=== PATIENT | female | born 1990 | race Caucasian/White ===

== ENCOUNTER → 2020-01-13 | Outpatient (CLI) | payer MEDICAID, SELFPAY ==
[2020-01-13 09:36] VITALS: BMI 31.1
[2020-01-13 13:43] LABS: Absolute Lymphocyte Count 2.78 X10^3/uL (0.83-4.51); Absolute Neutrophil Count 4.1 X10^3/uL (2.0-7.7); Basophil# 0.03 X10^3/uL; Basophil% 0.4 % (0-1); Eosinophil# 0.11 X10^3/uL; Eosinophils% 1.5 % (0-5); Hematocrit 40.5 % (37-47); Lymphocyte # 2.78 X10^3/ul (4.0); Lymphocyte % 36.9 % (19-41); Mean Corp Hgb Conc 32.1 g/dL (32-36); Mean Corpuscular Hgb 29.3 pg (27.0-32.0); Mean Corpuscular Volume 91.4 fL (81-99); Mean Platelet Vol. 11.2 fl (6.2-12.0); Monocyte# 0.46 X10^3/uL; Monocyte% 6.1 % (0-10); NRBC Flagged by Analyzer 0 % (0-5); Neutrophil # 4.13 X10^3/uL (2.7-7.7); Neutrophil % 54.8 % (47-70); Platelet Count 257 K/mm3 (150-450); RBC Distribution Width CV 12.9 % (11.6-14.6); RBC Distribution Width SD 42.5 fl (35.1-43.9); Red Blood Count 4.43 M/mm3 (4.2-5.4); White Blood Count 7.5 K/mm3 (4.4-11.0)
[2020-01-13 13:46] LABS: AST(SGOT) 13 U/L (15-37); Alanine Aminotransfer ALT/SGPT 16 U/L (13-56); Albumin, Serum 4.1 g/dL (3.2-5.0); Alkaline Phosphatase 95 U/L (45-117); BUN 11 mg/dL (7-18); BUN/Creat Ratio 12.3 RATIO (10-20); Calcium,Total 9.4 mg/dL (8.5-10.1); EST Glomerular Filtration Rate 79 mL/min (>60); Est Glom Filt Rate - Afr Amer 96 mL/min (>60); Globulin 4.2 g/dL (2.2-4.2); Glucose 81 mg/dL (74-106); Protein, Total 8.3 g/dL (6.4-8.2); Sodium Level 138 mmol/L (136-145)
[2020-01-13 13:47] LABS: Anion Gap 5 (5-15); Chloride 107 mmol/L (98-107); Potassium 4.6 mmol/L (3.5-5.1)
== END | disposition home or self-care (01) ==
LOC: LABSPEC 13:12
PROVIDERS: PCP Internal Medicine; Referring Provider Internal Medicine; Visit Provider Internal Medicine
DX: G43.709 Chronic migraine without aura, not intractable, without status migrainosus (principal)
CPT/HCPCS: 80053; 85025

== ENCOUNTER 2020-02-17 08:31 | Emergency (ER) | payer MEDICAID, SELFPAY ==
[2020-01-13 09:36] VITALS: BMI 31.1
[2020-02-17 08:32] VITALS: BP 119/86; PULSE 92; RESP 17; TEMP 36.1; O2SAT 96; BMI 32.7
--- NOTE | 2020-02-17 09:12 | CT_ITS ---
STUDY: CT PELVIS WITH CONTRAST REASON FOR EXAM: Female, 29 years old. INCREASED VULVA PAIN, PELVIC PAIN RADIATION DOSAGE (If Supplied By Facility): CTDIvol = ( 20.7 ) mGy, DLP = ( 680.09 ) mGycm TECHNIQUE: Transaxial imaging of the pelvis was performed without oral contrast. IV 100ML ISOVUE 300 was administered intravenously. Individualized dose optimization techniques were used for this CT. COMPARISON: None. FINDINGS: There is a 2 cm x 1.4 cm cyst in the inferior aspect of the labia. I suspect this to be on the left side. This may represent a Bartholin''s cyst. Normal urinary bladder. Small benign-appearing bilateral inguinal lymph nodes. Normal visualized small intestine. Normal visualized colon. There is no pelvic fluid. There is no pelvic lymphadenopathy or mass lesion. Normal visualized pelvic arteries. Normal abdominal wall. Normal osseous structures. CT/Pelvis WITH IV Contrast IMPRESSION: Findings suggestive of a Bartholin''s cyst arising from the left labia majora. Electronically Signed: Steve Claros, at 10:36 EDT , Service support ,
--- NOTE | 2020-02-17 09:20 | ED.DCSUM_ITS ---
- ER Visit Summary Date of Service: 02/17/20 Chief Complaint: Vulva swelling History of Present Illness: The patient is a 29 F presenting with vulva swelling. She states this started last week. She was seen in the ED at [facility] on Saturday. She was diagnosed with possible vaginitis or possible her pes outbreak. Patient has a history of genital herpes. She has been taking Valtrex. She has not noticed any lesions. She denies fever. Denies possibility of . Denies other complaints. Physical Examination: Vitals are stable. Patient is afebrile. Alert no acute distress. HEENT exam is unremarkable. Neck is supple. Lungs are clear and equal bilaterally. Heart is regular rate and rhythm. Abdomen is soft nontender nondistended. : anterior labial fluctuance, 2 cm, no surrounding erythema Extremities are unremarkable. Skin is warm and dry. Remainder of exam is unremarkable. Emergency Department Course and Treatment: She was given morphine, Zofran IV. CBC, chemistries unremarkable. hCG negative. CT abdomen pelvis shows findings suggestive of a Bartholin''s cyst arising from the left labia majora. Area was anesthetized with lidocaine. Incised with 11 blade. Moderate amount of pus was drained. Irrigated with saline. Wound culture was sent. Discussed with Dr. Ames patient will follow-up in the office. She is given a prescription for Bactrim. Advised return to ED for worsening complaints. Disposition: Discharge home Impression: Bartholin gland abscess, I&D This note was generated with [employer] dictation software. It may contain incorrect words, spelling, and punctuation that were not noted in review of the chart prior to signing ED Disposition - Plan for ED Patient: Instructions: ED Bartholins Cyst IandD Prescriptions: Smz/Tmp Ds [Bactrim Ds] 1 tab PO BID #14 tab Prescription Printed Referrals: Arlet Ames MD [STAFF PHYSICIAN] - Gala Roberts MD [Primary Care Provider] -
[2020-02-17] MEDS: Ondansetron 4 MG/2 ML Vial IV (09:22)
[2020-02-17] MEDS: Morphine 4 MG/ML Syringe IV (09:22)
[2020-02-17 09:35] LABS: Absolute Lymphocyte Count 1.96 X10^3/uL (0.83-4.51); Absolute Neutrophil Count 5.8 X10^3/uL (2.0-7.7); Basophil# 0.03 X10^3/uL; Basophil% 0.4 % (0-1); Eosinophil# 0.11 X10^3/uL; Eosinophils% 1.3 % (0-5); Hematocrit 37.3 % (37-47); Hemoglobin 11.5 g/dL (12.0-15.0); Lymphocyte # 1.96 X10^3/ul (4.0); Lymphocyte % 23.2 % (19-41); Mean Corp Hgb Conc 30.8 g/dL (32-36); Mean Corpuscular Hgb 28.8 pg (27.0-32.0); Mean Corpuscular Volume 93.5 fL (81-99); Mean Platelet Vol. 10.1 fl (6.2-12.0); Monocyte# 0.54 X10^3/uL; Monocyte% 6.4 % (0-10); NRBC Flagged by Analyzer 0 % (0-5); Neutrophil # 5.79 X10^3/uL (2.7-7.7); Neutrophil % 68.5 % (47-70); Platelet Count 267 K/mm3 (150-450); RBC Distribution Width CV 12.9 % (11.6-14.6); RBC Distribution Width SD 44.2 fl (35.1-43.9); Red Blood Count 3.99 M/mm3 (4.2-5.4); White Blood Count 8.5 K/mm3 (4.4-11.0)
[2020-02-17 09:51] LABS: Anion Gap 6 (5-15); BUN 7 mg/dL (7-18); BUN/Creat Ratio 7.7 RATIO (10-20); Calcium,Total 8.8 mg/dL (8.5-10.1); Chloride 113 mmol/L (98-107); Creatinine, Serum 0.91 mg/dL (0.55-1.02); EST Glomerular Filtration Rate 78 mL/min (>60); Est Glom Filt Rate - Afr Amer 95 mL/min (>60); Estimated Creatinine Clearance 79.48 ml/min; Glucose 88 mg/dL (74-106); Potassium 3.9 mmol/L (3.5-5.1); Sodium Level 143 mmol/L (136-145)
[2020-02-17 09:57] LABS: Internal QC Validated? YES +Cl - CLEAR BKGD; Pregnancy, Serum, hCG Quali. NEGATIVE Negative
[2020-02-17 10:45] VITALS: BP 102/57; PULSE 67; RESP 16; O2SAT 100
--- NOTE | 2020-02-17 11:05 | ED.DEP ---
ED Disposition - Plan for ED Patient: Instructions: ED Bartholins Cyst IandD Prescriptions: Smz/Tmp Ds [Bactrim Ds] 1 tablet PO BID #14 tablet Referrals: Gala Roberts MD [Primary Care Provider] - rAlet Ames MD [STAFF PHYSICIAN] -
[2020-02-17] MEDS: Smz/Tmp Ds Tablet 1 TABLET PO (11:14)
== END 2020-02-17 11:35 | disposition home or self-care (01) ==
LOC: ED 10:46
PROVIDERS: Emergency Provider Emergency Medicine; PCP Internal Medicine
DX: N75.1 Abscess of Bartholin's gland (principal)
CPT/HCPCS: 10060; 72193; 80048; 84703; 85025; 87070; 87186; 87205; 99284; Q9967; A4216; J2405

== ENCOUNTER 2020-05-20 12:54 | Emergency (ER) | payer MEDICAID, SELFPAY ==
[2020-04-05 11:37] VITALS: BMI 33.5
[2020-05-20 12:56] VITALS: BP 128/81; PULSE 86; RESP 19; TEMP 36.6; O2SAT 99; BMI 34.0
--- NOTE | 2020-05-20 13:12 | CT_ITS ---
STUDY: CT BRAIN WITH AND WITHOUT CONTRAST REASON FOR EXAM: Female, 29 years old. MIGRAINE,PT STATES SHE WAS DX WITH BRAIN TUMOR 2 YRS AGO, NO FOLLOW UP, RT ARM NUMBNESS RADIATION DOSAGE (If Supplied By Facility): CTDIvol = ( 44.99 ) mGy, DLP = ( 1434.74 ) mGycm TECHNIQUE: Transaxial CT imaging of the brain was performed pre and post contrast administration. The examination was performed with intravenous administration of 50 CC ISOVUE 370. Individualized dose optimization techniques were used for this CT. COMPARISON: None. FINDINGS: Normal soft tissue structures. Normal calvarium. Normal size ventricles and extra-axial spaces for the patient''s age. Normal white matter tracts of the cerebral hemispheres. Normal basal ganglia and thalami. Normal brainstem. Normal cerebellum. There is no intracranial hemorrhage. There are no findings of an acute ischemic infarction. Normal visualized paranasal sinuses. CT/Brain/Head W/WO Contrast IMPRESSION: Normal unenhanced and enhanced CT scan of the brain. Electronically Signed: Steve Claros, at 14:48 EDT , Service support ,
--- NOTE | 2020-05-20 13:15 | ED.VIS.GEN ---
History of Present Illness Chief Complaint: Headache Informant: Patient Onset: Days - 3 days Context: Gradual Onset Current Severity: Mild Maximum Severity: Moderate Narrative: Patient presents secondary to headache. She is a history of migraines and states this particular headache is lasted for the past 3 days. She describes it as tightness and stabbing over the frontal scalp and then radiating toward the back of her head. She states that in March 2019 she was diagnosed with some kind of a brain tumor in the back of her head. She states she is not sure if this is accurate as the doctor who diagnosed her has lost her license. She has never followed up for this. She does report decreased sensation to light touch over the left side of her body. She states last night she was dropping some things with her right hand as well. - Past Medical History (1) Anxiety and depression Status: Chronic (2) GERD (gastroesophageal reflux disease) Status: Chronic (3) Chronic migraine Status: Chronic Past Medical History - Allergies and Home Meds Allergies/Adverse Reactions: Allergies meclizine Allergy (Severe, Verified 05/20/20 12:59) unknown influenza vaccine Allergy (Intermediate, Uncoded 05/20/20 12:59) swollen arm Primary Care Physician: Gala Roberts MD [Primary Care Provider] - 1-2 Weeks Prior records reviewed: Yes Lives: With Family Smoking Status: Current some day smoker Review of Systems General: Denies: Chills, Fever Eyes: Reports: Visual changes - bilaterally - Cloudy vision ENT: Denies: Bilateral ear pain Cardiovascular: Denies: Chest pain Respiratory: Denies: Dyspnea, Cough Gastrointestinal: Denies: Abdominal pain, Nausea, Vomiting Neurological: Reports: Headache, Weakness, Parasthesia Hematologic: Denies: Easy bruising, Easy bleeding Allergy: Denies: Uticaria Physical Exam Vital Signs/Narrative: Vital Signs Temp Pulse Resp BP Pulse Ox 05/20/20 12:56 97.8 F 86 19 H 128/81 H 99 Inital Vital Signs reviewed: Yes General: Well nourished, Well developed Head: Normocephalic ENT: Moist mucous membranes Cardiovascular: Regular rate, Regular rhythm Respiratory: No distress, CTA bilaterally Abdomen: Soft, Nontender Back: Nontender Extremities: Nontender Skin: Normal color, No rash Neurological: Alert, Oriented x3, Normal Strength, - - Patient reports decreased incision to light touch of the left face, left upper chest, left arm, and left leg. Strong distal pulses are noted throughout. Psychological: Normal affect Diagnostic/Tx/Re-eval Impressions Brain CT 05/20/20 13:12 IMPRESSION: Normal unenhanced and enhanced CT scan of the brain. Electronically Signed: Steve Claros, at 14:48 EDT , Service support , 05/20/20 13:12 Brain/Head W/WO Contrast [CT] Stat Laboratory Results 05/20/20 05/20/20 05/20/20 13:24 13:24 13:24 WBC 8.5 RBC 4.23 Hgb 12.0 Hct 37.3 MCV 88.2 MCH 28.4 MCHC 32.2 RDW Std Deviation 40.3 RDW Coeff of [place] 12.6 Plt Count 267 MPV 10.4 Immature Gran % (Auto) 0.400 Neut % (Auto) 61.4 Lymph % (Auto) 30.2 [place] % (Auto) 6.9 Eos % (Auto) 0.7 Baso % (Auto) 0.4 Absolute Neuts (auto) 5.3 Absolute Lymphs (auto) 2.58 Nucleated RBC % 0 Sodium 141 Potassium 3.4 L Chloride 108 H Carbon Dioxide 27.0 Anion Gap 6 BUN 9 Creatinine 0.90 Estim Creat Clear Calc 80.36 Est GFR (MDRD) Af Amer 96 Est GFR (MDRD) Non-Af 79 BUN/Creatinine Ratio 10.0 Glucose 89 Calcium 8.5 Serum , Qual NEGATIVE - Medical Decision Making Patient was given Toradol, Reglan, Benadryl, and IV fluids. On repeat evaluation headache is improved. I did discuss with her that her CT at this time reveals no evidence of a tumor. She will follow-up with her primary care physician. ED Disposition - Plan for ED Patient: Disposition: Home or Assisted Living Diagnosis: Migraine Instructions: ED, Migraine (Classical) Prescriptions: DiphenhydrAMINE [Benadryl] 50 mg PO TID PRN PRN #14 cap PRN Reason: Migraine Symptoms Transmission Status: Received by [id number] Metoclopramide [Reglan] 10 mg PO Q8H PRN PRN #20 tab PRN Reason: Migraine Symptoms Transmission Status: [facility] Ketorolac [Toradol] 10 mg PO Q8H PRN #14 tab PRN Reason: Migraine Symptoms Transmission Status: Received by [facility] Referrals: Gala Roberts MD [Primary Care Provider] - 1-2 Weeks
[2020-05-20] MEDS: DiphenhydrAMINE 50 MG/ML Syringe 25 MG IV (13:36)
[2020-05-20] MEDS: 0.9% Normal Saline 1,000 ML 1000 ML IV (13:36)
[2020-05-20] MEDS: Ketorolac 30 MG/ML Syringe IV (13:37)
[2020-05-20] MEDS: Metoclopramide 10 MG/2 ML Vial IV (13:37)
[2020-05-20 13:45] LABS: Absolute Lymphocyte Count 2.58 X10^3/uL (0.83-4.51); Absolute Neutrophil Count 5.3 X10^3/uL (2.0-7.7); Basophil# 0.03 X10^3/uL; Basophil% 0.4 % (0-1); Eosinophil# 0.06 X10^3/uL; Eosinophils% 0.7 % (0-5); Hematocrit 37.3 % (37-47); Lymphocyte # 2.58 X10^3/ul (4.0); Lymphocyte % 30.2 % (19-41); Mean Corp Hgb Conc 32.2 g/dL (32-36); Mean Corpuscular Hgb 28.4 pg (27.0-32.0); Mean Corpuscular Volume 88.2 fL (81-99); Mean Platelet Vol. 10.4 fl (6.2-12.0); Monocyte# 0.59 X10^3/uL; Monocyte% 6.9 % (0-10); NRBC Flagged by Analyzer 0 % (0-5); Neutrophil # 5.25 X10^3/uL (2.7-7.7); Neutrophil % 61.4 % (47-70); Platelet Count 267 K/mm3 (150-450); RBC Distribution Width CV 12.6 % (11.6-14.6); RBC Distribution Width SD 40.3 fl (35.1-43.9); Red Blood Count 4.23 M/mm3 (4.2-5.4); White Blood Count 8.5 K/mm3 (4.4-11.0)
[2020-05-20 14:10] LABS: Internal QC Validated? YES +Cl - CLEAR BKGD; Pregnancy, Serum, hCG Quali. NEGATIVE Negative
[2020-05-20 14:13] LABS: BUN 9 mg/dL (7-18); Estimated Creatinine Clearance 80.36 ml/min; Glucose 89 mg/dL (74-106)
[2020-05-20 14:14] LABS: Anion Gap 6 (5-15); Calcium,Total 8.5 mg/dL (8.5-10.1); Chloride 108 mmol/L (98-107); EST Glomerular Filtration Rate 79 mL/min (>60); Est Glom Filt Rate - Afr Amer 96 mL/min (>60); Potassium 3.4 mmol/L (3.5-5.1); Sodium Level 141 mmol/L (136-145)
[2020-05-20 15:21] VITALS: BP 111/70; O2SAT 97
== END 2020-05-20 15:54 | disposition home or self-care (01) ==
PROVIDERS: Emergency Provider Emergency Medicine; PCP Internal Medicine
DX: G43.909 Migraine, unspecified, not intractable, without status migrainosus (principal); F41.9 Anxiety disorder, unspecified; K21.9 Gastro-esophageal reflux disease without esophagitis; F32.9 Major depressive disorder, single episode, unspecified; Z79.899 Other long term (current) drug therapy; F17.200 Nicotine dependence, unspecified, uncomplicated
CPT/HCPCS: 70470; 80048; 84703; 85025; 96361; 96374; 96375; 99283; J7030; Q9967

== ENCOUNTER 2020-07-27 10:38 | Emergency (ER) | payer MEDICAID, SELFPAY ==
[2020-07-20 09:38] VITALS: BMI 33.5
[2020-07-27 10:38] VITALS: BP 122/69; PULSE 86; RESP 17; TEMP 36.6; O2SAT 99; BMI 33.6
--- NOTE | 2020-07-27 10:57 | ED.RN ---
PER DR ZHOU, COVID ISOLATION NOT NEEDED
--- NOTE | 2020-07-27 11:04 | EKG12_ITS ---
Test Reason : Blood Pressure : / mmHG Vent. Rate : 060 BPM Atrial Rate : 060 BPM P-R Int : 164 ms QRS Dur : 082 ms QT Int : 414 ms P-R-T Axes : 040 058 055 degrees QTc Int : 414 ms Normal sinus rhythm Normal ECG Confirmed by FRANKIE SANDOVAL, MARILOU ([id number]), tape editor QUYNH CARLSON ([id number]) on 07/28/2020 1:01:31 PM Referred By: PIPO Confirmed By:RIKI DAVID MD
--- NOTE | 2020-07-27 11:12 | NURSING ---
NO OLD EKGS
--- NOTE | 2020-07-27 11:16 | ED.DCSUM_ITS ---
History of Present Illness Chief Complaint: Weakness Informant: Patient Onset: Days Context: Gradual Onset Timing: Continuous Narrative: Patient is a 29-year-old female with history of peptic ulcer disease, not currently on any medications presenting with GI symptoms and generalized malaise. Patient states it feels like she has an ulcer again. She states on Saturday she was drinking alcohol and a Jell-O shots which she never had before. She then started to have a little bit of an upset stomach associated nausea. She developed diarrhea she states is been black for couple days. She denies any bright red blood. She is a 1 episode of vomiting which was nonbloody and just the Ramen noodles that she had eaten. She notes that she had decreased appetite and had a force herself to eat. She now has a headache and feels weak/dizzy. States he has some slight heaviness in her chest but contributes that to her ulcer disease which she is had before. She not try to take any medication for her symptoms. She denies any upper respiratory symptoms. She has any fever or chills. She denies any cough. She denies any sick contacts and is not concerned for any exposure to COVID 19. Patient recently moved to this area from [place] in October. She does not have GI or surgeon. She states she did have a colonoscopy when she was 14 because of her ulcers to rule out inflammatory bowel disease. Past Medical History - Allergies and Home Meds Allergies/Adverse Reactions: Allergies meclizine Allergy (Severe, Verified 07/27/20 10:38) unknown influenza vaccine Allergy (Intermediate, Uncoded 07/27/20 10:38) swollen arm Primary Care Physician: Gala Roberts MD [Primary Care Provider] - Max Parada MD [STAFF PHYSICIAN] - Past Medical History: - - Peptic ulcer disease Surgical History: - - Tubal ligation Lives: With Family Smoking Status: Current some day smoker Review of Systems General: Reports: Malaise. Denies: Chills, Fever, Sweats Eyes: Denies: Visual changes - bilaterally, Diplopia ENT: Denies: Rhinorrhea, Sore throat Cardiovascular: Reports: Chest pain - Tightness/pressure. Denies: Palpitations Respiratory: Denies: Dyspnea, Cough, Dyspnea on exertion Gastrointestinal: Reports: Nausea, Vomiting, Diarrhea, Melena. Denies: Abdominal pain, Hematochezia Genitourinary: Denies: Dysuria, Hematuria, Frequency Musculoskeletal: Denies: Myalgias, Arthralgias, Back pain, Extremity Pain Skin: Denies: Rash, Wounds Neurological: Denies: Headache, Weakness, Numbness Physical Exam Vital Signs/Narrative: Vital Signs Temp Pulse Resp BP Pulse Ox 07/27/20 10:38 97.9 F 86 17 122/69 H 99 Inital Vital Signs reviewed: Yes General: Well nourished, Well developed, No Acute Distress Head: Normocephalic, Atraumatic Eyes: Perrl, EOMI ENT: Moist mucous membranes, No rhinorrhea, TM's clear Neck: Supple, Nontender, No JVD Cardiovascular: Regular rate, Regular rhythm, No murmurs Respiratory: No distress, CTA bilaterally, Chest nontender Abdomen: Soft, Nontender, Nondistended, Normal bowel sounds. Negative for: Guarding, Rebound tenderness, Alexander's sign Back: Nontender, Normal Inspection Extremities: Nontender, No edema Skin: Normal color, No rash Neurological: Alert, Oriented x3, Cranial nerves II-XII grossly intact, Normal Strength, Normal Sensation Psychological: Normal affect, Normal Mood Diagnostic/Tx/Re-eval Chest X-Ray - ED: 1 View, Read by ED Physician, Read by Radiologist, No Acute Disease Clinical Impression(s) from Imaging Studies Chest X-Ray 07/27/20 11:40 IMPRESSION: Normal x-ray examination of the chest. Electronically Signed: Meredith Koroma, at 12:24 EST Tel , Service support , Laboratory Data 07/27/20 07/27/20 07/27/20 11:15 11:15 11:15 WBC 6.6 RBC 4.42 Hgb 12.0 Hct 38.4 MCV 86.9 MCH 27.1 MCHC 31.3 L RDW Std Deviation 41.0 RDW Coeff of Rico 12.8 Plt Count 302 MPV 10.0 Immature Gran % (Auto) 0.300 Neut % (Auto) 56.2 Lymph % (Auto) 36.4 [place] % (Auto) 5.9 Eos % (Auto) 0.6 Baso % (Auto) 0.6 Absolute Neuts (auto) 3.7 Absolute Lymphs (auto) 2.40 Nucleated RBC % 0 Sodium 141 Potassium 3.5 Chloride 108 H Carbon Dioxide 27.0 Anion Gap 6 BUN 6 L Creatinine 1.02 Estim Creat Clear Calc 70.91 Est GFR (MDRD) Af Amer 82 Est GFR (MDRD) Non-Af 68 BUN/Creatinine Ratio 5.9 L Glucose 89 Calcium 9.1 Total Bilirubin 0.60 Direct Bilirubin 0.12 AST 30 ALT 33 Alkaline Phosphatase 114 Troponin I < 0.015 Total Protein 8.0 Albumin 3.9 Globulin 4.1 Lipase 42 L Urine Color Yellow Urine Clarity Clear Urine pH 6.0 Ur Specific [place] 1.020 Urine Protein 15 H Urine Glucose (UA) Normal Urine Ketones 5 H Urine Occult Blood Negative Urine Nitrite Negative Urine Bilirubin Negative Urine Urobilinogen 1 H Ur Leukocyte Esterase 25 H Urine RBC 0 SEEN Urine WBC 0 SEEN Ur Squamous Epith Cells 10-25 SEEN Urine Bacteria 1+ Urine Mucus 0 SEEN Urine Test Negative - Rhythm Strip Rhythm Strip: Sinus Rhythm Rate: 60 Ectopy: None - EKG Initial EKG Interpretation: Sinus Rhythm, - - Normal sinus rhythm at a rate of 60 Normal axis Normal intervals Normal ST segments - Medical Decision Making Patient evaluated for nausea, vomiting, diarrhea and decreased appetite as well as generalized malaise and lightheadedness for the past 3 days. It started after she drank alcohol. She is otherwise well-appearing. She has normal vital signs. She is not appear clinically dehydrated. Her abdomen is soft and nontender. I do not think abdominal imaging is indicated. She no she does have a history of gastritis/stomach ulcers and I suspect this could be the cause. She not have any fever, cough or upper respiratory symptoms consistent with COVID-19. She does not think she is been exposed and does not want a be tested. Patient is given IV fluids, Zofran and IV Pepcid with improvement of her symptoms. I suspect her symptoms are primarily from stomach irritation whether it is peptic ulcer disease versus gastritis. She will be given surgery for outpatient follow-up as well as started on an H2 jose and Zofran. Patient is counseled to avoid alcohol and eat a low acid diet. Insert discharge ED Disposition - Plan for ED Patient: Disposition: Home or Assisted Living Diagnosis: Abdominal pain, Generalized weakness Instructions: ED Abdominal Pain Unkn Cause Fem Prescriptions: Famotidine [Pepcid] 20 mg PO BID #28 tab Transmission Status: Pending to [facility] Ondansetron [Zofran Odt] 4 mg PO Q8H PRN PRN #10 tab PRN Reason: Nausea Transmission Status: Pending to [facility] Referrals: Gala Roberts MD [Primary Care Provider] - Max Parada MD [STAFF PHYSICIAN] -
[2020-07-27] MEDS: Ondansetron 4 MG/2 ML Vial IV (11:26)
[2020-07-27] MEDS: 0.9% Normal Saline 1,000 ML 1000 ML IV (11:30)
--- NOTE | 2020-07-27 11:40 | RAD_ITS ---
STUDY: X-RAY CHEST REASON FOR EXAM: Female, 29 years old. CHEST TIGHTNESS, WEAKNESS, LOSS OF APPETITE, N/V/D TECHNIQUE: Frontal view of the chest COMPARISON: None. FINDINGS: The lungs are clear and expanded. There is no demonstrated pleural abnormality. Normal size heart. Normal mediastinum and lauryn. Normal visualized pulmonary arteries. Normal visualized aortic arch and descending thoracic aorta. Normal visualized thoracic spine. Normal visualized ribs, clavicles, and shoulders. There is no demonstrated abnormality of the visualized soft tissue structures of the upper abdomen. RAD/Chest 1 View (Portable) IMPRESSION: Normal x-ray examination of the chest. Electronically Signed: Meredith Koroma, at 12:24 EST Tel , Service support ,
[2020-07-27 11:42] LABS: Mucous, Urine 0 SEEN /hpf (<or=2+); Red Blood Cells-Urine 0 SEEN /hpf (0-5); White Blood Cells 0 SEEN /hpf (0-5)
[2020-07-27] MEDS: Famotidine 200 MG/20 ML MDV 20 MG in 0.9% Normal Saline (Pres. free 8 ML 300 MG IV (11:44)
[2020-07-27 11:47] LABS: Absolute Neutrophil Count 3.7 X10^3/uL (2.0-7.7); Basophil# 0.04 X10^3/uL; Basophil% 0.6 % (0-1); Color, Urine Yellow (Yellow); Eosinophil# 0.04 X10^3/uL; Eosinophils% 0.6 % (0-5); Glucose, Dipstick Normal (Normal); Hematocrit 38.4 % (37-47); Ketone-Dipstick 5 mg/dl (Negative); Leukocyte Esterase-Dipstick 25 /ul (Negative); Lymphocyte % 36.4 % (19-41); Mean Corp Hgb Conc 31.3 g/dL (32-36); Mean Corpuscular Hgb 27.1 pg (27.0-32.0); Mean Corpuscular Volume 86.9 fL (81-99); Monocyte# 0.39 X10^3/uL; Monocyte% 5.9 % (0-10); NRBC Flagged by Analyzer 0 % (0-5); Neutrophil % 56.2 % (47-70); Nitrite-Dipstick Negative (Negative); Occult Blood-Urine Negative /ul (Negative); Platelet Count 302 K/mm3 (150-450); Protein-Dipstick 15 mg/dl (Negative); RBC Distribution Width CV 12.8 % (11.6-14.6); Red Blood Count 4.42 M/mm3 (4.2-5.4); Urine Bilirubin Dipstick Negative (Negative); Urine Clarity Clear (Clear); Urine Urobilinogen 1 mg/dl (Normal); White Blood Count 6.6 K/mm3 (4.4-11.0)
[2020-07-27 11:51] LABS: Internal QC Validated? YES +Cl - CLEAR BKGD; Pregnancy, Urine Negative Negative
[2020-07-27 11:54] LABS: Squamous Epithelial Cells - UA 10-25 SEEN /hpf (5-10)
[2020-07-27 11:55] LABS: Bacteria 1+ /hpf (None Seen)
[2020-07-27 12:03] LABS: AST(SGOT) 30 U/L (15-37); Alanine Aminotransfer ALT/SGPT 33 U/L (13-56); Albumin, Serum 3.9 g/dL (3.2-5.0); Alkaline Phosphatase 114 U/L (45-117); Anion Gap 6 (5-15); BUN 6 mg/dL (7-18); BUN/Creat Ratio 5.9 RATIO (10-20); Bilirubin, Direct 0.12 mg/dL (0.00-0.30); Calcium,Total 9.1 mg/dL (8.5-10.1); Chloride 108 mmol/L (98-107); Creatinine, Serum 1.02 mg/dL (0.55-1.02); EST Glomerular Filtration Rate 68 mL/min (>60); Est Glom Filt Rate - Afr Amer 82 mL/min (>60); Estimated Creatinine Clearance 70.91 ml/min; Globulin 4.1 g/dL (2.2-4.2); Glucose 89 mg/dL (74-106); Lipase 42 U/L (73-393); Potassium 3.5 mmol/L (3.5-5.1); Sodium Level 141 mmol/L (136-145)
[2020-07-27 13:39] VITALS: BP 105/73; PULSE 89; RESP 17; O2SAT 99
--- NOTE | 2020-07-27 14:30 | ED.RN ---
LEFT MESSAGE FOR PT TO CALL THE ER
== END 2020-07-27 13:40 | disposition home or self-care (01) ==
PROVIDERS: Emergency Provider Emergency Medicine; PCP Internal Medicine
DX: R10.9 Unspecified abdominal pain (principal); R53.1 Weakness; R53.81 Other malaise; R07.89 Other chest pain; R11.2 Nausea with vomiting, unspecified; R19.7 Diarrhea, unspecified; Z87.11 Personal history of peptic ulcer disease; F17.200 Nicotine dependence, unspecified, uncomplicated
CPT/HCPCS: 71045; 80048; 80076; 81001; 81025; 83690; 84484; 85025; 93005; 96361; 96374; 96375; 99283; J7030; A4216; J2405; J3490

== ENCOUNTER 2020-08-03 07:45 | Emergency (ER) | payer MEDICAID, SELFPAY ==
[2020-08-03 07:47] VITALS: BP 125/76; PULSE 88; RESP 17; TEMP 36.9; O2SAT 99; BMI 33.6
--- NOTE | 2020-08-03 08:01 | ED.VISSUMM ---
- ER Visit Summary Date of Service: 08/03/20 Chief Complaint: [Back pain] History of Present Illness: The patient is a 30 F [presents to the emergency department complaint of back pain for about 2-1/2 weeks. 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 The following morning she woke up with severe pain in her back. She was seen by her primary care physician who started her on baclofen. He has been taking Excedrin as well and not get much relief of her pain. Patient states the pain is in her low back and oftentimes it is worse when she sitting still or sitting. She denies any pain rating down her legs. She denies any paresthesias. She denies saddle anesthesia. She denies weakness in extremities. She has not had pain quite like this before. She denies any other trauma. She denies urinary symptoms. She denies fever.] Physical Examination: [HEENT-PERRLA, EOMI. Cranial nerves II through XII grossly intact. TMs clear. Mucous membranes moist. No adenopathy. Cardiovascular-regular rate and rhythm without murmur or ectopy Lungs-clear to auscultation, chest wall stable without crepitus or subcu emphysema Abdomen-normoactive bowel sounds, soft, nontender, no rebound or rigidity, no peritoneal signs. Back exam-patient has diffuse tenderness over the lumbar spine and paraspinal musculature that seems to reproduce her pain. She has negative straight leg raises. Deep tendon reflexes are plus 2 out of 4 bilaterally at the patella and Achilles. Patient has normal L5 extension bilaterally. Patient has normal sensation to light touch. Extremities-intact ?4, normal range of motion, normal pulses, atraumatic] Test Results: [Lumbar spine x-rays obtained showed a small area of gas overlying the L5-S1 soft tissues and etiology was unclear. Clinical correlation was suggested. Patient had no evidence of puncture wounds to the subcutaneous tissues. There is no evidence of erythema or warmth or signs of infection. Discussed case with radiologist who recommended CT scan of the area.] CT scan of the lumbar spine with IV contrast obtained was normal Emergency Department Course and Treatment: [Patient was medicated with Dilaudid, Toradol, and Norflex and she had good pain relief with that.] Treatment Plan: [Patient will be given a prescription for [place], Flexeril, and advised to follow-up with primary care physician within next 5 to 7 days.] Patient advised to return if worsening pain, weakness extremities, change in bowel or bladder function, or condition should worsen anyway. Disposition: [Discharged home in stable condition] Impression: [Atraumatic back pain] This note was generated with [employer] dictation software. It may contain incorrect words, spelling, and punctuation that were not noted in review of the chart prior to signing ED Disposition - Plan for ED Patient: Referrals: Gala Roberts MD [Primary Care Provider] -
[2020-08-03] MEDS: HYDROmorphone 1 MG/ML Syringe IM (08:17)
[2020-08-03] MEDS: Ketorolac 60 MG/2 ML Vial IM (08:17)
--- NOTE | 2020-08-03 08:25 | RAD_ITS ---
STUDY: X-RAY - LUMBAR SPINE REASON FOR EXAM: Female, 30 years old. NO PREVIOUS INJURY, ONGOING LOWER BACK PAIN TECHNIQUE: 3 view(s) of the lumbar spine were obtained. COMPARISON: None FINDINGS: Normal lumbar lordosis. There is no substantial scoliosis. There is a normal alignment of the vertebrae. Normal vertebral bodies and endplates. Normal disc space heights. On the lateral view, there is evidence of small amount of gas within the soft tissues posteriorly overlying the L5-S1 disc space and posterior to the sacrum. Clinical correlation is recommended. RAD/Lumbar Spine 2 or 3 Views IMPRESSION: Findings suggesting small amount of gas within the soft tissues overlying the posterior aspect of the sacrum and the L5-S1 disc space level. Electronically Signed: Steve Claros, at 8:43 EST , Service support ,
--- NOTE | 2020-08-03 09:18 | CT_ITS ---
STUDY: CT LUMBAR SPINE WITH CONTRAST REASON FOR EXAM: Female, 30 years old. SOFT TISSUE GAS LUMBAR REGION on xray RADIATION DOSAGE (If Supplied By Facility): CTDIvol = ( 19.00 ) mGy, DLP = ( 694.66 ) mGycm TECHNIQUE: The patient was scanned in a multi detector CT scanner. High resolution transaxial imaging was performed following the intravenous administration of IV 100mL Isovue-300. Images were obtained from L1 to S1 vertebra. Sagittal and coronal images were reconstructed. Individualized dose optimization techniques were used for this CT. COMPARISON: None FINDINGS: Normal lumbar lordosis. There is no substantial scoliosis. Normal vertebrae of the lumbar spine. L1-2: Normal endplates. Normal disc height and morphology. Normal bilateral facet joints. Normal central canal and bilateral lateral recesses. Normal bilateral intervertebral neural foramina. L2-3: Normal endplates. Normal disc height and morphology. Normal bilateral facet joints. Normal central canal and bilateral lateral recesses. Normal bilateral intervertebral neural foramina. L3-4: Normal endplates. Normal disc height and morphology. Normal bilateral facet joints. Normal central canal and bilateral lateral recesses. Normal bilateral intervertebral neural foramina. L4-5: Normal endplates. Normal disc height and morphology. Normal bilateral facet joints. Normal central canal and bilateral lateral recesses. Normal bilateral intervertebral neural foramina. L5-S1: Normal endplates. Normal disc height and morphology. Normal bilateral facet joints. Normal central canal and bilateral lateral recesses. Normal bilateral intervertebral neural foramina. Normal visualized paraspinous soft tissue structures. CT/Spine Lumbar WITH Contrast IMPRESSION: Normal enhanced CT examination of the lumbar spine. Electronically Signed: Steve Claros, at 9:51 EST , Service support ,
--- NOTE | 2020-08-03 10:02 | ED.DEP ---
ED Disposition - Plan for ED Patient: Instructions: ED Spasm Back No Trauma Prescriptions: cycloBENZAPRine HCl [Flexeril] 10 mg PO TID PRN #20 tab PRN Reason: Muscle Spasm Prescription Printed Hydrocodone Bitart/Apap 5-325 [[place] 5MG-325MG] 1 tab PO Q4H PRN PRN 2 Days #14 tab PRN Reason: Pain Prescription Printed Referrals: Gala Roberts MD [Primary Care Provider] - 5-7 Days
[2020-08-03 10:12] VITALS: BP 104/77; PULSE 62; RESP 15; O2SAT 98
== END 2020-08-03 10:13 | disposition short-term general hospital (02) ==
LOC: ED 08:04
PROVIDERS: Emergency Provider Emergency Medicine; PCP Internal Medicine
DX: M54.5 Low back pain (principal)
CPT/HCPCS: 72100; 72132; 96372; 99284; Q9967; A4216

== ENCOUNTER 2020-08-23 13:51 | Outpatient (RCR) | payer MEDICAID, SELFPAY ==
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
--- NOTE | 2020-10-14 12:53 | HP.PT.NRP ---
SAMIRA VIVAS was seen in my office for initial evaluation on 08/23/20. The following Plan of Care was established for this patient: Initial Frequency: 2x /Week Initial Duration: 4 Weeks Patient/Client Instruction: Educate patient on: Condition, Plan of Care For the Purpose of:: To decrease pain, To increase ROM, To improve muscle performance and motor function, To improve ability to perform ADL's, To increase tolerance to activity/condition/position, To improve performance and independence with ADL's, To improve ability of physical actions for home/community/work/leisure, To improve health of tissue, To improve ability to perform tasks related to life management Therapeutic Exercise to Include: Strength training, Body mechanics, Postural training, Flexibilty training, Dynamic Lumbar Stabilization For the Purpose of:: To decrease pain, To increase ROM, To improve ability to perform ADL's, To increase tolerance to activity/condition/position, To improve ability of physical actions for home/community/work/leisure, To improve health of tissue, To decrease soft tissue restriction, To increase flexibility/ROM, To improve ability to perform tasks related to life management TENS: Yes IF ES: Yes Thermo therapy (hot pack): Yes Ultrasound (thermal/non thermal): Yes For the Purpose of:: To decrease pain, To improve nutrient delivery to tissue, To increase oxygenation perfusion, To improve health of tissue, To decrease soft tissue restriction, To increase flexibility/ROM This patient was last seen in our office . Pertinent comments regarding their Physical therapy will appear below: Patient seen for PT evaluation for back pain ,thus is d/c to HEP. At this point I will be discontinuing this patient from physical therapy. I would be happy to see this patient again in the future if found appropriate by the physician. Thank you! Juan Carlos Gerardo, PT, Cert MDT, OCS
== END 2020-08-23 19:00 | disposition home or self-care (01) ==
LOC: PT 13:51
PROVIDERS: PCP Internal Medicine; Referring Provider Nurse Practitioner Family; Visit Provider Nurse Practitioner Family
DX: M54.5 Low back pain (principal)
CPT/HCPCS: 97014; 97162; G0283

== ENCOUNTER 2020-08-24 18:47 | Emergency (ER) | payer MEDICAID, SELFPAY ==
[2020-08-24 18:48] VITALS: BP 128/81; PULSE 88; RESP 16; TEMP 35.7; O2SAT 99; BMI 33.7
--- NOTE | 2020-08-24 19:15 | ED.VISSUMM ---
- ER Visit Summary Date of Service: 08/24/20 Chief Complaint: [Injury to right foot] History of Present Illness: The patient is a 30 F [presents to the emergency department with an injury to the right foot that occurred this afternoon. Patient states that she tripped over a toy chair and injured the right foot. She is able to bear weight but painful. Patient has history of plantar fasciitis in that foot. She denies any other injuries.] Physical Examination: [HEENT-PERRLA, EOMI. Cranial nerves II through XII grossly intact. TMs clear. Mucous membranes moist. No adenopathy. Cardiovascular-regular rate and rhythm without murmur or ectopy Lungs-clear to auscultation, chest wall stable without crepitus or subcu emphysema Abdomen-normoactive bowel sounds, soft, nontender, no rebound or rigidity, no peritoneal signs. Extremities-intact ?4, normal range of motion, normal pulses. Right foot-patient has some mild soft tissue swelling and ecchymosis over the dorsum of the right midfoot with some faint erythema also noted. No pain at the base of the fifth metatarsal. No pain at the ankle. She is neurovascular intact distally.] Test Results: [Rays of the right foot obtained and interpreted by myself as no acute fractures or dislocations. Radiology in agreement.] Emergency Department Course and Treatment: [Was given an Mio wrap.] Treatment Plan: [Patient advised to ice and elevate the extremity. She is to use ibuprofen or Tylenol for discomfort. Patient to follow-up with primary care physician in 5 to 7 days.] Disposition: [Discharged home in stable condition] Impression: [Right foot contusion/sprain This note was generated with [email or web address] dictation software. It may contain incorrect words, spelling, and punctuation that were not noted in review of the chart prior to signing ED Disposition - Plan for ED Patient: Referrals: Gala Roberts MD [Primary Care Provider] -
--- NOTE | 2020-08-24 19:20 | RAD_ITS ---
STUDY: X-RAY - RIGHT FOOT CLINICAL: Female, 30 years old. PAIN PROXIMAL 3RD THROUGH 5TH METATARSALS AFTER TRIPPED OVER CHILD''S CHAIR TECHNIQUE: 3 view(s) of the foot. COMPARISON: None. FINDINGS: Normal talus, calcaneus, and tarsal bones. Plantar spur of the calcaneus. Normal visualized subtalar, talonavicular, calcaneocuboid, tarsal and tarsometatarsal articulations. Normal metatarsi. Normal metatarsophalangeal joint of the great toe. Normal tibial and fibular sesamoid bones. Normal interphalangeal joint of the great toe. Normal phalanges of the great toe. Normal second through fifth metatarsophalangeal joints. Normal interphalangeal joints and phalanges of the lesser toes. The soft tissue structures are unremarkable. There is no demonstrated fracture. RAD/Foot min 3 Views IMPRESSION: Negative for fracture or dislocation. Plantar spur of the calcaneus. Electronically Signed: Gem Chaidez MD at 19:38 EST , Service support ,
--- NOTE | 2020-08-24 19:52 | ED.DEP ---
ED Disposition - Plan for ED Patient: Instructions: ED Foot Contusion, ED Foot Sprain Referrals: Gala Roberts MD [Primary Care Provider] - 5-7 Days
== END 2020-08-24 20:29 | disposition home or self-care (01) ==
LOC: ED 20:12
PROVIDERS: Emergency Provider Emergency Medicine; PCP Internal Medicine
DX: S93.601A Unspecified sprain of right foot, initial encounter (principal); S90.31XA Contusion of right foot, initial encounter; W18.09XA Striking against other object with subsequent fall, initial encounter; Y93.9 Activity, unspecified; Y92.9 Unspecified place or not applicable; Z72.0 Tobacco use
CPT/HCPCS: 73630; 99282

== ENCOUNTER 2020-10-15 03:27 | Emergency (ER) | payer MEDICAID, SELFPAY ==
[2020-10-15 03:28] VITALS: BP 117/83; PULSE 78; RESP 18; TEMP 36.6; O2SAT 98; BMI 35.9
--- NOTE | 2020-10-15 03:39 | ED.DCSUM_ITS ---
History of Present Illness Chief Complaint: Back Informant: Patient Onset: Yesterday Current Severity: Moderate Maximum Severity: Severe Narrative: Patient presents secondary lower back pain. She states that she had an injury at work last June and since that time has had frequent flares of back pain. It started bothering her around noon yesterday. She is unable to get comfortable tonight and came in for evaluation. She did take Flexeril about an hour prior to arrival with no improvement in her symptoms. She states pain is across her lower back at the waistline, upper lumbar spine, and is now started to have some pain down her right leg. There is no new injury. No fevers or chills. No loss of bowel or bladder control. - Past Medical History (1) Anxiety and depression Status: Chronic (2) Chronic migraine Status: Chronic (3) GERD (gastroesophageal reflux disease) Status: Chronic Past Medical History - Allergies and Home Meds Allergies/Adverse Reactions: Allergies meclizine Allergy (Severe, Verified 10/15/20 03:30) unknown influenza vaccine Allergy (Intermediate, Uncoded 10/15/20 03:30) swollen arm Primary Care Physician: Gala Roberts MD [Primary Care Provider] - Prior records reviewed: Yes Surgical History: - - Tubal ligation Smoking Status: Never smoker Review of Systems General: Denies: Chills, Fever Eyes: Denies: Visual changes - bilaterally ENT: Denies: Bilateral ear pain Cardiovascular: Denies: Chest pain Respiratory: Denies: Dyspnea, Cough Gastrointestinal: Denies: Abdominal pain, Vomiting, Diarrhea Genitourinary: Denies: Dysuria Musculoskeletal: Reports: Back pain. Denies: Extremity Pain Neurological: Denies: Parasthesia, Numbness Hematologic: Denies: Easy bruising, Easy bleeding Allergy: Denies: Uticaria Physical Exam Vital Signs/Narrative: Vital Signs Temp Pulse Resp BP Pulse Ox 10/15/20 03:28 98 F 78 18 117/83 H 98 Inital Vital Signs reviewed: Yes General: Well nourished, Well developed Head: Normocephalic ENT: Moist mucous membranes Neck: Supple Cardiovascular: Regular rate, Regular rhythm Respiratory: No distress, CTA bilaterally Abdomen: Soft, Nontender, Normal bowel sounds Back: - - Reproducible tenderness throughout the lumbar spine, worse in the paraspinal muscles bilaterally. No erythema or warmth. No focal point tenderness. Extremities: Nontender Skin: Normal color Neurological: Alert, Oriented x3, Normal Strength, Normal Sensation, - - 1+ bilateral patellar reflexes. Strong and equal distal pulses. Psychological: - - Anxious Diagnostic/Tx/Re-eval - Medical Decision Making Patient was given 1 mg IM Dilaudid, 60 mg IM Toradol, and a Lidoderm patch. She had taken Flexeril 1 hour prior to arrival. On repeat evaluation she does have improvement with her pain. She will be discharged with prescriptions for [place], Naprosyn, and Lidoderm patch. She has Flexeril at home that she will continue to take. OARRS report was performed and her last narcotic was prescription was in July 2020. She is written off work for today. With no direct trauma and this being an ongoing issue, I do not feel emergent imaging is needed tonight. ED Disposition - Plan for ED Patient: Disposition: Home or Assisted Living Diagnosis: Acute exacerbation of chronic low back pain Instructions: ED Back Spasm, No Trauma, ED Back Sprain/Strain Prescriptions: Lidocaine [Lidoderm Patch] 1 patch TOPICAL DAILY #3 patch Transmission Status: Pending to [id number] Naproxen [Naprosyn] 500 mg PO BID PRN #14 tab PRN Reason: Pain Score 4-10 Transmission Status: Pending to [facility] Hydrocodone Bitart/Apap 5-325 [[place] 5MG-325MG] 1 tablet PO Q6H PRN PRN 3 Days #10 tablet PRN Reason: Pain Transmission Status: Sent to [facility] Referrals: Gala Roberts MD [Primary Care Provider] - 1 Week if not improving
[2020-10-15] MEDS: Ketorolac 60 MG/2 ML Vial IM (03:42)
[2020-10-15] MEDS: HYDROmorphone 1 MG/ML Syringe IM (03:44)
[2020-10-15] MEDS: Lidocaine 5% Patch 1 PATCH TOPICAL (04:24)
[2020-10-15 05:10] VITALS: BP 112/60; PULSE 76; RESP 16; O2SAT 98
== END 2020-10-15 05:12 | disposition home or self-care (01) ==
PROVIDERS: Emergency Provider Emergency Medicine; PCP Internal Medicine
DX: M54.5 Low back pain (principal); G89.29 Other chronic pain; K21.9 Gastro-esophageal reflux disease without esophagitis; F41.9 Anxiety disorder, unspecified; F32.9 Major depressive disorder, single episode, unspecified; G43.909 Migraine, unspecified, not intractable, without status migrainosus; Z79.899 Other long term (current) drug therapy
CPT/HCPCS: 96372; 99283

== ENCOUNTER 2020-10-24 10:13 | Emergency (ER) | payer MEDICAID, SELFPAY ==
[2020-10-24 10:13] VITALS: BP 111/68; PULSE 93; RESP 17; TEMP 36.2; O2SAT 97; BMI 35.6
--- NOTE | 2020-10-24 10:35 | CT_ITS ---
STUDY: CT BRAIN WITHOUT CONTRAST REASON FOR EXAM: Female, 30 years old. MIGRAINE, HAS HX, ON MEDS RADIATION DOSAGE (If Supplied By Facility): CTDIvol = ( 60.81 ) mGy, DLP = ( 998.67 ) mGycm TECHNIQUE: Transaxial CT imaging of the brain was performed without administration of intravenous contrast material. Individualized dose optimization techniques were used for this CT. COMPARISON: No relevant priors. FINDINGS: Normal soft tissue structures. Normal calvarium. Normal size ventricles and extra-axial spaces for the patient''s age. Normal white matter tracts of the cerebral hemispheres. Normal basal ganglia and thalami. Normal brainstem. Normal cerebellum. There is no intracranial hemorrhage. There are no findings of an acute ischemic infarction. Normal visualized paranasal sinuses. CT/Brain/Head without Contrast IMPRESSION: Normal unenhanced CT scan of the brain. Electronically Signed: Steve Claros MD at 11:32 EST , Service support ,
--- NOTE | 2020-10-24 10:36 | ED.DCSUM_ITS ---
- ER Visit Summary Date of Service: 10/24/20 Chief Complaint: Headache History of Present Illness: The patient is a 30 F who presents with headache that began approximate 1 hour prior to arrival. Patient states she was at her [employer] physician when her pain began. Patient states this is worse than her typical migraines. Patient states her typical migraines are in the frontal area. Patient states this is generalized. Patient describes her pain as sharp and throbbing. Patient states the pain is worse with light. Patient admits to some intermittent numbness and tingling of her face. Patient admits to some blurred vision and gold spots in her vision. Patient admits to some photophobia. Patient also admits to some rhinorrhea. Patient denies any fevers or chills. Patient denies any neck or back pain. Physical Examination: Vital signs are stable. Patient is afebrile. Patient is in no acute distress. Oral mucosa is pink and moist. Neck is supple. Trachea is midline. There is no JVD. Heart was regular rate and rhythm. Lungs are clear and equal bilaterally. Abdomen is soft. Bowel sounds are normal. There is no tenderness. Cranial nerves II through XII are intact. There are no focal motor or sensory deficits noted. Extremities are intact. There is no calf tenderness or edema. Test Results: CT scan of the brain was obtained. There is no acute intracranial abnormality. This was interpreted by the radiologist and reviewed by myself. Emergency Department Course and Treatment: Patient was given IV fluids, Reglan, and Benadryl. Patient was feeling somewhat better on reevaluation. Patient was given injection of Toradol. Patient feels better and wants to go home. Patient was instructed to rest in a dark quiet room. Patient was instructed to follow- up with her primary care physician in 5 to 7 days. Patient understood and was agreeable with the plan. All questions were answered. Disposition: Discharge home Impression: Migraine headache This note was generated with [employer] dictation software. It may contain incorrect words, spelling, and punctuation that were not noted in review of the chart prior to signing ED Disposition - Plan for ED Patient: Disposition: Home or Assisted Living Diagnosis: Migraine headache Instructions: ED, Migraine (Classical) Referrals: Gala Roberts MD [Primary Care Provider] - 3-5 Days
[2020-10-24] MEDS: 0.9% Normal Saline 1,000 ML 999 ML IV (10:51)
[2020-10-24] MEDS: Metoclopramide 10 MG/2 ML Vial IV (10:53)
[2020-10-24] MEDS: DiphenhydrAMINE 50 MG/ML Syringe 25 MG IV (10:53)
[2020-10-24] MEDS: Ketorolac 30 MG/ML Syringe IV (12:41)
[2020-10-24 12:42] VITALS: BP 110/70; PULSE 73; RESP 16; O2SAT 98
[2020-10-24 13:26] VITALS: BP 107/63; PULSE 81; RESP 16; O2SAT 100
== END 2020-10-24 13:28 | disposition home or self-care (01) ==
PROVIDERS: Emergency Provider Emergency Medicine; PCP Internal Medicine
DX: G43.909 Migraine, unspecified, not intractable, without status migrainosus (principal); E66.9 Obesity, unspecified; K21.9 Gastro-esophageal reflux disease without esophagitis
CPT/HCPCS: 70450; 96361; 96374; 96375; 99284; J7030; A4216

== ENCOUNTER → 2020-10-25 13:53 | Outpatient (CLI) | payer MEDICAID, SELFPAY ==
[2020-10-25 13:15] VITALS: BMI 35.3
[2020-10-25 15:35] LABS: Erythrocyte Sedimentation Rate 18 mm/hr (0-30)
[2020-10-25 15:45] LABS: CRP < 2.90 mg/L (0.0-3.0); Rheumatoid Factor < 10.0 IU/mL (<15)
[2020-11-01 15:14] LABS: HLA B27 Negative (.)
== END ==
PROVIDERS: PCP Internal Medicine; Referring Provider Internal Medicine; Visit Provider Internal Medicine
DX: M19.90 Unspecified osteoarthritis, unspecified site (principal); G89.29 Other chronic pain; M54.9 Dorsalgia, unspecified
CPT/HCPCS: 36415; 81374; 85652; 86140; 86431

== ENCOUNTER → 2020-12-23 09:23 | Outpatient (CLI) | payer MEDICAID, SELFPAY ==
[2020-11-30 16:46] VITALS: BMI 35.0
--- NOTE | 2020-12-23 14:03 | PFTCOMP ---
COMPLETE PULMONARY FUNCTION TEST INTERPRETATION Brief HPI: Patient is a 30 year old female, currently under the care of Krishan Iglesias, who presents to [facility] for complete pulmonary function tests secondary to diagnosis of dyspnea. Respiratory therapist reports good effort and reproducible results. Interpretation: Forced expiration spirometry shows no large airways obstructive ventilatory defect with an FEV1 of 113% predicted. There is no significant bronchodilator response by strict ATS criteria. Spirograms are of good quality and plateau normally. The respiratory flow volume loop shows a normal pattern. Lung volumes by body plethysmography show a normal total lung capacity at 5.27 L, 102% predicted. All other lung volumes are within normal limits. Diffusion capacity by carbon monoxide is normal at 71% predicted. The airway resistance is normal. No previous pulmonary function tests were available for review. Impression: Grossly normal pulmonary function test. DLCO is at the lower limit of normal, so early pulmonary vascular disorder cannot be excluded.
== END ==
PROVIDERS: PCP Internal Medicine; Referring Provider Nurse Practitioner Family; Visit Provider Nurse Practitioner Family
DX: R06.02 Shortness of breath (principal)
CPT/HCPCS: 94060; 94726; 94729

== ENCOUNTER 2020-12-24 10:41 | Emergency (ER) | payer MEDICAID, SELFPAY ==
[2020-11-30 16:46] VITALS: BMI 35.0
[2020-12-24 10:42] VITALS: BP 111/68; PULSE 87; RESP 20; TEMP 36.1; O2SAT 97; BMI 35.9
--- NOTE | 2020-12-24 10:57 | EKG12_ITS ---
Test Reason : SOB Blood Pressure : / mmHG Vent. Rate : 066 BPM Atrial Rate : 066 BPM P-R Int : 172 ms QRS Dur : 080 ms QT Int : 400 ms P-R-T Axes : 021 061 043 degrees QTc Int : 419 ms Normal sinus rhythm with sinus arrhythmia Early repolarization Normal ECG Confirmed by ANNE-MARIE SANDOVAL, RICHELLE ([id number]), assistant editor AVNI ROLAND ([id number]) on 12/28/2020 7:45:03 AM Referred By: DWAIN Confirmed By:RICHELLE XIE MD
--- NOTE | 2020-12-24 10:57 | RAD_ITS ---
STUDY: X-RAY CHEST REASON FOR EXAM: Female, 30 years old. Dyspnea TECHNIQUE: Single AP portable view of the chest. COMPARISON: 07/27/2020. FINDINGS: The lungs are clear and expanded. There is no demonstrated pleural abnormality. There is an azygos lobe which is a normal variant. Normal size heart. Normal mediastinum and lauryn. Normal visualized pulmonary arteries. Normal visualized aortic arch and descending thoracic aorta. Normal visualized thoracic spine. Normal visualized ribs, clavicles, and shoulders. There is no demonstrated abnormality of the visualized soft tissue structures of the upper abdomen. RAD/Chest 1 View (Portable) IMPRESSION: Normal x-ray examination of the chest. Electronically Signed: Akshat Foote MD at 12:53 EDT Tel , Service support ,
[2020-12-24] MEDS: Ipratropium/Albuterol Sulfate 3 ML AMPUL.NEB INHALATION (11:08)
[2020-12-24 11:09] VITALS: BP 111/68; PULSE 87; RESP 20; TEMP 36.1; O2SAT 97
[2020-12-24 11:12] VITALS: PULSE 68; RESP 25; O2SAT 100
[2020-12-24 11:13] LABS: Absolute Lymphocyte Count 2.85 X10^3/uL (0.83-4.51); Absolute Neutrophil Count 3.8 X10^3/uL (2.0-7.7); Basophil# 0.03 X10^3/uL; Basophil% 0.4 % (0-1); Eosinophil# 0.08 X10^3/uL; Eosinophils% 1.1 % (0-5); Hematocrit 36.2 % (37-47); Hemoglobin 11.6 g/dL (12.0-15.0); Lymphocyte # 2.85 X10^3/ul (4.0); Lymphocyte % 39.4 % (19-41); Mean Corpuscular Hgb 27.5 pg (27.0-32.0); Mean Corpuscular Volume 85.8 fL (81-99); Mean Platelet Vol. 10.5 fl (6.2-12.0); Monocyte# 0.45 X10^3/uL; Monocyte% 6.2 % (0-10); NRBC Flagged by Analyzer 0 % (0-5); Neutrophil % 52.6 % (47-70); Platelet Count 294 K/mm3 (150-450); RBC Distribution Width CV 13.6 % (11.6-14.6); RBC Distribution Width SD 42.7 fl (35.1-43.9); Red Blood Count 4.22 M/mm3 (4.2-5.4); White Blood Count 7.2 K/mm3 (4.4-11.0)
--- NOTE | 2020-12-24 11:15 | ED.DCSUM_ITS ---
- ER Visit Summary Date of Service: 12/24/20 Chief Complaint: Shortness of breath History of Present Illness: The patient is a 30 F who presents with shortness of breath that has been constant for the past 3 months. Patient states it got worse last night. Patient states her breathing is worse with any exertion. Patient states it is also worse with standing. Patient states it is better whenever she lays down. Patient admits to a cough with some clear sputum production. Patient also admits to some rhinorrhea, sore throat, and bilateral ear pain. Patient denies any fevers or chills. Patient admits to some tightness and heaviness in her chest. Patient also admits to some lightheadedness. Physical Examination: Vital signs are stable. Patient is afebrile. Patient is in no acute distress. Oral mucosa is pink and moist. Neck is supple. Trachea is midline. There is no JVD noted. Heart was regular rate and rhythm. Lungs are clear but slightly diminished bilaterally. Abdomen is soft. Bowel sounds are normal. There is mild diffuse tenderness. There is no rebound or guarding noted. Skin is warm dry. Cranial nerves II through XII are intact. There are no focal motor or sensory deficits noted. Extremities are intact. There is no calf tenderness or edema. Test Results: EKG was obtained. On my interpretation, it showed a normal sinus rhythm with a rate of 66. ME interval, QRS interval, and QTc intervals were all normal. [place] was normal. There are there are early repolarization changes but there are no acute ST or T wave changes. CBC shows a slight anemia with a hemoglobin of 11.6 hematocrit 36.2. Comprehensive metabolic profile was normal. Troponin was normal. D-dimer was normal. Portable 1 view chest x-ray was obtained. On my interpretation, lung waters are clear. There is normal cardiac silhouette. Bony thorax is normal. There is no acute process noted. Radiologist also interpreted the x-ray and agrees. Emergency Department Course and Treatment: She was given a DuoNeb here. Patient feels better on reevaluation. Patient was given a prescription for albuterol inhaler. Patient was instructed to follow-up with her primary care physician in 3 to 5 days. Patient understood and was agreeable with the plan. All questions were answered. Disposition: Discharge home Impression: Dyspnea This note was generated with [employer] dictation software. It may contain incorrect words, spelling, and punctuation that were not noted in review of the chart prior to signing ED Disposition - Plan for ED Patient: Disposition: Home or Assisted Living Diagnosis: Dyspnea Instructions: ED Dyspnea Prescriptions: Albuterol Inhaler [Ventolin Hfa] 1 - 2 puff INHALATION Q4H PRN PRN #1 inhaler PRN Reason: Wheezing Transmission Status: Pending to [id number] Referrals: Gala Roberts MD [Primary Care Provider] - 3-5 Days
[2020-12-24 11:21] LABS: International Normalized Ratio 1.1; Prothrombin Time (Protime)PT. 13.1 SECONDS (11.7-14.9)
[2020-12-24 11:22] LABS: Partial Thromboplast Time 28.4 Seconds (24.1-36.2)
[2020-12-24 11:24] LABS: D-Dimer Quantitative (DVT/PE) 0.39 FEU/ug/m (0.27-0.49)
[2020-12-24 11:31] LABS: ALB/GLOB Ratio 0.9 RATIO (0.9-2.4); AST(SGOT) 17 U/L (15-37); Alanine Aminotransfer ALT/SGPT 20 U/L (13-56); Albumin, Serum 3.4 g/dL (3.2-5.0); Alkaline Phosphatase 103 U/L (45-117); Anion Gap 5 (5-15); BUN 9 mg/dL (7-18); BUN/Creat Ratio 10.6 RATIO (10-20); Calcium,Total 8.9 mg/dL (8.5-10.1); Chloride 107 mmol/L (98-107); Creatinine, Serum 0.85 mg/dL (0.55-1.02); EST Glomerular Filtration Rate 84 mL/min (>60); Est Glom Filt Rate - Afr Amer 101 mL/min (>60); Estimated Creatinine Clearance 84.33 ml/min; Globulin 3.8 g/dL (2.2-4.2); Glucose 93 mg/dL (74-106); Potassium 3.9 mmol/L (3.5-5.1); Protein, Total 7.2 g/dL (6.4-8.2); Sodium Level 139 mmol/L (136-145)
[2020-12-24 13:42] VITALS: BP 106/68; PULSE 72; RESP 18; O2SAT 99
== END 2020-12-24 13:43 | disposition home or self-care (01) ==
PROVIDERS: Emergency Provider Emergency Medicine; PCP Internal Medicine
DX: R06.00 Dyspnea, unspecified (principal); R05 Cough; J34.89 Other specified disorders of nose and nasal sinuses; J02.9 Acute pharyngitis, unspecified; H92.03 Otalgia, bilateral; R07.89 Other chest pain; R53.1 Weakness; R42 Dizziness and giddiness; D64.9 Anemia, unspecified; K21.9 Gastro-esophageal reflux disease without esophagitis; M72.2 Plantar fascial fibromatosis; M54.9 Dorsalgia, unspecified; G89.29 Other chronic pain; F41.9 Anxiety disorder, unspecified; F32.9 Major depressive disorder, single episode, unspecified; F43.10 Post-traumatic stress disorder, unspecified; Z87.11 Personal history of peptic ulcer disease; Z79.899 Other long term (current) drug therapy
CPT/HCPCS: 71045; 80053; 84484; 85025; 85379; 85610; 85730; 87426; 93005; 94640; 99284; A4216

== ENCOUNTER → 2021-01-09 09:53 | Outpatient (CLI) | payer MEDICAID, SELFPAY ==
[2020-12-24 10:42] VITALS: BMI 35.9
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
== END ==
PROVIDERS: PCP Internal Medicine; Referring Provider Nurse Practitioner Family; Visit Provider Nurse Practitioner Family
DX: G56.02 Carpal tunnel syndrome, left upper limb (principal)
CPT/HCPCS: 95886; 95910

== ENCOUNTER 2021-01-18 08:11 | Emergency (ER) | payer MEDICAID, SELFPAY ==
[2021-01-10 13:06] VITALS: BMI 35.5
[2021-01-18 08:12] VITALS: BP 102/66; PULSE 83; RESP 15; TEMP 36.2; O2SAT 96; BMI 35.5
--- NOTE | 2021-01-18 08:30 | EX.ED.DYSGE1 ---
HPI History of Present Illness Chief Complaint: Back Informant: patient Narrative Narrative: 30-year-old female states that she has had recurrent back pain since a work injury last fall. She tells me she has been seeing her primary care physician Dr. Macias and is currently doing physical therapy at [facility]. She states that since Saturday she has had worsening pain in her low back. There is no radiation. She denies any fevers or rashes. No bowel or bladder symptoms. 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 She currently takes baclofen for her back. Patient has no red flag symptoms or history. She states that on Saturday she laid in bed. She went to work on Saturday and each day is gotten progressively more sore. She states that the back feels very tight. [facility] Medical History (Updated 01/18/21 @ 09:[address] Lee Bonilla, ) Anemia Anxiety and depression Arthritis Back problem Chronic urinary tract infection Genital herpes GERD (gastroesophageal reflux disease) Heel spur History of drug abuse Migraines Seasonal allergies Stomach ulcer Tendonitis Home Medications valacyclovir 500 mg tablet 500 mg PO DAILY 08/05/20 [History Last Taken Unknown] duloxetine 30 mg capsule,delayed release 30 mg PO BID #60 cap 10/25/20 [Rx Last Taken Unknown] albuterol sulfate 90 mcg/actuation aerosol inhaler 1 - 2 puff INHALATION Q6H PRN #8.5 gm 12/01/20 [Rx Last Taken Unknown] hydroxyzine HCl 25 mg tablet 25 mg PO BID PRN #30 tablet 12/01/20 [Rx Last Taken Unknown] albuterol sulfate 1 - 2 puff INHALATION Q4H PRN PRN #1 inhaler 12/24/20 [Rx Last Taken Unknown] indomethacin 50 mg capsule 50 mg PO BID #28 cap 01/10/21 [Rx Last Taken Unknown] nortriptyline 25 mg capsule 25 mg PO QHS #90 cap 01/10/21 [Rx Last Taken Unknown] omeprazole 40 mg capsule,delayed release 40 mg PO DAILY #90 cap 01/10/21 [Rx Last Taken Unknown] topiramate 50 mg tablet 50 mg PO QHS #90 tablet 01/10/21 [Rx Last Taken Unknown] diazepam 5 mg PO Q8 PRN #15 tab 01/18/21 [Rx Last Taken Unknown] oxycodone-acetaminophen [Percocet] 1 tab PO TID PRN 3 Days #12 tab 01/18/21 [Rx Last Taken Unknown] Allergy/AdvReac Type Severity Reaction Status Date / Time meclizine Allergy Severe unknown Verified 01/18/21 08:14 influenza vaccine Allergy Intermediate swollen Uncoded 01/18/21 08:14 arm Family History Other Anxiety and depression Breast cancer Heart disease Hyperlipemia Hypertension Myocardial infarction Osteoporosis Seizures Thyroid disorder Surgical History History of loop electrical excision procedure (LEEP) History of tubal ligation Social History Smoking Status: Former smoker quit date: 07/24/20 alcohol intake: current alcohol intake frequency: holidays/special occasions only Alcohol type: beer substance use type: former substance user Date of last use: 10/29/2019, heroin and methamphetamine what type of physical activity do you participate in: walking ROS ROS ED Constitutional Constitutional ED: Denies chills or weight loss Eyes Eyes: Denies change in vision or diplopia ENT ENT ED: Denies ear pain, rhinorrhea or sore throat Cardiovascular Cardiovascular: Denies chest pain, orthopnea, palpitations or racing heartbeat Respiratory/Chest Respiratory/Chest: Denies cough, dyspnea or orthopnea Gastrointestinal Gastrointestinal: Denies abdominal pain, diarrhea, nausea or vomiting Genitourinary Genitourinary ED: Denies dysuria, hematuria or urinary frequency Musculoskeletal Musculoskeletal: Reports back pain; Denies arthralgias or myalgias Integumentary Denies abscess or rash Neurologic Neurologic: Denies burning sensations, focal weakness, headache(s), radicular pain, sensory deficit or weakness Psychiatric Psychiatric: Denies anxiety, depression, suicidal ideation or suicidal thoughts Endocrine Endocrinology: Denies polydipsia, polyphagia or polyuria Allergic/Immunologic Allergic/Immunologic ED: Denies mouth swelling, tongue swelling or urticaria EXAM Physical Exam Narrative Exam Narrative: Patient sitting in the bed with her legs out in front of her. Const Vital Signs: 01/18/21 08:12 Temperature 97.1 F L Temperature Source Temporal Pulse Rate 83 Respiratory Rate 15 Blood Pressure 102/66 Blood Pressure Mean 78 Pulse Ox 96 Oxygen Delivery Method Room Air Positive well nourished and well developed General Appearance ED: well developed HEENT Reports normocephalic, head/scalp atraumatic and moist mucous membranes Eyes PERRL and EOMs intact bilaterally Neck no lymphadenopathy, supple and no JVD Resp normal respiratory effort and clear to auscultation bilaterally Cardio regular rate, regular rhythm and no murmurs GI normal to inspection, nondistended, normoactive bowel sounds and non-tender Palpation: soft Back/Spine no CVA tenderness and normal ROM Back/Spine Narrative: Patient has diffuse tenderness to palpation across the lumbar musculature. There are no tissue texture changes to suggest underlying infection. Extremity normal to inspection General Extremety ED: Negative for edema General Extremity: Negative for edema Neuro oriented x3, CN's II-XII intact bilaterally, moves all extremities, no focal motor deficits, no sensory deficits noted and deep tendon reflexes 2+ bilaterally Sensorium / Orientation: alert Motor Exam: strength 5/5 throughout Psych mental status grossly normal Mood & Affect: Negative for depressed or tearful Skin no rashes or lesions noted and no wounds MDM MDM MDM Narrative Medical decision making narrative: Patient received a milligram of Dilaudid IM as well as Toradol and p.o. Valium. Patient will be discharged home with a short course of Holl[place] and Valium. She is to follow-up with primary care. I believe that this is muscular spasm. Patient may require MRI in the future if she does not seem to be improving with physical therapy. However the current time she has no radicular symptoms are indications for an emergent MRI. Discharge Plan Triage Chief Complaint: Back ED Provider: Lee Bonilla Dx/Rx/DC Orders Clinical Impression: Acute lumbar back pain Instructions: ED Back Spasm, No Trauma Prescriptions: New diazepam [diazepam] 5 MG tablet 5 mg PO Q8 PRN (Reason: Muscle Spasm) Qty: 15 RF: 0 oxycodone-acetaminophen [Percocet] 5-325 mg tablet 1 tab PO TID PRN (Reason: pain) 3 Days Qty: 12 RF: 0 No Action valacyclovir [Valtrex] 500 mg tablet 500 mg PO DAILY RF: 0 duloxetine 30 mg capsule,delayed release(DR/EC) 30 mg PO BID Qty: 60 RF: 1 albuterol sulfate [ProAir HFA] 90 mcg/actuation HFA aerosol inhaler 1 - 2 puff INHALATION Q6H PRN (Reason: shortness of breath or wheezing) Qty: 8.5 RF: 1 hydroxyzine HCl 25 mg tablet 25 mg PO BID PRN (Reason: anxiety) Qty: 30 RF: 1 nortriptyline 25 mg capsule 25 mg PO QHS Qty: 90 RF: 3 topiramate 50 mg tablet 50 mg PO QHS Qty: 90 RF: 1 omeprazole 40 mg capsule,delayed release(DR/EC) 40 mg PO DAILY Qty: 90 RF: 2 indomethacin 50 mg capsule 50 mg PO BID Qty: 28 RF: 0 albuterol sulfate 1 INHALER inhaler 1 - 2 puff INHALATION Q4H PRN PRN (Reason: Wheezing) Qty: 1 RF: 0 Primary Care Provider: Gala Roberts Referrals: Gaal Roberts MD [Primary Care Provider] - As soon as possible Disposition Patient Disposition: Home, self care
[2021-01-18] MEDS: HYDROmorphone 1 MG/ML Syringe IM (09:02)
[2021-01-18] MEDS: diazePAM 5 MG Tablet PO (09:04)
[2021-01-18] MEDS: Ketorolac 60 MG/2 ML Vial IM (09:04)
[2021-01-18 09:38] VITALS: PULSE 70; RESP 16; O2SAT 97
== END 2021-01-18 09:39 | disposition home or self-care (01) ==
PROVIDERS: Emergency Provider Emergency Medicine; PCP Internal Medicine
DX: M54.5 Low back pain (principal); F41.9 Anxiety disorder, unspecified; F32.9 Major depressive disorder, single episode, unspecified; M19.90 Unspecified osteoarthritis, unspecified site; K21.9 Gastro-esophageal reflux disease without esophagitis; J30.2 Other seasonal allergic rhinitis; G43.909 Migraine, unspecified, not intractable, without status migrainosus; A60.00 Herpesviral infection of urogenital system, unspecified; Z86.2 Personal history of diseases of the blood and blood-forming organs and certain disorders involving the immune mechanism; Z87.19 Personal history of other diseases of the digestive system; Z87.440 Personal history of urinary (tract) infections; Z79.899 Other long term (current) drug therapy; Z87.891 Personal history of nicotine dependence
CPT/HCPCS: 96372; 99283

== ENCOUNTER 2021-02-07 11:30 | Outpatient (RCR) | payer MEDICAID, SELFPAY ==
--- NOTE | 2021-01-04 12:10 | HP.PTEVAL_ITS ---
Patient's Visit Information SAMIRA VIVAS is a 30 year old F referred to Physical Therapy by Dr. Gala Roberts MD with a diagnosis of Dorsalgia. Date of Evaluation: 01/04/21 Physical Therapist: Avila Freed, JODYT, OCS, CSCS - Visit Plan Frequency: 2-3x /Week Duration: 4-6 Weeks Plan: 2-3x/week for 4-6 weeks as needed for. modalities ES and ice to help with pain. Martha ext ex adn LB ROM. core strength and body mechanics - Subjective Working last May in [place] and got back pain that night after lifting and twiting boxes for a week and a half. Couldn't sleep that night and went to ER next day and diagnosed with pulled muscle. X ray was muscle spasm. MRI showed normal. That was early June. Been to ER 3x/with back pain since. It hurts middle LB L>R intermittent. Did a lot of laundry adn bending yesterday and back hurt very bad lastnight. Some times it does not hurt. Meds help some days. No leg symptoms lately, Sometimes pain shoots down into legs rarely. No numbness, No back pain prior to this incident. Sleep is interrupted many nights, hard to get comfy. 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 Worse in evening after busy day. Lives with toddlers and boyfriend. Basic aDLs are I. Hobbies: sewing quilts, read, hiking on weekends. No regular exercises outside of leg stretches - Pain LBP Pain Intensity (Out of 10): 4 Pain Intensity Range: 0, 8 - Objective Leans off R pelvis to L in sitting. Posture is kyphosis in T/S and flat lordosis. Getting out of chair is lindsey on bad days like today, stand slowly. Hard time standing up straight. reflexes 1/3 patella and achilles. Sensation LE WNL to gross light touch. Strenght L 4/5 but pain to resisted LAQ adn hip flexion B. + slump and SLR R>L. + lumbar compression test. - Goals Goal 1:: Tranfer withotu evidence of pain Goal Time Frame: 4-6 Weeks Goal 2:: I approp Body mechanics and HEP strength and LB ROM and body mechanics to minimize future problems. Goal Time Frame: 4-6 Weeks Goal 3:: Pt feel like back pain is 80% improved to 1/10 at worst. Goal Time Frame: 4-6 Weeks Goal 4:: Pt sleep without waking due to pain Goal Time Frame: 4-6 Weeks Goal 5:: < 8 on oswestry Goal Time Frame: 4-6 Weeks - Rehabilitation Potential Physical Therapy Diagnosis: LBP likely HNP vs muscularlimiting mobility. Rehabilitation Potential: Fair - Anticipated Interventions Patient/Client Instruction: Educate patient on: Condition, Plan of Care For the Purpose of:: To decrease pain, To increase ROM, To improve muscle performance and motor function, To increase tolerance to activity/condition/position, To improve ability of physical actions for home/community/work/leisure Therapeutic Exercise to Include: Strength training, Postural training, Flexibilty training, Passive ROM, Active ROM, Dynamic Lumbar Stabilization For the Purpose of:: To decrease pain, To increase ROM, To improve muscle performance and motor function, To increase tolerance to activity/condition/position, To improve ability of physical actions for home/community/work/leisure Manual Therapy Techniques to Include: Passive ROM, Soft tissue mobilization For the Purpose of:: To decrease pain, To increase ROM TENS: Yes Cryotherapy (ice pack, ice massage): Yes For the Purpose of:: To decrease pain Thank you for the opportunity to evaluate your patient. For Medicare and Medicare HMO plans, please review the plan of care and approve it. It will need to be FAXED BACK to us at [phone] for Medicare purposes. For Medicare only, by signing this I certify the plan of care. Please let me know if there are questions or concerns regarding this plan of care. Physician Signature: D ate:
[2021-01-24 12:50] VITALS: BMI 35.5
--- NOTE | 2021-02-07 11:50 | HP.PTREVAL ---
Dr. Gala Roberts MD, It has been my pleasure to treat SAMIRA VIVAS over the last 6 visits for Dorsalgia. Please see the progress note below for an update on the physical therapy plan of care! Subjective: Saw Dr. Armando clement will have MRI next Saturday. Has been better lately but still some bad days where she has to crawl. Some days still very stiff, other good. Prescribed anti inflammaotry of meloxicam and is taking that. Doing PPU at home regularly and seem to help. Also standing ext. Doing pointer dogs. Does not know what casues her back pain to be worse some days. Push mowed lawn the other day without a problem. Did a lto of work last Saturday feeling good the next day. Sitting around is worse. Referred pain management. Objective/Function: ext much improved adn slight central pain, flexion unable in standing anterior with only 5 degrees before pain kicks in. Walking and moving otherwise much easier including transition on and off table, PPU with full ROM and waling without difficulty. Goals still appropriate, Plan Plan: Pt wishes to wait until afte MRI to continue, will call after MRI for plan of...2-3x/week for 4-6 weeks as needed for. modalities ES and ice to help with pain. Martha ext ex adn LB ROM. core strength and body mechanics Goals Goal 1:: Tranfer withotu evidence of pain Goal Time Frame: 4-6 Weeks Goal Progress: Goal Met Goal 2:: I approp Body mechanics and HEP strength and LB ROM and body mechanics to minimize future problems. Goal Time Frame: 4-6 Weeks Goal Progress: Progressing Goal 3:: Pt feel like back pain is 80% improved to 1/10 at worst. Goal Time Frame: 4-6 Weeks Goal Progress: 50% Goal 4:: Pt sleep without waking due to pain Goal Time Frame: 4-6 Weeks Goal 5:: < 8 on oswestry Goal Time Frame: 4-6 Weeks Goal Progress: Progressing Anticipated Interventions Patient/Client Instruction: Educate patient on: Condition, Plan of Care For the Purpose of:: To decrease pain, To increase ROM, To improve muscle performance and motor function, To increase tolerance to activity/condition/position, To improve ability of physical actions for home/community/work/leisure Therapeutic Exercise to Include: Strength training, Postural training, Flexibilty training, Passive ROM, Active ROM, Dynamic Lumbar Stabilization For the Purpose of:: To decrease pain, To increase ROM, To improve muscle performance and motor function, To increase tolerance to activity/condition/position, To improve ability of physical actions for home/community/work/leisure Manual Therapy Techniques to Include: Passive ROM, Soft tissue mobilization For the Purpose of:: To decrease pain, To increase ROM TENS: Yes Cryotherapy (ice pack, ice massage): Yes For the Purpose of:: To decrease pain Please do not hesitate to contact me at [phone] by phone or if you have questions or concerns regarding this new plan of care! Sincerely, Avila Freed, JODYT, OCS, CSCS
--- NOTE | 2021-04-18 12:32 | HP.PT.NRP ---
SAMIRA VIVAS was seen in my office for initial evaluation on 01/04/21. The following Plan of Care was established for this patient: Initial Frequency: 2-3x /Week Initial Duration: 4-6 Weeks Patient/Client Instruction: Educate patient on: Condition, Plan of Care For the Purpose of:: To decrease pain, To increase ROM, To improve muscle performance and motor function, To increase tolerance to activity/condition/position, To improve ability of physical actions for home/community/work/leisure Therapeutic Exercise to Include: Strength training, Postural training, Flexibilty training, Passive ROM, Active ROM, Dynamic Lumbar Stabilization For the Purpose of:: To decrease pain, To increase ROM, To improve muscle performance and motor function, To increase tolerance to activity/condition/position, To improve ability of physical actions for home/community/work/leisure Manual Therapy Techniques to Include: Passive ROM, Soft tissue mobilization For the Purpose of:: To decrease pain, To increase ROM TENS: Yes Cryotherapy (ice pack, ice massage): Yes For the Purpose of:: To decrease pain This patient was last seen in our office 02/07/21. Pertinent comments regarding their Physical therapy will appear below: Pt seen 6 visits of POC and was 50% better. She was to f/u 3 weeks later but did not attend that visit. It should be noted that she was having an MRI. At this point, it has beenover two months and I will disocntinue due to nonattendance. At this point I will be discontinuing this patient from physical therapy. I would be happy to see this patient again in the future if found appropriate by the physician. Thank you! Avila Freed, DPT, OCS, CSCS Balance/Gait/Functional tests - Balance/Special Test Scores Oswestry Low Back Score: 20
== END 2021-02-07 19:00 | disposition home or self-care (01) ==
LOC: PT 11:30
PROVIDERS: PCP Internal Medicine; Referring Provider Internal Medicine; Visit Provider Internal Medicine
DX: M54.9 Dorsalgia, unspecified (principal); G89.29 Other chronic pain
CPT/HCPCS: 97014; 97110; 97140; 97161; 97530; G0283

== ENCOUNTER → 2021-02-14 10:18 | Outpatient (CLI) | payer MEDICAID, SELFPAY ==
[2021-01-24 12:50] VITALS: BMI 35.5
--- NOTE | 2021-02-14 10:19 | MRI_ITS ---
STUDY: MRI LUMBAR SPINE WITHOUT CONTRAST REASON FOR EXAM: Female, 30 years old. low back pain TECHNIQUE: Standardized fat and water weighted pulse sequences were obtained in the sagittal and axial planes. COMPARISON: CT lumbar spine dated 08/03/2020 FINDINGS: T12-L1: There is mild disc space narrowing and endplates spondylosis. Mild disc bulge without significant central canal or foraminal stenosis. Normal lumbar lordosis. There is no substantial scoliosis. Normal conus medullaris that terminates at the T12/L1. L1-2: Normal endplates. Normal disc height, hydration and morphology. Normal bilateral facet joints. Normal central canal and bilateral lateral recesses. Normal bilateral intervertebral neural foramina. L2-3: Normal endplates. Normal disc height, hydration and morphology. Normal bilateral facet joints. Normal central canal and bilateral lateral recesses. Normal bilateral intervertebral neural foramina. L3-4: There is minimal disc space narrowing and endplate spondylosis. There is no significant disc herniation, central canal or foraminal stenosis. Mild facet arthropathy L4-5: There is minimal disc space narrowing and endplate spondylosis. There is no significant disc herniation, central canal or foraminal stenosis. Mild facet arthropathy L5-S1: There is minimal disc space narrowing and endplate spondylosis. There is no significant disc herniation, central canal or foraminal stenosis. Mild facet arthropathy Normal visualized sacral ala. MRI/Spine Lumbar (Routine) IMPRESSION: Mild degenerative changes. Electronically Signed: Shaquille Bonilla MD at 15:58 EDT Tel , Service support ,
== END ==
PROVIDERS: PCP Internal Medicine; Referring Provider Physician Assistant; Visit Provider Physician Assistant
DX: M54.5 Low back pain (principal); G89.29 Other chronic pain
CPT/HCPCS: 72148

== ENCOUNTER 2021-04-03 07:13 | Emergency (ER) | payer MEDICAID, SELFPAY ==
[2021-03-01 18:02] VITALS: BMI 35.5
[2021-04-03 07:13] VITALS: BP 111/70; PULSE 76; RESP 18; TEMP 36.3; O2SAT 97; BMI 34.5
--- NOTE | 2021-04-03 07:30 | EX.ED.VIS.HA ---
HPI History of Present Illness Chief Complaint: Headache Informant: patient Onset/Context/Timing Onset: Days (2) Context: Gradual Timing: Continuous Quality -Headache: Positive for Similar Prior Headaches (Except more in face) Location: Bilateral frontal, retro-orbital, face Current Severity: Severe Maximum Severity: Severe Worsened by: Light Relieved by: Nothing. Taking her preventative and sumatriptan and occasional Tylenol. Associated Symptoms/Injury Associated Symptoms: Positive for Nausea and Blurred Vision; Negative for Fever, Vomiting, Sore Throat, Sinus Pressure (No nasal congestion), Numbness, Tingling, Photophobia and Visual Loss Injury - PHELAN: Negative for Direct Trauma and Fall Narrative Narrative: Patient has history of migraines for which she takes nortriptyline has been compliant with that as well as duloxetine, states she woke up with sore muscles in her neck and started getting this headache that has been persistent. No fevers or chills or other illness. No injury. She states it felt like she slept on her neck wrong. [facility] Medical History Anemia Anxiety and depression Arthritis Back problem Chronic urinary tract infection Genital herpes GERD (gastroesophageal reflux disease) Heel spur History of drug abuse Migraines Seasonal allergies Stomach ulcer Tendonitis Home Medications valacyclovir 500 mg tablet 500 mg PO DAILY 08/05/20 [History Last Taken Unknown] duloxetine 30 mg capsule,delayed release 30 mg PO BID #60 cap 10/25/20 [Rx Last Taken Unknown] albuterol sulfate 90 mcg/actuation aerosol inhaler 1 - 2 puff INHALATION Q6H PRN #8.5 gm 12/01/20 [Rx Last Taken Unknown] hydroxyzine HCl 25 mg tablet 25 mg PO BID PRN #30 tablet 12/01/20 [Rx Last Taken Unknown] albuterol sulfate 1 - 2 puff INHALATION Q4H PRN PRN #1 inhaler 12/24/20 [Rx Last Taken Unknown] nortriptyline 25 mg capsule 25 mg PO QHS #90 cap 01/10/21 [Rx Last Taken Unknown] omeprazole 40 mg capsule,delayed release 40 mg PO DAILY #90 cap 01/10/21 [Rx Last Taken Unknown] topiramate 50 mg tablet 50 mg PO QHS #90 tablet 01/10/21 [Rx Last Taken Unknown] diazepam 5 mg PO Q8 PRN #15 tab 01/18/21 [Rx Last Taken Unknown] meloxicam 15 mg tablet 15 mg PO DAILY PRN #30 tab 01/24/21 [Rx Last Taken Unknown] fluticasone propionate 50 mcg/actuation nasal spray,suspension 2 spray INTRANASAL DAILY #16 g 03/01/21 [Rx Last Taken Unknown] Allergy/AdvReac Type Severity Reaction Status Date / Time meclizine Allergy Severe unknown Verified 04/03/21 07:15 influenza vaccine Allergy Intermediate swollen Uncoded 04/03/21 07:15 arm Family History Other Anxiety and depression Breast cancer Heart disease Hyperlipemia Hypertension Myocardial infarction Osteoporosis Seizures Thyroid disorder Surgical History History of loop electrical excision procedure (LEEP) History of tubal ligation Social History Smoking Status: Former smoker quit date: 07/24/20 alcohol intake: current alcohol intake frequency: holidays/special occasions only Alcohol type: beer substance use type: former substance user Date of last use: 10/29/2019, heroin and methamphetamine what type of physical activity do you participate in: walking ROS ROS ED Constitutional Constitutional ED: Denies chills or fever(s) Eyes Eyes: Reports blurry vision; Denies diplopia ENT ENT ED: Denies ear pain, nasal congestion, rhinorrhea or sore throat Cardiovascular Cardiovascular: Denies chest pain or palpitations Respiratory/Chest Respiratory/Chest: Denies cough or dyspnea Gastrointestinal Gastrointestinal: Reports nausea; Denies abdominal pain, diarrhea or vomiting Genitourinary Genitourinary ED: Denies dysuria or urinary frequency Musculoskeletal Musculoskeletal: Denies back pain or myalgias Integumentary Denies abscess or rash Neurologic Neurologic: Reports headache(s); Denies paresthesias or weakness EXAM Physical Exam Const Vital Signs: 04/03/21 07:13 Temperature 97.4 F L Temperature Source Temporal Pulse Rate 76 Respiratory Rate 18 Blood Pressure 111/70 Blood Pressure Mean 83 Pulse Ox 97 Oxygen Delivery Method Room Air HEENT Reports normocephalic, TM's normal bilaterally and moist mucous membranes atraumatic Face and Sinus: normal facial exam and sinuses nontender Eyes PERRL, EOMs intact bilaterally and conjunctivae normal Eyes Narrative: mild photophobia Neck no lymphadenopathy, supple and no meningeal signs Resp normal respiratory effort and clear to auscultation bilaterally GI non-tender and non-distended Palpation: soft Extremity normal to inspection and full ROM Neuro oriented x3 and CN's II-XII intact bilaterally Sensorium / Orientation: awake and alert Speech: speech normal Gait (Neuro): normal gait Motor Exam: strength 5/5 throughout Psych mental status grossly normal Skin Lesions: no lesions Rashes: no rashes MDM MDM MDM Narrative Medical decision making narrative: Patient was treated with a liter of IV fluids along with Toradol and Compazine. She declared an allergy to meclizine which I discussed with her. She states that with 1 dose she passed out and was unable to be aroused. She can take Benadryl okay without any problems. However, I changed the orders in the EMR and the nurse had already given just Toradol and Compazine so we held off without Benadryl, she had no side effects from the Compazine and she had resolution of her headache asking for a work note so she was discharged stable improved condition. Discharge Plan Triage Chief Complaint: Headache ED Provider: Bakari Aviles Dx/Rx/DC Orders Clinical Impression: Headache, migraine Instructions: ED, Migraine (Classical) Prescriptions: No Action valacyclovir [Valtrex] 500 mg tablet 500 mg PO DAILY RF: 0 duloxetine 30 mg capsule,delayed release(DR/EC) 30 mg PO BID Qty: 60 RF: 1 albuterol sulfate [ProAir HFA] 90 mcg/actuation HFA aerosol inhaler 1 - 2 puff INHALATION Q6H PRN (Reason: shortness of breath or wheezing) Qty: 8.5 RF: 1 hydroxyzine HCl 25 mg tablet 25 mg PO BID PRN (Reason: anxiety) Qty: 30 RF: 1 nortriptyline 25 mg capsule 25 mg PO QHS Qty: 90 RF: 3 topiramate 50 mg tablet 50 mg PO QHS Qty: 90 RF: 1 omeprazole 40 mg capsule,delayed release(DR/EC) 40 mg PO DAILY Qty: 90 RF: 2 fluticasone propionate [Flonase Allergy Relief] 50 mcg/actuation spray,suspension 2 spray intranasal DAILY Qty: 16 RF: 2 meloxicam 15 mg tablet 15 mg PO DAILY PRN (Reason: pain ) Qty: 30 RF: 1 albuterol sulfate 1 INHALER inhaler 1 - 2 puff INHALATION Q4H PRN PRN (Reason: Wheezing) Qty: 1 RF: 0 diazepam [diazepam] 5 MG tablet 5 mg PO Q8 PRN (Reason: Muscle Spasm) Qty: 15 RF: 0 Stand Alone Forms: ED Work / School Excuse Primary Care Provider: Gala Roberts Referrals: Gala Roberts MD [Primary Care Provider] - 3-5 Days if not improving Disposition Disposition: Home, Self Care
[2021-04-03] MEDS: 0.9% Normal Saline 1,000 ML 999 ML IV (07:36)
[2021-04-03] MEDS: Ketorolac 30 MG/ML Syringe IV (07:36)
[2021-04-03] MEDS: proCHLORPERazine 10 MG/2 ML Vial 5 MG IV ×2 (07:36→07:54)
== END 2021-04-03 09:19 | disposition home or self-care (01) ==
PROVIDERS: Emergency Provider Emergency Medicine; PCP Internal Medicine
DX: G43.909 Migraine, unspecified, not intractable, without status migrainosus (principal); F32.9 Major depressive disorder, single episode, unspecified; F41.9 Anxiety disorder, unspecified; K21.9 Gastro-esophageal reflux disease without esophagitis; M19.90 Unspecified osteoarthritis, unspecified site; Z86.2 Personal history of diseases of the blood and blood-forming organs and certain disorders involving the immune mechanism; Z87.19 Personal history of other diseases of the digestive system; Z87.440 Personal history of urinary (tract) infections; Z79.899 Other long term (current) drug therapy; Z87.891 Personal history of nicotine dependence
CPT/HCPCS: 96361; 96374; 96375; 99283; J7030; A4216

== ENCOUNTER 2021-06-21 19:24 | Emergency (ER) | payer MEDICAID, SELFPAY ==
[2021-06-21 19:25] VITALS: BP 116/75; PULSE 74; RESP 16; TEMP 36.7; O2SAT 100; BMI 32.9
--- NOTE | 2021-06-21 20:36 | CT_ITS ---
EXAM: CT CERVICAL SPINE WITHOUT INTRAVENOUS CONTRAST CLINICAL INDICATION: Injury/Pain TECHNIQUE: Helically acquired images were obtained of the cervical spine without intravenous contrast. 2D reformatted images were reviewed. This CT exam was performed using one or more of the following dose reduction techniques: automated exposure control, adjustment of the mA and/or kV according to patient size, and/or use of iterative reconstruction technique. This report was created using [employer] report [employer] technology. COMPARISON: None. FINDINGS: VERTEBRAE: Unremarkable. No fracture. No traumatic subluxation. No discrete lytic or blastic abnormality. There is mild straightening of the normal cervical lordosis. This can suggest neck strain. Normal craniocervical junction and cervicothoracic junction. DISCS/SPINAL CANAL/NEURAL FORAMINA: Unremarkable. Disc heights are preserved. No critical stenosis. SOFT TISSUES: Unremarkable. No prevertebral soft tissue swelling. LYMPH NODES: Unremarkable. No cervical adenopathy. LUNG APICES: Unremarkable as visualized. Clear. CT/Spine Cervical without Contras IMPRESSION: There is mild straightening of the normal cervical lordosis. This can suggest neck strain. Electronically Signed: Kian Vee MD at 21:05 EDT , Service support ,
--- NOTE | 2021-06-21 20:36 | CT_ITS ---
STUDY: CT BRAIN WITHOUT CONTRAST REASON FOR EXAM: Female, 30 years old. Injury/Pain TECHNIQUE: Transaxial CT imaging of the brain was performed without administration of intravenous contrast material. Individualized dose optimization techniques were used for this CT. COMPARISON: 05.20.20. FINDINGS: Normal soft tissues. Normal calvarium. Normal size ventricles and extra-axial spaces for the patient''s age. Normal white matter tracts of the cerebral hemispheres. Normal basal ganglia and thalami. Normal brainstem. Normal cerebellum. There is no intracranial hemorrhage. There are no findings of an acute ischemic infarction. Normal visualized paranasal sinuses. ASPECTS 10 CT/Brain/Head without Contrast IMPRESSION: There are no acute intracranial findings. Electronically Signed: Kian Vee MD at 21:04 EDT , Service support ,
--- NOTE | 2021-06-21 21:10 | RAD_ITS ---
EXAM: XR CHEST, 2 VIEWS CLINICAL INDICATION: Chest injury TECHNIQUE: Frontal and lateral views of the chest. This report was created using [employer] report generation technology. COMPARISON: None. FINDINGS: LUNGS AND PLEURAL SPACES: Unremarkable. No consolidation or edema. No pneumothorax. No effusion. HEART: Unremarkable. Cardiac silhouette not enlarged. MEDIASTINUM: Central airways and mediastinal contour are unremarkable. BONES/JOINTS: Unremarkable. SOFT TISSUES: Unremarkable. RAD/Chest PA and Lateral IMPRESSION: No radiographic evidence of acute cardiopulmonary disease. Electronically Signed: Kian Vee MD at 21:46 EDT , Service support ,
--- NOTE | 2021-06-21 21:10 | RAD_ITS ---
EXAM: XR RIGHT HUMERUS, 2 OR MORE VIEWS CLINICAL INDICATION: Injury/Pain TECHNIQUE: Frontal and lateral views of the right humerus. This report was created using [employer] report generation technology. COMPARISON: None. FINDINGS: BONES/JOINTS: Unremarkable. No acute fracture. No subluxation. Normal alignment. Preservation of the joint space. No sclerotic or destructive changes observed. SOFT TISSUES: Unremarkable. No soft tissue swelling or gas. No radiopaque foreign body. RAD/Humerus min 2 Views IMPRESSION: Negative right humerus x-rays. Electronically Signed: Kian Vee MD at 21:46 EDT , Service support ,
--- NOTE | 2021-06-21 21:10 | RAD_ITS ---
EXAM: XR RIGHT ANKLE COMPLETE, 3 OR MORE VIEWS CLINICAL INDICATION: Injury/Pain TECHNIQUE: Frontal, lateral and oblique views of the right ankle. This report was created using [employer] report generation technology. COMPARISON: None. FINDINGS: BONES/JOINTS: There is a calcaneal spur. No acute fracture. No subluxation. Normal alignment. Preservation of the joint space. No sclerotic or destructive changes observed. SOFT TISSUES: Unremarkable. No soft tissue swelling or gas. No radiopaque foreign body. RAD/Ankle min 3 Views IMPRESSION: There is a calcaneal spur. Electronically Signed: Kian Vee MD at 21:46 EDT , Service support ,
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
[2021-06-21 22:57] VITALS: RESP 16
== END 2021-06-21 22:57 | disposition home or self-care (01) ==
PROVIDERS: Emergency Provider Emergency Medicine; PCP Internal Medicine
DX: S16.1XXA Strain of muscle, fascia and tendon at neck level, initial encounter (principal); S39.012A Strain of muscle, fascia and tendon of lower back, initial encounter; S30.0XXA Contusion of lower back and pelvis, initial encounter; S40.021A Contusion of right upper arm, initial encounter; S90.01XA Contusion of right ankle, initial encounter; V43.52XA Car driver injured in collision with other type car in traffic accident, initial encounter; Y93.9 Activity, unspecified; Y92.9 Unspecified place or not applicable; F32.9 Major depressive disorder, single episode, unspecified; F41.9 Anxiety disorder, unspecified; K21.9 Gastro-esophageal reflux disease without esophagitis; M19.90 Unspecified osteoarthritis, unspecified site; G43.909 Migraine, unspecified, not intractable, without status migrainosus; Z87.19 Personal history of other diseases of the digestive system; Z87.440 Personal history of urinary (tract) infections; Z79.899 Other long term (current) drug therapy; F17.290 Nicotine dependence, other tobacco product, uncomplicated
CPT/HCPCS: 70450; 71046; 72125; 73060; 73610; 99284

== ENCOUNTER 2021-11-11 11:31 | Emergency (ER) | payer OTHER, MEDICAID, SELFPAY ==
[2021-11-11 11:31] VITALS: BP 110/80; PULSE 90; RESP 16; TEMP 35.9; O2SAT 100; BMI 34.1
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
[2021-11-11] MEDS: Orphenadrine 60 MG/2 ML Ampul IM (12:00)
[2021-11-11] MEDS: Ketorolac 60 MG/2 ML Vial IM (12:00)
== END 2021-11-11 23:59 | disposition home or self-care (01) ==
PROVIDERS: Emergency Provider Emergency Medicine; PCP Internal Medicine; Visit Provider Emergency Medicine
DX: T65.94XA Toxic effect of unspecified substance, undetermined, initial encounter (principal); T24.421A Corrosion of unspecified degree of right knee, initial encounter; Y93.9 Activity, unspecified; Y92.9 Unspecified place or not applicable; F32.A Depression, unspecified; F41.9 Anxiety disorder, unspecified; Z87.440 Personal history of urinary (tract) infections; K21.9 Gastro-esophageal reflux disease without esophagitis; G43.909 Migraine, unspecified, not intractable, without status migrainosus; Z87.19 Personal history of other diseases of the digestive system; Z79.899 Other long term (current) drug therapy; M19.90 Unspecified osteoarthritis, unspecified site; F17.290 Nicotine dependence, other tobacco product, uncomplicated
CPT/HCPCS: 96372; 99282

== ENCOUNTER 2021-12-20 09:30 | Outpatient (CLI) | payer MEDICAID, SELFPAY ==
[2021-12-20 12:14] LABS: Absolute Lymphocyte Count 1.76 X10^3/uL (0.83-4.51); Basophil# 0.04 X10^3/uL; Basophil% 0.5 % (0-1); Eosinophil# 0.06 X10^3/uL; Eosinophils% 0.8 % (0-5); Hematocrit 38.9 % (37-47); Lymphocyte # 1.76 X10^3/ul (0.83-4.51); Lymphocyte % 23.7 % (19-41); Mean Corp Hgb Conc 33.4 g/dL (32-36); Mean Corpuscular Hgb 30.7 pg (27.0-32.0); Mean Platelet Vol. 10.9 fl (6.2-12.0); Monocyte# 0.59 X10^3/uL; Monocyte% 7.9 % (0-10); NRBC Flagged by Analyzer 0 % (0-5); Neutrophil # 4.98 X10^3/uL (2.7-7.7); Platelet Count 272 K/mm3 (150-450); RBC Distribution Width CV 13.4 % (11.6-14.6); RBC Distribution Width SD 45.3 fl (35.1-43.9); Red Blood Count 4.23 M/mm3 (4.2-5.4); White Blood Count 7.4 K/mm3 (4.4-11.0)
[2021-12-20 12:30] LABS: Vitamin D,25 Hydroxy 15.5 ng/mL
[2021-12-20 13:21] LABS: ALB/GLOB Ratio 0.9 RATIO (0.9-2.4); AST(SGOT) 15 U/L (15-37); Alanine Aminotransfer ALT/SGPT 24 U/L (13-56); Albumin, Serum 3.4 g/dL (3.2-5.0); Alkaline Phosphatase 97 U/L (45-117); Anion Gap 7 (5-15); BUN 9 mg/dL (7-18); BUN/Creat Ratio 8.7 RATIO (10-20); Calcium,Total 8.9 mg/dL (8.5-10.1); Chloride 108 mmol/L (98-107); Cholesterol 178 mg/dL (200); Creatinine, Serum 1.04 mg/dL (0.55-1.02); EST Glomerular Filtration Rate 66 mL/min (>60); Est Glom Filt Rate - Afr Amer 80 mL/min (>60); Globulin 3.7 g/dL (2.2-4.2); Glucose 83 mg/dL (74-106); High Density Lipoprotein 34 mg/dL; Potassium 3.3 mmol/L (3.5-5.1); Protein, Total 7.1 g/dL (6.4-8.2); Sodium Level 140 mmol/L (136-145); Thyroid Stim Hormone (TSH) 1.83 uIU/mL (0.358-3.74); Triglycerides 138 mg/dL; Very Low Density Lipoprotein 28 mg/dL (5-40)
== END 2021-12-20 23:59 | disposition home or self-care (01) ==
LOC: BIMLAB 09:32
PROVIDERS: PCP Internal Medicine; Referring Provider Physician Assistant; Visit Provider Physician Assistant
DX: F41.9 Anxiety disorder, unspecified (principal); F32.9 Major depressive disorder, single episode, unspecified; G43.709 Chronic migraine without aura, not intractable, without status migrainosus; R53.83 Other fatigue; E55.9 Vitamin D deficiency, unspecified; Z13.220 Encounter for screening for lipoid disorders; Z13.29 Encounter for screening for other suspected endocrine disorder
CPT/HCPCS: 36415; 80053; 80061; 82306; 84443; 85025

== ENCOUNTER 2021-12-24 19:23 | Emergency (ER) | payer MEDICAID, SELFPAY ==
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
[2021-12-24 19:31] VITALS: TEMP 36.6
[2021-12-24 19:33] VITALS: BP 142/83; PULSE 68; RESP 12; TEMP 36.2; O2SAT 99; BMI 35.0
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
--- NOTE | 2021-12-24 19:36 | ED.RN ---
PT NOTES SHE SMOKES WEED TO RELIEVE CHRONIC LOWER BACK PAIN
[2021-12-24] MEDS: Ondansetron ODT 4 MG Tablet PO (20:07)
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
--- NOTE | 2021-12-24 20:45 | RAD_ITS ---
INDICATION: injury EXAMINATION/TECHNIQUE: X-RAY - LEFT XR Foot Min 3 Views 3 VIEWS COMPARISON: None. FINDINGS: SOFT TISSUES: No soft tissue swelling or gas. Multiple hyperdense foci project over the distal foot and toes, at least some of which appear to be on or overlying the skin . Careful clinical correlation is recommended for any potential penetrating trauma. No soft tissue swelling to suggest penetrating,. No soft tissue gas. BONES/JOINTS: Prominent inferior calcaneal spur. No acute fracture or malalignment. Preservation of the joint space and no degenerative bony proliferative changes. No sclerotic or destructive changes observed. RAD/Foot min 3 Views IMPRESSION: No evidence of traumatic osseous injury. Numerous tiny hyperdense foci project over the distal foot and toes at least some of which appear to be on the skin. This is also suspected to be extraneous. Soft tissue foreign bodies cannot be completely excluded and clinical correlation recommended. No other evidence of potential soft tissue injury. Electronically Signed: Feliciano Yanes DO at 21:39 EDT ,
--- NOTE | 2021-12-24 20:45 | RAD_ITS ---
STUDY: X-RAY CHEST REASON FOR EXAM: Female, 31 years old. pain TECHNIQUE: PA and lateral views. COMPARISON: June 21, 2021. FINDINGS: The lungs are clear and expanded. There is no demonstrated pleural abnormality. Incidentally noted azygos lobe at the right lung apex, normal variation. Normal size heart. Normal mediastinum and lauryn. Normal visualized pulmonary arteries. Normal visualized aortic arch and descending thoracic aorta. Normal visualized thoracic spine. Normal visualized ribs, clavicles, and shoulders. There is no demonstrated abnormality of the visualized soft tissue structures of the upper abdomen. RAD/Chest PA and Lateral IMPRESSION: Normal x-ray examination of the chest. Electronically Signed: Chrissie Washburn MD at 22:03 EDT ,
--- NOTE | 2021-12-24 20:45 | RAD_ITS ---
INDICATION: pain EXAMINATION/TECHNIQUE: X-RAY - XR Spine Lumbar 2 or 3 Views COMPARISON: None. FINDINGS: Note of rudimentary ribs at T12. VERTEBRAE: Preserved vertebral body height. No fracture. No spondylolisthesis. Preservation of the normal lumbar lordosis. No significant facet arthropathy. DISCS: Minimal L5-S1 intervertebral disc height loss with no degenerative endplate changes. INCLUDED ABDOMEN: Included bowel gas pattern is non-obstructive. RAD/Lumbar Spine 2 or 3 Views IMPRESSION: No evidence of lumbar spinal fracture or spondylolisthesis. Electronically Signed: Feliciano Yanes DO at 21:39 EDT ,
[2021-12-24 21:24] VITALS: PULSE 70; RESP 17; O2SAT 99
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
== END 2021-12-24 22:33 | disposition home or self-care (01) ==
PROVIDERS: Emergency Provider Emergency Medicine; PCP Internal Medicine; Visit Provider Emergency Medicine
DX: S30.0XXA Contusion of lower back and pelvis, initial encounter (principal); V49.9XXA Car occupant (driver) (passenger) injured in unspecified traffic accident, initial encounter; Y93.9 Activity, unspecified; Y92.9 Unspecified place or not applicable; F41.9 Anxiety disorder, unspecified; F32.A Depression, unspecified; Z87.440 Personal history of urinary (tract) infections; K21.9 Gastro-esophageal reflux disease without esophagitis; Z87.19 Personal history of other diseases of the digestive system; Z79.899 Other long term (current) drug therapy; F17.290 Nicotine dependence, other tobacco product, uncomplicated; S80.02XA Contusion of left knee, initial encounter; S90.812A Abrasion, left foot, initial encounter
CPT/HCPCS: 71046; 72100; 73564; 73630; 99284

== ENCOUNTER 2022-04-23 17:30 | Outpatient (RCR) | payer MEDICAID, SELFPAY ==
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
--- NOTE | 2022-04-03 10:54 | HP.PTREVAL ---
LORI CARLOS, It has been my pleasure to treat SAMIRA VIVAS over the last 2 visits for LUMBAR SPONDYLOSIS. Please see the progress note below for an update on the physical therapy plan of care! Subjective: PATIENT DENIES ANY CHANGES FROM INITIAL EVAL. REPORTS SHE HAD TO WAIT TO GET A BATHING SUIT BUT HAS ONE NOW AND IS READY TO START AQUATIC THERAPY. 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 Objective/Function: PATIENT WAS SEEN TODAY FOR RE-ASSESSMENT OF PROGRESS TOWARD THE SET PT GOALS AND THE NEED FOR FURTHER PHYSICAL THERAPY VS READINESS FOR DISCHARGE. UPON EXAM TODAY THERE ARE NO SIGNIFICANT CHANGES SINCE INTIAL EVAL AND PATIENT IS APPROPRIATE TO TRY AQUATIC TEHRAPY. HER INITIAL EVALUATION WAS 01/10/22, SHE FAILED TO SHOW FOR AN AQUATIC THERAPY GLORIA'T 02/07/22 AND THIS HER FIRST TIME RETURNING SINCE INITIAL EVAL. Plan Plan: AQUATIC THERPAY FOR PAIN RELIEF, POSTURE CORRECTION/STRENGTHENING, INSTRUCTION IN APPROPRIATE BODY MECHANICS AND ACTIVITY MODIFICATIONS. DLS STARTING WITH A NEUTRAL SPINE PROGRESSING ROM TOLERATED. IVANA LE ROM, STRETCHING AND STRENGTHENING. HEP INSTRUCTION. Balance/Gait/Functional tests - Balance/Special Test Scores Oswestry Low Back Score: 27 Goals Goal 1:: DECREASE C/O BACK AND IVANA LE SX'S. Goal Time Frame: 4-6 Weeks Goal 2:: IMPROVE PERSONAL CARE, LIFTING, WALKING, SITTING, STANDING, SLEEP, SOCIAL LIFE, TRAVEL AND HOMEMAKING FUNCTION. Goal Time Frame: 4-6 Weeks Goal 3:: INSTRUCT IN PROPHYLAXIS Goal Time Frame: 4-6 Weeks Anticipated Interventions Patient/Client Instruction: Educate patient on: Condition, Plan of Care, Risk Factors For the Purpose of:: To improve self management Therapeutic Exercise to Include: Strength training, Body mechanics, Postural training, Flexibilty training, Gait and locomotor training, Neuromotor development, In an aquatic setting, Dynamic Lumbar Stabilization For the Purpose of:: To decrease pain, To increase ROM, To improve muscle performance and motor function, To increase tolerance to activity/condition/position, To improve ability of physical actions for home/community/work/leisure, To improve gait and locomotor functions Please do not hesitate to contact me at [phone] by phone or if you have questions or concerns regarding this new plan of care! Sincerely, Toshia Alcala, PT, Cert MDT
--- NOTE | 2022-07-03 13:07 | HP.PT.NRP ---
SAMIRA VIVAS was seen in my office for initial evaluation on 01/10/22. The following Plan of Care was established for this patient: Initial Frequency: 2-3x /Week Initial Duration: 4-6 Weeks Patient/Client Instruction: Educate patient on: Condition, Plan of Care, Risk Factors For the Purpose of:: To improve self management Therapeutic Exercise to Include: Strength training, Body mechanics, Postural training, Flexibilty training, Gait and locomotor training, Neuromotor development, In an aquatic setting, Dynamic Lumbar Stabilization For the Purpose of:: To decrease pain, To increase ROM, To improve muscle performance and motor function, To increase tolerance to activity/condition/position, To improve ability of physical actions for home/community/work/leisure, To improve gait and locomotor functions This patient was last seen in our office 04/23/22. Pertinent comments regarding their Physical therapy will appear below: This patient has not returned to Physical Therapy and is appropriate to return to MD for further follow-up as needed. At this point I will be discontinuing this patient from physical therapy. I would be happy to see this patient again in the future if found appropriate by the physician. Thank you! Toshia Alcala, PT, Cert MDT Balance/Gait/Functional tests - Balance/Special Test Scores Oswestry Low Back Score: 27
== END 2022-04-23 19:00 | disposition home or self-care (01) ==
LOC: PT 17:30
PROVIDERS: PCP Internal Medicine
DX: M47.816 Spondylosis without myelopathy or radiculopathy, lumbar region (principal); G89.29 Other chronic pain
CPT/HCPCS: 97113; 97162; 97164

== ENCOUNTER → 2022-06-27 | Outpatient (CLI) | payer MEDICAID, SELFPAY ==
[2022-06-27 12:53] LABS: Anion Gap 7 (5-15); BUN 7 mg/dL (7-18); BUN/Creat Ratio 7.7 RATIO (10-20); Calcium,Total 8.7 mg/dL (8.5-10.1); Chloride 107 mmol/L (98-107); Creatinine, Serum 0.91 mg/dL (0.55-1.02); EST Glomerular Filtration Rate 77 mL/min (>60); Est Glom Filt Rate - Afr Amer 93 mL/min (>60); Glucose 91 mg/dL (74-106); Potassium 4.1 mmol/L (3.5-5.1); Sodium Level 140 mmol/L (136-145)
== END | disposition home or self-care (01) ==
LOC: BIMLAB 09:54
PROVIDERS: PCP Internal Medicine; Referring Provider Internal Medicine; Visit Provider Internal Medicine
DX: M54.9 Dorsalgia, unspecified (principal); G89.29 Other chronic pain
CPT/HCPCS: 36415; 80048

== ENCOUNTER 2024-02-01 13:33 | Emergency (ER) | payer MEDICAID, SELFPAY ==
[2024-02-01 13:33] VITALS: BP 121/72; PULSE 84; RESP 16; TEMP 36.3; O2SAT 100; BMI 34.8
--- NOTE | 2024-02-01 13:48 | EDS_ITS ---
HPI <SILVINO Chapman - Last Filed: 02/01/24 18:01> HPI - Female History of Present Illness Chief Complaint: Female C/O Narrative Narrative: Patient presenting today with pelvic cramping that she has had intermittently over the past few months. She reports that she began having cramping today while at work, her work wanted her to come in to be evaluated. She reports that the pain radiates to her back. She has seen her [employer] for this a few weeks ago, they did not seem to be concerned but told her to follow-up with them if it were to worsen. Her last menstrual period was 1.5 weeks ago. She denies any fevers, chills, nausea, vomiting, and urinary symptoms. Abdominal surgeries include tubal ligation. COUNTS INCLUDE 234 BEDS AT THE [facility] <SILVINO Chapman - Last Filed: 02/01/24 18:01> COUNTS INCLUDE 234 BEDS AT THE [facility] Medical History Anemia Anxiety and depression Arthritis Back problem Chemical burn of right lower extremity except ankle and foot Chronic urinary tract infection Dermatitis Genital herpes GERD (gastroesophageal reflux disease) Heel spur History of drug abuse Left knee pain Migraines Seasonal allergies Stomach ulcer Tendonitis Home Medications valacyclovir 500 mg tablet (Valtrex) 500 mg PO DAILY 08/05/20 [History Last Taken Unknown] omeprazole 40 mg capsule,delayed release 40 mg PO DAILY #90 caps 01/10/21 [Rx Last Taken Unknown] fluticasone propionate 50 mcg/actuation nasal spray,suspension (Flonase Allergy Relief) 2 spray intranasal DAILY #16 grams 03/01/21 [Rx Last Taken Unknown] miconazole nitrate 2 % topical powder 1 applic topical BID #90 grams 06/21/21 [Rx Last Taken Unknown] rimegepant 75 mg disintegrating tablet (Nurtec ODT) 75 mg PO ONCE PRN 06/21/21 [History Last Taken Unknown] albuterol sulfate 90 mcg/actuation aerosol inhaler 1 - 2 puff inhalation Q4H PRN PRN Wheezing #8.5 grams 12/20/21 [Rx Last Taken Unknown] fremanezumab-vfrm 225 mg/1.5 mL subcutaneous auto-injector 225 mg subcut 12/20/21 [History Last Taken Unknown] cholecalciferol (vitamin D3) 50 mcg (2,000 unit) capsule 50 mcg PO DAILY #90 caps 12/21/21 [Rx Last Taken Unknown] multivitamin 1 tab PO DAILY #90 tabs 12/21/21 [Rx Last Taken Unknown] hydroxyzine HCl 25 mg tablet 25 mg PO BID PRN anxiety #30 tabs 12/27/21 [Rx Last Taken Unknown] lidocaine 5 % topical patch 2 patch topical DAILY #60 ea 01/11/22 [Rx Last Taken Unknown] baclofen 10 mg tablet 10 mg PO QHS PRN back pain #90 tabs 04/04/22 [Rx Last Taken Unknown] clobetasol 0.05 % topical cream 1 applic topical BID 2 weeks #60 grams 04/04/22 [Rx Last Taken Unknown] meloxicam 15 mg tablet 15 mg PO DAILY PRN pain #90 tabs 04/04/22 [Rx Last Taken Unknown] duloxetine 30 mg capsule,delayed release 30 mg PO BID 3 months #180 caps 08/21/22 [Rx Last Taken Unknown] Allergy/AdvReac Type Severity Reaction Status Date / Time meclizine Allergy Severe unknown Verified 02/01/24 13:35 Influenza Virus Vaccines AdvReac Intermediate SWOLLEN ARM Verified 02/01/24 13:35 Family History Other Anxiety and depression Breast cancer Heart disease Hyperlipemia Hypertension Myocardial infarction Osteoporosis Seizures Thyroid disorder Surgical History History of loop electrical excision procedure (LEEP) History of tubal ligation Social History Smoking Status: Current every day smoker tobacco type: e-cigarettes Electronic Cigarette Use: with nicotine alcohol intake: current alcohol intake frequency: holidays/special occasions only Alcohol type: beer substance use type: former substance user Date of last use: 10/29/2019, heroin and methamphetamine what type of physical activity do you participate in: walking ROS <SILVINO Chapman - Last Filed: 02/01/24 18:01> ROS ED Constitutional Constitutional ED: Denies chills or fever(s) Cardiovascular Cardiovascular: Denies chest pain Respiratory/Chest Respiratory/Chest: Denies dyspnea Gastrointestinal Gastrointestinal: Reports nausea and other Details: pelvic cramping ; Denies diarrhea or vomiting Genitourinary Genitourinary ED: Denies dysuria, hematuria or urinary urgency Musculoskeletal Musculoskeletal: Denies arthralgias or myalgias Integumentary Denies rash Neurologic Neurologic: Denies weakness EXAM <SILVINO Chapman - Last Filed: 02/01/24 18:01> Physical Exam Const Vital Signs: 02/01/24 13:33 02/01/24 13:44 02/01/24 15:32 Temperature 97.4 F L 98.2 F Temperature Source Temporal Pulse Rate 84 87 Respiratory Rate 16 16 Respiratory Effort Normal Respiratory Pattern Normal Blood Pressure 121/72 H 122/70 H Blood Pressure Mean 88 87 Pulse Ox 100 97 Oxygen Delivery Method Room Air Positive well nourished, well developed and no apparent distress General Appearance ED: well developed HEENT Reports normocephalic and head/scalp atraumatic Mouth ED: Yes moist mucous membranes normal Eyes PERRL and EOMs intact bilaterally Neck full ROM and supple Chest Wall inspection of chest normal Resp normal respiratory effort and clear to auscultation bilaterally Cardio regular rate and regular rhythm GI soft to palpation, non-distended and no masses GI Narrative: Minimal bilateral pelvic tenderness, no rigidity or guarding. Back/Spine normal ROM and normal to inspection Extremity normal to inspection and full ROM Neuro oriented x3, CN's II-XII intact bilaterally, moves all extremities, no focal motor deficits and no sensory deficits noted Sensorium / Orientation: awake and alert Psych mental status grossly normal and thought process normal Skin no rashes or lesions noted and no wounds <Dr. Reese العلي MD - Last Filed: 02/01/24 14:06> Physical Exam Const Vital Signs: 02/01/24 13:33 02/01/24 13:44 02/01/24 15:32 Temperature 97.4 F L 98.2 F Temperature Source Temporal Pulse Rate 84 87 Respiratory Rate 16 16 Respiratory Effort Normal Respiratory Pattern Normal Blood Pressure 121/72 H 122/70 H Blood Pressure Mean 88 87 Pulse Ox 100 97 Oxygen Delivery Method Room Air [facility] <SILVINO Chapman - Last Filed: 02/01/24 18:01> [facility] Narrative Medical decision making narrative: Patient presenting due to pelvic cramping that started today. She has had this intermittently over the last several weeks. She is well-appearing and in no acute distress. She will be given Toradol for pain, UA will be obtained to rule out UTI and , this is unremarkable. On reexamination she does report improvement of her pain, she would like to have something for nausea and was given Zofran. We do not currently have ultrasound at this time, however I do not feel that an emergent ultrasound is indicated. I encouraged that she follow-up with her [employer] and return instructions were given. She was di scharged home in stable condition. I have personally performed a face to face assessment of the patient and have reviewed the GLORIA Note. I performed a substantive portion of the visit including all aspects of the following. My mas findings include: History is 33-year-old female with crampy pelvic pain started today. Prior history. No vaginal bleeding. Prior tubal ligation. No history of PID. Cloudy urine. No dysuria. No fever. Ab0. With history of tubal ligation. Exam is [33-year-old female no acute distress vital signs stable afebrile. H EENT exam unremarkable. Neck nontender. Lungs clear to auscultation. Heart regular rhythm. Abdomen soft, nondistended normal bowel sounds no peritoneal signs. Mild suprapubic tenderness. Back nontender. Moving all 4 extremities. Nontender no edema. No focal motor deficits. She is awake and alert.] Medical Decision Making [33-year-old female prior tubal ligation with pelvic pain. UA and urine be obtained.] Other additions or changes: [None] Lab Data Labs: Laboratory Results - last 24 hr 02/01/24 14:05 Urine Color Yellow Urine Clarity Clear Urine pH 6.5 Ur Specific [place] 1.010 Urine Protein Negative Urine Glucose (UA) Normal Urine Ketones Negative Urine Occult Blood Negative Urine Nitrite Negative Urine Bilirubin Negative Urine Urobilinogen Normal Ur Leukocyte Esterase Negative Urine RBC 0 SEEN Urine WBC 0 SEEN Ur Squamous Epith Cells 0-5 SEEN Urine Bacteria 0 SEEN Urine Mucus 0 SEEN Urine Test Negative <Dr. Reese العلي MD - Last Filed: 02/01/24 14:06> [facility] Narrative Medical decision making narrative: I have personally performed a face to face assessment of the patient and have reviewed the GLORIA Note. I performed a substantive portion of the visit including all aspects of the following. My mas findings include: History is 33-year-old female with crampy pelvic pain started today. Prior history. No vaginal bleeding. Prior tubal ligation. No history of PID. Cloudy urine. No dysuria. No fever. Ab0. With history of tubal ligation. Exam is [33-year-old female no acute distress vital signs stable afebrile. H EENT exam unremarkable. Neck nontender. Lungs clear to auscultation. Heart regular rhythm. Abdomen soft, nondistended normal bowel sounds no peritoneal signs. Mild suprapubic tenderness. Back nontender. Moving all 4 extremities. Nontender no edema. No focal motor deficits. She is awake and alert.] Medical Decision Making [33-year-old female prior tubal ligation with pelvic pain. UA and urine be obtained.] Other additions or changes: [None] History & Record Review Discussion w/independent historian: Patient Additional record(s) reviewed:: Prior inpatient record, Prior outpatient record, Prior ED visit and Prior labs Lab Data Attestation: I reviewed the patient's lab results. Labs: Laboratory Results - last 24 hr 02/01/24 14:05 Urine Color Yellow Urine Clarity Clear Urine pH 6.5 Ur Specific [place] 1.010 Urine Protein Negative Urine Glucose (UA) Normal Urine Ketones Negative Urine Occult Blood Negative Urine Nitrite Negative Urine Bilirubin Negative Urine Urobilinogen Normal Ur Leukocyte Esterase Negative Urine RBC 0 SEEN Urine WBC 0 SEEN Ur Squamous Epith Cells 0-5 SEEN Urine Bacteria 0 SEEN Urine Mucus 0 SEEN Urine Test Negative Discharge Plan Triage Chief Complaint: Female C/O ED Midlevel Provider: Treva Barcenas ED Provider: Reese العلي Dx/Rx/DC Orders Clinical Impression: Pelvic cramping Instructions: ED Pelvic Pain, Unknown Cause Prescriptions: No Action valacyclovir [Valtrex] 500 mg tablet 500 mg PO DAILY omeprazole 40 mg capsule,delayed release(DR/EC) 40 mg PO DAILY Qty: 90 2RF Rx Instructions: Take 30 minutes before breakfast fluticasone propionate [Flonase Allergy Relief] 50 mcg/actuation spray,osman pension 2 spray intranasal DAILY Qty: 16 2RF Rx Instructions: administer into each nostril Nurtec ODT 75 mg tablet,disintegrating 75 mg PO ONCE PRN Rx Instructions: as a single dose; not to exceed 1 dose per 24 hrs OR 15 doses per 30 days miconazole nitrate 2 % powder 1 applic TOPICAL BID Qty: 90 2RF Ajovy Autoinjector 225 mg/1.5 mL auto-injector 225 mg subcut albuterol sulfate 90 mcg/actuation HFA aerosol inhaler 1 - 2 puff INHALATION Q4H PRN PRN (Reason: Wheezing) Qty: 8.5 3RF lidocaine 5 % adhesive patch,medicated 2 patch topical DAILY Qty: 60 1RF Rx Instructions: leave on most painful area for up to 12 hrs clobetasol 0.05 % cream 1 applic topical BID 14 Days Qty: 60 2RF meloxicam 15 mg tablet 15 mg PO DAILY PRN (Reason: pain ) Qty: 90 1RF Rx Instructions: Take with food baclofen 10 mg tablet 10 mg PO QHS PRN (Reason: back pain) Qty: 90 2RF multivitamin Tablet 1 tab PO DAILY Qty: 90 3RF cholecalciferol (vitamin D3) 50 mcg (2,000 unit) capsule 50 mcg PO DAILY Qty: 90 3RF hydroxyzine HCl 25 mg tablet 25 mg PO BID PRN (Reason: anxiety) Qty: 30 1RF duloxetine 30 mg capsule,delayed release(DR/EC) 30 mg PO BID 90 Days Qty: 180 3RF Primary Care Provider: Kayla Arenas NP Referrals: Kayla Arenas NP, [employer] [Primary Care Provider] - Activity Restrictions/Additional Instructions: Please follow-up with your [employer] and return for any worsening of your symptoms. Disposition Disposition: Home, Self Care Discharge Date/Time: 02/01/24 15:33
[2024-02-01] MEDS: Ketorolac 60 MG/2 ML Vial IM (13:57)
[2024-02-01 14:11] LABS: Bacteria 0 SEEN /hpf (None Seen); Mucous, Urine 0 SEEN /hpf (<or=2+); Red Blood Cells-Urine 0 SEEN /hpf (0-5); White Blood Cells 0 SEEN /hpf (0-5)
[2024-02-01 15:02] LABS: Glucose, Dipstick Normal (Normal); Ketone-Dipstick Negative (Negative); Leukocyte Esterase-Dipstick Negative /ul (Negative); Nitrite-Dipstick Negative (Negative); Occult Blood-Urine Negative /ul (Negative); Protein-Dipstick Negative (Negative); Urine Bilirubin Dipstick Negative (Negative); Urine Urobilinogen Normal (Normal); Urine pH 6.5 (5.0 - 8.0)
[2024-02-01 15:05] LABS: Internal QC Validated? YES +Cl - CLEAR BKGD; Pregnancy, Urine Negative Negative; Record Kit Lot#,Urine Preg 718089
[2024-02-01 15:09] LABS: Color, Urine Yellow (Yellow); Urine Clarity Clear (Clear)
[2024-02-01 15:19] LABS: Squamous Epithelial Cells - UA 0-5 SEEN /hpf (5-10)
[2024-02-01] MEDS: Ondansetron ODT 4 MG Tablet PO (15:30)
[2024-02-01 15:32] VITALS: BP 122/70; PULSE 87; RESP 16; TEMP 36.8; O2SAT 97
== END 2024-02-01 15:33 | disposition home or self-care (01) ==
PROVIDERS: Physician Assistant; Emergency Provider Emergency Medicine; PCP Nurse Practitioner Family; Visit Provider Emergency Medicine
DX: R10.2 Pelvic and perineal pain (principal); K21.9 Gastro-esophageal reflux disease without esophagitis; Z79.899 Other long term (current) drug therapy; F41.8 Other specified anxiety disorders; Z98.51 Tubal ligation status; F17.290 Nicotine dependence, other tobacco product, uncomplicated; R11.0 Nausea
CPT/HCPCS: 81001; 81025; 99283

== ENCOUNTER 2025-08-23 18:17 | Emergency (ER) | payer MEDICAID, SELFPAY ==
[2025-08-23 18:18] VITALS: BP 116/67; PULSE 76; RESP 16; TEMP 36.7; O2SAT 99; BMI 33.0
--- NOTE | 2025-08-23 18:58 | EKG12_ITS ---
Test Reason : GEN ILL Blood Pressure : */* mmHG Vent. Rate : 63 BPM Atrial Rate : 63 BPM P-R Int : 184 ms QRS Dur : 80 ms QT Int : 412 ms P-R-T Axes : 5 40 16 degrees QTcB Int : 421 ms Normal sinus rhythm Normal ECG Confirmed by Feliciano Hoyos ([id number]), makeup editor BARTOLO ESCALERA ([id number]) on 08/25/2025 8:42:08 AM Referred By: Confirmed By: Feliciano Hoyos
[2025-08-23] MEDS: 0.9% Normal Saline (1000mL) 1,000 ML 1000 ML IV (19:06)
[2025-08-23 19:20] LABS: Hematocrit 38.2 % (37-47); Hemoglobin 12.9 g/dL (12.0-15.0); Immature Granulocytes Count 0.030 X10^3/uL (0.0-0.0); Mean Corp Hgb Conc 33.8 g/dL (32-36); Mean Corpuscular Volume 89.0 fL (81-99); Mean Platelet Vol. 10.9 fl (6.2-12.0); NRBC Flagged by Analyzer 0 % (0-5); Platelet Count 255 K/mm3 (150-450); RBC Distribution Width CV 12.5 % (11.6-14.6); RBC Distribution Width SD 40.6 fl (35.1-43.9); Red Blood Count 4.29 M/mm3 (4.2-5.4); White Blood Count 9.0 K/mm3 (4.4-11.0)
[2025-08-23 19:20] LABS: Mucous, Urine 0 SEEN /hpf (<or=2+); Red Blood Cells-Urine 0 SEEN /hpf (0-5)
[2025-08-23 19:25] LABS: Color, Urine Yellow (Yellow); Glucose, Dipstick Normal (Normal); Ketone-Dipstick Negative (Negative); Leukocyte Esterase-Dipstick Negative /ul (Negative); Nitrite-Dipstick Negative (Negative); Occult Blood-Urine Negative /ul (Negative); Protein-Dipstick Negative (Negative); Specific Gravity, Urine 1.010 (1.002-1.030); Urine Bilirubin Dipstick Negative (Negative)
--- NOTE | 2025-08-23 19:26 | RAD_ITS ---
PROCEDURE: CHEST PA AND LATERAL 08/23/2025 REASON FOR EXAM: SOB/CP TECHNIQUE: Procedure Code: RADCXR Modality: DX Procedure: CHEST PA AND LATERAL COMPARISON: 12/24/2021 FINDINGS: Normal cardiomediastinal silhouette. No consolidation in either lung. No pleural effusion or pneumothorax. The bony thorax is grossly intact. RAD/Chest PA and Lateral IMPRESSION: No acute process in the chest Reading Location: [id number]
[2025-08-23 19:41] LABS: Squamous Epithelial Cells - UA 0-5 SEEN /hpf (5-10)
[2025-08-23 19:48] LABS: Internal QC Validated? YES +Cl - CLEAR BKGD; Pregnancy, Serum, hCG Quali. NEGATIVE Negative; Record Kit Lot#, Serum Preg. 0000980607
[2025-08-23 19:55] LABS: Barbiturate Urine NEGATIVE (< 200 ng/mL); Benzodiazepine Urine NEGATIVE (< 200 ng/mL); PCP Urine NEGATIVE (< 25 ng/mL); THC Urine NEGATIVE (< 50 ng/mL)
[2025-08-23 19:57] LABS: Troponin T High Sensitivity < 6 ng/L (<=14)
[2025-08-23 19:58] LABS: Alcohol, Blood (Medical)-Serum < 10.1 mg/dL (<=10.0)
[2025-08-23 19:59] LABS: Anion Gap 12 (5-15); BUN 9 mg/dL (4-19); BUN/Creat Ratio 9.9 RATIO (10-20); Calcium,Total 8.6 mg/dL (7.6-11.0); Carbon Dioxide 21.2 mmol/L (21.0-32.0); Chloride 104 mmol/L (98-108); Estimated Creatinine Clearance 100.92 ml/min (50-250); Glucose 86 mg/dL (70-99); Potassium 3.5 mmol/L (3.3-5.1)
--- OUTSIDE RECORDS SUMMARY | 2025-08-23 20:16 | XMS RPT_ITS | CCD ---
Author Organization [facility] Care Team Providers Care Human Resources Leader Name Role Phone Unavailable Primary Care Provider Unavailabl e PHYSICIAN, NONE Primary Care Physician Unavailab Dr. Marva St Primary Care Provider [phone] Dr. Marva Roberts Referring Provider [phone] SILVINO Flores Attending Provider UnavailMarva Albert MD Primary Care Provider [phone] Dr. Marva Roberts Primary Care Provider [phone] Dr. Marva Roberts Attending Provider [phone] Dr. Marva Roberts Referring Provider [phone] SILVINO Grant Attending Provider Marva Roberts Primary Care Provider Marva Roberts MD Primary Care Provider [phone] Marva Roberts Primary Care Provider KRISSY JONES Attending Unavailable KRISSY JONES Referring Unavailable MARVA ROBERTS Primary Care Unavailable KRISSY JONES Attending Unavailable MARVA ROBERTS Primary Care Unavailable MARVA ROBERTS MD Primary Care [phone] DR TIEN MARTIN DO Attending Unavailable PHYSICIAN, NONE Primary Care Unavailable HILLMANMALLORY ZAPIEN Attending Unavail able PHYSICIAN, NONE Primary Care Unavailable HILLMANMALLORY ZAPIEN Attending Unavail able PHYSICIAN, NONE Primary Care Unavailable DINO STANFORD MD Attending Unavail able ARMANDO SANDOVAL, MARVA Wheeler Primary Care Unavailab le PHYSICIAN, NONE Primary Care Unavailable DR TIEN MARTIN DO Attending Unavailable DINO STANFORD MD Attending Unavail able PHYSICIAN, NONE Primary Care Unavailable Reese العلي Attending Unavailable Trill UTILIZATION REVIEW COORDINATOR, Nikolas Primary Care Unavailable Trill ASSISTANT PROFESSOR OF BUSINESS.HOOKER INSPECTOR, Nikolas C Primary Care Provider TRILL, NIKOLAS C Referring Unavailable TRILL, NIKOLAS C Primary Care Unavailable Armando, Anjaliewongbe B Primary Care Provider ARMANDO VARELA Attending Unavailable TRILL, NIKOLAS C Referring Unavailable TRILL, NIKOLAS C Primary Care Unavailable TRILL, NIKOLAS C Referring Unavailable TRILL, NIKOLAS C Primary Care Unavailable TRILL, NIKOLAS C Referring Unavailable TRILL, NIKOLAS C Primary Care Unavailable TRILL, NIKOLAS C Attending Unavailable TRILL, NIKOLAS C Primary Care Unavailable TRILL, NIKOLAS C Primary Care Unavailable TRILL, NIKOLAS C Attending Unavailable SELF Referring Unavailable TRILL, NIKOLAS C Primary Care Unavailable TRILL, NIKOLAS C Referring Unavailable TRILL, NIKOLAS C Referring Unavailable TRILL, NIKOLAS C Primary Care Unavailable TRILL, NIKOLAS C Attending Unavailable TRILL, NIKOLAS C Primary Care Unavailable ARMANDO SANDOVAL, MARVA Wheeler Primary Care UnavailARLET Crandall MD Attending Unavailable TESTSUMEET PEÑA Attending Unavailable TRILL, NIKOLAS C Referring Unavailable TRILL, NIKOLAS C Primary Care Unavailable SUMEET RUTH Attending Unavailable TESTSUMEET PEÑA Referring Unavailable TRILL, NIKOLAS C Primary Care Unavailable TRILL, NIKOLAS C Referring Unavailable TRILL, NIKOLAS C Primary Care Unavailable TRILL, NIKOLAS C Primary Care Unavailable TESTRAKE SUMEET Referring Unavailable TRILL, NIKOLAS C Primary Care Unavailable Allergies Allergy Classification Reported Allergen(s) Allergy Type Date of Onset Reaction(s) Facility Haemophilus influenzae type b (1 source) Haemophilus influenzae type b Drug Allergy 1 [facility] (1 source) Meclizine Drug Allergy 1 [facility] (20 sources) Meclizine; Translations: [meclizine] Drug Allergy 1 Anaphylaxis [facility] (7 sources) flu vaccines; Translations: [flu vaccines] Drug allergy [facility] (2 sources) Influenza virus vaccine Drug Allergy 2 [facility] Work Phone: (20 sources) Influenza Virus Vaccines; Translations: [INFLUENZA VIRUS VACCINES] Drug Intolerance 1 Swelling [facility] Work Phone: (2 sources) Influenza Vaccines Propensity to adverse reactions 2 [facility] (11 sources) Haemophilus influenzae type b Drug Allergy 1 [facility] (11 sources) Influenza Vaccines Drug Intolerance 1 [facility] (1 source) Meclizine Drug Allergy 4 [facility] (1 source) Influenza Virus Vaccines Drug allergy (disorder) 4 [facility] Medications Current Medications Medication Drug Class(es) Dates Sig (Normalized) Sig (Original) Ajovy Autoinjector 225 mg/1.5 mL subcutaneous solution (1 source) Start: 06-05-2021 Ajovy Autoinjector 225 mg/1.5 mL subcutaneous solution 0 Refill(s) Start Date: 06/05/21 Status: Ordered [id number] 200 actuat albuterol 0.09 mg/actuat metered dose inhaler (20 sources) beta2-Adrenergic Agonist Start: 08-27-2023 take 2 puff(s) by inhalation every four hours as needed for wheezing albuterol HFA (PROVENTIL HFA, VENTOLIN HFA) 90 mcg/actuation inhaler Indications: Acute cough Inhale 2 Puffs as instructed every 4 hours as needed for wheezing/shortness of breath. 1 Each 08/27/2023 Active Start: 12-20-2021 take 1 puff(s) by in halation every four hours as needed Albuterol Sulfate Active 1 - 2 PUFF INHALATION EVERY 4 HOURS NEEDED 8.5 December 20, 2021 9:21am Start: 12-24-2020 End: 12-20-2021 take 1 puff(s) by inhalation every four hours as needed Albuterol Sulfate Active 1 - 2 PUFF INHALATION EVERY 4 HOURS NEEDED 8.December 20, 2021 9:21am Start: 12-01-2020 End: 12-20-2021 take 1 puff(s) by inhalation every six hours Albuterol Sulfate (Proair Hfa) 90 mcg/actuation HFA aerosol inhaler Discontinued 1 - 2 PUFF INHALATION EVERY 6 HOURS 8.December 01, 2020 1:00am December 20, 2021 9:10am Comment on above: Inhale 2 Puffs as in structed every 4 hours as needed for wheezing/shortness of breath. albuterol MDI (90 mcg/inh) CFC free inhalation aerosol (7 sources) Start: 02-24-2021 albuterol MDI (90 mcg/inh) CFC free inhalation aerosol 0 Refill(s) Start Date: 02/24/21 Status: Ordered Repeat number: 1 Start: 02-24-2021 albuterol MDI (90 mcg/inh) [facility] free inhalation aerosol 0 Refill(s) Start Date: 02/24/21 Status: Ordered amoxicillin 500 mg oral capsule (4 sources) Penicillin-class Antibacterial Start: 04-21-2025 take 1 capsule by mouth every twelve hours amoxicillin 500 mg oral capsule TAKE 1 CAPSULE BY MOUTH EVERY 12 HOURS FOR 10 DAYS Start Date: 04/21/25 Status: Ordered Repeat number: 1 Start: 04-07-2025 End: 04-17-2025 take 1 capsule by mouth every twelve hours amoxicillin (AMOXIL) 500 mg capsule Take 1 capsule by mouth every 12 hours for 10 days. 20 capsule 04/07/2025 04/17/2025 Active Start: 05-05-2022 End: 05-15-2022 take 500 mg by mouth twice daily Amoxicillin Discontinued 500 MG PO TWICE A DAY 12 07May 05, 2022 12:00am May 15, 2022 12:04am baclofen 10 mg oral tablet (20 sources) gamma-Aminobutyric Acid-ergic Agonist Start: 04-07-2025 End: 07-06-2025 take 1 tablet by mouth three times daily baclofen 10 mg tablet Indications: Chronic bilateral low back pain with bilateral sciatica Take 1 tablet by mouth three times a day. 90 tablet 2 04/07/2025 07/06/2025 Active Start: 09-19-2022 take 1 tablet by john th once daily at bedtime as needed for pain baclofen (Lioresal) 10 MG tablet TAKE 1 TABLET BY MOUTH ONCE DAILY AT BEDTIME NEEDED FOR BACK PAIN 09/19/2022 Active Start: 08-20-2022 End: 02-25-2025 take 1 tablet by mouth three times daily baclofen 10 mg tablet Take 1 tablet by mouth three times a day. 90 tablet 2 11/27/2024 02/25/2025 Active Start: 12-20-2021 End: 04-04-2022 baclofen 10 mg oral tablet D ose : 10 mg = 1 tab(s), qDay, 0 Refill(s) Start Date: 08/20/22 Status: Ordered cholecalciferol 0.125 mg oral capsule (20 sources) Vitamin D Start: 02-13-2024 take 1 capsule by mouth once daily Cholecalciferol, Vitamin D3, 125 mcg (5,000 unit) cap Indications: Vitamin D deficiency Take 1 capsule by mouth once daily. 30 capsule 11 02/13/2024 Active Start: 12-21-2021 take 50 ug by mouth once daily Cholecalciferol (Vitamin D3) Active 50 MCG PO DAILY December 21, 2021 12:00am clindamycin 0.01 mg/mg topical gel (12 sources) Lincosamide Antibacterial Start: 11-19-2024 clindamycin (CLEOCIN-T) 1 % gel Apply to affected area two times a day. 11/19/2024 Active Start: 01-08-2024 clindamycin 1% topical gel Apply 1 elkin, Topical, BID, # 30 gram(s), 11 Refill(s), Pharmacy: [id number], Gel, 162.6, cm, 01/08/24 10:07:00 EDT, Height, 93.8, kg, 01/08/24 10:07:00 EDT, Dosing Weight Start Date: 01/08/24 Status: Ordered Quantity: 30.0 Unit: g Repeat number: 12 Indications: Hidradenitis suppurativa; clobetasol propionate 0.5 mg/ml topical cream (2 sources) Corticosteroid Start: 04-04-2022 Clobetasol Act elle 1 APPLIC TOPICAL TWICE A DAY 60 April 04, 2022 12:00am clotrimazole 10 mg/ml topical cream (3 sources) Azole Antifungal Start: 10-24-2020 clotrimazole 1% topical cream Apply 1 elkin, Topical, BID, # 30 gram(s), 0 Refill(s), Pharmacy: [id number], Cream, 162.6, cm, 10/24/20 8:48:00 EST, Height, 92.4, kg, 10/24/20 8:41:00 EST, Dosing Weight Start Date: 10/24/20 Status: Ordered Start: 10-24-2020 clotrimazole 1 % topical cream Apply 1 elkin, Topical, BID, # 30 gram(s), 0 Refill(s), Pharmacy: [id number], Cream, 162.6, cm, 10/24/20 8:48:00 EST, Height, 92.4, kg, 10/24/20 8:41:00 EST, Dosing Weight Start Date: 10/24/20 Status: Ordered diazePAM 5 mg oral tablet (13 sources) Benzodiazepine Start: 01-18-2021 End: 01-29-2024 diazePAM (Valium) 5 MG tablet Take by mouth. 0 01/18/2021 Active Comment on above: Take by mouth. diclofenac sodium 50 mg delayed release oral tablet (2 sources) Nonsteroidal Anti-inflammatory Drug Start: 04-07-2025 End: 10-04-2025 take 1 tablet by mouth three times daily as needed diclofenac sodium 50 mg oral delayed release tablet TAKE 1 TABLET BY MOUTH THREE TIMES DAILY NEEDED Start Date: 04/21/25 Status: Ordered Repeat number: 1 doxycycline monohydrate 100 mg oral capsule (1 source) Tetracycline-class Drug Start: 08-27-2023 End: 09-06-2023 take 1 capsule by mouth twice daily doxycycline monohydrate (MONODOX) 100 mg capsule Indications: Acute cough Take 1 capsule by mouth two times a day for 10 days. 20 capsule 0 08/27/2023 09/06/2023 Active Comment on above: Take 1 capsule by [facility] two times a day for 10 days. DULoxetine 30 mg delayed release oral capsule (20 sources) Serotonin and Norepinephrine Reuptake Inhibitor Start: 10-25-2020 End: 01-29-2024 DULoxetine (Cymbalta) [address] capsule Take by mouth. 10/25/2020 Active Start: 10-25-2020 End: 06-21-2021 Duloxetine Discontinued 30 M G PO TWICE A DAY 60 October 25, 2020 1:00am June 21, 2021 4:38pm Take once daily x 1 week then increase to twice daily Comment on above: Take by mouth. ergocalciferol 1.25 mg oral capsule (20 sources) Provitamin D2 Compound Start: 09-02-20 End: 11-28-19 take 1 capsule by mouth every week ergocalciferol 50,000 intl units (1.25 mg) oral capsule TAKE 1 CAPSULE BY MOUTH ONCE A WEEK Start Date: 04/21/25 Status: Ordered Repeat number: 1 Start: 02-13-2024 take 1 capsule by [facility] every week ergocalciferol 50,000 unit capsule (VITAMIN D2, DRISDOL) Indications: Vitamin D deficiency Take 1 capsule by mouth one time a week. 8 capsule 02/13/2024 Active fluticasone propionate 0.05 mg/actuat metered dose nasal spray (4 sources) Corticosteroid Start: 03-01-2021 take 1 spray(s) nasal route once daily Fluticasone Propionate (Flonase Allergy Relief) 50 mcg/actuation spray,suspension Active 2 SPRAY INTRANASAL DAILY March 01, 2021 12:00am administer into each nostril hydrocortisone 25 mg/ml topical cream (6 sources) Corticosteroid Start: 10-10-2020 hydrocortisone 2.5% topical cream APPLY TO AFFECTED AREA TWICE A DAY NEEDED FOR RASH Start Date: 10/10/20 Status: Ordered Start: 10-10-2020 hydrocortisone 2.5% topical cream APPLY TO AFFECTED AREA TWICE A DAY NEEDED FOR RASH Start Date: 10/10/20 Status: Ordered hydrOXYzine pamoate 25 mg oral capsule (20 sources) Antihistamine Start: 08-06-2024 take 1 capsule by mouth every eight hours as needed hydrOXYzine pamoate (VISTARIL) 25 mg capsule Take 25 mg by mouth three times a day as needed. 08/06/2024 Active Start: 01-29-2024 End: 04-28-2024 take 1 capsule by mouth every eight hours as needed hydrOXYzine pamoate (VISTARIL) 25 mg capsule Take 1 capsule by mouth three times a day as needed. 45 capsule 5 01/29/2024 04/28/2024 Active Start: 12-01-2020 hydrOXYzine hy drochloride 25 mg oral tablet 0 Refill(s) Start Date: 02/24/21 Status: Ordered Repeat number: 1 Start: 12-01-2020 End: 12-27-2021 take 25 mg by mouth twice daily Hydroxyzine Hcl Active 25 MG PO TWICE A DAY December 27, 2021 10:20am Comment on above: Take by mouth. Inhalational Spacing Device (1 source) Start: 08-27-20 End: 08-27-20 Inhalational Spacing Device Indications: Acute cough 1 Device one time only for 1 dose. 1 Each 0 08/27/2023 08/27/2023 Active Comment on above: 1 Device one time on ly for 1 dose. lidocaine 0.05 mg/mg medicated patch (8 sources) Antiarrhythmic, Amide Local Anesthetic Start: 01-12-20 apply 1 dose topically once daily Lidocaine Active 2 PATCH TOPICAL DAILY January 11, 2022 12:00am leave on most painful area for up to 12 hrs Start: 02-24-2021 lidocaine 5% t opical patch 0 Refill(s) Start Date: 02/24/21 Status: Ordered methylPREDNISolone (1 source) Corticosteroid Start: 01-25-2025 End: 01-31-2025 methylPREDNISolone (MEDROL, ABEL,) 4 mg Dose-Pack Indications: Tendonitis, Achilles, left , Tendonitis, Achilles, right Take as directed 21 tablet 01/25/2025 01/31/2025 Active miconazole nitrate 0.02 mg/mg topical powder (4 sources) Azole Antifungal Start: 06-21-2021 Miconazole Nitrate Active 1 APPLIC TOPICAL TWICE A DAY June 21, 2021 4:42pm Multivitamin preparation (4 sources) Start: 12-21-2021 take 1 tablet by mouth once daily Multivitamin Active 1 TABLET PO DAILY December 21, 2021 9:31am Start: 12-21-2021 take 1 tablet by john th once daily Multivitamin Active 1 TABLET PO DAILY December 21, 2021 12:00am naproxen 500 mg oral tablet (3 sources) Nonsteroidal Anti-inflammatory Drug Start: 10-24-2020 naproxen 500 mg oral tablet 0 Refill(s) Start Date: 10/24/20 Status: Ordered omeprazole 40 mg delayed release oral capsule (20 sources) Proton Pump Inhibitor Start: 01-10-2021 End: 04-07-2026 omeprazole 40 mg oral delayed release capsule 0 Refill(s) Start Date: 02/24/21 Status: Ordered Repeat number: 1 End: 02-27-2023 take 2 capsules by mouth in the morning omeprazole (PriLOSEC) [address] capsule Take 40 mg by mouth in the morning. 0 02/27/2023 Discontinued (Therapy completed) Comment on above: Take 40 mg by mouth daily before breakfast. ondansetron 4 mg oral tablet (6 sources) Serotonin-3 Receptor Antagonist Start: ondansetron 4 mg oral tablet Dose : 4 mg = 1 tab(s), Oral, q6h, PRN Nausea/Vomiting, # 20 tab(s), 0 Refill(s) Start Date: 10/10/20 Status: Ordered predniSONE 20 mg oral tablet (7 sources) Start: End: take 3 tablets by mouth once daily, then take 2 tablets by mouth once daily, then take 1 tablet by mouth once daily predniSONE (DELTASONE) 20 mg tablet Indications: Plantar fasciitis, bilateral , Chronic pain of left ankle Take 3 tablets by mouth once daily for 3 days, THEN 2 tablets once daily for 3 days, THEN 1 tablet once daily for 3 days. 18 tablet 11/27/2024 12/06/2024 Active Start: 01-24-2021 End: 03-01-2021 take 4 tablets by mouth once daily at mealtime Prednisone Discontinued 10 MG PO DAILY January 24, 2021 12:00am March 01, 2021 6:01pm Take 4 tablets for 3 days; Take 3 tablets for 3 days; Take 2 tablets for 3 days; Take 1 tablet for 3 days Take with food or milk promethazine hydrochloride 25 mg oral tablet (2 sources) Phenothiazine Start: 04-15-2024 End: 04-25-2024 take 1 tablet by mouth every eight hours as needed for nausea promethazine (PHENERGAN) 25 mg tablet Indications: Nausea and vomiting, unspecified vomiting type Take 1 tablet by mouth every 8 hours as needed (for nausea) for up to 10 days. 30 tablet 0 04/15/2024 04/25/2024 Active sodium picosulfate-magnesium oxide-citric acid (CLENPIQ) 10 mg-3.5 gram- 12 gram/175 mL oral solution (1 source) Start: 04-15-2024 End: 04-17-2024 sodium picosulfate-magnesi um oxide-citric acid (CLENPIQ) 10 mg-3.5 gram- 12 gram/175 mL oral solution Indications: Diarrhea, unspecified type Refer to instructions given by your provider 350 mL 0 04/15/2024 04/17/2024 Active topiramate 100 mg oral tablet (20 sources) Start: 10-17-2021 End: 02-08-2024 take 1 tablet by mouth in the morning topiramate (Topamax) 100 MG tablet Take 100 mg by mouth in the morning and 100 mg in the evening. 10/17/2021 Active Start: 01-10-2021 End: 06-21-2021 take 50 mg by mouth at bedtime Topiramate Discontinued 50 MG PO AT BEDTIME 90 January 10, 2021 1:33pm June 21, 2021 4:37pm take 1 tablet by john th once daily topiramate (TOPAMAX) 100 MG tablet Take 100 mg by mouth daily 0 Active Comment on above: Take 100 mg by mouth twice daily. Twice daily ubrogepant 100 mg oral tablet (20 sources) Start: 4 End: 4 take 1 tablet by mouth every twenty-four hours as needed UBRELVY 100 mg tablet Take 1 tablet by mouth at bedtime as needed. 10/14/2023 Active valACYclovir 500 mg oral tablet (20 sources) Herpesvirus Nucleoside Analog DNA Polymerase Inhibitor, Herpes Simplex Virus Nucleoside Analog DNA Polymerase Inhibitor, Herpes Zoster Virus Nucleoside Analog DNA Polymerase Inhibitor Start: 0 End: 4 take 1 tablet by mouth once daily valACYclovir (VALTREX) 500 mg tablet TAKE 1 TABLET BY MOUTH ONCE DAILY. DRINK PLENTY OF FLUIDS. 10/09/2024 Active take 1 tablet by mouth twice christiano ly valACYclovir (VALTREX) 500 MG tablet Take 500 mg by mouth 2 times daily 0 Active Comment on above: 500 mg. Vitamin B-12 250 mcg oral tablet (1 source) Start: 04-21-2025 take 1 tablet by mouth once daily Vitamin B-12 250 mcg oral tablet TAKE 1 TABLET BY MOUTH ONCE DAILY Start Date: 04/21/25 Status: Ordered Repeat number: 1 vitamin b12 0.25 mg oral tablet (19 sources) Vitamin B12 Start: 02-13-2024 End: 02-12-2025 take 1 tablet by mouth once daily Cyanocobalamin (VITAMIN B-12) 250 mcg tab Indications: Vitamin B12 deficiency Take 1 tablet by mouth once daily. 30 tablet 11 02/13/2024 Active vitamin b6 100 mg oral tablet (9 sources) Start: 12-06-2024 End: 12-06-2025 take 1 tablet by mouth once daily pyridoxine, vitamin B6, (VITAMIN B-6) 100 mg tablet Indications: Vitamin B6 deficiency Take 1 tablet by mouth once daily. 90 tablet 3 12/06/2024 12/06/2025 Active Vitamin B6 100 mg oral tablet (1 source) Start: 04-21-2025 take 1 tablet by mouth once daily Vitamin B6 100 mg oral tablet mg = tab(s), Oral, qDay, 0 Refill(s) Start Date: 04/21/25 Status: Ordered Repeat number: 1 Vitamin D3 125 mcg (5000 intl units) oral capsule (1 source) Start: 04-21-2025 take 1 capsule by mouth once daily Vitamin D3 125 mcg (5000 intl units) oral capsule TAKE 1 CAPSULE BY MOUTH ONCE DAILY Start Date: 04/21/25 Status: Ordered Repeat number: 1 Completed/Discontinued Medications Medication Drug Class(es) Dates Sig (Normalized) Sig (Original) acetaminophen 325 mg / HYDROcodone bitartrate 5 mg oral tablet (8 sources) Opioid Agonist Start: 10-15-2020 End: 10-18-2020 take 1 tablet by mouth every six hours as needed Hydrocodone-Acetami nophen Discontinued 1 TABLET PO EVERY 6 HOURS NEEDED 10 October 15, 2020 October 18, 2020 1:03am Start: 08-03-2020 End: 08-05-2020 take 1 tablet by mouth every four hours as needed Hydrocodone-Acetaminophen Discontinued 1 TABLET PO EVERY 4 HOURS NEEDED 14 August 03, 2020 August 05, 2020 1:03am acetaminophen 325 mg / oxyCODONE hydrochloride 5 mg oral tablet (4 sources) Opioid Agonist Start: 01-18-2021 End: 01-24-2021 take 1 tablet by mouth three times daily Oxycodone-Acetaminophen (Percocet) 5-325 mg tablet Discontinued 1 TABLET PO THREE TIMES A DAY 08 25January 18, 2021 January 24, 2021 1:24pm benzonatate 100 mg oral capsule (5 sources) Non-narcotic Antitussive Start: 08-27-2023 End: 01-29-2024 take 100-200 mg by mouth every eight hours as needed for cough and cough benzonatate (TESSALON PERLES) 100 mg capsule Indications: Acute cough Take 1-2 capsules by mouth three times a day as needed. 30 capsule 0 08/27/2023 01/29/2024 Discontinued Comment on above: Take 1-2 capsules by mouth three times a day as needed. benzoyl peroxide 100 mg/ml medicated liquid soap (1 source) Start: 01-08-2024 End: 01-02-2025 apply 1 dose topically once daily benzoyl peroxide 10% topical liquid Dose = 1 elkin, Topical, Daily, # 150 mL, 11 Refill(s), Pharmacy: [id number], Hydradenitis, 162.6, cm, 01/08/24 10:07:00 EDT, Height, kg, 01/08/24 10:07:00 EDT, Dosing Weight Start Date: 01/08/24 Stop Date: 01/02/25 Status: Ordered Quantity: 150.0 Unit: mL Repeat number: 12 Indications: Hidradenitis suppurativa; brompheniramine maleate 0.4 mg/ml / dextromethorphan hydrobromide 2 mg/ml / pseudoephedrine hydrochloride 6 mg/ml oral solution (4 sources) alpha-Adrenergic Agonist, Uncompetitive V-dymrpt-O-aspar chauhan Receptor Antagonist, Sigma-1 Agonist Start: 10-24-2021 End: 06-06-2023 take 5-10 mL by mouth every six hours as needed Brompheniramine-Pseudoeph -DM (BROMFED DM) 2-30-10 mg/5 mL syrup Indications: Cough Take 5-10 ml po q6h prn 120 mL 0 10/24/2021 06/06/2023 Discontinued Comment on above: Take 5-10 ml po q6h prn 1.5 ml fremanezumab-vfrm 150 mg/ml auto-injector (20 sources) Start: 12-20-2021 Fremanezumab-Vfrm (Ajovy Autoinjector) 225 mg/1.5 mL auto-injector Active 225 MG SC December 20, 2021 12:00am Start: 06-05-2021 Ajovy Autoinje ctor 225 mg/1.5 mL subcutaneous solution 0 Refill(s) Start Date: 06/05/21 Status: Ordered Start: 05-11-2021 AJOVY AUTOINJE CTOR 225 mg/1.5 mL auto-injector TAKE 1 PEN SUBCUTANEOUSLY EVERY 28 DAYS. 05/11/2021 Active Start: 05-11-2021 End: 09-10-2025 fremanezumab (Ajovy) 225 MG/ 1.5ML auto-injector INJECT 1 PEN INTO THE SKIN EVERY 30 DAYS FOR MIGRAINE 1.5 mL 3 08/06/2024 1:05 PM EST 04/27/2024 09/09/2024 Discontinued (Reorder) Start: 04-07-2021 End: 05-05-2021 Fremanezumab-vfrm 225 MG/1.5 ML SOAJ Take 1 pen SC q 28 days. 1 pen 5 04/07/2021 05/05/2021 Active Comment on above: TAKE 1 PEN SUBCUTANE OUSLY EVERY 28 DAYS. ibuprofen 600 mg oral tablet (4 sources) Nonsteroidal Anti-inflammatory Drug Start: 2020 End: 2022 take 1 tablet by mouth every six hours as needed for pain ibuprofen (MOTRIN) 600 mg tablet Indications: URI with cough and congestion Take 1 tablet by mouth every 6 hours as needed for pain. 20 tablet 0 05/23/2021 06/06/2023 Discontinued Comment on above: Take 1 tablet by john every 6 hours as needed for pain. indomethacin 50 mg oral capsule (4 sources) Nonsteroidal Anti-inflammatory Drug Start: 2020 End: 2020 take 50 mg by mouth twice daily at mealtime Indomethacin Discontinued 50 MG PO TWICE A DAY January 10, 2021 12:00am March 01, 2021 6:11pm administer with food or milk iv contrast (will be provided with radiology test) (2 sources) Start: 2024 End: 2024 inject 1 dose intravenously once iv contrast (will be provided with radiology test) MRI Brain Inject, intravenously, once for 1 dose.No IV access, insert saline lock prior to beginning of sedation, infusion, injection of imaging exam.Discontinue saline lock post exam. If Pt. has a central line or IVAD, may access for administration according to line specific nursing protocol.Once exam is complete flush line and de-access according to line specific nursing protocol in the MR contrast administration guidelines link 1 Each 11/27/2024 11/28/2024 Start: 11-27-2024 End: 11-28-2024 inject 1 dose intravenously once iv contrast (will be provided with radiology test) MRI Brain Inject, intravenously, once for 1 dose.No IV access, insert saline lock prior to beginning of sedation, infusion, injection of imaging exam.Discontinue saline lock post exam. If Pt. has a central line or IVAD, may access for administration according to line specific nursing protocol.Once exam is complete flush line and de-access according to line specific nursing protocol in the MR contrast administration guidelines link 1 Each 11/27/2024 11/28/2024 Active ketorolac tromethamine 10 mg oral tablet (4 sources) Nonsteroidal Anti-inflammatory Drug, Cyclooxygenase Inhibitor Start: 05-20-2020 End: 07-15-2020 take 10 mg by mouth every eight hours Ketorolac Discontinued 10 MG PO Q8H May 20, 2020 3:38pm July 15, 2020 3:32pm levocetirizine dihydrochloride 5 mg oral tablet (6 sources) Histamine-1 Receptor Antagonist Start: 12-20-2021 End: 04-04-2022 take 5 mg by mouth once daily Levocetirizine Discontinued 5 MG PO DAILY January 09, 2022 8:17am April 04, 2022 10:40am loratadine 10 mg oral tablet (5 sources) Start: 07-03-2023 End: 02-08-2024 take 1 tablet by mouth once daily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 (Epilepsy) Sister other (Hypermobility) Brother Vertigo Brother Bipolar disorder Maternal Grandmother Cataract Maternal Grandmother Arthritis Maternal Grandmother other (Stomach problems) Paternal Grandmother Paranoid behavior Paternal Grandmother Heart disease Paternal Grandfather other (Hypermobility) Son other (Hypotonia) Son Breast Cancer Pa (more content not included)... Normal [facility] CRP SerPl-mCncon 11-27-2024 CRP [Mass/Vol] mg/L Normal <0.9 [facility] Comment on above: Order Comment: Speci men Type: BLOOD SPECIMEN Ordering Facility: [facility] Address: [address] [place] [address] Performed By: #### 1 988-5, 86705-6, 3016-3 #### [facility] CLIA [id number] [address] [place] [address] [facility] Comprehensive metabolic 2000 panelon 11-27-2024 Albumin [Mass/Vol] 4.4 g/dL 3.9 - 4.9 g/dL [facility] ALP [Catalytic activity/Vol] 125 U/L High 34 - 123 U/L [facility] ALT With P-5'-P [Catalytic activity/Vol] 12 U/L 7 - 38 U/L [facility] Anion gap [Moles/Vol] 10 mmol/L 8 - 15 mmol/L [facility] AST With P-5'-P [Catalytic activity/Vol] 15 U/L 13 - 35 U/L [facility] Bilirubin [Mass/Vol] 0.3 mg/dL 0.2 - 1 .3 mg/dL [facility] Calcium [Mass/Vol] 9.4 mg/dL 8.5 - 10. 2 mg/dL [facility] Chloride [Moles/Vol] 102 mmol/L 98 - 10 7 mmol/L [facility] CO2 [Moles/Vol] 26 mmol/L 22 - 30 mmol/L [facility] Creatinine [Mass/Vol] 0.85 mg/dL 0.58 - 0.96 mg/dL [facility] GFR/1.73 sq M.predicted among non-blacks MDRD (S/P/Bld) [Vol rate/Area] 93 mL/min/{1.73_m2} - PINF [facility] Comment on above: Estimated Glomerular Filtration Rate (eGFR) is calculated using the 2020 CKD-EPI creatinine equation. This equation utilizes serum creatinine, sex, and age as parameters. The creatinine assay has traceable calibration to isotope dilution-mass spectrometry. Refer to KDIGO guidelines for clinical interpretation. In patients with unstable renal function, e.g. those with acute kidney injury, the eGFR may not accurately reflect actual GFR. Glucose [Mass/Vol] 83 mg/dL 74 - 99 mg/dL [facility] Comment on above: The [place] Diabete s Association (ADA) provides guidance for cutoff values for fasting glucose and random glucose. The ADA defines fasting as no caloric intake for at least 8 hours. Fasting plasma glucose results between 100 to 125 mg/dL indicate increased risk for diabetes (prediabetes). Fasting plasma glucose results greater than or equal to 126 mg/dL meet the criteria for diagnosis of diabetes. In the absence of unequivocal hyperglycemia, results should be confirmed by repeat testing. In a patient with classic symptoms of hyperglycemia or hyperglycemic crisis, random plasma glucose results greater than or equal to 200 mg/dL meet the criteria for diagnosis of diabetes. Reference: Standards of Medical Care in Diabetes 2016, [place] Diabetes Association. Diabetes Care. 2016.39(Suppl 1). Interpretation and review of laboratory results Abnormal [facility] Potassium [Moles/Vol] 3.6 mmol/L Low 3.7 - 5.1 mmol/L [facility] Protein [Mass/Vol] 7.9 g/dL 6.3 - 8.0 g/dL [facility] Sodium [Moles/Vol] 138 mmol/L 136 - 144 mmol/L [facility] Urea nitrogen [Mass/Vol] 4 mg/dL Low 7 - 21 mg/dL [facility] Albumin [Mass/Vol] 4.4 g/dL Normal 3.9-4.9 [facility] Comment on above: Order Comment: Zaid camacho Type: BLOOD SPECIMEN Ordering Facility: [facility] Address: [address] [place] [address] Performed By: #### 1 988-5, 11139-8, 3016-3 #### [facility] CLIA [id number] [address] [place] [address] [place] ALP [Catalytic activity/Vol] 125 U/L High 34-123 [facility] Comment on above: Order Comment: Speci men Type: BLOOD SPECIMEN Ordering Facility: [facility] Address: [address] [place] [address] Performed By: #### 1 988-5, 38574-0, 6-3 #### [facility] CLIA [id number] [address] [place] [address] [facility] ALT With P-5'-P [Catalytic activity/Vol] 12 U/L Normal 7-38 [facility] Comment on above: Order Comment: Speci men Type: BLOOD SPECIMEN Ordering Facility: [facility] Address: [address] [place] [address] Performed By: #### 1 988-5, 80135-3, 6-3 #### [facility] CLIA [id number] [address] [place], [place] [address] [place] [address] [facility] Anion gap [Moles/Vol] 10 mmol/L Normal 8-15 [facility] Comment on above: Order Comment: Speci men Type: BLOOD SPECIMEN Ordering Facility: [facility] Address: [address] [place] [address] Performed By: #### 1 988-5, 18276-8, 6-3 #### [facility] CLIA [id number] [address] [place], [place] [address] [place] [address] [facility] AST With P-5'-P [Catalytic activity/Vol] 15 U/L Normal 13-35 [facility] Comment on above: Order Comment: Speci men Type: BLOOD SPECIMEN Ordering Facility: [facility] Address: [address] [place] [address] Performed By: #### 1 988-5, 54899-4, 3016-3 #### [facility] CLIA [id number] [address] [place] [address] [place] Bilirubin [Mass/Vol] 0.3 mg/dL Normal 0.2-1.3 [facility] Comment on above: Order Comment: Speci men Type: BLOOD SPECIMEN Ordering Facility: [facility] Address: [address] [place] [address] Performed By: #### 1 988-5, 76207-6, 6-3 #### [facility] CLIA [id number] [address] [place] [address] [place] Calcium [Mass/Vol] 9.4 mg/dL Normal 8.5-10.2 [facility] Comment on above: Order Comment: Speci men Type: BLOOD SPECIMEN Ordering Facility: [facility] Address: [address] [place] [address] Performed By: #### 1 988-5, 75290-4, 3015-3 #### [facility] CLIA [id number] [address] [place] [address] [place] Chloride [Moles/Vol] 102 mmol/L Normal 98-107 [facility] Comment on above: Order Comment: Speci men Type: BLOOD SPECIMEN Ordering Facility: [facility] Address: [address] [place] [address] Performed By: #### 1 988-5, 53111-0, 3015-3 #### [facility] CLIA [id number] [address] [place] [address] [place] CO2 [Moles/Vol] 26 mmol/L Normal 22-30 [facility] Comment on above: Order Comment: Speci men Type: BLOOD SPECIMEN Ordering Facility: [facility] Address: [address] [place], [place] [address] Performed By: #### 1 988-5, 21422-0, 3015-3 #### [facility] CLIA [id number] [address] [place] [address] [place] Creatinine [Mass/Vol] 0.85 mg/dL Normal 0.58-0.96 [facility] Comment on above: Order Comment: Speci men Type: BLOOD SPECIMEN Ordering Facility: [facility] Address: [address] [place] [address] Performed By: #### 1 988-5, 24396-9, 6-3 #### [facility] CLIA [id number] [address] [place] [address] [place] Creatinine and Glomerular filtration rate.predicted panel (S/P/Bld) 93 mL/min/1.73m??? Normal >=60 [facility] Comment on above: Order Comment: Zaid camacho Type: BLOOD SPECIMEN Ordering Facility: [facility] Address: [address] [place] [address] Result Comment: Zoila mated Glomerular Filtration Rate (eGFR) is calculated using the 2020 CKD-EPI creatinine equation. This equation utilizes serum creatinine, sex, and age as parameters. The creatinine assay has traceable calibration to isotope dilution-mass spectrometry. Refer to KDIGO guidelines for clinical interpretation. In patients with unstable renal function, e.g. those with acute kidney injury, the eGFR may not accurately reflect actual GFR. Performed By: #### 1 988-5, 10080-7, 3016-3 #### [facility] CLIA [id number] [address] [place] [address] [place] Glucose [Mass/Vol] 83 mg/dL Normal 74-99 [facility] Comment on above: Order Comment: Zaid camacho Type: BLOOD SPECIMEN Ordering Facility: [facility] Address: [address] [place] [address] Result Comment: The [place] Diabetes Association (ADA) provides guidance for cutoff values for fasting glucose and random glucose. The ADA defines fasting as no caloric intake for at least 8 hours. Fasting plasma glucose results between 100 to 125 mg/dL indicate increased risk for diabetes (prediabetes). Fasting plasma glucose results greater than or equal to 126 mg/dL meet the criteria for diagnosis of diabetes. In the absence of unequivocal hyperglycemia, results should be confirmed by repeat testing. In a patient with classic symptoms of hyperglycemia or hyperglycemic crisis, random plasma glucose results greater than or equal to 200 mg/dL meet the criteria for diagnosis of diabetes. Reference: Standards of Medical Care in Diabetes 2016, [place] Diabetes Association. Diabetes Care. 2016.39(Suppl 1). Performed By: #### 1 988-5, 07514-7, 3016-3 #### [facility] CLIA [id number] [address] [place] [address] [place] Potassium [Moles/Vol] 3.6 mmol/L Low 3.7-5.1 [facility] Comment on above: Order Comment: Speci men Type: BLOOD SPECIMEN Ordering Facility: [facility] Address: [address] [place] [address] Performed By: #### 1 988-5, 38453-1, 6-3 #### [facility] CLIA [id number] [address] [place] [address] [place] Protein [Mass/Vol] 7.9 g/dL Normal 6.3-8.0 [facility] Comment on above: Order Comment: Speci men Type: BLOOD SPECIMEN Ordering Facility: [facility] Address: [address] [place] [address] Performed By: #### 1 988-5, 85487-7, 6-3 #### [facility] CLIA [id number] [address] [place] [address] [place] Sodium [Moles/Vol] 138 mmol/L Normal 136-144 [facility] Comment on above: Order Comment: Speci men Type: BLOOD SPECIMEN Ordering Facility: [facility] Address: [address] [place] [address] Performed By: #### 1 988-5, 61495-1, 6-3 #### [facility] CLIA [id number] [address] [place] [address] [place] Urea nitrogen [Mass/Vol] 4 mg/dL Low 7-21 [facility] Comment on above: Order Comment: Speci men Type: BLOOD SPECIMEN Ordering Facility: [facility] Address: [address] [place] [address] Performed By: #### 1 988-5, 55899-2, 3016-3 #### [facility] CLIA [id number] [address] [place] [address] [place] Methylmalonate SerPl-sCncon 11-27-2024 Methylmalonate [Moles/Vol] 0.12 umol/L Normal <=0.40 [facility] Comment on above: Order Comment: Speci men Type: BLOOD SPECIMEN Ordering Facility: [facility] Address: [address] [place] [address] Result Comment: This test was developed, and its performance characteristics determined by the [facility] Department of Pathology and Laboratory Medicine. It has not been cleared or approved by the FDA. The [facility] Department of Pathology and Laboratory Medicine is regulated under CLIA as qualified to perform high-complexity testing. This test is used for clinical purposes. It should not be regarded as investigational or for research. Performed By: #### 1 3964-2 #### [facility] CLIA [id number] [address] [place] [address] [place] No Panel Informationon 11-27 Interpretation and review of laboratory results Normal [facility] Interpretation and review of laboratory results Normal [facility] Radiology Study observation (narrative) [facility] T4 FREE/FREE THYROXINEon Free T4 [Mass/Vol] 1 ng/dL 0.9 - 1.7 ng/dL [facility] T4 Free SerPl-mCncon 025 Free T4 [Mass/Vol] 1.0 ng/dL Normal 0.9-1.7 [facility] Comment on above: Order Comment: Zaid camacho Type: BLOOD SPECIMEN Ordering Facility: [facility] Address: [address] [place] [address] Performed By: #### 2 132-9, 3024-7 #### [facility] CLIA [id number] [address] [place] [address] [place] THYROID STIMULATING HORMONEo n 11-27-2024 TSH Qn 2.68 m[IU]/L [facility] Comment on above: If the patient is pr egnant, TSH reference range varies by gestational period: First Trimester (weeks 9-12): 0.180-2.990 mIU/L Second Trimester: 0.110-3.980 mIU/L Third Trimester: 0.480-4.710 mIU/L Blake Baker et al. A Practical Approach for the Verifications and Determination of Site- and Trimester-Specific Reference Intervals for Thyroid Function tests in . Thyroid, 2019:29:3:412-420. David Gutierrez et al. 2017 Guidelines of the [place] Thyroid Association for the Diagnosis and Management of Thyroid Disease during and the . Thyroid, 2017:27:3:315-389. TSH SerPl-aCncon 11-27-2024 TSH Qn 2.680 m[IU]/L Normal 0.270-4.200 [facility] Comment on above: Order Comment: Zaid camacho Type: BLOOD SPECIMEN Ordering Facility: [facility] Address: [address] [place] [place] [id number] Result Comment: If t he patient is , TSH reference range varies by gestational period: First Trimester (weeks 9-12): 0.180-2.990 mIU/L Second Trimester: 0.110-3.980 mIU/L Third Trimester: 0.480-4.710 mIU/L Blake Baker et al. A Practical Approach for the Verifications and Determination of Site- and Trimester-Specific Reference Intervals for Thyroid Function tests in . Thyroid, 2019:29:3:412-420. David Gutierrez et al. 2017 Guidelines of the [place] Thyroid Association for the Diagnosis and Management of Thyroid Disease during and the . Thyroid, 2017:27:3:315-389. Performed By: #### 1 988-5, 85334-1, 3016-3 #### [facility] CLIA [id number] [address] [place] [address] [place] VITAMIN B1 (THIAMINE), WHOLE BLOODon 11-27-2024 Thiamine (Bld) [Moles/Vol] 134.0 nmol/L Normal 84.3-213.3 [facility] Comment on above: Order Comment: Zaid camacho Type: BLOOD SPECIMEN Ordering Facility: [facility] Address: [address] [place] [address] Result Comment: This assay measures the concentration of thiamine diphosphate (TDP), the primary active form of vitamin B1. Approximately 90 percent of vitamin B1 present in whole blood is TDP. Thiamine and thiamine monophosphate, which comprise the remaining 10 percent, are not measured. This test was developed, and its performance characteristics determined by the [facility] Department of Pathology and Laboratory Medicine. It has not been cleared or approved by the FDA. The [facility] Department of Pathology and Laboratory Medicine is regulated under CLIA as qualified to perform high-complexity testing. This test is used for clinical purposes. It should not be regarded as investigational or for research. Performed By: #### B 1WB #### [facility] CLIA [id number] [address] [place] [address] [place] VITAMIN B12on 11-27-2024 Cobalamin (Vitamin B12) [Mass/Vol] 326 pg/mL 232 - 1245 pg/mL [facility] VITAMIN B6/PYRIDOXINon 11-27 VITAMIN B6 9.4 nmol/L Low 20.0-125.0 [facility] Comment on above: Order Comment: Zaid camacho Type: BLOOD SPECIMEN Ordering Facility: [facility] Address: [address] [place] [address] Result Comment: INTE RPRETIVE INFORMATION: Vitamin B6 (Pyridoxal 5-Phosphate) Pyridoxal 5'-phosphate measured in a specimen collected following an 8-hour or overnight fast accurately indicates vitamin B6 nutritional status. Non-fasting specimen concentration reflects recent vitamin intake. This test was developed and its performance characteristics determined by [facility]. It has not been cleared or approved by the [place] Food and Drug Administration. This test was performed in a CLIA certified laboratory and is intended for clinical purposes. Performed By: [facility] [address] [place], [place] [id number] Lumber Mover: Aurelio Alvarez MD, PhD CLIA Number: [id number] Performed By: #### V ITB6 #### [id number] [address] [place] [address] VITAMIN D 25 HYDROXYon 11-27 25-hydroxyvitamin D3 [Mass/Vol] 11.7 ng/mL Low 30.0 - PINF ng/mL [facility] Comment on above: Classification of 25 [place] Vitamin D status: Deficiency: <= 20.0 ng/ml. Insufficiency: 21.0-29.0 ng/ml. Sufficiency: >= 30.0 ng/ml. Vit B12 SerPl-mCncon 025 Cobalamin (Vitamin B12) [Mass/Vol] 326 pg/mL Normal 232-1245 [facility] Comment on above: Order Comment: Speci men Type: BLOOD SPECIMEN Ordering Facility[facility] Address: [facility] [place] [address] Performed By: #### 2 132-9, 3024-7 #### [facility] CLIA [id number] [address] [place] [id number] [place] [facility] XR ELBOW 2V AP/LAT LTon XR ELBOW 2V AP/LAT LT * * *Final Report* * * DATE OF EXAM: Nov 27 2024 1:07PM LDX 5322 - XR ELBOW 2V AP/LAT LT / PROCEDURE REASON: Left elbow pain * * * * Physician Interpretation * * * * EXAM TITLE: XR ELBOW 2V AP/LAT LT DATE: 11/27/2024 COMPARISON: None. CLINICAL INDICATION/HISTORY: Left elbow pain. Fall on ice one day ago. TECHNIQUE: AP, lateral and oblique views of the elbow are presented. RESULT: No fractures or subluxations are noted. No bony erosions are seen. The joint spaces are well preserved. There is no evidence of joint effusion. The mineralization of the bones is normal. There is no significant soft tissue swelling. IMPRESSION: Negative elbow. Heel Sewer: PSCB Transcribe Date/Time: Nov 28 2024 11:35P Dictated by : LEE ROMERO MD This examination was interpreted and the report reviewed and electronically signed by: LEE ROMERO MD on Nov 29 2024 12:51AM EST [id number] Normal [facility] XR LUMBAR PARS 4V AP/LAT/OBL X2on 11-27-2024 XR LUMBAR PARS 4V AP/LAT/OBL X2 * * *Final Report* * * DATE OF EXAM: Nov 27 2024 1:06PM LDX 5233 - XR LUMBAR PARS 4V AP/LAT/OBL X2 / PROCEDURE REASON: multiple diagnoses * * * * Physician Interpretation * * * * EXAM TITLE: XR LUMBAR PARS 4V AP/LAT/OBL X2 DATE: 11/27/2024 COMPARISON: 09/21/2021 CLINICAL INDICATION/HISTORY: Chronic low back pain TECHNIQUE: AP, lateral, bilateral oblique views of the lumbar spine are presented. RESULT: There are five [id number]-[id number]-[id number] lumbar vertebra. No fracture or subluxations are noted. The disc spaces are well preserved. There is no significant osteophyte formation. IMPRESSION: Negative lumbar spine. Heel Sewer: ROCAEL Transcribe Date/Time: Nov 28 2024 11:37P Dictated by : LEE ROMERO MD This examination was interpreted and the report reviewed and electronically signed by: LEE ROMERO MD on Nov 29 2024 12:52AM EST [id number] Normal [facility] CNOVon 10-15-2024 CNOV Office Visit (UCWSTR ) GERTRUDE VIVAS ([id number]) 1990 F Date Time Provider Department 10/15/24 10:15 AM [facility] During your visit today, we recorded the following information about you: Temperature Pulse Respiration Blood pressure 97.6 degrees 84/minute 18/minute 113/76 Weight 94.3 kg Asia Hill PA 10/15/2024 10:35 AM Signed Rest, increase water intake Motrin or Tylenol as needed for fever or pain. Salt water gargles, chloraseptic spray or lozenges as needed for sore throat. Warm beverages, honey. Nasal saline spray as needed Cool mist humidifier at night A cold normally lasts 7-10 days. If your symptoms are lasting longer, develop fever, or worsening by that time instead of improving then return to clinic or follow up with PCP for re-evaluation. Tylenol (generic acetaminophen) 500 mg-2 tabs every 8 hrs. as needed for fever and aches Ibuprofen 600 mg (3-200mg tablets) every 6 hours -Mucinex (generic is fine) Guaifenesin 1200 mg twice daily to help with cough and to thin out mucus Asia Hill PA 10/15/2024 10:38 AM Signed This note was created using Puncheyriter. Subjective Gertrude Vivas is a 34 year old female. HPI 34-year-old female presents for cough, congestion, nausea, vomiting, body aches, chills, headache since yesterday. Patient states she started feeling sick yesterday. She had chills and bodyaches yesterday. She had vomiting yesterday. No vomiting today, but still feels nauseous. No diarrhea. She has not taken her temperature. She has had a cough and runny nose. She has taken NyQuil for her symptoms. States she was exposed to norovirus, influenza and COVID at her work. No concern for , history of tubal ligation PAST MEDICAL HISTORY Diagnosis Date Anxiety and depression Benign paroxysmal positional vertigo Borderline personality disorder (HCC) Cervical disc herniation Childhood asthma Drug abuse, opioid type (HCC) GERD (gastroesophageal reflux disease) Hearing loss of right ear Herpes, genital HPV (human papilloma virus) infection Lumbar spondylosis Meningitis spinal 1991 Infant Migraine, intractable PTSD (post-traumatic stress disorder) Smoker Stomach ulcer PAST SURGICAL HISTORY Procedure Laterality Date COLONOSCOPY SCREENING Age 15 LIGATE FALLOPIAN TUBE 2017 ALLERGIES Meclizine and Influenza Virus Vaccines MEDICATIONS valACYclovir (VALTREX) 500 mg tablet TAKE 1 TABLET BY MOUTH ONCE DAILY. DRINK PLENTY OF FLUIDS. hydrOXYzine pamoate (VISTARIL) 25 mg capsule Take 25 mg by mouth three times a day as needed. baclofen 10 mg tablet Take 10 mg by mouth three times a day. meloxicam (MOBIC) 15 mg tablet Take 15 mg by mouth once daily. ergocalciferol 50,000 unit capsule (VITAMIN D2, DRISDOL) Take 1 capsule by mouth one time a week. Cholecalciferol, Vitamin D3, 125 mcg (5,000 unit) cap Take 1 capsule by mouth once daily. Cyanocobalamin (VITAMIN B-12) 250 mcg tab Take 1 tablet by mouth once daily. UBRELVY 100 mg tablet Take 1 tablet by mouth at bedtime as needed. albuterol HFA (PROVENTIL HFA, VENTOLIN HFA) 90 mcg/actuation inhaler Inhale 2 Puffs as instructed every 4 hours as needed for wheezing/shortness of breath. AJOVY AUTOINJECTOR 225 mg/1.5 mL auto-injector TAKE 1 PEN SUBCUTANEOUSLY EVERY 28 DAYS. omeprazole (PRILOSEC) 40 mg capsule Take 1 capsule by mouth daily before breakfast. FAMILY HISTORY Problem Relation Age of Onset Hypertension Mother other (Pes planus) Mother other (DDD) Mother Depression Mother Anxiety disorder Mother other (Carpal tunnel) Mother Diabetes Father Vertigo Father other (Lung issues) Father other (Epilepsy) Sister other (Hypermobility) Brother Vertigo Brother Bipolar disorder Maternal Grandmother Cataract Maternal Grandmother Arthritis Maternal Grandmother other (Stomach problems) Paternal Grandmother Paranoid behavior Paternal Grandmother Heart disease Paternal Grandfather other (Hypermobility) Son other (Hypotonia) Son Breast Cancer Paternal Aunt Pancreatic Cancer Other Colon Cancer No Family History Social History Tobacco Use Smoking status: Every Day Current packs/day: 0.50 Types: Cigarettes Smokeless tobacco: Never Vaping Use Vaping status: Former Substance Use Topics Alcohol use: Not Currently Comment: 2 years of heavy use Drug use: Yes Types: Marijuana Review of Systems Constitutional: Positive for chills and fatigue. Negative for fever. HENT: Positive for congestion. Negative for ear pain and sore throat. Respiratory: Positive for cough. Negative for shortness of breath. Cardiovascular: Negative for chest pain. Gastrointestinal: Positive for nausea and vomiting. Negative for abdominal pain and diarrhea. Neurological: Positive for light-headedness and headaches. Objective BP 113/76 Pulse 84 Te (more content not included)... Normal [facility] COVID AND INFLUENZA A/B AND RSV PCR, ROUTINEon 10-15-2024 SARS-CoV-2 (COVID-19) RNA OLIMPIA+probe Ql (Unsp spec) SARS-COV-2 (AGENT OF COVID-19) RNA: Not detected INFLUENZA A RNA: Not detected INFLUENZA B RNA: Not detected RESPIRATORY SYNCYTIAL VIRUS (RSV) RNA: Not detected Normal [facility] Comment on above: Performed By: #### C VFLRS ####[facility] LABCLIA [id number] [place] [address] [place] Karyn 09-02-2024 KATHARINE Telephone (ADDIS) GERTRUDE VIVAS ([id number]) 1990 F Date Time Provider Department 09/02/24 NIKOLAS ROSE During your visit today, we recorded the following information about you: Nikolas Rose APRN.KRISTOPHER 09/02/2024 11:30 PM Signed Cholesterol levels are elevated, recommend working on diet - increase fiber, decrease fats. Vitamin D level is low - 17 - continue vitamin D3 5000 once a day, I will send in another 2 months of D2 once a week. She will take both at the same time for 2 months, then just the D3 5000 international unit(s) daily B12 level is normal Nikolas Rose APRN.Samantha Coulter MA 09/03/2024 9:08 AM Signed Patient received my chart message. Samantha Machado MA Allergies As of Date: 09/02/2024 Noted Allergy Reaction MECLIZINE 05/23/2021 10 - Anaphylaxis INFLUENZA VIRUS VACCINES 05/23/2021 7 - Swelling Date Reviewed: 04/20/2024 Reviewed by: Dejan Galaviz DO - Fully Assessed Reason for Visit: Results [95] Cmt: labs Visit Diagnosis:Vitamin D deficiency [E55.9] Order(s):ergocalciferol 50,000 unit capsule (VITAMIN D2, DRISDOL)Take 1 capsule by mouth one time a week.Disp: 8 capsuleRfl: 0 Prescriptions as of 09/03/2024 - ergocalciferol 50,000 unit capsule (VITAMIN D2, DRISDOL) Take 1 capsule by mouth one time a week. - Cholecalciferol, Vitamin D3, 125 mcg (5,000 unit) cap Take 1 capsule by mouth once daily. - Cyanocobalamin (VITAMIN B-12) 250 mcg tab Take 1 tablet by mouth once daily. - UBRELVY 100 mg tablet Take 1 tablet by mouth at bedtime as needed. - omeprazole (PRILOSEC) 40 mg capsule Take 1 capsule by mouth daily before breakfast. - albuterol HFA (PROVENTIL HFA, VENTOLIN HFA) 90 mcg/actuation inhaler Inhale 2 Puffs as instructed every 4 hours as needed for wheezing/shortness of breath. - AJOVY AUTOINJECTOR 225 mg/1.5 mL auto-injector TAKE 1 PEN SUBCUTANEOUSLY EVERY 28 DAYS. Problem List As Of Date 09/02/2024 Noted Resolved Spinal stenosis of lumbar region [M48.061] 09/21/2021 Lumbar spondylosis [M47.816] 10/19/2021 Herpesviral infection of urogenital system, uns*08/20/2022 GERD (gastroesophageal reflux disease) [K21.9] 02/08/2024 Gastric ulcer [K25.9] 02/08/2024 Eczema [L30.9] 04/04/2022 Posttraumatic stress disorder [F43.10] 02/08/2024 Mixed anxiety depressive disorder [F41.8] 12/29/2021 Chronic low back pain [M54.50, G89.29] 01/25/2022 Moderate cervical dysplasia [N87.1] 08/20/2022 Vitamin D deficiency [E55.9] 12/20/2021 Plantar fasciitis, bilateral [M72.2] 02/08/2024 Seasonal allergies [J30.2] 02/08/2024 Personality disorder (HCC) [F60.9] 02/08/2024 Osteoarthritis [M19.90] 02/08/2024 Hearing loss of right ear [H91.91] 02/08/2024 Smoker [F17.200] 02/08/2024 Opioid abuse, in remission (HCC) [F11.11] 02/08/2024 Dyslipidemia [E78.5] 02/13/2024 Vitamin B12 deficiency [E53.8] 02/13/2024 Prescriptions ordered this encounter Disp Refills Start End ERGOCALCIFEROL (VITAMIN D2) 1,250 MC* 8 ca* 0 09/02/2024 Route: ORAL Sig: Take 1 capsule by mouth one time a week. Medications Discontinued During This Encounter Prescriptions - ergocalciferol 50,000 unit capsule (VITAMIN D2, DRISDOL) (Discontinued) Take 1 capsule by mouth one time a week. Encounter Status:Closed by NIKOLAS ROSE on 09/02/24 [facility] 25(OH[facility] 25-hydroxyvitamin D3 [Mass/Vol] 17.6 ng/mL Low 31.0-80.0 [facility] Comment on above: Order Comment: Speci men Type: BLOOD SPECIMEN Ordering Facility: [facility] Address: [address] [place] [address] Result Comment: Clas sification of 25 [place] Vitamin D status: Deficiency/Insufficiency: < or = 30 ng/ml. Sufficiency/Optimal Levels: 31-80 ng/mL Toxicity: > 100 ng/mL. Test performed by chemiluminescent immunoassay. Performed By: #### 1 989-3 #### [facility] LAB CLIA [id number] [address] [place] [address] [place] Lipid 1996 panelon 4 Cholesterol [Mass/Vol] 180 mg/dL Normal <200 [facility] Comment on above: Order Comment: Speci men Type: BLOOD SPECIMENOrdering Facility: [facility] Address: [address] [place] [address] Result Comment: <200 mg/dL, Desirable 200-239 mg/dL, Borderline high >239 mg/dL, High Performed By: #### 2 132-9, 56144-6 ####[facility] LABCLIA [id number] [address] [place] Cholesterol in HDL [Mass/Vol] 25 mg/dL Low >39 [facility] Comment on above: Order Comment: Speci men Type: BLOOD SPECIMENOrdering Facility: [facility] Address: [address] [place] [address] Result Comment: 40-5 9 mg/dL, Acceptable >59 mg/dL, High: Negative risk factor for coronary heart disease <40 mg/dL, Low: Positive risk factor for coronary heart disease Performed By: #### 2 132-9, 14309-5 ####[facility] LABCLIA [id number] [address] [place] [facility] Cholesterol in LDL [Mass/Vol] 122 mg/dL High <100 [facility] Comment on above: Order Comment: Speci men Type: BLOOD SPECIMENOrdering Facility: [facility] Address: [address] [place] [address] Result Comment: <100 mg/dL, Optimal 100-129 mg/dL, Near optimal/above optimal 130-159 mg/dL, Borderline high 160-189 mg/dL, High >189 mg/dL, Very high Secondary prevention optimal LDL Cholesterol levels are recommended to be < 70 mg/dL Performed By: #### 2 132-9, 19383-3 ####[facility] LABCLIA [id number] [place] [address] [place] Cholesterol in LDL/Cholesterol in HDL [Mass ratio] 4.88 {ratio} High <2.54 [facility] Comment on above: Order Comment: Speci men Type: BLOOD SPECIMENOrdering Facility: [facility] Address: [address] [place] [address] Result Comment: Refe adice: 1. National Cholesterol Education Program ATP III Guideline At-A-Glance Quick Desk Reference: National Heart, Lung, and Blood [place]. National Institutes of Health. 2001: NIH Publication No. 01-3305. 2. An International Atherosclerosis Society position paper: global recommendations for the management of dyslipidemia: executive summary, Atherosclerosis. 2014: 232(2):410-413. Performed By: #### 2 132-9, 66623-1 ####[facility] LABCLIA [id number] [place] [address] [place] Cholesterol in VLDL [Mass/Vol] 33 mg/dL High <30 [facility] Comment on above: Order Comment: Zaid camacho Type: BLOOD SPECIMENOrdering Facility: [facility] Address: [address] [place] [address] Performed By: #### 2 132-9, 18635-9 ####[facility] LABCLIA [id number] [place] [address] [place] Cholesterol non HDL [Mass/Vol] 155 mg/dL High <130 [facility] Comment on above: Order Comment: Zaid camacho Type: BLOOD SPECIMENOrdering Facility: [facility] Address: [address] [place] [address] Result Comment: <130 mg/dL, Optimal 130-159 mg/dL, Near optimal/above optimal 160-189 mg/dL, Borderline high 190-219 mg/dL, High >219 mg/dL, Very high Secondary prevention optimal non HDL Cholesterol levels are recommended to be <100 mg/dL Performed By: #### 2 132-9, 61601-7 ####[facility] LABCLIA [id number] [place] [address] [place] Cholesterol.total/Sindi sterol in HDL [Mass ratio] 7.20 {ratio} High <5.10 [facility] Comment on above: Order Comment: Speci men Type: BLOOD SPECIMENOrdering Facility: [facility] Address: [address] [place] [address] Performed By: #### 2 132-9, ####[facility] LABCLIA [id number] [place] [address] [place] FASTING TIME 10 hrs Normal [facility] Comment on above: Order Comment: Speci men Type: BLOOD SPECIMENOrdering Facility: [facility] Address: [address] [place] [address] Performed By: #### 2 132-9, ####[facility] LABCLIA [id number] [place] [address] [place] Triglyceride [Mass/Vol] 167 mg/dL High <150 [facility] Comment on above: Order Comment: Speci men Type: BLOOD SPECIMENOrdering Facility: [facility] Address: [address] [place] [address] Result Comment: <150 mg/dL, Normal 150-199 mg/dL, Borderline high 200-499 mg/dL, High >499 mg/dL, Very high Performed By: #### 2 132-9, ####[facility] LABCLIA [id number] [place] [address] [place] Vit B12 [facility] 024 Cobalamin (Vitamin B12) [Mass/Vol] 353 pg/mL Normal 232-1245 [facility] Comment on above: Order Comment: Speci men Type: BLOOD SPECIMENOrdering Facility: [facility] Address: [address] [place] [place] [address] Performed By: #### 2 132-9, 41282-5 ####[facility] LABCLIA [id number] [place] [facility] [id number] [facility] Karyn 08-17-2024 CNPN Telephone (TASIAFAMPLE) GERTRUDE VIVAS ([id number]) 1990 F Date Time Provider Department 08/17/24 NIKOLAS ROSE During your visit today, we recorded the following information about you: Patricia Wade MA 08/17/2024 7:31 AM Signed ----- Message from Samantha Nieves MA sent at 02/14/2024 8:35 AM EDT ----- Remind pt. Time to recheck FLP, Vitamin D and B12. LAMONTE Arias Kristin C, APRN.HOOKER INSPECTOR 08/17/2024 12:47 PM Signed Thank you. Please see jona. RYLAN Rosario Kristin C, APRN.HOOKER INSPECTOR 08/17/2024 12:47 PM Signed Addended by: NIKOLAS ROSE on: 08/17/2024 12:47 PM Modules accepted: Samantha Santos MA 08/17/2024 1:07 PM Signed Lm on pt. Vm with all information. Samantha Machado MA Allergies As of Date: 08/17/2024 Noted Allergy Reaction MECLIZINE 05/23/2021 10 - Anaphylaxis INFLUENZA VIRUS VACCINES 05/23/2021 7 - Swelling Date Reviewed: 04/20/2024 Reviewed by: Korty, Dejan, DO - Fully Assessed Reason for Visit: Lab Orders [5148] Primary Visit Diagnosis:Vitamin B12 deficiency [E53.8] Other Visit Diagnoses:Vitamin D deficiency [E55.9] Dyslipidemia [E78.5] Order(s):LIPID PANEL BASIC [SQLIPB] Order #: [id number] FUTURE VITAMIN D 25 HYDROXY [SQVITD] Order #: [id number] FUTURE VITAMIN B12 [SQB12] Order #: [id number] FUTURE Prescriptions as of 08/17/2024 - Cholecalciferol, Vitamin D3, 125 mcg (5,000 unit) cap Take 1 capsule by mouth once daily. - ergocalciferol 50,000 unit capsule (VITAMIN D2, DRISDOL) Take 1 capsule by mouth one time a week. - Cyanocobalamin (VITAMIN B-12) 250 mcg tab Take 1 tablet by mouth once daily. - UBRELVY 100 mg tablet Take 1 tablet by mouth at bedtime as needed. - omeprazole (PRILOSEC) 40 mg capsule Take 1 capsule by mouth daily before breakfast. - albuterol HFA (PROVENTIL HFA, VENTOLIN HFA) 90 mcg/actuation inhaler Inhale 2 Puffs as instructed every 4 hours as needed for wheezing/shortness of breath. - AJOVY AUTOINJECTOR 225 mg/1.5 mL auto-injector TAKE 1 PEN SUBCUTANEOUSLY EVERY 28 DAYS. Problem List As Of Date 08/17/2024 Noted Resolved Spinal stenosis of lumbar region [M48.061] 09/21/2021 Lumbar spondylosis [M47.816] 10/19/2021 Herpesviral infection of urogenital system, uns*08/20/2022 GERD (gastroesophageal reflux disease) [K21.9] 02/08/2024 Gastric ulcer [K25.9] 02/08/2024 Eczema [L30.9] 04/04/2022 Posttraumatic stress disorder [F43.10] 02/08/2024 Mixed anxiety depressive disorder [F41.8] 12/29/2021 Chronic low back pain [M54.50, G89.29] 01/25/2022 Moderate cervical dysplasia [N87.1] 08/20/2022 Vitamin D deficiency [E55.9] 12/20/2021 Plantar fasciitis, bilateral [M72.2] 02/08/2024 Seasonal allergies [J30.2] 02/08/2024 Personality disorder (HCC) [F60.9] 02/08/2024 Osteoarthritis [M19.90] 02/08/2024 Hearing loss of right ear [H91.91] 02/08/2024 Smoker [F17.200] 02/08/2024 Opioid abuse, in remission (HCC) [F11.11] 02/08/2024 Dyslipidemia [E78.5] 02/13/2024 Vitamin B12 deficiency [E53.8] 02/13/2024 Encounter Status:Closed by PATRICIA WADE on 08/17/24 [facility] Karyn 04-29-2024 KATHARINE Telephone (DORIANMPRICHIE) GERTRUDE VIVAS ([id number]) 1990 F Date Time Provider Department 04/29/24 NIKOLAS ROSE During your visit today, we recorded the following information about you: Samantha Machado MA 04/29/2024 5:05 PM Signed Received nerve conduction study test form [facility]. Placed in red folder. LAMONTE Arias Kristin C, APRN.[facility] 05/01/2024 4:26 PM Signed The test was normal - no neuropathy or radiculopathy. Nikolas Rose APRN.Patricia Vega MA 05/01/2024 4:30 PM Signed Left a message for patient to call back LAMONTE Boothe Mary, MA 05/04/2024 11:25 AM Signed Patient notified. Samantha Machado MA Allergies As of Date: 04/29/2024 Noted Allergy Reaction MECLIZINE 05/23/2021 10 - Anaphylaxis INFLUENZA VIRUS VACCINES 05/23/2021 7 - Swelling Date Reviewed: 04/20/2024 Reviewed by: Dejan Galaviz DO - Fully Assessed Reason for Visit: Results [95] Prescriptions as of 05/04/2024 - Cholecalciferol, Vitamin D3, 125 mcg (5,000 unit) cap Take 1 capsule by mouth once daily. - ergocalciferol 50,000 unit capsule (VITAMIN D2, DRISDOL) Take 1 capsule by mouth one time a week. - Cyanocobalamin (VITAMIN B-12) 250 mcg tab Take 1 tablet by mouth once daily. - UBRELVY 100 mg tablet Take 1 tablet by mouth at bedtime as needed. - omeprazole (PRILOSEC) 40 mg capsule Take 1 capsule by mouth daily before breakfast. - albuterol HFA (PROVENTIL HFA, VENTOLIN HFA) 90 mcg/actuation inhaler Inhale 2 Puffs as instructed every 4 hours as needed for wheezing/shortness of breath. - AJOVY AUTOINJECTOR 225 mg/1.5 mL auto-injector TAKE 1 PEN SUBCUTANEOUSLY EVERY 28 DAYS. Problem List As Of Date 04/29/2024 Noted Resolved Spinal stenosis of lumbar region [M48.061] 09/21/2021 Lumbar spondylosis [M47.816] 10/19/2021 Herpesviral infection of urogenital system, uns*08/20/2022 GERD (gastroesophageal reflux disease) [K21.9] 02/08/2024 Gastric ulcer [K25.9] 02/08/2024 Eczema [L30.9] 04/04/2022 Posttraumatic stress disorder [F43.10] 02/08/2024 Mixed anxiety depressive disorder [F41.8] 12/29/2021 Chronic low back pain [M54.50, G89.29] 01/25/2022 Moderate cervical dysplasia [N87.1] 08/20/2022 Vitamin D deficiency [E55.9] 12/20/2021 Plantar fasciitis, bilateral [M72.2] 02/08/2024 Seasonal allergies [J30.2] 02/08/2024 Personality disorder (HCC) [F60.9] 02/08/2024 Osteoarthritis [M19.90] 02/08/2024 Hearing loss of right ear [H91.91] 02/08/2024 Smoker [F17.200] 02/08/2024 Opioid abuse, in remission (HCC) [F11.11] 02/08/2024 Dyslipidemia [E78.5] 02/13/2024 Vitamin B12 deficiency [E53.8] 02/13/2024 Encounter Status:Closed by SAMANTHA MACHADO on 04/29/24 Normal [facility] Basophil percentageOrdered B y: Treva Barcenas on 02-01-2024 Basophil percentage 0 SEEN /hpf 0-5 [facility] Bilirubin Test strip Ql (U)O rdered By: Treva Barcenas on 02-01-2024 Bilirubin Ql (U) Negative Negative [facility] Emergency Department Summary on 02-01-2024 Emergency Department Summary [facility] Medical Records Department [address] [place] [address] Emergency Department Summary 02/01/24 MR#: [id number] Acct: [id number] Name: GERTRUDE VIVAS Rep #: [id number] : 1990 33 From: Reese العلي MD PCP: Nikolas Rose UTILIZATION REVIEW COORDINATOR-C Status:DEP ER Location: ED HPI HPI - Female History of Present Illness Chief Complaint: Female C/O Narrative Narrative: Patient presenting today with pelvic cramping that she has had intermittently over the past few months. She reports that she began having cramping today while at work, her work wanted her to come in to be evaluated. She reports that the pain radiates to her back. She has seen her PROFESSIONAL FEE C[employer]ER for this a few weeks ago, they did not seem to be concerned but told her to follow-up with them if it were to worsen. Her last menstrual period was 1.5 weeks ago. She denies any fevers, chills, nausea, vomiting, and urinary symptoms. Abdominal surgeries include tubal ligation. [facility] Medical History Anemia Anxiety and depression Arthritis Back problem Chemical burn of right lower extremity except ankle and foot Chronic urinary tract infection Dermatitis Genital herpes GERD (gastroesophageal reflux disease) Heel spur History of drug abuse Left knee pain Migraines Seasonal allergies Stomach ulcer Tendonitis Home Medications valacyclovir 500 mg tablet (Valtrex) 500 mg PO DAILY 11/13/20 [History Last Taken Unknown] omeprazole 40 mg capsule,delayed release 40 mg PO DAILY #90 caps 01/10/21 [Rx Last Taken Unknown] fluticasone propionate 50 mcg/actuation nasal spray,suspension (Flonase Allergy Relief) 2 spray intranasal DAILY #16 grams 03/01/21 [Rx Last Taken Unknown] miconazole nitrate 2 % topical powder 1 applic topical BID #90 grams 06/21/21 [Rx Last Taken Unknown] rimegepant 75 mg disintegrating tablet (Nurtec ODT) 75 mg PO ONCE PRN 06/21/21 [History Last Taken Unknown] albuterol sulfate 90 mcg/actuation aerosol inhaler 1 - 2 puff inhalation Q4H PRN PRN Wheezing #8.5 grams 12/20/21 [Rx Last Taken Unknown] fremanezumab-vfrm 225 mg/1.5 mL subcutaneous auto-injector 225 mg subcut 12/20/21 [History Last Taken Unknown] cholecalciferol (vitamin D3) 50 mcg (2,000 unit) capsule 50 mcg PO DAILY #90 caps 12/21/21 [Rx Last Taken Unknown] multivitamin 1 tab PO DAILY #90 tabs 12/21/21 [Rx Last Taken Unknown] hydroxyzine HCl 25 mg tablet 25 mg PO BID PRN anxiety #30 tabs 12/27/21 [Rx Last Taken Unknown] lidocaine 5 % topical patch 2 patch topical DAILY #60 ea 01/11/22 [Rx Last Taken Unknown] baclofen 10 mg tablet 10 mg PO QHS PRN back pain #90 tabs 04/04/22 [Rx Last Taken Unknown] clobetasol 0.05 % topical cream 1 applic topical BID 2 weeks #60 grams 04/04/22 [Rx Last Taken Unknown] meloxicam 15 mg tablet 15 mg PO DAILY PRN pain #90 tabs 04/04/22 [Rx Last Taken Unknown] duloxetine 30 mg capsule,delayed release 30 mg PO BID 3 months #180 caps 08/21/22 [Rx Last Taken Unknown] Allergy/AdvReac Type Severity Reaction Status Date / Time meclizine Allergy Severe unknown Verified 02/01/24 13:35 Influenza Virus Vaccines AdvReac Intermediate SWOLLEN ARM Verified 02/01/24 13:35 Family History Other Anxiety and depression Breast cancer Heart disease Hyperlipemia Hypertension Myocardial infarction Osteoporosis Seizures Thyroid disorder Surgical History History of loop electrical excision procedure (LEEP) History of tubal ligation Social History Smoking Status: Current every day smoker tobacco type: e-cigarettes Electronic Cigarette Use: with nicotine alcohol intake: current alcohol intake frequency: holidays/special occasions only Alcohol type: beer substance use type: former substance user Date of last use: 10/29/2019, heroin and methamphetamine what type of physical activity do you participate in: walking ROS ROS ED Constitutional Constitutional ED: Denies chills or fever(s) Cardiovascular Cardiovascular: Denies chest pain Respiratory/Chest Respiratory/Chest: Denies dyspnea Gastrointestinal Gastrointestinal: Reports nausea and other Details: pelvic cramping ; Denies diarrhea or vomiting Genitourinary Genitourinary ED: Denies dysuria, hematuria or urinary urgency Musculoskeletal Musculoskeletal: Denies arthralgias or myalgias Integumentary Denies rash Neurologic Neurologic: Denies weakness EXAM Physical Exam Const Vital Signs: 02/01/24 13:33 02/01/24 13:44 02/01/24 15:32 Temperature 97.4 F L 98.2 F Temperature Source Temporal Pulse Rate 84 87 Respiratory Rate 16 16 Respiratory Effort Normal Respiratory Patte (more content not included)... Normal [facility] Ketones Test strip Ql (U)Ord ered By: Treva Barcenas on 02-01-2024 Ketones Ql (U) Negative Negative [facility] Laboratory - Chemistry and C hemistry - challengeOrdered By: Treva Barcenas on 02-01-2024 HCG ( test) Ql (U) Negative [facility] Comment on above: Very dilute urine sp ecimens, as indicated by a low specificgravity, may not contain sales and merchandising representative levels of hCG. If is still suspected, a first morning urinespecimen should be collected 48 hours later and tested. Mucus LM Ql (Urine sed)Order ed By: Treva Barcenas on 02-01-2024 Mucus Ql (Urine sed) 0 SEEN /hpf [facility] Nitrite Test strip Ql (U)Ord ered By: Treva Barcenas on 02-01-2024 Nitrite Ql (U) Negative Negative [facility] No Panel InformationOrdered By: Treva Barcenas on 02-01-2024 Urine RBC 0 SEEN /hpf 0-5 [facility] ,Urineon 02-01-2024 Beta HCG ( test) Ql (U) Negative Normal [facility] Comment on above: Order Comment: 503 CLEAN CATCH Result Comment: Very dilute urine specimens, as indicated by a low specific gravity, may not contain sales and merchandising representative levels of hCG. If is still suspected, a first morning urine specimen should be collected 48 hours later and tested. Performed By: #### L 400.0001, L400.7600 #### [facility] [address] [place], [address] Protein Test strip Ql (U)Ord ered By: Treva Barcenas on 02-01-2024 Protein Ql (U) Negative Negative [facility] Squamous epithelial cells de tection in urine sediment by light microscopyOrdered By: Treva Barcenas on 02-01-2024 Epithelial cells.squamous LM Ql (Urine sed) 0-5 SEEN /hpf 5-10 [facility] Urinalysis, Completeon 01-31 EPI,SQUAMOUS 0-5 SEEN Normal 5-10 [facility] Comment on above: Order Comment: 503 CLEAN CATCH Performed By: #### L 400.0001, L400.7600 #### [facility] [address] [place], [address] BACTERIA 0 SEEN Normal None Seen [facility] Comment on above: Order Comment: 503 CLEAN CATCH Performed By: #### L 400.0001, L400.7600 #### [facility] [address] [place], [address] Mucus Ql (Urine sed) 0 SEEN Normal [facility] Comment on above: Order Comment: 503 CLEAN CATCH Performed By: #### L 400.0001, [id number] #### [facility] [address] [place], [address] RBC 0 SEEN Normal 0-5 [facility] Comment on above: Order Comment: 503 CLEAN CATCH Performed By: #### L 400.0001, [id number] #### [facility] [address] [place], [place], [address] WBC 0 SEEN Normal 0-5 [facility] Comment on above: Order Comment: 503 CLEAN CATCH Performed By: #### L 400.0001, [id number] #### [facility] [address] [place], [place], [address] Urine blood detectionOrdered By: Treva Barcenas on 02-01-2024 RBC Ql (U) Negative Negative [facility] Urine clarityOrdered By: Diego Barcenas on 02-01-2024 Clarity (U) Clear Clear [facility] Urine color determinationOrd ered By: Treva Barcenas on 02-01-2024 Color (U) Yellow Yellow [facility] Urine glucose detectionOrder ed By: Treva Barcenas on 02-01-2024 Glucose Ql (U) Normal mg/dl Normal [facility] Urine leukocyte esterase det ection by dipstickOrdered By: Treva Barcenas on 02-01-2024 Leukocyte esterase Test strip Ql (U) Negative Negative [facility] Urine pHOrdered By: Radha Barcenas on 02-01-2024 pH (U) 6.5 [pH] 5.0 - 8.0 [facility] Urine sediment bacteria coun t by microscopy (number/high power field)Ordered By: Treva Barcenas on 02-01-2024 Bacteria LM.HPF (Urine sed) [#/Area] 0 /[HPF] None Seen [facility] Urine specific gravity measu rementOrdered By: Treva Barcenas on 02-01-2024 Specific gravity (U) [Rel density] 1.010 1.002-1.030 [facility] Urine urobilinogen measureme ntOrdered By: Treva Barcenas on 02-01-2024 Urobilinogen Ql (U) Normal mg/dl Normal [facility] .Auto Diffon 11-22-2023 Basophil, Absolute 0.0 10 3/mcL Normal 0.0-0.2 [facility] ([place]) Comment on above: Performed By: #### A DIFF, ANEU, GFR, CBC, BMP, WANG ####[address] [place], [place] [address] Basophils/100 WBC (Bld) 0.6 % Normal 0.0-2.5 [facility] ([place]) Comment on above: Performed By: #### A DIFF, ANEU, GFR, CBC, BMP, W ####[address] [place], [place] [address] Eosinophil, Absolute 0.0 10 3/mcL Normal 0.0-0.4 [facility] ([place]) Comment on above: Performed By: #### A DIFF, ANEU, GFR, CBC, BMP, W ####[address] [place], [place] [address] Eosinophils/100 WBC (Bld) 0.2 % Normal 0.0-7.0 [facility] ([place]) Comment on above: Performed By: #### A DIFF, ANEU, GFR, CBC, BMP, W ####[address] [place], [place] [address] Lymphocyte, Absolute 1.4 10 3/mcL Normal 0.8-3.9 [facility] ([place]) Comment on above: Performed By: #### A DIFF, ANEU, GFR, CBC, BMP, WANG ####[address] [place], [place] [address] Lymphocytes/100 WBC (Bld) 34.3 % Normal 10.0-50.0 [facility] ([place]) Comment on above: Performed By: #### A DIFF, ANEU, GFR, CBC, BMP, W ####[address] [place], [place] [address] Monocyte, Absolute 0.5 10 3/mcL Normal 0.2-1.0 [facility] ([place]) Comment on above: Performed By: #### A DIFF, ANEU, GFR, CBC, BMP, MDW ####[address] [place], [place] [address] Monocytes/100 WBC (Bld) 13.0 % Normal 1.7-13.0 A [facility] ([place]) Comment on above: Performed By: #### A DIFF, ANEU, GFR, CBC, WANG STANLEY ####[address] [place], [place] [address] Neutrophils/100 WBC (Bld) 51.9 % Normal 37.0-80.0 [facility] ([place]) Comment on above: Performed By: #### A DIFF, ANEU, GFR, CBC, WANG STANLEY ####[address] [place], [place] [address] .GFRon 11-22-2023 GFR Non- 55 ml/min/1.73sqm Normal [facility] ([place]) Comment on above: Result Comment: GFR Population mean for , Non- Americans Ages 20-29 = 116 mL/min/1.73 sq.m. Ages 30-39 = 107 mL/min/1.73 sq.m. Ages 40-49 = 99 mL/min/1.73 sq.m. Ages 50-59 = 93 mL/min/1.73 sq.m. Ages 60-69 = 85 mL/min/1.73 sq.m. Ages 70+ = 75 mL/min/1.73 sq.m. Chronic Kidney Disease: Less than 60 mL/min/1.73 square meters End Stage Renal Disease: Less than 15 mL/min/1.73 square meters Performed By: #### A DIFF, ANEU, GFR, CBC, WANG STANLEY ####[address] [place], [place] [address] GFR 66 ml/min/1.73sqm Normal [facility] ([place]) Comment on above: Result Comment: GFR Population mean for , Non- Americans Ages 20-29 = 116 mL/min/1.73 sq.m. Ages 30-39 = 107 mL/min/1.73 sq.m. Ages 40-49 = 99 mL/min/1.73 sq.m. Ages 50-59 = 93 mL/min/1.73 sq.m. Ages 60-69 = 85 mL/min/1.73 sq.m. Ages 70+ = 75 mL/min/1.73 sq.m. Chronic Kidney Disease: Less than 60 mL/min/1.73 square meters End Stage Renal Disease: Less than 15 mL/min/1.73 square meters Performed By: #### A DIFF, ANEU, GFR, CBC, LIZETH, WANG ####[address] [place], [place] [address] .MDWon 11-22-2023 Monocyte Distribution Width 26.43 High 0.00-20.00 [facility] ([place]) Comment on above: Result Comment: For adults in ED, MDW>20.0 may be associated with a higher risk of sepsis during the first 12hrs of hospital admission Performed By: #### A DIFF, ANEU, GFR, CBC, LIZETH, WANG ####[address] [place], [place] [address] .NEUABSon 11-22-2023 Neutrophil, Absolute 2.1 10 3/mcL Low 2.9-6.2 [facility] ([place]) Comment on above: Performed By: #### A DIFF, ANEU, GFR, CBC, LIZETH, WANG ####[address] [place], [place] [address] .Urinalysis Microscopic (AO) on 11-22-2023 UA RBC None Seen Normal None Seen [facility] ([place]) Comment on above: Performed By: #### P REGU, UA, UAMICAO ####[address] [place], [place] [address] UA Squam Epithelial 5-10 Abnormal None Seen [facility] ([place]) Comment on above: Performed By: #### P REGU, UA, UAMICAO ####[address] [place], [place] [address] UA WBC None Seen Normal None Seen [facility] ([place]) Comment on above: Performed By: #### P REGU, UA, UAMICAO ####[address] [place], [place] [address] BMPon 11-22-2023 BUN/Creatinine Ratio 9 ratio Normal 7-27 [facility] ([place]) Comment on above: Performed By: #### A DIFF, ANEU, GFR, CBC, LIZETH, MDW ####[address] [place], [place] [address] Calcium [Mass/Vol] 8.8 mg/dL Normal 8.4-10.2 [facility] ([place]) Comment on above: Performed By: #### A DIFF, ANEU, GFR, CBC, BMP, W ####[address] [place], [place] [address] Chloride [Moles/Vol] 102 mmol/L Normal 98-107 [facility] ([place]) Comment on above: Performed By: #### A DIFF, ANEU, GFR, CBC, BMP, W ####[address] [place], [place] [address] CO2 [Moles/Vol] 28 mmol/L Normal 22-29 [facility] ([place]) Comment on above: Performed By: #### A DIFF, ANEU, GFR, CBC, BMP, WANG ####[address] [place], [place] [address] Creatinine [Mass/Vol] 1.15 mg/dL High 0.55-1.02 [facility] ([place]) Comment on above: Performed By: #### A DIFF, ANEU, GFR, CBC, WANG STANLEY ####[address] [place], [place] [address] Electrolyte Balance 5.0 mEq/L Normal 4.0-15.0 [facility] ([place]) Comment on above: Performed By: #### A DIFF, ANEU, GFR, CBC, BMP, WANG ####[address] [place], [place] [address] Glucose [Mass/Vol] 96 mg/dL Normal 70-105 [facility] ([place]) Comment on above: Performed By: #### A DIFF, ANEU, GFR, CBC, BMP, WANG ####[address] [place], [place] [address] Potassium [Moles/Vol] 3.9 mmol/L Normal 3.5-5.1 [facility] ([place]) Comment on above: Performed By: #### A DIFF, ANEU, GFR, CBC, BMP, WANG ####[address] [place], [place] [address] Sodium [Moles/Vol] 135 mmol/L Low 136-145 [facility] ([place]) Comment on above: Performed By: #### A DIFF, ANEU, GFR, CBC, WANG STANLEY ####[address] [place], [place] [address] Urea nitrogen [Mass/Vol] 10 mg/dL Normal 7-18 [facility] ([place]) Comment on above: Performed By: #### A DIFF, ANEU, GFR, CBC, BMPWANG ####[address] [place], [place] [address] CBCon 11-22-2023 Erythrocyte distribution width (RBC) [Ratio] 13.3 % Normal 11.5-14.5 [facility] ([place]) Comment on above: Performed By: #### A DIFF, ANEU, GFR, CBCLIZETH MDW ####[address] [place], [place] [address] Hematocrit (Bld) [Volume fraction] 44.8 % Normal 37.0-47.0 [facility] ([place]) Comment on above: Performed By: #### A DIFF, ANEU, GFR, CBCLIZETH MDW ####[address] [place], [place] [address] Hgb 15.7 G/dL Normal 12.0-16.0 [facility] ([place]) Comment on above: Performed By: #### A DIFF, ANEU, GFR, CBC, WANG STANLEY ####[address] [place], [place] [address] MCH (RBC) [Entitic mass] 30.2 pg Normal 27.0-31.2 [facility] ([place]) Comment on above: Performed By: #### A DIFF, ANEU, GFR, CBC, BMPWANG ####[address] [place], [place] [address] MCHC 35.0 G/dL Normal 33.0-37.0 [facility] ([place]) Comment on above: Performed By: #### A DIFF, ANEU, GFR, CBC, BMP, WANG ####[address] [place], [place] [address] MCV (RBC) [Entitic vol] 86.2 fL Normal 80.0-94.0 A [facility] ([place]) Comment on above: Performed By: #### A DIFF, ANEU, GFR, CBC, BMPWANG ####[address] [place], [place] [address] Platelet 175 10 3/mcL Normal 130-400 [facility] ([place]) Comment on above: Performed By: #### A DIFF, ANEU, GFR, CBC, BMPWANG ####[address] [place], [place] [address] Platelet mean volume (Bld) [Entitic vol] 9.1 fL Normal 7.4-10.4 [facility] ([place]) Comment on above: Performed By: #### A DIFF, ANEU, GFR, CBC, WANG STANLEY ####[address] [place], [place] [address] RBC 5.20 10 6/mcL Normal 4.20-5.40 [facility] ([place]) Comment on above: Performed By: #### A DIFF, ANEU, GFR, CBC, WANG STANLEY ####[address] [place], [place] [address] WBC 4.0 10 3/mcL Low 4.6-10.8 [facility] ([place]) Comment on above: Performed By: #### A DIFF, ANEU, GFR, CBC, BMPWANG ####[address] [place], [place] [address] CT HEAD OR BRAIN W/O CONTRAS Ton 11-22-2023 CT HEAD OR BRAIN W/O CONTRAST ORIGINAL EXAMINATION: CT OF THE HEAD WITHOUT CONTRAST 11/22/2023 12:19 pm TECHNIQUE: CT of the head was performed without the administration of intravenous contrast. Automated exposure control, iterative reconstruction, and/or weight based adjustment of the mA/kV was utilized to reduce the radiation dose to as low as reasonably achievable. COMPARISON: 06/27/2023 HISTORY: ORDERING SYSTEM PROVIDED HISTORY: Reason for Exam: syncopal episode FINDINGS: BRAIN/VENTRICLES: There is no acute intracranial hemorrhage, mass effect or midline shift. No abnormal extra-axial fluid collection. The wilder-white differentiation is maintained without evidence of an acute infarct. There is no evidence of hydrocephalus. ORBITS: The visualized portion of the orbits demonstrate no acute abnormality. SINUSES: Minimal aerated secretions in the left sphenoid sinus which can be seen with acute sinusitis in the appropriate clinical setting. Minimal mucosal thickening in the right sphenoid sinus. Included mastoid air cells are clear. SOFT TISSUES/SKULL: No acute calvarial abnormality. Small locules of subcutaneous emphysema overlying the bridge of the nose with associated soft tissue swelling, incompletely visualized/assessed. IMPRESSION: 1. No acute intracranial abnormality. 2. Minimal aerated secretions in the left sphenoid sinus which can be seen with acute sinusitis in the appropriate clinical setting. 3. Suspect nasal laceration. Correlate with physical exam. Interpreted by: Pallavi Mendez MD Preliminary Report By: Pallavi Mendez MD Electronically signed By Pallavi Mendez MD Dictated Date: 11/22/2023 12:22:03 PM Prelim Date: 11/22/2023 12:25:31 PM Sign Date: 11/22/2023 12:25:31 PM Ordering Provider: DINO STANFORD [facility] ([place]) LABORATORYOrdered By: Geraldo barker on 11-22-2023 Appearance (U) Cloudy *ABN* (11/22/23 11:48 AM) Invalid Interpretation Code Clear AO Auto Urine SS Bilirubin Ql (U) Small *ABN* (11/22/23 11:48 AM) Invalid Interpretation Code Negative AO Auto Urine SS Color (U) Brown *ABN* (11/22/23 11:48 AM) Invalid Interpretation Code AO Auto Urine SS Glucose Test strip (U) [Mass/Vol] Negative Normal Negative AO Auto Urine SS HCG ( test) Ql Negative (11/22/23 11:48 AM) Normal AO Manual Urine SS Hemoglobin Auto test strip (U) [Mass/Vol] Negative (11/22/23 11:48 AM) Normal Negative AO Auto Urine SS Ketones Ql (U) Negative Normal Negative AO Auto Urine SS test (u) int Not detected Invalid Interpretation Code AO Manual Urine SS UA Leuk Est Trace *ABN* (11/22/23 11:48 AM) Invalid Interpretation Code Negative AO Auto Urine SS UA Nitrite Negative (11/22/23 11:48 AM) Normal Negative AO Auto Urine SS UA pH 6.0 (11/22/23 11:48 AM) Normal 5.0 - 8.0 AO Auto Urine SS UA Protein 30 mg/dL Normal Negative AO Auto Urine SS UA Spec Grav >=1.030 *ABN* (11/22/23 11:48 AM) Invalid Interpretation Code 1.015-1.025 AO Auto Urine SS UA Specimen Type Clean Catch (11/22/23 11:48 AM) Normal AO Auto Urine SS UA Urobilinogen 4.0 E.U./dL Invalid Interpretation Code 0.2-1.0 AO Auto Urine SS LABORATORYOrdered By: SYSTEM SYSTEM on 11-22-2023 Basophil, Absolute 0.0 103/mcL Normal 0.0 - 0.2 10^3/mcL AO Workflow SS Basophils/100 WBC (Bld) 0.6 % Normal 0.0 - 2.5 % AO Workflow SS Calcium [Mass/Vol] 8.8 mg/dL Normal 8.4 - 10. 2 mg/dL AO ADM SS Chloride [Moles/Vol] 102 mmol/L Normal 98 - 10 7 mmol/L AO ADM SS CO2 [Moles/Vol] 28 mmol/L Normal 22 - 29 mmol/L AO ADM SS Creatinine [Mass/Vol] 1.15 mg/dL High 0.55 - 1.02 mg/dL AO ADM SS Electrolyte Balance 5.0 mEq/L Normal 4.0 - 15 .0 mEq/L AO ADM SS Eosinophil, Absolute 0.0 103/mcL Normal 0.0 - 0 .4 10^3/mcL AO Workflow SS Eosinophils/100 WBC (Bld) 0.2 % Normal 0.0 - 7.0 % AO Workflow SS Erythrocyte distribution width (RBC) [Ratio] 13.3 % Normal 11.5 - 14.5 % AO Workflow SS GFR/1.73 sq M.predicted among blacks MDRD (S/P/Bld) [Vol rate/Area] 66 ml/min/1.73sqm Invalid Interpretation Code AO Chemistry S Comment on above: Interpretive Data: GFR Population mean for , Non- Americans Ages 20-29 = 116 mL/min/1.73 sq.m. Ages 30-39 = 107 mL/min/1.73 sq.m. Ages 40-49 = 99 mL/min/1.73 sq.m. Ages 50-59 = 93 mL/min/1.73 sq.m. Ages 60-69 = 85 mL/min/1.73 sq.m. Ages 70+ = 75 mL/min/1.73 sq.m. Chronic Kidney Disease: Less than 60 mL/min/1.73 square meters End Stage Renal Disease: Less than 15 mL/min/1.73 square meters GFR/1.73 sq M.predicted among non-blacks MDRD (S/P/Bld) [Vol rate/Area] 55 ml/min/1.73sqm Invalid Interpretation Code AO Chemistry S Comment on above: Interpretive Data: GFR Population mean for , Non- Americans Ages 20-29 = 116 mL/min/1.73 sq.m. Ages 30-39 = 107 mL/min/1.73 sq.m. Ages 40-49 = 99 mL/min/1.73 sq.m. Ages 50-59 = 93 mL/min/1.73 sq.m. Ages 60-69 = 85 mL/min/1.73 sq.m. Ages 70+ = 75 mL/min/1.73 sq.m. Chronic Kidney Disease: Less than 60 mL/min/1.73 square meters End Stage Renal Disease: Less than 15 mL/min/1.73 square meters Glucose [Mass/Vol] 96 mg/dL Normal 70 - 105 mg/dL AO ADM SS Hematocrit (Bld) [Volume fraction] 44.8 % Normal 37.0 - 47.0 % AO Workflow SS Hemoglobin (Bld) [Mass/Vol] 15.7 G/dL Normal 12.0 - 16.0 G/dL AO Workflow SS Lymphocyte, Absolute 1.4 103/mcL Normal 0.8 - 3 .9 10^3/mcL AO Workflow SS Lymphocytes/100 WBC (Bld) 34.3 % Normal 10.0 - 50.0 % AO Workflow SS MCH (RBC) [Entitic mass] 30.2 pg Normal 27.0 - 31.2 pg AO Workflow SS MCHC 35.0 G/dL Normal 33.0 - 37.0 G/dL AO Workflow SS MCV (RBC) [Entitic vol] 86.2 fL Normal 80.0 - 94.0 fL AO Workflow SS Monocyte distribution width Auto (Bld) [Entitic vol] 26.43 1 High 0.00 - 20.00 AO Workflow SS Comment on above: Result Comment: For adults in ED, MDW>20.0 may be associated with a higher risk of sepsis during the first 12hrs of hospital admission Monocyte, Absolute 0.5 103/mcL Normal 0.2 - 1.0 10^3/mcL AO Workflow SS Monocytes/100 WBC (Bld) 13.0 % Normal 1.7 - 13.0 % AO Workflow SS Neutrophil, Absolute 2.1 103/mcL Low 2.9 - 6 .2 10^3/mcL AO Workflow SS Neutrophils/100 WBC (Bld) 51.9 % Normal 37.0 - 80.0 % AO Workflow SS Platelet mean volume (Bld) [Entitic vol] 9.1 fL Normal 7.4 - 10.4 fL AO Workflow SS Platelets (Bld) [#/Vol] 175 103/mcL Normal 130 - 400 10^3/mcL AO Workflow SS Potassium [Moles/Vol] 3.9 mmol/L Normal 3.5 - 5.1 mmol/L AO ADM SS RBC (Bld) [#/Vol] 5.20 106/mcL Normal 4.20 - 5.4 0 10^6/mcL AO Workflow SS Sodium [Moles/Vol] 135 mmol/L Low 136 - 145 mmol/L AO ADM SS Urea nitrogen [Mass/Vol] 10 mg/dL Normal 7 - 18 mg/dL AO ADM SS Urea nitrogen/Creatinine [Mass ratio] 9 ratio Normal 7 - 27 ratio AO ADM SS WBC (Bld) [#/Vol] 4.0 103/mcL Low 4.6 - 10.8 10^3/mcL AO Workflow SS LABORATORYOrdered By: Shay Perrin on 11-22-2023 UA RBC None Seen /HPF Normal None Seen AO Auto Urine SS UA Squam Epithelial 5-10 /HPF Invalid Interpretation Code None Seen AO Auto Urine SS WBC LM.HPF (Urine sed) [#/Area] None Seen /HPF Normal None Seen AO Auto Urine SS PREGUon 11-22-2023 HCG ( test) Ql (U) Negative Normal [facility] ([place]) Comment on above: Performed By: #### P REGU, UA, UAMICAO ####[facility] [place] [id number] test (u) int Not detected Invalid Interpretation Code [facility] ([place]) Comment on above: Performed By: #### P REGU, UA, UAMICAO ####[address] [place], [place] [address] UAon 11-22-2023 Color (U) Brown Abnormal [facility] ([place]) Comment on above: Performed By: #### P REGU, UA, UAMICAO ####[address] [place] [address] Glucose (U) [Mass/Vol] Negative Normal Negative [facility] ([place]) Comment on above: Performed By: #### P REGU, UA, UAMICAO ####[address] [place] [address] Ketones Ql (U) Negative Normal Negative [facility] ([place]) Comment on above: Performed By: #### P REGU, UA, UAMICAO ####[address] [place] [address] UA Appear Cloudy Abnormal Clear [facility] ([place]) Comment on above: Performed By: #### P REGU, UA, UAMICAO ####[address] [place] [address] UA Bili Small Abnormal Negative [facility] ([place]) Comment on above: Performed By: #### P REGU, UA, UAMICAO ####[address] [place] [address] UA Blood Negative Normal Negative [facility] ([place]) Comment on above: Performed By: #### P REGU, UA, UAMICAO ####[address] [place] [address] UA Leuk Est Trace Abnormal Negative [facility] ([place]) Comment on above: Performed By: #### P REGU, UA, UAMICAO ####[address] [place] [address] UA Nitrite Negative Normal Negative [facility] ([place]) Comment on above: Performed By: #### P REGU, UA, UAMICAO ####[address] [place], [place] [address] UA pH 6.0 Normal 5.0 - 8.0 [facility] ([place]) Comment on above: Performed By: #### P REGU, UA, UAMICAO ####[address] [place], [place] [address] UA Protein 30 mg/dL Normal Negative [facility] ([place]) Comment on above: Performed By: #### P REGU, UA, UAMICAO ####[address] [place], [place] [address] UA Spec Grav >=1.030 Abnormal 1.015-1.025 [facility] ([place]) Comment on above: Performed By: #### P REGU, UA, UAMICAO ####[address] [place], [place] [address] UA Specimen Type Clean Catch Normal [facility] ([place]) Comment on above: Performed By: #### P REGU, UA, UAMICAO ####[address] [place], [place] [address] UA Urobilinogen 4.0 E.U./dL Abnormal 0.2-1.0 [facility] ([place]) Comment on above: Performed By: #### P REGU, UA, UAMICAO ####[address] [place], [place] [address] UA DIP, URINE (POC)on 2023 BILIRUBIN UA (POCT) Small Abnormal Negative [facility] CLARITY UA (POCT) Clear [facility] COLOR UA (POCT) Dark yellow [facility] GLUCOSE UA (POCT) Negative Negative mg/dL [facility] Hemoglobin Ql (U) Negative Negative [facility] KETONE UA (POCT) Negative Negative mg/dL [facility] LEUKOCYTES UA (POCT) Trace Abnormal Negative [facility] NITRITE UA (POCT) Negative Negative [facility] PH UA (POCT) 6.0 4.5 - 8.0 [facility] Protein Ql (U) 30 mg/dL Abnormal Negative mg/dL [facility] SPECIFIC GRAVITY UA (POCT) 1.025 1.005 - 1.030 [facility] UROBILINOGEN UA (POCT) 4.0 E.U./dL Abnormal Gladis l E.U./dL [facility] 36on 11-12-2023 36 Last ov- 02/27/23 Next ov- 12/02/23 Normal [facility] 36on 10-14-2023 36 I spoke with Gertrude today regarding her stated failure of Nurtec for breakthrough therapy. She confirmed that she has not had relief from her migraine symptoms after taking therapy. I told her I would discuss with you and see about starting Ubrelvy prior to her 12/02/23 appt so evaluation of Ubrelvy could be made. If this is appropriate, I have pended the RX below for you approval. Thanks! Normal [facility] .Auto Diffon 06-27-2023 Basophil, Absolute 0.0 10 3/mcL Normal 0.0-0.2 [facility] ([place]) Comment on above: Performed By: #### C BC, ANEU, GFR, MDW, BMP, ADIFF #### [address] [address] Basophils/100 WBC (Bld) 0.4 % Normal 0.0-2.5 A [facility] ([place]) Comment on above: Performed By: #### C BC, ANEU, GFR, MDW, BMP, ADIFF #### [address] [address] Eosinophil, Absolute 0.1 10 3/mcL Normal 0.0-0.4 [facility] ([place]) Comment on above: Performed By: #### C BC, ANEU, GFR, MDW, BMP, ADIFF #### [address] [address] Eosinophils/100 WBC (Bld) 1.0 % Normal 0.0-7.0 [facility] ([place]) Comment on above: Performed By: #### C BC, ANEU, GFR, MDW, BMP, ADIFF #### [address] [address] Lymphocyte, Absolute 2.9 10 3/mcL Normal 0.8-3.9 [facility] ([place]) Comment on above: Performed By: #### C BC, ANEU, GFR, MDW, BMP, ADIFF #### [address] [address] Lymphocytes/100 WBC (Bld) 30.3 % Normal 10.0-50.0 [facility] ([place]) Comment on above: Performed By: #### C BC, ANEU, GFR, MDW, BMP, ADIFF #### [address] [address] Monocyte, Absolute 0.6 10 3/mcL Normal 0.2-1.0 [facility] ([place]) Comment on above: Performed By: #### C BC, ANEU, GFR, MDW, BMP, ADIFF #### [address] [address] Monocytes/100 WBC (Bld) 6.2 % Normal 1.7-13.0 [facility] ([place]) Comment on above: Performed By: #### C BC, ANEU, GFR, MDW, BMP, ADIFF #### [address] [address] [address] Neutrophils/100 WBC (Bld) 62.1 % Normal 37.0-80.0 [facility] ([place]) Comment on above: Performed By: #### C BC, ANEU, GFR, MDW, BMP, ADIFF #### [address] [address] .GFRon 06-27-2023 GFR Non- 61 ml/min/1.73sqm Normal [facility] ([place]) Comment on above: Result Comment: GFR Population mean for , Non- Americans Ages 20-29 = 116 mL/min/1.73 sq.m. Ages 30-39 = 107 mL/min/1.73 sq.m. Ages 40-49 = 99 mL/min/1.73 sq.m. Ages 50-59 = 93 mL/min/1.73 sq.m. Ages 60-69 = 85 mL/min/1.73 sq.m. Ages 70+ = 75 mL/min/1.73 sq.m. Chronic Kidney Disease: Less than 60 mL/min/1.73 square meters End Stage Renal Disease: Less than 15 mL/min/1.73 square meters Performed By: #### C BC, ANEU, GFR, MDW, BMP, ADIFF #### [address] [address] GFR 74 ml/min/1.73sqm Normal [facility] ([place]) Comment on above: Result Comment: GFR Population mean for , Non- Americans Ages 20-29 = 116 mL/min/1.73 sq.m. Ages 30-39 = 107 mL/min/1.73 sq.m. Ages 40-49 = 99 mL/min/1.73 sq.m. Ages 50-59 = 93 mL/min/1.73 sq.m. Ages 60-69 = 85 mL/min/1.73 sq.m. Ages 70+ = 75 mL/min/1.73 sq.m. Chronic Kidney Disease: Less than 60 mL/min/1.73 square meters End Stage Renal Disease: Less than 15 mL/min/1.73 square meters Performed By: #### C BC, ANEU, GFR, MDW, BMP, ADIFF #### [address] [address] .MDWon 06-27-2023 Monocyte Distribution Width 15.37 Normal 0.00-20.00 [facility] ([place]) Comment on above: Result Comment: For ED adult patients suspected of sepsis, MDW<=20.0 does not rule out sepsis or risk of sepsis Performed By: #### C BC, ANEU, GFR, MDW, BMP, ADIFF #### [address] [address] .NEUABSon 06-27-2023 Neutrophil, Absolute 5.9 10 3/mcL Normal 2.9-6.2 [facility] ([place]) Comment on above: Performed By: #### C BC, ANEU, GFR, MDW, BMP, ADIFF #### [address] [address] BMPon 06-27-2023 BUN/Creatinine Ratio 4 ratio Low 7-27 [facility] ([place]) Comment on above: Performed By: #### C BC, ANEU, GFR, MDW, BMP, ADIFF #### [address] [address] Calcium [Mass/Vol] 9.1 mg/dL Normal 8.4-10.2 [facility] ([place]) Comment on above: Performed By: #### C BC, ANEU, GFR, MDW, BMP, ADIFF #### [address] [address] Chloride [Moles/Vol] 99 mmol/L Normal 98-107 [facility] ([place]) Comment on above: Performed By: #### C BC, ANEU, GFR, MDW, BMP, ADIFF #### [place] [id number] CO2 [Moles/Vol] 25 mmol/L Normal 22-29 [facility] ([place]) Comment on above: Performed By: #### C BC, ANEU, GFR, MDW, BMP, ADIFF #### [address] [address] Creatinine [Mass/Vol] 1.05 mg/dL High 0.55-1.02 [facility] ([place]) Comment on above: Performed By: #### C BC, ANEU, GFR, MDW, BMP, ADIFF #### [address] [address] Electrolyte Balance 11.0 mEq/L Normal 4.0-15.0 [facility] ([place]) Comment on above: Performed By: #### C BC, ANEU, GFR, MDW, BMP, ADIFF #### [address] [address] Glucose [Mass/Vol] 101 mg/dL Normal 70-105 [facility] ([place]) Comment on above: Performed By: #### C BC, ANEU, GFR, MDW, BMP, ADIFF #### [address] [address] Potassium [Moles/Vol] 3.6 mmol/L Normal 3.5-5.1 [facility] ([place]) Comment on above: Performed By: #### C BC, ANEU, GFR, MDW, BMP, ADIFF #### [address] [address] Sodium [Moles/Vol] 135 mmol/L Low 136-145 [facility] ([place]) Comment on above: Performed By: #### C BC, ANEU, GFR, MDW, BMP, ADIFF #### [place] [id number] Urea nitrogen [Mass/Vol] 4 mg/dL Low 7-18 [facility] ([place]) Comment on above: Performed By: #### C BC, ANEU, GFR, MDW, BMP, ADIFF #### [place] [id number] CBCon 06-27-2023 Erythrocyte distribution width (RBC) [Ratio] 14.4 % Normal 11.5-14.5 [facility] ([place]) Comment on above: Performed By: #### C BC, ANEU, GFR, MDW, BMP, ADIFF #### [place] [address] Hematocrit (Bld) [Volume fraction] 39.5 % Normal 37.0-47.0 [facility] ([place]) Comment on above: Performed By: #### C BC, ANEU, GFR, MDW, BMP, ADIFF #### [address] [address] Hgb 13.7 G/dL Normal 12.0-16.0 [facility] ([place]) Comment on above: Performed By: #### C BC, ANEU, GFR, MDW, BMP, ADIFF #### [address] [address] MCH (RBC) [Entitic mass] 29.6 pg Normal 27.0-31.2 [facility] ([place]) Comment on above: Performed By: #### C BC, ANEU, GFR, MDW, BMP, ADIFF #### [place] [id number] MCHC 34.6 G/dL Normal 33.0-37.0 [facility] ([place]) Comment on above: Performed By: #### C BC, ANEU, GFR, MDW, BMP, ADIFF #### [address] [address] MCV (RBC) [Entitic vol] 85.8 fL Normal 80.0-94.0 [facility] ([place]) Comment on above: Performed By: #### C BC, ANEU, GFR, MDW, BMP, ADIFF #### [address] [address] Platelet 284 10 3/mcL Normal 130-400 [facility] ([place]) Comment on above: Performed By: #### C BC, ANEU, GFR, MDW, BMP, ADIFF #### [address] [address] Platelet mean volume (Bld) [Entitic vol] 7.7 fL Normal 7.4-10.4 [facility] ([place]) Comment on above: Performed By: #### C BC, ANEU, GFR, MDW, BMP, ADIFF #### [address] [address] RBC 4.61 10 6/mcL Normal 4.20-5.40 [facility] ([place]) Comment on above: Performed By: #### C BC, ANEU, GFR, MDW, BMP, ADIFF #### [address] [address] WBC 9.6 10 3/mcL Normal 4.6-10.8 [facility] ([place] Comment on above: Performed By: #### C BC, ANEU, GFR, MDW, BMP, ADIFF #### [address] [address] [address] HEAD OR BRAIN W/O CONTRAS Ton 06-27-2023 CT HEAD OR BRAIN W/O CONTRAST ORIGINAL EXAMINATION: CT OF THE HEAD WITHOUT CONTRAST 06/27/2023 8:04 pm TECHNIQUE: CT of the head was performed without the administration of intravenous contrast. Automated exposure control, iterative reconstruction, and/or weight based adjustment of the mA/kV was utilized to reduce the radiation dose to as low as reasonably achievable. COMPARISON: CT head 03/15/2022 HISTORY: ORDERING SYSTEM PROVIDED HISTORY: Reason for Exam: Migraine x 3 days pain/headache FINDINGS: BRAIN/VENTRICLES: There is no acute intracranial hemorrhage, mass effect or midline shift. No abnormal extra-axial fluid collection. The wilder-white differentiation is maintained without evidence of an acute infarct. There is no evidence of hydrocephalus. ORBITS: The visualized portion of the orbits demonstrate no acute abnormality. SINUSES: The visualized paranasal sinuses and mastoid air cells demonstrate no acute abnormality. SOFT TISSUES/SKULL: No acute abnormality of the visualized skull or soft tissues. IMPRESSION: No acute intracranial abnormality. I have personally reviewed the images of this examination and agree with the resident's findings and interpretation. Interpreted by: Lee Staley Preliminary Report By: German Saxena Electronically signed By Lee Staley Dictated Date: 06/27/2023 8:12:20 PM Prelim Date: 06/27/2023 8:14:31 PM Sign Date: 06/27/2023 8:27:06 PM Ordering Provider: DINO STANFORD Normal [facility] ([place]) PREGUon 06-27-2023 HCG ( test) Ql (U) Negative Normal [facility] ([place]) Comment on above: Performed By: #### P REGU UA ####[address] [place], [place] [address] test (u) int Not detected Invalid Interpretation Code [facility] ([place]) Comment on above: Performed By: #### P REGU, UA ####[address] [place], [place] [address] UAon 06-27-2023 Color (U) Light yellow Normal [facility] ([place]) Comment on above: Performed By: #### P REGU, UA ####[address] [place], [place] [address] Glucose (U) [Mass/Vol] Negative Normal Negative [facility] ([place]) Comment on above: Performed By: #### P REGU, UA ####[address] [place], [place] [address] Ketones Ql (U) Negative Normal Negative [facility] ([place]) Comment on above: Performed By: #### P REGU, UA ####[address] [place] [address] UA Appear Clear Normal Clear [facility] ([place]) Comment on above: Performed By: #### P REGU, UA ####[address] [place], [place] [address] UA Blood Negative Normal Negative [facility] ([place]) Comment on above: Performed By: #### P REGU, UA ####[address] [place] [address] UA Leuk Est Negative Normal Negative [facility] ([place]) Comment on above: Performed By: #### P REGU, UA ####[address] [place] [address] UA Nitrite Negative Normal Negative [facility] ([place]) Comment on above: Performed By: #### P REGU, UA ####[address] [place] [address] UA pH 5.5 Normal 5.0 - 8.0 [facility] ([place]) Comment on above: Performed By: #### P REGU, UA ####[address] [place] [address] UA Protein Negative Normal Negative [facility] ([place]) Comment on above: Performed By: #### P REGU, UA ####[address] [place] [address] UA Spec Grav <=1.005 Abnormal 1.015-1.025 [facility] ([place]) Comment on above: Performed By: #### P REGU, UA ####[address] [place] [address] UA Specimen Type Clean Catch Normal [facility] ([place]) Comment on above: Performed By: #### P REGU, UA ####[address] [place] [address] UA Urobilinogen 0.2 E.U./dL Normal 0.2-1.0 [facility] ([place]) Comment on above: Performed By: #### P REGU, UA ####[address] [place], [place] [address] Urobilinogen (U) [Mass/Vol] Negative Normal Negative [facility] ([place]) Comment on above: Performed By: #### P CARLOS REED ####[address] [place], [place] [address] 36on 06-18-2023 36 Called to confirm appointment. Patient did not answer. LVM telling them to call back if they need to reschedule. Normal [facility] US PELVIS NON-OB W/TRANSVAGI NALon 04-16-2023 US PELVIS NON-OB W/TRANSVAGINAL ORIGINAL EXAMINATION: TRANSABDOMINAL AND TRANSVAGINAL PELVIC ULTRASOUND 04/15/2023 2:01 pm TECHNIQUE: Transabdominal and transvaginal pelvic ultrasound was performed. COMPARISON: February 2022 transabdominal and transvaginal pelvic ultrasound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 Respiratory rate 20 /min DR AMELIA GORDILLO MD [facility] 03-15-2022 17:10-0400 Systolic blood pressure 100 mm[Hg] DR AMELIA GORDILLO MD [facility] 03-15-2022 16:23-0400 Diastolic blood pressure 69 mm[Hg] DR AMELIA GORDILLO MD [facility] 03-15-2022 16:23-0400 Heart rate 68 /min DR AMELIA GORDILLO MD [facility] 03-15-2022 16:23-0400 Respiratory rate 23 /min DR AMELIA GORDILLO MD [facility] 03-15-2022 16:23-0400 Systolic blood pressure 103 mm[Hg] DR AMELIA GORDILLO MD [facility] 03-15-2022 15:48-0400 Diastolic blood pressure 71 mm[Hg] DR AMELIA GORDILLO MD [facility] 03-15-2022 15:48-0400 Heart rate 83 /min DR AMELIA GORDILLO MD [facility] 03-15-2022 15:48-0400 Respiratory rate 19 /min DR AMELIA GORDILLO MD [facility] 03-15-2022 15:48-0400 Systolic blood pressure 98 mm[Hg] DR AMELIA GORDILLO MD [facility] 03-15-2022 14:42-0400 Body height 162.[address] AMELIA GORDILLO MD [facility] 03-15-2022 14:42-0400 Body temperature 97.7 [degF] DR AMELIA GORDILLO MD [facility] 03-15-2022 14:42-0400 Body weight 88.[address] AMELIA GORDILLO MD [facility] 03-15-2022 14:42-0400 Heart rate 97 /min DR AMELIA GORDILLO MD [facility] 12-24-2021 21:24-0400 Heart rate 70 /min Dr. Marva Roberts Work Phone: [facility] Work Phone: 12-24-2021 21:24-0400 Respiratory rate 17 /min Dr. Marva Roberts Work Phone: [facility] Work Phone: 12-24-2021 21:24-0400 SaO2% (BldA) [Mass fraction] 99 % Dr. Marva Roberts Work Phone: [facility] Work Phone: 12-24-2021 19:33-0400 Body height 162.[address] Marva Roberts Work Phone: [facility] Work Phone: 12-24-2021 19:33-0400 Body mass index (BMI) [Ratio] 35 kg/m2 Dr. Marva Roberts Work Phone: [facility] Work Phone: 12-24-2021 19:33-0400 Body temperature 97.2 [degF] Dr. Marva Roberts Work Phone: [facility] Work Phone: 12-24-2021 19:33-0400 Body weight 92.[address] Marva Roberts Work Phone: [facility] Work Phone: 12-24-2021 19:33-0400 Diastolic blood pressure 83 mm[Hg] Dr. Marva Roberts Work Phone: [facility] Work Phone: 12-24-2021 19:33-0400 Systolic blood pressure 142 mm[Hg] Dr. Marva Roberts Work Phone: [facility] Work Phone: 12-20-2021 09:17-0400 Body mass index (BMI) [Ratio] 33.3 kg/m2 Dr. Marva Roberts Work Phone: [facility] Work Phone: 12-20-2021 09:17-0400 Body temperature 97.2 [degF] Dr. Marva Roberts Work Phone: [facility] Work Phone: 12-20-2021 09:17-0400 Body weight 87.[address] Marva Roberts Work Phone: [facility] Work Phone: 12-20-2021 09:17-0400 Diastolic blood pressure 68 mm[Hg] Dr. Marva Roberts Work Phone: [facility] Work Phone: 12-20-2021 09:17-0400 Heart rate 79 /min Dr. Marva Roberts Work Phone: [facility] Work Phone: 12-20-2021 09:17-0400 Respiratory rate 14 /min Dr. Marva Roberts Work Phone: [facility] Work Phone: 12-20-2021 09:17-0400 SaO2% (BldA) [Mass fraction] 98 % Dr. Marva Roberts Work Phone: [facility] Work Phone: 12-20-2021 09:17-0400 Systolic blood pressure 120 mm[Hg] Dr. Marva Roberts Work Phone: [facility] Work Phone: 11-11-2021 10:31-0500 Body mass index (BMI) [Ratio] 34.1 kg/m2 Dr. Marva Roberts Work Phone: [facility] Work Phone: 11-11-2021 10:31-0500 Body temperature 96.6 [degF] Dr. Marva Roberts Work Phone: [facility] Work Phone: 11-11-2021 10:31-0500 Body weight 90.[address] Marva Roberts Work Phone: [facility] Work Phone: 11-11-2021 10:31-0500 Diastolic blood pressure 80 mm[Hg] Dr. Marva Roberts Work Phone: [facility] Work Phone: 11-11-2021 10:31-0500 Heart rate 90 /min Dr. Marva Roberts Work Phone: [facility] Work Phone: 11-11-2021 10:31-0500 Respiratory rate 16 /min Dr. Marva Roberts Work Phone: [facility] Work Phone: 11-11-2021 10:31-0500 SaO2% (BldA) [Mass fraction] 100 % Dr. Marva Roberts Work Phone: [facility] Work Phone: 11-11-2021 10:31-0500 Systolic blood pressure 110 mm[Hg] Dr. Marva Roberts Work Phone: [facility] Work Phone: Encounters Encounter Date Encounter Type Care Provider Facility Start: 04-21-2025 End: 04-25-2025 ambulatory MARVA ROBERTS MD Facility:[facility] Start: 04-21-2025 End: 04-25-2025 Encounter for gynecological examination (general) (routine) without abnormal findings ARLET BOOTHE MD Facility:[facility] Start: 04-21-2025 End: 04-25-2025 Outreach Lab ARLET BOOTHE MD [facility] Start: 04-07-2025 End: 04-07-2025 Patient encounter procedure Nikolas Rose APRN.HOOKER INSPECTOR Work Phone: [facility] Comment on above: Acute otalgia, left (Primary Dx); Dental abscess; Exposure to mold; Concussion with loss of consciousness of 30 minutes or less, initial encounter; Visual disturbance; Chronic bilateral low back pain with bilateral sciatica; Lumbar disc herniation; Bilateral leg weakness; Spinal stenosis of lumbar region, unspecified whether neurogenic claudication present; Personality disorder (HCC); Post-traumatic stress disorder, chronic; Major depressive disorder, recurrent, moderate (HCC) Start: 04-07-2025 End: 04-07-2025 ambulatory NIKOLAS ROSE Facility:[facility] Start: 03-14-2025 End: 03-15-2025 Follow-up encounter Nikolas Rose APRN.CNP Work Phone: [facility] Comment on above: Results Start: 03-09-2025 End: 03-09-2025 Telephone encounter Nikolas Rose APRN.HOOKER INSPECTOR Work Phone: [facility] Comment on above: Lab Orders Start: 03-08-2025 End: 03-08-2025 Subsequent hospital visit by physician Donavan [facility] Comment on above: Injury of low back, initial encounter [S39.92XA] Start: 03-08-2025 End: 03-08-2025 Patient encounter procedure Nikolas Rose APRN.HOOKER INSPECTOR Work Phone: [facility] Comment on above: Injury of low back, initial encounter (Primary Dx); Chronic bilateral low back pain with bilateral sciatica; Injury of head, initial encounter; Class 1 obesity without serious comorbidity with body mass index (BMI) of 30.0 to 30.9 in adult, unspecified obesity type; Bilateral hearing loss, unspecified hearing loss type Start: 03-08-2025 End: 03-08-2025 ambulatory NIKOLAS ROSE Facility:[facility] Start: 02-22-2025 End: 02-22-2025 Patient encounter procedure Sumeet Ruth Work Phone: Podiatry Comment on above: Tendonitis, Achilles , left (Primary Dx); Tendonitis, Achilles, right Start: 02-22-2025 End: 02-22-2025 ambulatory SUMEET RUTH Facility:[facility] Start: 02-11-2025 End: 02-11-2025 ambulatory ARMANDO VARELA Facility:[id number] Start: 01-25-2025 End: 01-25-2025 Patient encounter procedure Sumeet Ruth Work Phone: Podiatry Comment on above: Tendonitis, Achilles , left (Primary Dx); Foot pain, left; Chronic pain of left ankle; Tendonitis, Achilles, right; Acquired pes planus of both feet Start: 01-25-2025 End: 01-25-2025 ambulatory SUMEET RUTH Facility:[facility] Start: 01-25-2025 End: 01-25-2025 Subsequent hospital visit by physician Donavan [facility] Niya Palacio Work Phone: Radiology Comment on above: Bilateral foot pain [M79.671, M79.672] Start: 12-07-2024 End: 12-08-2024 Follow-up encounter Nikolas Rose APRN.CNP Work Phone: [facility] Start: 12-06-2024 ambulatory NIKOLAS ROSE Facilit y:[facility] Start: 12-06-2024 End: 12-06-2024 Subsequent hospital visit by physician [facility] (1.5t) [facility] Comment on above: Seizure-like activit y (HCC) [R56.9] Start: 11-29-2024 End: 11-30-2024 Follow-up encounter Nikolas Rose APRN.CNP Work Phone: [facility] Comment on above: Vitamin D deficiency (Primary Dx); Elevated alkaline phosphatase level Start: 11-27-2024 End: 11-27-2024 Subsequent hospital visit by physician [facility] Comment on above: Chronic bilateral lo w back pain with bilateral sciatica [M54.42, M54.41, G89.29] Start: 11-27-2024 End: 11-27-2024 ambulatory NIKOLAS ROSE Facility:[facility] Start: 11-27-2024 End: 11-27-2024 ambulatory NIKOLAS ROSE Facility:[facility] Start: 11-27-2024 End: 11-27-2024 Patient encounter procedure Nikolas Rose APRN.CNP Work Phone: [facility] Comment on above: Plantar fasciitis, b ilateral (Primary Dx); Vitamin D deficiency; Foot pain, left; Chronic pain of left ankle; Chronic bilateral low back pain with bilateral sciatica; Left elbow pain; Seizure-like activity (HCC); Headaches; Osteoarthritis of multiple joints, unspecified osteoarthritis type; Vitamin B12 deficiency; Brain fog; Transient confusion Start: 11-19-2024 End: 11-20-2024 Refill Nikolas Rose APRN.CNP Work Phone: [facility] Comment on above: Refill Request Start: 10-15-2024 End: 10-15-2024 ambulatory NIKOLAS ROSE Facility:[facility] Start: 10-15-2024 End: 10-15-2024 Patient encounter procedure Asia DUBOIS Work Phone: [facility] Comment on above: URI, acute (Primary Dx) Start: 09-09-2024 End: 09-10-2024 Refill Krissy Jones ASSISTANT PROFESSOR OF BUSINESS - HOOKER INSPECTOR Work Phone: [facility] Neurology [facility] Start: 08-24-2024 End: 08-24-2024 ambulatory NIKOLAS ROSE Facility:[facility] Start: 08-17-2024 End: 08-17-2024 Telephone encounter Nikolas Rose ASSISTANT PROFESSOR OF BUSINESS.HOOKER INSPECTOR Work Phone: [facility] Comment on above: Lab Orders Start: 04-29-2024 Telephone encounter Nikolas Rose ASSISTANT PROFESSOR OF BUSINESS.HOOKER INSPECTOR Work Phone: [facility] Comment on above: Results Start: 04-27-2024 End: 04-27-2024 Refill Krissy Jones ASSISTANT PROFESSOR OF BUSINESS - HOOKER INSPECTOR Work Phone: [facility] Neuroscience Start: 04-20-2024 End: 04-20-2024 ambulatory NIKOLAS ROSE Neurology Comment on above: EMG Start: 04-20-2024 End: 04-20-2024 Patient encounter procedure [facility] Work Phone: Neurology Start: 04-15-2024 End: 04-15-2024 Office outpatient new 45 minutes Lizzeth Peña ASSISTANT PROFESSOR OF BUSINESS.HOOKER INSPECTOR Work Phone: [facility] [place] Comment on above: Diarrhea, unspecifie d type (Primary Dx); Gastroesophageal reflux disease, unspecified whether esophagitis present; Nausea and vomiting, unspecified vomiting type Start: 02-13-2024 Telephone encounter Nikolas Rose ASSISTANT PROFESSOR OF BUSINESS.HOOKER INSPECTOR Work Phone: [facility] Comment on above: Results (Labs) Start: 02-01-2024 End: 02-01-2024 Emergency department patient visit Reese العلي Facility:[facility] Start: 02-01-2024 End: 02-01-2024 Emergency department patient visit [facility] Work Phone: Start: 01-29-2024 End: 01-29-2024 Patient encounter procedure Nikolas Rose APRN.HOOKER INSPECTOR Work Phone: [facility] Comment on above: Numbness and tinglin g in right hand (Primary Dx); Gastroesophageal reflux disease, unspecified whether esophagitis present; History of stomach ulcers; Screening for lipid disorders Start: 01-07-2024 End: 01-07-2024 Patient encounter procedure Aurelio King KEISHA.HOOKER INSPECTOR Work Phone: [facility] Comment on above: Vomiting and diarrhe a (Primary Dx) Start: 11-22-2023 End: 11-22-2023 Emergency department patient visit DINO STANFORD MD Facility:B Start: 11-22-2023 End: 11-22-2023 Emergency department patient visit DINO STANFORD MD [facility] Start: 11-22-2023 End: 11-22-2023 Office outpatient visit 15 minutes Juan Antonio Carter APRN.HOOKER INSPECTOR Work Phone: [facility] Comment on above: Burning with urinati on (Primary Dx); Syncope, unspecified syncope type Start: 11-22-2023 End: 11-22-2023 ambulatory Liz Reyes APRN.HOOKER INSPECTOR Work Phone: Telemedicine Comment on above: Viral syndrome (Prim sameer Dx) Start: 11-22-2023 End: 11-22-2023 Telemedicine consultation with patient Liz Reyes APRN.HOOKER INSPECTOR Work Phone: [facility] Start: 11-11-2023 Refill Krissy paz ASSISTANT PROFESSOR OF BUSINESS - HOOKER INSPECTOR Work Phone: [facility] Neuroscience Start: 10-14-2023 Telephone encounter Krissy Vivar APRN - HOOKER INSPECTOR Work Phone: [facility] Comment on above: Med Management (Nurt ec Failure - Request for Ubrelvy) Start: 08-27-2023 End: 08-27-2023 Office outpatient visit 25 minutes Hortencia Toro PA-C Work Phone: [facility] Comment on above: Acute cough (Primary Dx) Start: 08-08-2023 Refill Krissysteven Rider brandi ASSISTANT PROFESSOR OF BUSINESS - HOOKER INSPECTOR Work Phone: [facility]science Start: 06-27-2023 End: 06-27-2023 Emergency department patient visit DR TIEN MARTIN DO Facility:B Start: 06-06-2023 End: 06-06-2023 Patient encounter procedure Parviz Tomas MD Work Phone: [facility] Comment on above: Acute cough (Primary Dx) Start: 04-17-2023 End: 04-18-2023 [facility] Start: 04-17-2023 End: 04-17-2023 Subsequent hospital visit by physician Krissy Jones ASSISTANT PROFESSOR OF BUSINESS - HOOKER INSPECTOR Work Phone: [facility] Non-Invasive Cardiology Comment on above: Palpitations Start: 04-15-2023 End: 04-16-2023 ambulatory MALLORY HILLMAN ASSISTANT PROFESSOR OF BUSINESS-HOOKER INSPECTOR Facility:B Start: 04-08-2023 End: 04-13-2023 ambulatory MALLORY HILLMAN ASSISTANT PROFESSOR OF BUSINESS-HOOKER INSPECTOR Facility:B Start: 03-13-2023 Refill Krissy Nicolásl brandi ASSISTANT PROFESSOR OF BUSINESS - HOOKER INSPECTOR Work Phone: [facility]science Start: 03-03-2023 End: 03-03-2023 Emergency department patient visit DINO STANFORD MD Facility:B Start: 02-27-2023 End: 02-27-2023 [facility] Start: 02-27-2023 End: 02-27-2023 Office outpatient visit 25 minutes Krissy Jones ASSISTANT PROFESSOR OF BUSINESS - HOOKER INSPECTOR Work Phone: [facility]science Comment on above: Transient alteration of awareness (Primary Dx); Intractable migraine with aura without status migrainosus; Palpitations Start: 12-26-2022 End: 12-26-2022 Emergency department patient visit NONE PHYSICIAN Facility:B Start: 12-26-2022 End: 12-26-2022 Emergency department patient visit DR TIEN MARTIN DO [facility] Start: 11-01-2022 Refill Krissy WATTN - HOOKER INSPECTOR Work Phone: [facility] [place] Start: 08-20-2022 End: 08-24-2022 Outreach Lab ARLET BOOTHE MD [facility] Start: 07-01-2022 End: 07-01-2022 Emergency department patient visit DR AMELIA GORDILLO MD [facility] Start: 06-27-2022 End: 06-27-[address] Marva Roberts Work Phone: [facility] Work Phone: Start: 06-27-2022 End: 06-27-[address] Marva Roberts Work Phone: [facility] Internal Medicine Start: 05-05-2022 End: 05-05-[address] Marva Roberts Work Phone: [facility] Start: 04-23-[address] Chen [facility] Start: 04-06-2022 End: 04-06-2022 Patient encounter procedure Priti Rangel APRN.HOOKER INSPECTOR Work Phone: [facility] Comment on above: Close exposure to [place] VID-19 virus (Primary Dx) Start: 04-04-2022 End: 04-04-[address] Marva Roberts Work Phone: [facility] Internal [facility] Start: 03-15-2022 End: 03-15-2022 Emergency department patient visit DR AMELIA GORDILLO MD [facility] Start: 12-24-2021 End: 12-24-2021 Emergency department patient visit Dr. Marva [facility] Start: 12-20-2021 End: 12-20-[address] Marva Roberts Work Phone: [facility] Start: 11-11-2021 End: 11-11-2021 Emergency department patient visit Dr. Marva Roberts [facility] Start: 11-02-2021 End: 11-06-2021 Outreach Lab MALLORY HILLMAN ASSISTANT PROFESSOR OF BUSINESS-HOOKER INSPECTOR [facility] Start: 05-03-2021 End: 05-03-2021 Subsequent hospital visit by physician Ashu So MD Work Phone: [facility] Neuro Comment on above: Arrived Procedures Date Procedure Procedure Detail Performing Clinician Start: 11-22-2023 Urnls dip stick/tabl et rgnt auto w/o microscopy Parviz Tomas MD Work Phone: Start: 12-24-2021 Plain chest X-ray Dr. Brenda Roberts Work Phone: Start: 12-24-2021 Radiologic examinati on of knee Dr. Marva Roberts Work Phone: Start: 12-24-2021 X-ray of both feet Dr. Marva Roberts Work Phone: Start: 12-24-2021 X-ray of lumbar spin e, two or three views Dr. Marva Roberts Work Phone: Start: 09-23-2020 Loop electrosurgical excision procedure ARLET BOOTHE MD Ligation of fallopian tube S RENEE HILLMAN ASSISTANT PROFESSOR OF BUSINESS-HOOKER INSPECTOR Loop electrosurgical excision procedure DR AMELIA GORDILLO MD Plan of Treatment Date Care Activity Detail Author Start: 2066 RSV Immunization for Adults (1 - 1-dose 75+ series) RSV Immunization for Adults (1 - 1-dose 75+ series) [facility] Start: 2051 RSV Immunization aged 60 or older (1 - 1-dose 60+ series) RSV Immunization aged 60 or older (1 - 1-dose 60+ series) [facility] Start: 2041 Zoster Vaccines (1 of 2) Zoster Vaccines (1 of 2) [facility] Start: 04-07-2026 HPV Vaccine: Recommended Based On Risk HPV Vaccine: Recommended Based On Risk [facility] Comment on above: Postponed from 1991 (Declined at t his time) Start: 11-27-2025 Covid-19 Vaccine ( season) Covid-19 Vaccine ( - season) [facility] Comment on above: Postponed from 05/24/2024 (Declined at t his time) Start: 11-27-2025 Pneumococcal vaccination Pneumococcal Vaccine (1 of 2 - PCV) [facility] Comment on above: Postponed from 2010 (Declined at t his time) Start: 11-27-2025 Urine microalbumin profile DTaP,Tdap,Td Vaccine (1 - Tdap) [facility] Comment on above: Postponed from 2010 (Declined at t his time) Start: 09-13-2025 End: 09-13-2025 Patient encounter procedure 09/13/2025 4:40 PM EST Office Visit [facility] [address] [place], [place] [phone] Nikolas Rose, ASSISTANT PROFESSOR OF BUSINESS.HOOKER INSPECTOR [address] [place], [place] [phone] follow up [facility] Comment on above: follow up Start: 05-24-2025 Influenza vaccination [facility] Start: 03-22-2025 Influenza vaccination Influenza Vaccine (#1) [facility] Comment on above: Postponed from 05/24/2024 (Declined at t his time) Start: 03-09-2025 End: 06-08-2025 Pyridoxine [Mass/volume] in Serum or Plasma VITAMIN B6/PYRIDOXIN Lab Routine Vitamin B6 deficiency Expected: 03/09/2025, Expires: 06/08/2025 [facility] Work Phone: Comment on above: Expected: 03/09/2025, Expires: Start: 03-08-2025 End: 03-08-2025 Patient encounter procedure 03/08/2025 10:20 AM EDT Office Visit [facility] [address] [place] [address] Nikolas Rose, ASSISTANT PROFESSOR OF BUSINESS.[facility] [address] [place] [address] for back pain & arthritis [facility] Comment on above: for back pain & arthritis Start: 02-22-2025 End: 02-22-2025 Patient encounter procedure 02/22/2025 11:00 AM EDT Office Visit Podiatry [address] [place], [place] [phone] Sumeet Ruth [address] [place] [address] 4 week follow up L ankle pain Podiatry Comment on above: 4 week follow up L ankle pain Start: 02-11-2025 Diabetes mellitus screening Diabetes Screening [facility] Start: 02-11-2025 End: 02-11-2025 Patient encounter procedure 02/11/2025 10:30 AM EDT Office Visit [facility] [address] [place] [id number] Armando Varela MD [address] [place] [id number] R56.9 (ICD-10-CM) - Seizure-like activity (HCC) [facility] Comment on above: R56.9 (ICD-10-CM) - Seizure-like activit y (HCC) Start: 01-27-2025 End: 01-27-2025 Patient encounter procedure 01/27/2025 10:40 AM EDT Office Visit [facility] [address] [place], [place] [phone] Nikolas Rose APRN.HOOKER INSPECTOR [address] [place] [place], [place] [phone] for back pain & arthritis [facility] Comment on above: for back pain & arthritis Start: 01-04-2025 End: 01-04-2025 Patient encounter procedure 01/04/2025 10:30 AM EDT Office Visit [facility] [address] [place] [address] Armando Varela MD [address] [place], [place] [id number] R56.9 (ICD-10-CM) - Seizure-like activity (HCC) [facility] Comment on above: R56.9 (ICD-10-CM) - Seizure-like activit y (HCC) Start: 12-06-2024 End: 12-06-2024 Patient encounter procedure 12/06/2024 1:15 PM EDT Appointment [facility] [address] [place] [place], [place] [phone] Seizure-like activity (HCC) [R56.9] [facility] Comment on above: Seizure-like activity (HCC) [R56.9] Start: 11-29-2024 End: 05-28-2025 ALK PHOS ISOENZYM BL ALK PHOS ISOENZYM BL Lab Routine Vitamin D deficiency Elevated alkaline phosphatase level Expected: 11/29/2024, Expires: 05/28/2025 [facility] Comment on above: Expected: 11/29/2024, Expires: Start: 11-29-2024 End: 05-28-2025 Parathyrin.intact [Mass/volume] in Serum or Plasma PTH INTACT Lab Routine Vitamin D deficiency Elevated alkaline phosphatase level Expected: 11/29/2024, Expires: 05/28/2025 [facility] Work Phone: Comment on above: Expected: 11/29/2024, Expires: Start: 11-27-2024 End: 05-26-2025 Methylmalonate [Moles/volume] in Serum or Plasma [facility] Work Phone: Comment on above: Expected: 11/27/2024, Expires: Start: 11-27-2024 End: 05-26-2025 Pyridoxine [Mass/volume] in Serum or Plasma [facility] Comment on above: Expected: 11/27/2024, Expires: Start: 11-27-2024 End: 05-26-2025 VITAMIN B1 (THIAMINE), WHOLE BLOOD [facility] Comment on above: Expected: 11/27/2024, Expires: Start: 11-27-2024 End: 11-27-2024 Patient encounter procedure 11/27/2024 11:40 AM EST Office Visit [facility] [address] [place] [address] Nikolas Rose, ASSISTANT PROFESSOR OF BUSINESS.HOOKER INSPECTOR [address] [place] [address] Referral for podiatry due to severe ankle pain [facility] Comment on above: Referral for podiatry due to severe ankl e pain Start: 05-28-2024 End: 05-28-2024 Patient encounter procedure 05/28/2024 10:00 AM EDT Office Visit [facility] Neuroscience [address] [place] [phone] Victor Manuel Tsai MD [address] [place] [address] [facility] Start: 05-26-2024 End: 05-26-2024 Patient encounter procedure 05/26/2024 10:20 AM EDT Office Visit [facility] [address] [place] [address] Nikolas Rose, ASSISTANT PROFESSOR OF BUSINESS.HOOKER INSPECTOR [address] [place] [place], [place] [phone] Follow up [facility] Comment on above: Follow up Start: 05-24-2024 Covid-19 Vaccine () Covid-19 Vaccine () [facility] Start: 05-24-2024 Influenza vaccination [facility] Start: 05-11-2024 End: 05-11-2024 Patient encounter procedure 05/11/2024 11:00 AM EDT Office Visit [facility] [address] [place] [address] Nikolas Rose, ASSISTANT PROFESSOR OF BUSINESS.HOOKER INSPECTOR [address] [place] [address] Follow up [facility] Comment on above: Follow up Start: 04-30-2024 End: 04-30-2024 ambulatory 04/30/2024 9:45 AM EDT Results Only [facility] Draw [facility] [address] [place] [address] [facility] Start: 04-20-2024 End: 04-20-2024 Procedure 04/20/2024 11:00 AM EDT Procedure Neurology [address] [place] [address] EMG, R20.0, R20.2, order in [facility]. Neurology Comment on above: EMG, R20.0, R20.2, order in [facility]. Start: 04-15-2024 End: 07-15-2024 C reactive protein [Mass/volume] in Serum or Plasma C-REACTIVE PROTEIN Lab Routine Diarrhea, unspecified type Expected: 04/15/2024, Expires: 07/15/2024 [facility] Comment on above: Expected: 04/15/2024, Expires: Start: 04-15-2024 End: 07-15-2024 CELIAC SCREEN WITH REFLEX CELIAC SCREEN WITH REFLEX Lab Routine Diarrhea, unspecified type Expected: 04/15/2024, Expires: 07/15/2024 [facility] Comment on above: Expected: 04/15/2024, Expires: Start: 03-11-2024 End: 03-11-2024 Patient encounter procedure 03/11/2024 10:40 AM EDT Office Visit [facility] [address] [place], [place] [phone] Nikolas Rose, ASSISTANT PROFESSOR OF BUSINESS.HOOKER INSPECTOR [address] [place] [place], [place] [phone] GERD, RT numbness [facility] Comment on above: GERD, RT numbness Start: 03-07-2024 End: 08-26-2024 Hemoglobin A1c in Blood HEMOGLOBIN A1C Lab Routine Numbness and tingling in right hand Expected: 03/07/2024, Expires: 08/26/2024 [facility] Comment on above: Expected: 03/07/2024, Expires: Start: 03-05-2024 End: 03-05-2024 Patient encounter procedure 03/05/2024 8:00 AM EDT Office Visit [facility] [address] [place] [phone] Lizzeth Peña, ASSISTANT PROFESSOR OF BUSINESS.HOOKER INSPECTOR [address] [facility] [place] [address] GERD, history of stomach ulcers (in [place] when she was 15), ref in [facility], no current GI [facility] Comment on above: GERD, history of stomach ulcers (in [place] w hen she was 15), ref in [facility], no current GI Start: 02-12-2024 End: 02-12-2024 ambulatory 02/12/2024 9:00 AM EDT Results Only [place] [facility] Draw Station [address] [place] [address] [place] [facility] Draw Station Start: 02-01-2024 [facility] Start: 01-29-2024 End: 08-26-2024 25-hydroxyvitamin D3 [Mass/volume] in Serum or Plasma VITAMIN D 25 HYDROXY Lab Routine Numbness and tingling in right hand Expected: 01/29/2024, Expires: 08/26/2024 [facility] Comment on above: Expected: 01/29/2024, Expires: Start: 01-29-2024 End: 08-26-2024 CBC panel - Blood by Automated count COMPLETE BLOOD COUNT Lab Routine Numbness and tingling in right hand Expected: 01/29/2024, Expires: 08/26/2024 [facility] Comment on above: Expected: 01/29/2024, Expires: Start: 01-29-2024 End: 08-26-2024 Cobalamin (Vitamin B12) [Mass/volume] in Serum or Plasma VITAMIN B12 Lab Routine Numbness and tingling in right hand Expected: 01/29/2024, Expires: 08/26/2024 [facility] Comment on above: Expected: 01/29/2024, Expires: Start: 01-29-2024 End: 08-26-2024 Comprehensive metabolic 2000 panel - Serum or Plasma COMPREHENSIVE METABOLIC PANEL Lab Routine Numbness and tingling in right hand Expected: 01/29/2024, Expires: 08/26/2024 [facility] Comment on above: Expected: 01/29/2024, Expires: Start: 01-29-2024 End: 08-26-2024 Lipid 1996 panel - Serum or Plasma LIPID PANEL BASIC Lab Routine Screening for lipid disorders Expected: 01/29/2024, Expires: 08/26/2024 [facility] Comment on above: Expected: 01/29/2024, Expires: Start: 01-29-2024 End: 08-26-2024 Thyrotropin [Units/volume] in Serum or Plasma THYROID STIMULATING HORMONE Lab Routine Numbness and tingling in right hand Expected: 01/29/2024, Expires: 08/26/2024 [facility] Comment on above: Expected: 01/29/2024, Expires: Start: 12-10-2023 End: 12-10-2023 Patient encounter procedure 12/10/2023 1:00 PM EDT Office Visit [facility] [address] [place] [address] Mateo Carroll MD [address] [place] [address] [facility] Start: 12-02-2023 End: 12-02-2023 Patient encounter procedure 12/02/2023 2:00 PM EDT Office Visit [facility] [address] [place] [phone] Krissy Jones APRN - HOOKER INSPECTOR [address] [place] [address] [facility] Start: 11-22-2023 End: 12-06-2023 COVID & INFLUENZA A/B & RSV NAAT, ROUTINE COVID & INFLUENZA A/B & RSV NAAT, ROUTINE Microbiology Routine Viral syndrome Expected: 11/22/2023, Expires: 12/06/2023 [facility] Work Phone: Comment on above: Expected: 11/22/2023, Expires: Start: 09-23-2023 Behavioral Health Screening Behavioral Health Screening [facility] Start: 09-23-2023 Depression Assessment Depression Assessment [facility] Start: 09-04-2023 End: 09-04-2023 Patient encounter procedure 09/04/2023 11:00 AM EST Office Visit [facility] [address] [place] [address] Krissy Jones APRN - HOOKER INSPECTOR [address] [place] [address] [facility] Start: 08-29-2023 End: 08-29-2023 Patient encounter procedure 08/29/2023 8:00 AM EST Office Visit [facility] [address] [place] [phone] Mateo Carroll MD [address] [place], [place] [phone] [facility] Start: 05-30-2023 End: 05-30-2023 Patient encounter procedure 05/30/2023 9:30 AM EDT Office Visit [facility] [address] [place] [phone] Krissy Jones APRN - KRISTOPHER [address] [place] [address] [facility] Start: 05-24-2023 Covid-19 Vaccine ( season) Covid-19 Vaccine () [facility] Start: 05-24-2023 Influenza vaccination [facility] Start: 05-09-2023 End: 05-09-2023 Patient encounter procedure 05/09/2023 10:00 AM EDT Office Visit [facility] [address] [address] [address] [place] [phone] Mateo Carroll MD [address] [place], [place] [phone] [facility] Start: 03-28-2023 End: 03-28-2023 Patient encounter procedure 03/28/2023 10:30 AM EDT Office Visit [facility] [address] [place] [phone] Mateo Carroll MD [address] [place] [address] [facility] Start: 03-14-2023 End: 03-14-2023 Patient encounter procedure 03/14/2023 9:30 AM EDT Appointment [facility] Non-Invasive Cardiology [address] [facility] [phone] Krissy Jones APRN - HOOKER INSPECTOR [address] [place] [address] [facility] Non-Invasive Cardiology Start: 02-27-2023 End: 02-27-2025 Cardiac event monitor Cardiac event monitor [facility] Cardiac Services Routine Palpitations Expected: 02/27/2023 (Approximate), Expires: 02/27/2025 [facility] Work Phone: Comment on above: Expected: 02/27/2023 (Approximate), Expi res: 02/27/2025 Start: 09-23-2022 Depression Assessment Depression Assessment [facility] Start: 05-24-2022 Influenza vaccination [facility] Start: 04-06-2022 End: 04-20-2022 Influenza virus A and B RNA and SARS-CoV-2 (COVID-19) N gene panel - Respiratory specimen by OLIMPIA with probe detection [facility] Work Phone: Comment on above: Expected: 04/06/2022, Expires: Start: 04-04-2022 Patient referral [facility] Work Phone: Start: 2021 HPV TESTING HPV TESTING [facility] Start: 2021 Screening for malignant neoplasm of cervix [facility] Start: 05-23-2021 End: 05-23-2021 Patient encounter procedure 05/23/2021 Office Visit Neurology Krissy Duarte, ASSISTANT PROFESSOR OF BUSINESS - HOOKER INSPECTOR [address] [place] [address] [phone] [facility] Neurology [place] Start: 05-10-2021 End: 05-10-2021 Patient encounter procedure 05/10/2021 Appointment MRI [facility] Start: 2012 PAP TESTING PAP TESTING [facility] Start: 2012 Screening for malignant neoplasm of cervix [facility] Start: 2010 DTaP/Tdap/Td vaccine (1 - Tdap) DTaP/Tdap/Td vaccine (1 - Tdap) [facility] Work Phone: Start: 2010 DTaP/Tdap/Td Vaccines (1 - Tdap) DTaP/Tdap/Td Vaccines (1 - Tdap) [facility] Start: 2010 Hepatitis B Vaccine (1 of 3 - 19+ 3-dose series) Hepatitis B Vaccine (1 of 3 - 19+ 3-dose series) [facility] Start: 2010 Hepatitis B Vaccines (1 of 3 - 19+ 3-dose series) Hepatitis B Vaccines (1 of 3 - 19+ 3-dose series) [facility] Start: 2010 Pneumococcal vaccination Pneumococcal Vaccine (1 of 2 - PCV) [facility] Start: 2010 Pneumococcal Vaccine: Pediatrics (0 to 5 Years) and At-Risk Patients (6 to 49 Years) (1 of 2 - PCV) Pneumococcal Vaccine: Pediatrics (0 to 5 Years) and At-Risk Patients (6 to 49 Years) (1 of 2 - PCV) [facility] Start: 2010 Urine microalbumin profile [facility] Start: 2009 Diabetes mellitus screening Diabetes Screening [facility] Start: 2009 HEPATITIS C SCREENING HEPATITIS C SCREENING [facility] Start: 2009 Hepatitis C screening Hepatitis C Screening [facility] Start: 2009 HIV SCREENING HIV SCREENING [facility] Start: 2009 HIV screening HIV Screening [facility] Start: 2006 HIV screening HIV screen [facility] Work Phone: Start: 2004 Varicella vaccination Varicella Vaccines (1 of 2 - 13+ 2-dose series) [facility] Start: 2003 Adult depression screening assessment DEPRESSION SCREENING [facility] Start: 2003 COVID-19 Vaccine (1) COVID-19 Vaccine (1) [facility] Work Phone: Start: 2003 Depression Monitoring Depression Monitoring [facility] Start: 1998 DTaP/Tdap/Td Vaccines (1 - Tdap) DTaP/Tdap/Td Vaccines (1 - Tdap) [facility] Start: 1997 PNEUMOCOCCAL (1 - PCV) PNEUMOCOCCAL (1 - PCV) [facility] Start: 1997 Pneumococcal vaccination [facility] Start: 1997 Pneumococcal Vaccine: Pediatrics (0 to 5 Years) and At-Risk Patients (6 to 64 Years) (1 - PCV) Pneumococcal Vaccine: Pediatrics (0 to 5 Years) and At-Risk Patients (6 to 64 Years) (1 - PCV) [facility] Start: 1997 Pneumococcal Vaccine: Pediatrics (0 to 5 Years) and At-Risk Patients (6 to 64 Years) (1 of 2 - PCV) Pneumococcal Vaccine: Pediatrics (0 to 5 Years) and At-Risk Patients (6 to 64 Years) (1 of 2 - PCV) [facility] Start: 1992 MMR Vaccines (1 of 1 - Standard series) MMR Vaccines (1 of 1 - Standard series) [facility] Start: 1992 Varicella vaccination Varicella Vaccines (1 of 2 - 2-dose childhood series) [facility] Start: 1992 Varicella vaccine (1 of 2 - 2-dose childhood series) Varicella vaccine (1 of 2 - 2-dose childhood series) [facility] [employer] Phone: Start: 01-26-1992 COVID-19 VACCINE (#1) COVID-19 VACCINE (#1) [facility] Start: 1991 Hepatitis B Vaccine (1 of 3 - 3-dose series) Hepatitis B Vaccine (1 of 3 - 3-dose series) [facility] Start: 1991 Hepatitis B Vaccines (1 of 3 - 3-dose series) Hepatitis B Vaccines (1 of 3 - 3-dose series) [facility] Start: 1991 Hepatitis C screening Hepatitis C screen [facility] [employer] Phone: Start: 1991 HIV screening HIV Screening [facility] Start: 1991 HPV Vaccine: Recommended Based On Risk HPV Vaccine: Recommended Based On Risk [facility] Start: 1991 Lipid panel Lipid Panel [facility] Calprotectin [Mass/mass] in Stool CALPROTECTIN,FECAL Lab Routine Diarrhea, unspecified type Ordered: 04/15/2024 [facility] Comment on above: Ordered: 04/15/2024 End: 04-17-2023 Cardiac event monitor [facility] [employer] Work Phone: Comment on above: Once for 1 Occurrences starting 04/17/20 until 04/17/2023 Clostridioides difficile toxin genes [Presence] in Stool by OLIMPIA with probe detection C. DIFFICILE PCR Lab Routine Diarrhea, unspecified type Ordered: 04/15/2024 [facility] Comment on above: Ordered: 04/15/2024 COVID & INFLUENZA A/ B & RSV PCR, ROUTINE COVID & INFLUENZA A/B & RSV PCR, ROUTINE Microbiology Routine URI, acute 10/15/2024 10:38 AM EST [facility] Work Phone: End: 04-15-2025 EGD DIAGNOSTIC EGD DIAGNOSTIC Endoscopy Routine Diarrhea, unspecified type Gastroesophageal reflux disease, unspecified whether esophagitis present Nausea and vomiting, unspecified vomiting type 1 Occurrences starting 04/15/2024 until 04/15/2025 [facility] Comment on above: 1 Occurrences starting 04/15/2024 until 04/15/2025 End: 01-28-2025 EMG(NEURO/NI) EMG(NEURO/NI) EMG Routine Numbness and tingling in right hand 1 Occurrences starting 01/29/2024 until 01/28/2025 [facility] Work Phone: Comment on above: 1 Occurrences starting 01/29/2024 until 01/28/2025 ENTERIC BACTERIAL PANEL BY PCR ENTERIC BACTERIAL PANEL BY PCR Lab Routine Diarrhea, unspecified type Ordered: 04/15/2024 [facility] Comment on above: Ordered: 04/15/2024 End: 04-15-2025 Flexible sigmoidoscopy study COLONOSCOPY DIAGNOSTIC Endoscopy Routine Diarrhea, unspecified type 1 Occurrences starting 04/15/2024 until 04/15/2025 [facility] Work Phone: Comment on above: 1 Occurrences starting 04/15/2024 until 04/15/2025 Giardia lamblia+Cryptosporidiu m sp Ag [Presence] in Stool by Immunoassay CRYPTOSPORIDIUM AND GIARDIA ANTIGENS BY EIA Microbiology Routine Diarrhea, unspecified type Ordered: 04/15/2024 [facility] Comment on above: Ordered: 04/15/2024 End: 12-27-2025 MR Brain WO and W contrast IV MRI BRAIN WO/W IVCON Radiology Routine Seizure-like activity (HCC) Headaches Brain fog Transient confusion 1 Occurrences starting 11/27/2024 until 12/27/2025 [facility] Comment on above: 1 Occurrences starting 11/27/2024 until 12/27/2025 MR Brain WO and W contrast IV MRI BRAIN WO/W IVCON Radiology Routine Seizure-like activity (HCC) Headaches Brain fog Transient confusion 12/06/2024 2:16 PM EDT [facility] Work Phone: End: 05-07-2026 MR Lumbar spine WO contrast MRI LUMBAR SPINE WO IVCON Radiology Routine Chronic bilateral low back pain with bilateral sciatica Lumbar disc herniation Bilateral leg weakness Spinal stenosis of lumbar region, unspecified whether neurogenic claudication present 1 Occurrences starting 04/07/2025 until 05/07/2026 [facility] Work Phone: Comment on above: 1 Occurrences starting 04/07/2025 until 05/07/2026 PANC ELASTASE, FECAL PANC ELASTA SE, FECAL Lab Routine Diarrhea, unspecified type Ordered: 04/15/2024 [facility] Comment on above: Ordered: 04/15/2024 Patient Education [facility] Work Phone: Patient referral [facility] Work Phone: SARS-CoV-2 (COVID-19 ) RNA [Presence] in Respiratory specimen by OLIMPIA with probe detection COVID NAAT, UPPER RESPIRATORY, ROUTINE Microbiology Routine Acute cough 06/06/2023 4:47 PM EDT [facility] Work Phone: XR Ankle - bilateral AP and Lateral and oblique XR ANKLE GENERAL 3V AP/LAT/OBL BILATERAL Radiology Routine Bilateral foot pain 01/25/2025 2:08 PM EDT [facility] Work Phone: XR Elbow - left AP a nd Lateral XR ELBOW GENERAL 2V AP/LAT LEFT Radiology Routine Left elbow pain 11/27/2024 1:07 PM [facility] XR Lumbar spine AP a nd Lateral and oblique XR LUMBAR PARS DEFECT 4V AP/LAT/BOTH OBL Radiology Routine Chronic bilateral low back pain with bilateral sciatica 11/27/2024 1:06 PM [facility] Work Phone: XR Lumbar spine AP a nd Lateral and oblique XR LUMBAR PARS DEFECT 4V AP/LAT/BOTH OBL Radiology Routine Injury of low back, initial encounter 03/08/2025 11:18 AM EDT [facility] Work Phone: [facility] Payers Date Payer Category Payer Self-pay [id number] 2022 Medicaid HMO [employer] [place] [id number] 2019 Medicaid [place] [employer] [place] [employer] [id number] 2019-Present [phone] [address] [place] [address] Medicaid [id number] 2019 Medicaid [id number] 2019 Unknown [id number] 1991 Unknown [id number] 1991 Unknown [id number] 1991 Unknown [id number] 1991 Unknown [id number] 1991 Unknown [id number] 1991 Unknown [id number] 1991 Unknown [id number] Unknown [id number] Unknown [id number] Social History Date Type Detail Facility Start: 04-07-2021 End: 07-20-2022 Tobacco smoking status NHIS Never smoker [employer] Work Phone: Start: 04-07-2021 End: 10-15-2024 Tobacco use and exposure Never used [employer] Start: 04-07-2021 End: 02-27-2023 Alcohol intake Current drinker of alcohol (finding) [employer] Work Phone: Start: 04-07-2021 End: 07-20-2022 Alcohol Comment weekly [employer] Work Phone: Start: 1990 Sex Assigned At Not on file S [facility] Work Phone: Start: 06-05-2021 Ex-smoker (finding) [facility] Comment on above: smokes disposable [place] [facility] Start: 1990 Sex Assigned At Female A [facility] Start: 12-24-2021 End: 02-01-2024 Tobacco smoking status NHIS Unknown if ever smoked [facility] Start: 07-27-2020 [facility] Start: 01-20-2021 Cigarettes [facility] Start: 05-23-2021 End: 02-27-2023 Tobacco smoking status NHIS Occasional tobacco smoker [facility] Work Phone: Start: 04-06-2022 End: 02-08-2024 Alcohol intake Lifetime non-drinker (finding) [facility] Start: 04-06-2022 History SDOH Alcohol Frequency 1 [facility] Start: 03-27-2022 End: 04-17-2023 Exposure to SARS-CoV-2 (event) Not sure [facility] Work Phone: Start: 08-20-2022 End: 04-21-2025 Tobacco smoking status Heavy tobacco smoker (finding) [facility] Comment on above: D/C vaping, is back to smoking cigarretes smokes disposable va pes History of tobacco use Cigarette Smoker S [facility] Start: 02-27-2023 End: 12-03-2023 Cigarettes smoked current (pack per day) - Reported 0.3 [facility] Start: 02-27-2023 End: 12-03-2023 Tobacco use panel [facility] Start: 02-27-2023 Alcohol Comment [facility] Start: 10-12-2021 Gender identity Identifies as female gender (finding) [facility] Start: 10-12-2021 Sexual orientation Heterosexual (fin zay) [facility] National Score (1-100), lower number is lower risk Not on file [facility] Start: 11-22-2023 End: 10-15-2024 Tobacco smoking status NHIS Smokes tobacco daily [facility] Work Phone: Start: 04-15-2024 End: 04-08-2025 Alcohol intake Ex-drinker (finding) [facility] Start: 04-15-2024 Alcohol Comment 2 years of heavy use [facility] Start: 08-16-2020 End: 04-23-2022 Sex Female (finding) [facility] Sexual Orientation [facility] NE[facility]: Highlighted row [facility] Functional Status Date Assessment Result Facility 11-22-2023 Functional Status ID band on, Allergy Band on, Call device within reach, Bed in low position, Wheels locked, Upper/Half-Length side-rails up, Phone within reach [facility] 11-22-2023 [facility] 11-22-2023 Functional Status [facility] 12-26-2022 Functional Status Assistive Device None A [facility] 07-01-2022 Functional Status ID band on, Allergy Band on, Call device within reach, Bed in low position, Wheels locked, Upper/Half-Length side-rails up, Phone within reach, personal items within reach, Assistive devices within reach, Toileting device within reach, Bedside Cart Locked, Visitor at bedside, Safety level maintained [facility] 03-15-2022 Functional Status Up ad xu [facility] 03-15-2022 Functional Status [facility] 03-15-2022 Functional Status Standard Safet y ID band on, Allergy Band on, Call device within reach, Bed in low position, Wheels locked [facility] Mental Status Date Assessment Result Facility 02-01-2024 Cognitive function Level Of Cons ciousness Awake;Alert;Appropriate;Follow s Commands [facility] Work Phone: 11-22-2023 Mental Status Oriented x 4 [facility] 11-22-2023 Mental Status [facility] 12-26-2022 Mental Status Oriented x 4 [facility] 07-01-2022 Mental Status Oriented x 4 [facility] 03-15-2022 Mental Status Orientation Oriented x 4 [facility] 03-15-2022 Mental Status [facility] 11-11-2021 Cognitive function Level Of Cons ciousness Awake;Alert;Appropriate [facility] Work Phone: Clinical Notes 03-15-2022 to 04-22-2025 Nikolas Rose APRN.HOOKER INSPECTOR - 04/07/2025 10:08 AM EDTTelephone Encounter - Patricia WadeLAMONTE - 03/15/2025 8:39 AM EDTTelephone Encounter - Patricia WadeLAMONTE - 03/15/2025 8:39 AM EDT Note Date & Type Note Facility 04-22-2025 Note . MICRO - Microbiology PROCEDURE: Urine Culture [*1] SOURCE: Urine, Clean Catch BODY SITE: COLLECTED DATE/TIME: 04/21/2025 13:44 EDT RECEIVED DATE/TIME: 04/21/2025 19:08 EDT START DATE/TIME: 04/21/2025 19:08 EDT FREE TEXT SOURCE: FINAL REPORTS Final Report [] Verified Date/Time/Personnel: 04/22/2025 14:30 EDT 10,000 - 50,000 cfu/ml Multiple bacterial morphotypes present. Probable Contamination. Suggest recollection if clinically indicated. PRELIMINARY REPORTS Preliminary Report [] Verified Date/Time/Personnel: 04/21/2025 19:59 EDT Specimen received in lab. Performing Locations *1: This test was performed at: [address], [facility] , [facility] 04-07-2025 Note HNO ID: [id number] Author: NIKOLAS ROSE APRN.HOOKER INSPECTOR Service: ? Author Type: Nurse Practitioner Type: Progress Notes Filed: 04/08/2025 00:20 Note Text: Subjective The patient consented to the use of [employer] software for draft documentation of the visit consistent with [facility]?s Notice of Privacy Practices. HPI Gertrude Vivas is a 34-year-old female with a history of chronic back pain, presenting with multiple concerns including otalgia, pharyngitis, recent head trauma, and exacerbation of back pain. Gertrude reports a 2-3 month history of persistent left otalgia and pharyngitis, which she suspects may be related to exposure to black mold at her workplace. She reports daily exposure to mold without protective equipment and notes that the symptoms are on the same side as a broken tooth, which she believes may be infected. She has been unable to see a dentist due to insurance issues and denies recent antibiotic use. She also reports two recent episodes of head trauma at work, with the most recent occurring on Saturday. She describes the trauma as mild but notes that she experienced excessive somnolence afterward, with her boyfriend reportedly taking over an hour to wake her up. She also experienced transient blurry vision and diplopia upon waking, which resolved after a few hours. Gertrude reports a long-standing history of chronic back pain, which has been worsening. She describes the pain as severe and debilitating, with episodes of being unable to walk and having to crawl at home. She has a family history of degenerative disc disease and notes that her symptoms are similar to those her mother experienced. She reports a recent MRI in 2021 showing shallow disc bulging and arthritis, but no significant findings on a recent X-ray. She is currently taking meloxicam and baclofen, which provide temporary relief, but she is reluctant to increase her medication due to concerns about sedation and the impact on her ability to care for her children. She also reports new symptoms of radicular pain, describing electrocution-type pains radiating from her lower back to her left buttock, thigh, and leg. She notes that these episodes cause her left leg to jolt and her right knee to give out, leading to near-falls at work. She denies current participation in physical therapy, stating that it exacerbates her pain. Gertrude is currently undergoing Eye Movement Desensitization and Reprocessing (EMDR) therapy for trauma and severe depression. She reports significant stress related to her therapy, as well as recent personal losses and family responsibilities. She expresses a desire to continue working to provide for her children but is struggling with her physical and mental health. She denies current use of antidepressants, citing past negative experiences with medication. I reviewed past medical, surgical, social, and family histories today and updated chart. Allergies, chronic medications, and supplements were also reviewed. 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 clindamycin (CLEOCIN-T) 1 % gel Apply to affected area two times a day. ergocalciferol 50,000 unit capsule (VITAMIN D2, DRISDOL) Take 1 capsule by mouth one time a week. valACYclovir (VALTREX) 500 mg tablet TAKE 1 TABLET BY MOUTH ONCE DAILY. DRINK PLENTY OF FLUIDS. hydrOXYzine pamoate (VISTARIL) 25 mg capsule Take 25 mg by mouth three times a day as needed. Cholecalciferol, Vitamin D3, 125 mcg (5,000 unit) cap Take 1 capsule by mouth once daily. Cyanocobalamin (VITAMIN B-12) 250 mcg tab Take 1 tablet by mouth once daily. albuterol HFA (PROVENTIL HFA, VENTOLIN HFA) 90 mcg/actuation inhaler Inhale 2 Puffs as instructed every 4 hours as needed for wheezing/shortness of breath. omeprazole (PRILOSEC) 40 mg capsule Take 1 capsule by mouth once daily. baclofen 10 mg tablet Take 1 tablet by mouth three times a day. diclofenac, EC, (VOLTAREN) 50 mg EC tablet Take 1 tablet by mouth three times a day as needed. amoxicillin (AMOXIL) 500 mg capsule Take 1 capsule by mouth every 12 hours for 10 days. FAMILY HISTORY Problem Relation Age of Onset Hypertension Mother other (Pes planus) Mother other (DDD) Mother Depre (more content not included)... [facility] 04-07-2025 History of Presen t illness Narrative Subjective The patient consented to the use of [employer] software for draft documentation of the visit consistent with [facility] s Notice of Privacy Practices. HPI Gertrude Vivas is a 34-year-old female with a history of chronic back pain, presenting with multiple concerns including otalgia, pharyngitis, recent head trauma, and exacerbation of back pain. Gertrude reports a 2-3 month history of persistent left otalgia and pharyngitis, which she suspects may be related to exposure to black mold at her workplace. She reports daily exposure to mold without protective equipment and notes that the symptoms are on the same side as a broken tooth, which she believes may be infected. She has been unable to see a dentist due to insurance issues and denies recent antibiotic use. She also reports two recent episodes of head trauma at work, with the most recent occurring on Saturday. She describes the trauma as mild but notes that she experienced excessive somnolence afterward, with her boyfriend reportedly taking over an hour to wake her up. She also experienced transient blurry vision and diplopia upon waking, which resolved after a few hours. Gertrude reports a long-standing history of chronic back pain, which has been worsening. She describes the pain as severe and debilitating, with episodes of being unable to walk and having to crawl at home. She has a family history of degenerative disc disease and notes that her symptoms are similar to those her mother experienced. She reports a recent MRI in 2021 showing shallow disc bulging and arthritis, but no significant findings on a recent X-ray. She is currently taking meloxicam and baclofen, which provide temporary relief, but she is reluctant to increase her medication due to concerns about sedation and the impact on her ability to care for her children. She also reports new symptoms of radicular pain, describing electrocution-type pains radiating from her lower back to her left buttock, thigh, and leg. She notes that these episodes cause her left leg to jolt and her right knee to give out, leading to near-falls at work. She denies current participation in physical therapy, stating that it exacerbates her pain. Gertrude is currently undergoing Eye Movement Desensitization and Reprocessing (EMDR) therapy for trauma and severe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 Cardiovascular: Negative for chest pain, palpitations and leg swelling. Gastrointestinal: Negative for abdominal pain, constipation, diarrhea, nausea and vomiting. Genitourinary: Negative for difficulty urinating. Musculoskeletal: Positive for back pain. Negative for arthralgias. Skin: Negative for rash. Neurological: Positive for light-headedness. Negative for tremors, weakness and headaches. Psychiatric/Behavioral: Negative for dysphoric mood and sleep disturbance. The patient is not nervous/anxious. Objective BP 122/76 Pulse 68 Temp 98 Ht 5' 4 (1.63m) Wt 205 lb (93.0kg) SpO2 98% LMP 06/03/2023 BMI 35.17 kg/(m^2). Physical Exam GENERAL: NAD, alert and oriented. SKIN: Unremarkable, no rash or skin lesions. HEAD: Normocephalic, tenderness noted in the upper lumbar area. EYES: PERRLA, EOMI, conjunctiva clear. EARS: External ears normal, canals clear, TM's normal. NOSE/SINUSES: Nares normal. Septum midline. OROPHARYNX: Lips, mucosa, and tongue normal, good dentition. No oral lesions noted. NECK: Supple, no lymphadenopathy, normal thyroid, no carotid bruits. LUNGS: Clear to auscultation bilaterally, no wheezes/rhonchi/rales. HEART: Regular rate and rhythm, no murmurs. No ectopy. EXTREMITIES: Normal, no deformities, no skin discoloration, no edema. NEURO: Awake, alert and oriented x3, cranial nerves II-XII grossly intact, normal gait, no involuntary motions. Imaging: (2021) MRI of the lumbar spine: Arthritis identified - Ankle imaging: Hairline fracture noted, never fully healed Assessment/Plan: 1. Injury of low back, initial encounter (S39.92XA) Chronic bilateral low back pain with bilateral sciatica (M54.42) Acute low back injury sustained at work approximately 1.5 weeks ago with associated severe pain and episodes of being stuck in positions. History of chronic low back pain with bilateral sciatica and diagnosed arthritis in the lower spine. Previous treatments include multiple courses of physical therapy, water therapy, and corticosteroid injections with limited tolerance and efficacy. - Ordered lumbar spine X-ray. - Continue home exercise program 2-3 times per week. - Take meloxicam and baclofen daily for 1-2 weeks to reduce inflammation and pain. - Follow-up in 4 weeks to assess progress and determine the need for MRI. 2. Injury of head, initial encounter (S09.90XA) Head injury sustained at work with symptoms of severe nausea, lightheadedness, headaches, and excessive sleepiness. No loss of consciousness reported. Symptoms consistent with a mild concussion. - Advised rest and monitoring of symptoms. - No imaging required at this time. 3. Class 1 obesity without serious comorbidity with body mass index (BMI) of 30.0 to 30.9 in adult, unspecified obesity type (E66.811) Patient reports difficulty with weight management despite efforts to eat healthier and increase physical activity. Limited by pain from back and ankle injuries. Insurance does not cover weight loss medications such as Ozempic. - Discussed dietary modifications, including reducing soda and sugar intake. - Advised gradual increase in physical activity as tolerated. - Consider referral to a animal nutritionist for further dietary guidance. 4. Bilateral hearing loss, unspecified hearing loss type (H91.93) Reports progressive hearing loss over the past few weeks. History of tympanic membrane perforation from swimmer's ear in childhood with residual hearing loss in the right ear. - Referral to [facility] for comprehensive audiological evaluation. Nikolas Rose APRN.HOOKER INSPECTOR This patient note was created using speech recognition/dictation software to enhance efficiency and accuracy in clinical documentation. The content has been reviewed and edited as necessary to ensure completeness and correctness. While every effort has been made to ensure accuracy, occasional typographical errors may be present. documented in this encounter [facility] 02-22-2025 Note HNO ID: [id number] Author: SUMEET RUTH, ? Service: ? Author Type: Physician Type: Progress Notes Filed: 02/22/2025 11:38 Note Text: Suki Loredo is a 34-year-old female presenting for follow-up of left ankle pain. Left Ankle Pain: - Initially seen for bilateral ankle pain, worse on the left side. - Diagnosed with Achilles tendinitis and flattening of the feet. - Prescribed oral steroids, which provided relief. - Uses arch supports in work shoes, which help during the day. - Was improving until a recent sprain at work. - Describes current sensation as pressure. - Pain localized to the left Achilles tendon and anterior talofibular ligament. - Reports swelling in the affected area. - Pain level has returned to the initial presentation. - Avoids physical therapy due to exacerbation of symptoms. - Takes Baclofen and Meloxicam for pain management. Musculoskeletal: (+) left ankle pain, (+) bilateral Achilles pain, (+) left ankle swelling, (+) left ankle pressure PAST MEDICAL HISTORY Diagnosis Date Anxiety and depression Benign paroxysmal positional vertigo Borderline personality disorder (HCC) Cervical disc herniation Childhood asthma ([facility]) Drug abuse, opioid type ([facility]) GERD (gastroesophageal reflux disease) Hearing loss of right ear Herpes, genital HPV (human papilloma virus) infection Lumbar spondylosis Meningitis spinal ([facility]) 1991 Migraine, intractable PTSD (post-traumatic stress disorder) Smoker Stomach ulcer Current Outpatient Medications Medication Sig Dispense Refill pyridoxine, vitamin B6, (VITAMIN B-6) 100 mg tablet Take 1 tablet by mouth once daily. 90 tablet 3 clindamycin (CLEOCIN-T) 1 % gel Apply to affected area two times a day. meloxicam (MOBIC) 15 mg tablet Take 1 tablet by mouth once daily. 30 tablet 2 baclofen 10 mg tablet Take 1 tablet by mouth three times a day. 90 tablet 2 omeprazole (PRILOSEC) 40 mg capsule Take 1 capsule by mouth once daily. 90 capsule 3 ergocalciferol 50,000 unit capsule (VITAMIN D2, DRISDOL) Take 1 capsule by mouth one time a week. 12 capsule 3 valACYclovir (VALTREX) 500 mg tablet TAKE 1 TABLET BY MOUTH ONCE DAILY. DRINK PLENTY OF FLUIDS. hydrOXYzine pamoate (VISTARIL) 25 mg capsule Take 25 mg by mouth three times a day as needed. Cholecalciferol, Vitamin D3, 125 mcg (5,000 unit) cap Take 1 capsule by mouth once daily. 30 capsule 11 Cyanocobalamin (VITAMIN B-12) 250 mcg tab Take 1 tablet by mouth once daily. 30 tablet 11 albuterol HFA (PROVENTIL HFA, VENTOLIN HFA) 90 mcg/actuation inhaler Inhale 2 Puffs as instructed every 4 hours as needed for wheezing/shortness of breath. 1 Each 0 No current facility-administered medications for this visit. Family History Problem Relation Age of Onset Hypertension Mother other (Pes planus) Mother other (DDD) Mother Depression Mother Anxiety disorder Mother other (Carpal tunnel) Mother Diabetes Father Vertigo Father other (Lung issues) Father other (Epilepsy) Sister other (Hypermobility) Brother Vertigo Brother Bipolar disorder Maternal Grandmother Cataract Maternal Grandmother Arthritis Maternal Grandmother other (Stomach problems) Paternal Grandmother Paranoid behavior Paternal Grandmother Heart disease Paternal Grandfather other (Hypermobility) Son other (Hypotonia) Son Breast Cancer Paternal Aunt Pancreatic Cancer Other Colon Cancer No Family History Objective Last menstrual period 06/03/2023. - Cardiovascular: Dorsalis pedis and posterior tibial pulses are comparable bilaterally; capillary refill time <5 seconds. - Musculoskeletal: - Left Ankle: - Tenderness to palpation over the Achilles tendon and anterior talofibular ligament; no palpable tendon rupture; no thickening of the Achilles tendon. - No laxity noted with anterior drawer test. - Plantar flexion, dorsiflexion, inversion, and eversion intact. - Right Ankle: - Tenderness to palpation over the Achilles tendon; no palpable tendon rupture; no thickening of the Achilles tendon. - Plantar flexion, dorsiflexion, inversion, and eversion intact. Assessment AND Plan 1. Tendonitis, Achilles, left (M76.62) 2. Tendonitis, Achilles, right (M76.61) - Recent left ankle sprain at work has exacerbated symptoms; previously improving with oral steroids and orthotic inserts. - Examination reveals tenderness to palpation of the left and right Achilles tendons, no palpable tendon rupture, and no thickening of the Achilles tendons. Pain present to the anterior talofibular ligament of the left ankle. No laxity noted with the anterior drawer test bilaterally. - Continue use of orthotic inserts in lace-up tennis shoes for support. - Continue current medication regimen of meloxicam. - Advised daily icing of the ankle for 10 minutes by submerging both feet in a cold water bathtub above the ankle. - Recommended range of motion exercises during icing and s (more content not included)... [facility] 02-22-2025 History of Presen t illness Narrative Suki Loredo is a 34-year-old female presenting for follow-up of left ankle pain. Left Ankle Pain: - Initially seen for bilateral ankle pain, worse on the left side. - Diagnosed with Achilles tendinitis and flattening of the feet. - Prescribed oral steroids, which provided relief. - Uses arch supports in work shoes, which help during the day. - Was improving until a recent sprain at work. - Describes current sensation as pressure. - Pain localized to the left Achilles tendon and anterior talofibular ligament. - Reports swelling in the affected area. - Pain level has returned to the initial presentation. - Avoids physical therapy due to exacerbation of symptoms. - Takes Baclofen and Meloxicam for pain management. Musculoskeletal: (+) left ankle pain, (+) bilateral Achilles pain, (+) left ankle swelling, (+) left ankle pressure PAST MEDICAL HISTORY Diagnosis Date Anxiety and depression Benign paroxysmal positional vertigo Borderline personality disorder (HCC) Cervical disc herniation Childhood asthma ([facility]) Drug abuse, opioid type ([facility]) GERD (gastroesophageal reflux disease) Hearing loss of right ear Herpes, genital HPV (human papilloma virus) infection Lumbar spondylosis Meningitis spinal ([facility]) 1991 Infant Migraine, intractable PTSD (post-traumatic stress disorder) Smoker Stomach ulcer Current Outpatient Medications Medication Sig Dispense Refill pyridoxine, vitamin B6, (VITAMIN B-6) 100 mg tablet Take 1 tablet by mouth once daily. 90 tablet 3 clindamycin (CLEOCIN-T) 1 % gel Apply to affected area two times a day. meloxicam (MOBIC) 15 mg tablet Take 1 tablet by mouth once daily. 30 tablet 2 baclofen 10 mg tablet Take 1 tablet by mouth three times a day. 90 tablet 2 omeprazole (PRILOSEC) 40 mg capsule Take 1 capsule by mouth once daily. 90 capsule 3 ergocalciferol 50,000 unit capsule (VITAMIN D2, DRISDOL) Take 1 capsule by mouth one time a week. 12 capsule 3 valACYclovir (VALTREX) 500 mg tablet TAKE 1 TABLET BY MOUTH ONCE DAILY. DRINK PLENTY OF FLUIDS. hydrOXYzine pamoate (VISTARIL) 25 mg capsule Take 25 mg by mouth three times a day as needed. Cholecalciferol, Vitamin D3, 125 mcg (5,000 unit) cap Take 1 capsule by mouth once daily. 30 capsule 11 Cyanocobalamin (VITAMIN B-12) 250 mcg tab Take 1 tablet by mouth once daily. 30 tablet 11 albuterol HFA (PROVENTIL HFA, VENTOLIN HFA) 90 mcg/actuation inhaler Inhale 2 Puffs as instructed every 4 hours as needed for wheezing/shortness of breath. 1 Each 0 No current facility-administered medications for this visit. Family History Problem Relation Age of Onset Hypertension Mother other (Pes planus) Mother other (DDD) Mother Depression Mother Anxiety disorder Mother other (Carpal tunnel) Mother Diabetes Father Vertigo Father other (Lung issues) Father other (Epilepsy) Sister other (Hypermobility) Brother Vertigo Brother Bipolar disorder Maternal Grandmother Cataract Maternal Grandmother Arthritis Maternal Grandmother other (Stomach problems) Paternal Grandmother Paranoid behavior Paternal Grandmother Heart disease Paternal Grandfather other (Hypermobility) Son other (Hypotonia) Son Breast Cancer Paternal Aunt Pancreatic Cancer Other Colon Cancer No Family History Objective Last menstrual period 06/03/2023. - Cardiovascular: Dorsalis pedis and posterior tibial pulses are comparable bilaterally; capillary refill time <5 seconds. - Musculoskeletal: - Left Ankle: - Tenderness to palpation over the Achilles tendon and anterior talofibular ligament; no palpable tendon rupture; no thickening of the Achilles tendon. - No laxity noted with anterior drawer test. - Plantar flexion, dorsiflexion, inversion, and eversion intact. - Right Ankle: - Tenderness to palpation over the Achilles tendon; no palpable tendon rupture; no thickening of the Achilles tendon. - Plantar flexion, dorsiflexion, inversion, and eversion intact. Assessment & Plan 1. Tendonitis, Achilles, left (M76.62) 2. Tendonitis, Achilles, right (M76.61) - Recent left ankle sprain at work has exacerbated symptoms; previously improving with oral steroids and orthotic inserts. - Examination reveals tenderness to palpation of the left and right Achilles tendons, no palpable tendon rupture, and no thickening of the Achilles tendons. Pain present to the anterior talofibular ligament of the left ankle. No laxity noted with the anterior drawer test bilaterally. - Continue use of orthotic inserts in lace-up tennis shoes for support. - Continue current medication regimen of meloxicam. - Advised daily icing of the ankle for 10 minutes by submerging both feet in a cold water bathtub above the ankle. - Recommended range of motion exercises during icing and stretching exercises. - If symptoms do not improve, consider referral to physical therapy. Recording using [employer] software for draft documentation of the visit was discussed with the patient/authorized sales and merchandising representative; all questions welcomed and answered. Patient/authorized sales and merchandising representative agreed to proceed Sumeet Ruth DPM AMB ROOMING INTAKE FLOWSHEET DATA Pain Pain Level: 4 Pain Location: Ankle-Left Description: Sharp, Throbbing Duration Amount of Time: 3 Duration Units: Hours Frequency: Intermittent Intervention/Comfort measure: Medication, Reposition, Cold Comments: Sprained my ankle Saturday last week at work had intermittent pain since Patient presents with: Left Ankle - Established Patient, Pain, Ankle Pain Patient rolled last Saturday at work. Patient is not filling as [facility] as this is preexisting condition. Arlet Stanley LPN documented in this encounter [facility] 02-22-2025 Instructions Sumeet Ruth - 02/22/2025 11:26 AM EDT - Continue taking meloxicam and baclofen as you have been. - Wear lace-up tennis shoes (ideally higher-top for extra ankle support) with your arch-support inserts every day. - Ice your ankles by submerging both feet in cold water up to the ankle for 10 minutes once a day. - While soaking, gently pull your toes/feet up and down to work on ankle range of motion. - Do calf stretches against a wall: place one foot back, keep the heel down, and lean forward until you feel a stretch; repeat on each side as tolerated. - If your ankle does not improve after trying these measures, contact us to arrange physical therapy for further rehabilitation. documented in this encounter [facility] 02-22-2025 Note HNO ID: [id number] Author: ARLET STANLEY LPN Service: ? Author Type: LICENSED NURSE Type: Progress Notes Filed: 02/22/2025 11:38 Note Text: AMB ROOMING INTAKE FLOWSHEET DATA Pain Pain Level: 4 Pain Location: Ankle-Left Description: Sharp, Throbbing Duration Amount of Time: 3 Duration Units: Hours Frequency: Intermittent Intervention/Comfort measure: Medication, Reposition, Cold Comments: Sprained my ankle Saturday last week at work had intermittent pain since Patient presents with: Left Ankle - Established Patient, Pain, Ankle Pain Patient rolled last Saturday at work. Patient is not filling as [facility] as this is preexisting condition. Arlet Stanley LPN [facility] 02-11-2025 Note HNO ID: [id number] Author: ARMANDO VARELA MD Service: ? Author Type: Physician Type: Progress Notes Filed: 02/11/2025 16:38 Note Text: Referring Provider: Nikolas Rose APRN.* Date: February 11, 2025 Chief Complaint: Headaches HISTORY OF PRESENT ILLNESS: Gertrude Vivas is a 34 year old female who presents for headaches. Patient is a right handed, single woman who lives with her boyfriend and both of their children. She is a meth and heroine recovering addict. She is currently working at [employer]. The patient explains that she will get pain and pressure behind her eyes into her temples and will zone out. Her mother describes she becomes zombie like with her eyes wide open but she is unresponsive. She later says that she can hear people talking but is unable to respond. This can last anywhere form a couple of minutes to 10 minutes and is very tired afterwards. Her most recent episode was last night when she had several episodes of this. On a few occasions she has lost consciousness. This started occurring for her in 2017 and she has seen by several neurologists with nothing abnormal found. She was seen by Dr So in 2020 and a neurologist in [place] before moving here. She also adds that she has had migraines since she was young. She has been on migraine medication in the past with no relief, including Ajovy and Ubrelvy. I, Varsha Gunn MA, transcribing for Armando Varela MD. ALLERGIES Allergen Reactions Meclizine Anaphylaxis Influenza Virus Vac* Swelling PAST MEDICAL HISTORY: PAST MEDICAL HISTORY Diagnosis Date Anxiety and depression Benign paroxysmal positional vertigo Borderline personality disorder (HCC) Cervical disc herniation Childhood asthma (HCC) Drug abuse, opioid type (HCC) GERD (gastroesophageal reflux disease) Hearing loss of right ear Herpes, genital HPV (human papilloma virus) infection Lumbar spondylosis Meningitis spinal (HCC) 1991 Migraine, intractable PTSD (post-traumatic stress disorder) Smoker Stomach ulcer PAST SURGICAL HISTORY Procedure Laterality Date COLONOSCOPY SCREENING Age 15 LIGATE FALLOPIAN TUBE 2017 FAMILY HISTORY Problem Relation Age of Onset Hypertension Mother other (Pes planus) Mother other (DDD) Mother Depression Mother Anxiety disorder Mother other (Carpal tunnel) Mother Diabetes Father Vertigo Father other (Lung issues) Father other (Epilepsy) Sister other (Hypermobility) Brother Vertigo Brother Bipolar disorder Maternal Grandmother Cataract Maternal Grandmother Arthritis Maternal Grandmother other (Stomach problems) Paternal Grandmother Paranoid behavior Paternal Grandmother Heart disease Paternal Grandfather other (Hypermobility) Son other (Hypotonia) Son Breast Cancer Paternal Aunt Pancreatic Cancer Other Colon Cancer No Family History SOCIAL HISTORY: Tobacco Use: Types: Cigarettes Alcohol Use: Not Currently (2 years of heavy use) Drug Use: Yes Employer And Job Title: None on file Years Of Education Completed: Not specified Marital Status: Single MEDICATIONS: Current Outpatient Medications Medication Sig pyridoxine, vitamin B6, (VITAMIN B-6) 100 mg tablet Take 1 tablet by mouth once daily. clindamycin (CLEOCIN-T) 1 % gel Apply to affected area two times a day. meloxicam (MOBIC) 15 mg tablet Take 1 tablet by mouth once daily. baclofen 10 mg tablet Take 1 tablet by mouth three times a day. omeprazole (PRILOSEC) 40 mg capsule Take 1 capsule by mouth once daily. ergocalciferol 50,000 unit capsule (VITAMIN D2, DRISDOL) Take 1 capsule by mouth one time a week. valACYclovir (VALTREX) 500 mg tablet TAKE 1 TABLET BY MOUTH ONCE DAILY. DRINK PLENTY OF FLUIDS. hydrOXYzine pamoate (VISTARIL) 25 mg capsule Take 25 mg by mouth three times a day as needed. Cholecalciferol, Vitamin D3, 125 mcg (5,000 unit) cap Take 1 capsule by mouth once daily. Cyanocobalamin (VITAMIN B-12) 250 mcg tab Take 1 tablet by mouth once daily. albuterol HFA (PROVENTIL HFA, VENTOLIN HFA) 90 mcg/actuation inhaler Inhale 2 Puffs as instructed every 4 hours as needed for wheezing/shortness of breath. No current facility-administered medications for this visit. I have personally reviewed the patients past medical history including social, family, surgical, diagnostics, and medications./AB Review of Systems Constitutional: Negative for chills, fever and unexpected weight change. HENT: Negative for congestion, facial swelling, trouble swallowing and voice change. Eyes: Negative for visual disturbance. Respiratory: Negative for shortness of breath. Cardiovascular: Negative for chest pain. Gastrointestinal: Negative for diarrhea, nausea and vomiting. Musculoskeletal: Negative for gait problem and myalgias. Allergic/Immunologic: Negative. Negative for immunocompromised state. Neurological: Negative for dizziness, syncope and light-headedness. Psychiatric/Behavioral: Neg (more content not included)... [facility] 01-25-2025 Note HNO ID: [id number] Author: SUMEET RUTH, ? Service: ? Author Type: Physician Type: Progress Notes Filed: 01/25/2025 22:02 Note Text: Consultation requested by Dr. Rose for an opinion regarding ankle pain. My final recommendations will be communicated back to the requesting physician by way of shared Medical record or letter to requesting physician via US mail. Suki Loredo is a 34-year-old female presenting for evaluation of bilateral ankle pain. Bilateral Ankle Pain: - Chronic daily pain, with four episodes of severe pain in the past six months. - Severe pain primarily in the left ankle, described as sharp and throbbing, radiating through the foot and up the leg. - Pain exacerbated by standing or walking; unable to bear weight during severe episodes. - Frequent falls due to pain. - Pain localized to the posterior aspect of the ankle. - Elevation, ice, and rest provide some relief. - One episode of severe pain involved both ankles. - Denies known trauma. - History of flat feet; wears high-top shoes for ankle stabilization but unable to afford work shoes with high tops. 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 - Prior physical therapy for plantar fasciitis reportedly worsened symptoms. Musculoskeletal: (+) bilateral ankle pain, bilateral foot pain, sharp throbbing left foot pain, difficulty bearing weight, falls PAST MEDICAL HISTORY Diagnosis Date Anxiety and depression Benign paroxysmal positional vertigo Borderline personality disorder ([facility]) Cervical disc herniation Childhood asthma ([facility]) Drug abuse, opioid type ([facility]) GERD (gastroesophageal reflux disease) Hearing loss of right ear Herpes, genital HPV (human papilloma virus) infection Lumbar spondylosis Meningitis spinal ([facility]) 1991 Migraine, intractable PTSD (post-traumatic stress disorder) Smoker Stomach ulcer Current Outpatient Medications Medication Sig Dispense Refill methylPREDNISolone (MEDROL, ABEL,) 4 mg Dose-Pack Take as directed 21 tablet 0 pyridoxine, vitamin B6, (VITAMIN B-6) 100 mg tablet Take 1 tablet by mouth once daily. 90 tablet 3 clindamycin (CLEOCIN-T) 1 % gel Apply to affected area two times a day. meloxicam (MOBIC) 15 mg tablet Take 1 tablet by mouth once daily. 30 tablet 2 baclofen 10 mg tablet Take 1 tablet by mouth three times a day. 90 tablet 2 omeprazole (PRILOSEC) 40 mg capsule Take 1 capsule by mouth once daily. 90 capsule 3 ergocalciferol 50,000 unit capsule (VITAMIN D2, DRISDOL) Take 1 capsule by mouth one time a week. 12 capsule 3 valACYclovir (VALTREX) 500 mg tablet TAKE 1 TABLET BY MOUTH ONCE DAILY. DRINK PLENTY OF FLUIDS. hydrOXYzine pamoate (VISTARIL) 25 mg capsule Take 25 mg by mouth three times a day as needed. Cholecalciferol, Vitamin D3, 125 mcg (5,000 unit) cap Take 1 capsule by mouth once daily. 30 capsule 11 Cyanocobalamin (VITAMIN B-12) 250 mcg tab Take 1 tablet by mouth once daily. 30 tablet 11 UBRELVY 100 mg tablet Take 1 tablet by mouth at bedtime as needed. albuterol HFA (PROVENTIL HFA, VENTOLIN HFA) 90 mcg/actuation inhaler Inhale 2 Puffs as instructed every 4 hours as needed for wheezing/shortness of breath. 1 Each 0 AJOVY AUTOINJECTOR 225 mg/1.5 mL auto-injector TAKE 1 PEN SUBCUTANEOUSLY EVERY 28 DAYS. No current facility-administered medications for this visit. Family History Problem Relation Age of Onset Hypertension Mother other (Pes planus)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 AUTOINJECTOR 225 mg/1.5 mL auto-injector TAKE 1 PEN SUBCUTANEOUSLY EVERY 28 DAYS. rimegepant (NURTEC ODT) 75 mg disintegrating tablet Take 75 mg by mouth once daily as needed. omeprazole (PRILOSEC) 40 mg capsule Take 40 mg by mouth daily before breakfast. No family history on file. Social History Tobacco Use Smoking status: Every Day Packs/day: .5 Types: Cigarettes Smokeless tobacco: Never Substance Use Topics Alcohol use: Never Drug use: Never Review of Systems Constitutional: Negative for fever. Respiratory: Negative for cough. Cardiovascular: Negative for chest pain. Gastrointestinal: Negative for abdominal pain and blood in stool. Skin: Negative for rash. Objective Blood pressure 104/64, pulse 84, temperature 36.2 C (97.1 F), temperature source Tympanic, resp. rate 18, weight 94.8 kg (208 lb 15.9 oz), last menstrual period 06/03/2023, SpO2 97%. Physical Exam Constitutional: General: She is not in acute distress. Appearance: Normal appearance. She is not toxic-appearing. Cardiovascular: Rate and Rhythm: Normal rate and regular rhythm. Heart sounds: Normal heart sounds. Pulmonary: Effort: Pulmonary effort is normal. Breath sounds: Normal breath sounds. Abdominal: General: Bowel sounds are normal. Palpations: Abdomen is soft. Tenderness: There is no abdominal tenderness (low abd cramping bilat). There is no guarding. Skin: General: Skin is warm and dry. ASSESSMENT/PLAN: 1. Vomiting and diarrhea - ICD9: 787.03, 787.91, ICD10: R11.10, R19.7 -Discussed gentle rehydration -BRAT Diet (Bananas, Rice, Apple Sauce, [employer]) -If no better in 7-10 days follow up back in clinic or with primary care provider -Follow up in the ER with signs of dehydration, increasing abdominal pain, high fever, or blood in vomit or stool. Aurelio Ryder APRN.HOOKER INSPECTOR documented in this encounter [facility] 11-22-2023 Hospital Discharg e instructions Patient Education 11/22/2023 14:21:00 Head Injury (Adult) Head Injury (Adult) You have a head injury. It does not appear serious at this time. But symptoms of a more serious problem, such as a mild brain injury (concussion) or bruising or bleeding in the brain, may appear later. For this reason, you or someone caring for you will need to watch for the symptoms listed below. Once you re home, also be sure to follow any care instructions you re given. Home care Watch for the following symptoms Seek emergency medical care if you have any of these symptoms over the next hours to days: Headache Nausea or vomiting Dizziness Sensitivity to light or noise Unusual sleepiness or grogginess Trouble falling asleep Personality changes Vision changes Memory loss Confusion Trouble walking or clumsiness Loss of consciousness (even for a short time) Inability to be awakened Stiff neck Weakness or numbness in any part of the body Seizures General care If you were prescribed medicines for pain, use them as directed. Note: Don t take other medicines for pain without talking to your provider first. To help reduce swelling and pain, apply a cold source to the injured area for up to 20 minutes at a time. Do this as often as directed. Use a cold pack or bag of ice wrapped in a thin towel. Never apply a cold source directly to the skin. If you have cuts or scrapes as a result of your head injury, care for them as directed. For the next 24 hours (or longer, if instructed): oDon t drink alcohol or use sedatives or other medicines that make you sleepy. oDon t drive or operate machinery. oDon t do anything strenuous, such as heavy lifting or straining. oLimit tasks that require concentration. This includes reading, using a smartphone or computer, watching TV, and playing video games. oDon t return to sports or other activities that could result in another head injury. Follow-up care Follow up with your healthcare provider, or as directed. If imaging tests were done, they will be reviewed by a doctor. You will be told the results and any new findings that may affect your care. When to seek medical advice Call your healthcare provider right away if any of these occur: Pain doesn t get better or worsens New or increased swelling or bruising Fever of 100.4 F (38 C) or higher, or as directed by your provider Increased redness, warmth, drainage, or bleeding from the injured area Fluid drainage or bleeding from the nose or ears Any depression or bony abnormality in the injured area Persistent confusion or lethargy Bruising behind the ears or bruising around the eyes [id number] [employer]. [address] [place] [address], [place] [address]. All rights reserved. This information is not intended as a substitute for professional medical care. Always follow your healthcare professional's instructions. 11/22/2023 14:20:51 Causes of Syncope Causes of Syncope Syncope (fainting) has many causes. Sometimes it's not serious. In other cases, it's a sign of a heart problem. But treatment can help When syncope is not serious Most causes of syncope are not serious and may include: Strong feelings, such as anxiety or fear. A nerve signal may briefly change your heart rate and lower your blood pressure too much. Standing for too long. Standing may cause blood to pool in your legs. When this happens, your brain may not get all the blood it needs. Standing up too fast. Your blood pressure may not adjust fast enough to changes in posture and may drop too low. Certain medicines can also cause this problem. Examples of medicines that can cause a drop in blood pressure include diuretics, blood pressure medicines, and medicines for chest pain. Reaction to normal body functions. When you go to the bathroom, have gastrointestinal discomfort, nausea, or pain, your heart may have a natural reflex to slow down and lower blood pressure. This can result in syncope. This may also follow exercise, eating, laughter, weight lifting, or playing musical instruments like the trumpet or trombone. When heart trouble causes syncope A heart problem can lower the amount of oxygen-rich blood that gets to the brain. Heart trouble can be serious and even life threatening if not treated: A slow heart rate. Electrical signals tell the chambers of the heart when to pump. But the signals may be slowed or blocked (heart block) as they travel on the heart s electrical pathways. This can be caused by aging, scarred heart tissue, or damage from heart disease. When the heart rate slows, not enough blood is pumped. A fast heart rate. Some things can make the heart race. For instance, a heart attack can create abnormal electrical signals. These signals can make the heart suddenly beat very fast. The heart pumps before the chambers can fill with blood. So less blood gets to the brain and other parts of the body. Illegal drugs, certain medicines, heart disease, or an inherited condition can also cause this. A heart valve problem. Blood travels through the chambers of the heart as it pumps. Heart valves open and close to help move blood in the right direction. But a hardened or scarred valve may not open or close fully. As a result, less blood is pumped through the heart to the brain and body. Most often, syncope occurs when a person's aortic valve is narrowed and he or she does strenuous activity. A heart muscle problem. Some people develop a thickened heart muscle that blocks blood flow out of the heart to the body. This is called hypertrophic cardiomyopathy. Being dehydrated and having this condition can raise the risk for syncope. Whatever the cause of syncope, it's important to see your healthcare provider. You may need to be seen by a diesel service journeyman, neurologist, or an ear, nose, and throat specialist. Don't drive, operate heavy machinery, or do activities in which you could fall and injure yourself if you have syncope and have not been evaluated. [phone] [employer]. [address] [place] [address], [place] [address]. All rights reserved. This information is not intended as a substitute for professional medical care. Always follow your healthcare professional's instructions. Follow Up Care 11/22/2023 10:48:51 With:MARVA ROBERTS MD Address: [address] [place] [address] [place] [address] [phone] When:2-4 days [facility] 11-22-2023 Note Discharge Instructions Thank you for allowing [facility] to assist you with your healthcare needs. The following is important discharge information regarding your hospital visit. Diagnosis from Today's Visit Closed head injury Dizziness Syncope What to Do Next Instructions from Your Care Team No qualifying data available. Post Acute Orders No qualifying data available. You Need to Schedule the Following Appointments Follow Up with MARVA ROBERTS MD When Within 2-4 days Where: [address] [place] [address] [place] [address] [phone] Allergies flu vaccines meclizine Medications Please ask your primary doctor or pharmacist before taking any other medication not listed, including over the counter drugs, herbal medications, vitamins and or supplements as they may interact with your home medications. What How Much When Instructions Last Dose Unchanged albuterol (albuterol MDI (90 mcg/ inh) CFC free inhalation aerosol) Unchanged baclofen (baclofen 10 mg oral tablet) 1 tab(s) Once a day Unchanged fremanezumab (Ajovy Autoinjector 225 mg/ 1.5 mL subcutaneous solution) Unchanged hydrocortisone topical (hydrocortisone 2.5% topical cream) APPLY TO AFFECTED AREA TWICE A DAY NEEDED FOR RASH Unchanged hydrOXYzine (hydrOXYzine hydrochloride 25 mg oral tablet) Unchanged lidocaine topical (lidocaine 5% topical patch) Unchanged meloxicam (meloxicam 15 mg oral tablet) 1 tab(s) by mouth Once a day Unchanged omeprazole (omeprazole 40 mg oral delayed release capsule) Unchanged ondansetron (ondansetron 4 mg oral tablet) 1 tab(s) by mouth Every 6 hours as needed for Nausea/Vomiting Unchanged rimegepant (Nurtec ODT 75 mg oral tablet, disintegrating) Unchanged valACYclovir (valACYclovir 500 mg oral tablet) 1 tab(s) by mouth Once a day drink plenty of fluids Please take this list to your next doctor s visit. Bring all medications you take, including over the counter medications, herbals and other supplements with you to your doctor s visit. Patients and families are reminded to discard old lists and to update any records with all medication providers or retail pharmacies. Education Materials Head Injury (Adult) You have a head injury. It does not appear serious at this time. But symptoms of a more serious problem, such as a mild brain injury (concussion) or bruising or bleeding in the brain, may appear later. For this reason, you or someone caring for you will need to watch for the symptoms listed below. Once you re home, also be sure to follow any care instructions you re given. Home care Watch for the following symptoms Seek emergency medical care if you have any of these symptoms over the next hours to days: Headache Nausea or vomiting Dizziness Sensitivity to light or noise Unusual sleepiness or grogginess Trouble falling asleep Personality changes Vision changes Memory loss Confusion Trouble walking or clumsiness Loss of consciousness (even for a short time) Inability to be awakened Stiff neck Weakness or numbness in any part of the body Seizures General care If you were prescribed medicines for pain, use them as directed. Note: Don t take other medicines for pain without talking to your provider first. To help reduce swelling and pain, apply a cold source to the injured area for up to 20 minutes at a time. Do this as often as directed. Use a cold pack or bag of ice wrapped in a thin towel. Never apply a cold source directly to the skin. If you have cuts or scrapes as a result of your head injury, care for them as directed. For the next 24 hours (or longer, if instructed): oDon t drink alcohol or use sedatives or other medicines that make you sleepy. oDon t drive or operate machinery. oDon t do anything strenuous, such as heavy lifting or straining. oLimit tasks that require concentration. This includes reading, using a smartphone or computer, watching TV, and playing video games. oDon t return to sports or other activities that could result in another head injury. Follow-up care Follow up with your healthcare provider, or as directed. If imaging tests were done, they will be reviewed by a doctor. You will be told the results and any new findings that may affect your care. When to seek medical advice Call your healthcare provider right away if any of these occur: Pain doesn t get better or worsens New or increased swelling or bruising Fever of 100.4 F (38 C) or higher, or as directed by your provider Increased redness, warmth, drainage, or bleeding from the injured area Fluid drainage or bleeding from the nose or ears Any depression or bony abnormality in the injured area Persistent confusion or lethargy Bruising behind the ears or bruising around the eyes [phone] [employer]. [address] [place] [address]. All rights reserved. This information is not intended as a substitute for professional medical care. Always follow your healthcare professional's instructions. Causes of Syncope Syncope (fainting) has many causes. Sometimes it's not serious. In other cases, it's a sign of a heart problem. But treatment can help When syncope is not serious Most causes of syncope are not serious and may include: Strong feelings, such as anxiety or fear. A nerve signal may briefly change your heart rate and lower your blood pressure too much. Standing for too long. Standing may cause blood to pool in your legs. When this happens, your brain may not get all the blood it needs. Standing up too fast. Your blood pressure may not adjust fast enough to changes in posture and may drop too low. Certain medicines can also cause this problem. Examples of medicines that can cause a drop in blood pressure include diuretics, blood pressure medicines, and medicines for chest pain. Reaction to normal body functions. When you go to the bathroom, have gastrointestinal discomfort, nausea, or pain, your heart may have a natural reflex to slow down and lower blood pressure. This can result in syncope. This may also follow exercise, eating, laughter, weight lifting, or playing musical instruments like the trumpet or trombone. When heart trouble causes syncope A heart problem can lower the amount of oxygen-rich blood that gets to the brain. Heart trouble can be serious and even life threatening if not treated: A slow heart rate. Electrical signals tell the chambers of the heart when to pump. But the signals may be slowed or blocked (heart block) as they travel on the heart s electrical pathways. This can be caused by aging, scarred heart tissue, or damage from heart disease. When the heart rate slows, not enough blood is pumped. A fast heart rate. Some things can make the heart race. For instance, a heart attack can create abnormal electrical signals. These signals can make the heart suddenly beat very fast. The heart pumps before the chambers can fill with blood. So less blood gets to the brain and other parts of the body. Illegal drugs, certain medicines, heart disease, or an inherited condition can also cause this. A heart valve problem. Blood travels through the chambers of the heart as it pumps. Heart valves open and close to help move blood in the right direction. But a hardened or scarred valve may not open or close fully. As a result, less blood is pumped through the heart to the brain and body. Most often, syncope occurs when a person's aortic valve is narrowed and he or she does strenuous activity. A heart muscle problem. Some people develop a thickened heart muscle that blocks blood flow out of the heart to the body. This is called hypertrophic cardiomyopathy. Being dehydrated and having this condition can raise the risk for syncope. Whatever the cause of syncope, it's important to see your healthcare provider. You may need to be seen by a diesel service journeyman, neurologist, or an ear, nose, and throat specialist. Don't drive, operate heavy machinery, or do activities in which you could fall and injure yourself if you have syncope and have not been evaluated. [phone] [employer]. [address] [place] [address]. All rights reserved. This information is not intended as a substitute for professional medical care. Always follow your healthcare professional's instructions. Additional Information VACCINATE! IT SAVES LIVES! Members of the community who have not yet received the COVID-19 vaccine and would like to receive it can visit one of [facility] vaccine clinics. There are many vaccine clinic locations within the [facility]. For locations and available times, please visit [email or web address].[email or web address] [email or web address] It is important to note that some COVID mobile vaccine clinics are held outdoors and may be canceled in rainy or stormy conditions. To learn more about pediatric vaccinations (ages 5-11), we invite you to visit the [facility] webpage. [email or web address].[facility].org/p ages/3102-Piqqq-Jnnvbgbdvgu-Freq rfsaxx-Bwyva-Floihzslo.html To learn more about the COVID-19 vaccine, we invite you to visit the CDC website for a list of frequently asked questions. https://www.cdc.gov/coronavirus/ 2019-ncov/vaccines/faq.html [facility] Patient Portal Access Instructions: Stay connected with your healthcare team and access your personal medical information anytime with the [facility] Patient Portal. If you would like a full copy of your medical records please contact the [facility] Medical Records Department Saturday through Saturday between 8a.m. and 4:30p.m. Please follow the directions below to access the portal: 1.Access the email account you provided upon registration to the hospital.2.Look for an invitation email from [facility].3.Open the email and access the invitation link: Accept Invitation to [facility]4.Fill in the required waters to create your account. Sign into [email or web address] with your username and password that you created in the above steps to stay up to date. You can then view a summary of results, a summary of your visits, and the ability to download your summaries to your computer or send the information securely to a physician. Remember that your healthcare information is confidential, so carefully consider who you will allow to register on the [facility] Patient Portal for access to your information. You can also access the [facility] Patient Portal on the [employer] elkin. Simply click on Health Records under Health Data and then click on the [facility] logo. HOW TO SAFELY DISPOSE OF PRESCRIPTION MEDICATIONS Please use one of the following methods to safely dispose of your unused medications. 1.Use a drug disposal kit: the drug disposal pouch allows you to safely discard your old and unused drugs. Ask your nurse to give you one when you are discharged.2.Visit a local take-back location: Many local pharmacies and police departments have programs that collect old and unwanted prescription drugs. Call your local pharmacy or go to http://[employer] Assist/6N9Hq4m to find one close to you.3.Make use of household items: Use cat litter or old coffee grounds to dispose medications if other options are not available. Mix your drugs with these household products, seal them in an airtight container and throw it into the garbage. Call [facility]: [phone] to be sure your drugs can be disposed of in this way. Some medicines may require a different approach.4.Never flush your medications down the toilet. IF YOU HAVE BEEN PRESCRIBED AN OPIOIDS FOR PAIN If you have been prescribed an opioid (such as hydrocodone, oxycodone or morphine), it is critical to understand the possible side effects and risks of opioid pain medications. Even when taken as directed, opioids can have several side effects including: Tolerance, meaning you might need to take more of a medication for the same pain relief. Nausea, vomiting and/or constipation. Sleepiness, dizziness, dry mouth, confusion, depression or itching. Physical dependence, meaning you have withdrawal symptoms when a medication is stopped ? this can develop within a few days. KNOW YOUR RESPONSIBILITIES It is important to know exactly how much and how often to take the opioid pain medications you are prescribed. Never take opioids in higher amounts or more often than prescribed. Do not combine opioids with alcohol or other drugs that cause drowsiness, such as benzodiazepines, also known as benzos, including diazepam and alprazolam, muscle relaxants or sleep aids. Never sell or share prescription opioids. This is illegal. Store opioids in a secure place and out of reach of others (including children, family, friends and visitors). The last page(s) of this document has been signed and retained as a CHART COPY Signatures Patient Education Materials Head Injury (Adult) Causes of Syncope Medication Leaflets My discharge plan and instructions have been reviewed and explained to me and IORTEGA TONYA N understand my current condition and have read and understand these discharge instructions. I have received a written copy of the plan/instructions. If I have questions, I am aware that I should contact my doctor. 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 Automated exposure control, iterative reconstruction, and/or weight based adjustment of the mA/kV was utilized to reduce the radiation dose to as low as reasonably achievable. COMPARISON: 06/27/2023 HISTORY: ORDERING SYSTEM PROVIDED HISTORY: Reason for Exam: syncopal episode FINDINGS: BRAIN/VENTRICLES: There is no acute intracranial hemorrhage, mass effect or midline shift. No abnormal extra-axial fluid collection. The wilder-white differentiation is maintained without evidence of an acute infarct. There is no evidence of hydrocephalus. ORBITS: The visualized portion of the orbits demonstrate no acute abnormality. SINUSES: Minimal aerated secretions in the left sphenoid sinus which can be seen with acute sinusitis in the appropriate clinical setting. Minimal mucosal thickening in the right sphenoid sinus. Included mastoid air cells are clear. SOFT TISSUES/SKULL: No acute calvarial abnormality. Small locules of subcutaneous emphysema overlying the bridge of the nose with associated soft tissue swelling, incompletely visualized/assessed. IMPRESSION: 1. No acute intracranial abnormality. 2. Minimal aerated secretions in the left sphenoid sinus which can be seen with acute sinusitis in the appropriate clinical setting. 3. Suspect nasal laceration. Correlate with physical exam. Interpreted by: Pallavi Mendez MD Preliminary Report By: Pallavi Mendez MD Electronically signed By Pallavi Mendez MD Dictated Date: 11/22/2023 12:22:03 PM Prelim Date: 11/22/2023 12:25:31 PM Sign Date: 11/22/2023 12:25:31 PM Ordering Provider: DINO STANFORD [facility] 11-22-2023 Note Sinus rhythm Electronic Signature: DINO STANFORD MD 11/22/2023 12:08:52 [facility] 11-22-2023 History of Presen t illness Narrative Images from the original note were not included. Subjective HPI Nontoxic-appearing female presents urgent care chief complaint weakness. Duration of symptoms 3 days. Associated symptoms sore throat nausea vomiting headache fever fatigue. Patient states yesterday she tried to take a shower became extremely weak vision became black she passed out striking her head on the shower floor. Presents today for evaluation due to persistent weakness and lightheadedness. On examination a 2 cm laceration noted over bridge of nose 1 cm laceration noted above eyebrow black and blue left eye. Additionally dysuria and frequency. .Patient presents with: Sore Throat: Nausea, vomiting, headache, sinus congestion, fever, and cough x 3 days. Also with UTI symptoms.Also passed out last night in shower. PAST MEDICAL HISTORY Diagnosis Date Anxiety and depression Borderline personality disorder (HCC) GERD (gastroesophageal reflux disease) Lumbar spondylosis Migraine, intractable PTSD (post-traumatic stress disorder) History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 drained the pus from your abscess. If the abscess pocket was large, your healthcare provider may have put in gauze packing. Your provider will need to remove it on your next visit. He or she may also replace it at that time. You may not need antibiotics to treat a simple abscess, unless the infection is spreading into the skin around the wound (cellulitis). The wound will take about 1 to 2 weeks to heal, depending on the size of the abscess. Healthy tissue will grow from the bottom and sides of the opening until it seals over. Home care These tips can help your wound heal: The wound may drain for the first 2 days. Cover the wound with a clean dry dressing. Change the dressing if it becomes soaked with blood or pus. If a gauze packing was placed inside the abscess pocket, you may be told to remove it yourself. You may do this in the shower. Once the packing is removed, you should wash the area in the shower, or clean the area as directed by your provider. Continue to do this until the skin opening has closed. Make sure you wash your hands after changing the packing or cleaning the wound. If you were prescribed antibiotics, take them as directed until they are all gone. You may use acetaminophen or ibuprofen to control pain, unless another pain medicine was prescribed. If you have liver disease or ever had a stomach ulcer, talk with your doctor before using these medicines. Follow-up care Follow up with your healthcare provider, or as advised. If a gauze packing was put in your wound, it should be removed in 1 to 2 days. Check your wound every day for any signs that the infection is getting worse. The signs are listed below. When to seek medical advice Call your healthcare provider right away if any of these occur: Increasing redness or swelling Red streaks in the skin leading away from the wound Increasing local pain or swelling Continued pus draining from the wound 2 days after treatment Fever of 100.4 F (38 C) or higher, or as directed by your healthcare provider Boil returns when you are at home [phone] [employer]. [address] [place] [address]. All rights reserved. This information is not intended as a substitute for professional medical care. Always follow your healthcare professional's instructions. Follow Up Care 12/26/2022 17:17:49 With:Follow up with primary care provider Address:Unknown When:2-4 days [facility] 12-26-2022 Note Discharge Instructions Thank you for allowing [facility] to assist you with your healthcare needs. The following is important discharge information regarding your hospital visit. Diagnosis from Today's Visit Abscess - simple What to Do Next Instructions from Your Care Team No qualifying data available. Post Acute Orders No qualifying data available. You Need to Schedule the Following Appointments Follow Up with Follow up with primary care provider When Within 2-4 days Allergies flu vaccines meclizine Medications Please ask your primary doctor or pharmacist before taking any other medication not listed, including over the counter drugs, herbal medications, vitamins and or supplements as they may interact with your home medications. What How Much When Instructions Last Dose Unchanged albuterol (albuterol MDI (90 mcg/ inh) CFC free inhalation aerosol) Unchanged baclofen (baclofen 10 mg oral tablet) 1 tab(s) Once a day Unchanged fremanezumab (Ajovy Autoinjector 225 mg/ 1.5 mL subcutaneous solution) Unchanged hydrocortisone topical (hydrocortisone 2.5% topical cream) APPLY TO AFFECTED AREA TWICE A DAY NEEDED FOR RASH Unchanged hydrOXYzine (hydrOXYzine hydrochloride 25 mg oral tablet) Unchanged lidocaine topical (lidocaine 5% topical patch) Unchanged meloxicam (meloxicam 15 mg oral tablet) 1 tab(s) by mouth Once a day Unchanged omeprazole (omeprazole 40 mg oral delayed release capsule) Unchanged ondansetron (ondansetron 4 mg oral tablet) 1 tab(s) by mouth Every 6 hours as needed for Nausea/Vomiting Unchanged rimegepant (Nurtec ODT 75 mg oral tablet, disintegrating) Unchanged valACYclovir (valACYclovir 500 mg oral tablet) 1 tab(s) by mouth Once a day BEGIN TAKING IN 5 DAYS FOR SUPPRESSIVE THERAPY. Please take this list to your next doctor s visit. Bring all medications you take, including over the counter medications, herbals and other supplements with you to your doctor s visit. Patients and families are reminded to discard old lists and to update any records with all medication providers or retail pharmacies. Education Materials Abscess (Incision & Drainage) An abscess is sometimes called a boil. It happens when bacteria get trapped under the skin and start to grow. Pus forms inside the abscess as the body responds to the bacteria. An abscess can happen with an insect bite, ingrown hair, blocked oil gland, pimple, cyst, or puncture wound. Your healthcare provider has drained the pus from your abscess. If the abscess pocket was large, your healthcare provider may have put in gauze packing. Your provider will need to remove it on your next visit. He or she may also replace it at that time. You may not need antibiotics to treat a simple abscess, unless the infection is spreading into the skin around the wound (cellulitis). The wound will take about 1 to 2 weeks to heal, depending on the size of the abscess. Healthy tissue will grow from the bottom and sides of the opening until it seals over. Home care These tips can help your wound heal: The wound may drain for the first 2 days. Cover the wound with a clean dry dressing. Change the dressing if it becomes soaked with blood or pus. If a gauze packing was placed inside the abscess pocket, you may be told to remove it yourself. You may do this in the shower. Once the packing is removed, you should wash the area in the shower, or clean the area as directed by your provider. Continue to do this until the skin opening has closed. Make sure you wash your hands after changing the packing or cleaning the wound. If you were prescribed antibiotics, take them as directed until they are all gone. You may use acetaminophen or ibuprofen to control pain, unless another pain medicine was prescribed. If you have liver disease or ever had a stomach ulcer, talk with your doctor before using these medicines. Follow-up care Follow up with your healthcare provider, or as advised. If a gauze packing was put in your wound, it should be removed in 1 to 2 days. Check your wound every day for any signs that the infection is getting worse. The signs are listed below. When to seek medical advice Call your healthcare provider right away if any of these occur: Increasing redness or swelling Red streaks in the skin leading away from the wound Increasing local pain or swelling Continued pus draining from the wound 2 days after treatment Fever of 100.4 F (38 C) or higher, or as directed by your healthcare provider Boil returns when you are at home [phone] [employer]. [address] [place] [address], [place] [address]. All rights reserved. This information is not intended as a substitute for professional medical care. Always follow your healthcare professional's instructions. Additional Information VACCINATE! IT SAVES LIVES! Members of the community who have not yet received the COVID-19 vaccine and would like to receive it can visit one of [facility] vaccine clinics. There are many vaccine clinic locations within the [facility]. For locations and available times, please visit [email or web address] It is important to note that some COVID mobile vaccine clinics are held outdoors and may be canceled in rainy or stormy conditions. To learn more about pediatric vaccinations (ages 5-11), we invite you to visit the [facility] webpage. [email or web address] To learn more about the COVID-19 vaccine, we invite you to visit the CDC website for a list of frequently asked questions. https://www.cdc.gov/coronavirus/ 2019-ncov/vaccines/faq.html [facility] Patient Portal Access Instructions: Stay connected with your healthcare team and access your personal medical information anytime with the [facility] Patient Portal. If you would like a full copy of your medical records please contact the [facility] Medical Records Department Saturday through Saturday between 8a.m. and 4:30p.m. Please follow the directions below to access the portal: 1.Access the email account you provided upon registration to the hospital.2.Look for an invitation email from [facility].3.Open the email and access the invitation link: Accept Invitation to [facility]4.Fill in the required waters to create your account. Sign into [email or web address] with your username and password that you created in the above steps to stay up to date. You can then view a summary of results, a summary of your visits, and the ability to download your summaries to your computer or send the information securely to a physician. Remember that your healthcare information is confidential, so carefully consider who you will allow to register on the [facility] Patient Portal for access to your information. You can also access the [email or web address] Patient Portal on the [facility] elkin. Simply click on Health Records under Health Data and then click on the [facility] logo. HOW TO SAFELY DISPOSE OF PRESCRIPTION MEDICATIONS Please use one of the following methods to safely dispose of your unused medications. 1.Use a drug disposal kit: the drug disposal pouch allows you to safely discard your old and unused drugs. Ask your nurse to give you one when you are discharged.2.Visit a local take-back location: Many local pharmacies and police departments have programs that collect old and unwanted prescription drugs. Call your local pharmacy or go to http://[place] Car[employer] Assist/7D1Lz9t to find one close to you.3.Make use of household items: Use cat litter or old coffee grounds to dispose medications if other options are not available. Mix your drugs with these household products, seal them in an airtight container and throw it into the garbage. Call [facility]: [phone] to be sure your drugs can be disposed of in this way. Some medicines may require a different approach.4.Never flush your medications down the toilet. IF YOU HAVE BEEN PRESCRIBED AN OPIOIDS FOR PAIN If you have been prescribed an opioid (such as hydrocodone, oxycodone or morphine), it is critical to understand the possible side effects and risks of opioid pain medications. Even when taken as directed, opioids can have several side effects including: Tolerance, meaning you might need to take more of a medication for the same pain relief. Nausea, vomiting and/or constipation. Sleepiness, dizziness, dry mouth, confusion, depression or itching. Physical dependence, meaning you have withdrawal symptoms when a medication is stopped ? this can develop within a few days. KNOW YOUR RESPONSIBILITIES It is important to know exactly how much and how often to take the opioid pain medications you are prescribed. Never take opioids in higher amounts or more often than prescribed. Do not combine opioids with alcohol or other drugs that cause drowsiness, such as benzodiazepines, also known as benzos, including diazepam and alprazolam, muscle relaxants or sleep aids. Never sell or share prescription opioids. This is illegal. Store opioids in a secure place and out of reach of others (including children, family, friends and visitors). The last page(s) of this document has been signed and retained as a CHART COPY Signatures Patient Education Materials Abscess, Incision And Drainage Medication Leaflets My discharge plan and instructions have been reviewed and explained to me and IORTEGA TONYA N understand my current condition and have read and understand these discharge instructions. I have received a written copy of the plan/instructions. If I have questions, I am aware that I should contact my doctor. 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 The bill High-Risk HPV DNA Test is not intended for use as a screening device for Pap normal women under age 30 and is not intended to substitute for regular Pap screening. The bill High-Risk HPV DNA Test is designed to augment existing methods for the detection of cervical disease and should be used in conjunction with clinical information derived from other diagnostic and screening tests, physical examinations and full medical history in accordance with appropriate patient management procedures. NOTE: A negative result does not preclude the presence of HPV infection because results depend on adequate specimen collection, absence of inhibitors and sufficient DNA to be detected. As of: 08/24/22 12:58 EST [facility] 08-24-2022 Note Event Code Result HPV Interp See Interp HPVN HPV Interp Text: High Risk HPV Typing: NEGATIVE HPV types 16, 18, 31, 33, 35, 39, 45, 51, 52, 56, 58, 59, 66 and 68 DNA were undetectable or below the pre-set threshold. The bill High-Risk HPV DNA Test is not intended for use as a screening device for Pap normal women under age 30 and is not intended to substitute for regular Pap screening. The bill High-Risk HPV DNA Test is designed to augment existing methods for the detection of cervical disease and should be used in conjunction with clinical information derived from other diagnostic and screening tests, physical examinations and full medical history in accordance with appropriate patient management procedures. NOTE: A negative result does not preclude the presence of HPV infection because results depend on adequate specimen collection, absence of inhibitors and sufficient DNA to be detected. As of: 08/24/22 12:58 [facility] 08-24-2022 Note Event Code Result HPV Interp See Interp HPVN HPV Interp Text: High Risk HPV Typing: NEGATIVE HPV types 16, 18, 31, 33, 35, 39, 45, 51, 52, 56, 58, 59, 66 and 68 DNA were undetectable or below the pre-set threshold. The bill High-Risk HPV DNA Test is not intended for use as a screening device for Pap normal women under age 30 and is not intended to substitute for regular Pap screening. The bill High-Risk HPV DNA Test is designed to augment existing methods for the detection of cervical disease and should be used in conjunction with clinical information derived from other diagnostic and screening tests, physical examinations and full medical history in accordance with appropriate patient management procedures. NOTE: A negative result does not preclude the presence of HPV infection because results depend on adequate specimen collection, absence of inhibitors and sufficient DNA to be detected. As of: 08/24/22 12:58 [facility] 08-24-2022 Note Event Code Result HPV Interp See Interp HPVN HPV Interp Text: High Risk HPV Typing: NEGATIVE HPV types 16, 18, 31, 33, 35, 39, 45, 51, 52, 56, 58, 59, 66 and 68 DNA were undetectable or below the pre-set threshold. The bill High-Risk HPV DNA Test is not intended for use as a screening device for Pap normal women under age 30 and is not intended to substitute for regular Pap screening. The bill High-Risk HPV DNA Test is designed to augment existing methods for the detection of cervical disease and should be used in conjunction with clinical information derived from other diagnostic and screening tests, physical examinations and full medical history in accordance with appropriate patient management procedures. NOTE: A negative result does not preclude the presence of HPV infection because results depend on adequate specimen collection, absence of inhibitors and sufficient DNA to be detected. As of: 08/24/22 12:58 [facility] 08-24-2022 Note Event Code Result HPV Interp See Interp HPVN HPV Interp Text: High Risk HPV Typing: NEGATIVE HPV types 16, 18, 31, 33, 35, 39, 45, 51, 52, 56, 58, 59, 66 and 68 DNA were undetectable or below the pre-set threshold. The bill High-Risk HPV DNA Test is not intended for use as a screening device for Pap normal women under age 30 and is not intended to substitute for regular Pap screening. The bill High-Risk HPV DNA Test is designed to augment existing methods for the detection of cervical disease and should be used in conjunction with clinical information derived from other diagnostic and screening tests, physical examinations and full medical history in accordance with appropriate patient management procedures. NOTE: A negative result does not preclude the presence of HPV infection because results depend on adequate specimen collection, absence of inhibitors and sufficient DNA to be detected. As of: 08/24/22 12:58 [facility] 08-24-2022 Note Event Code Result HPV Interp See Interp HPVN HPV Interp Text: High Risk HPV Typing: NEGATIVE HPV types 16, 18, 31, 33, 35, 39, 45, 51, 52, 56, 58, 59, 66 and 68 DNA were undetectable or below the pre-set threshold. The bill High-Risk HPV DNA Test is not intended for use as a screening device for Pap normal women under age 30 and is not intended to substitute for regular Pap screening. The bill High-Risk HPV DNA Test is designed to augment existing methods for the detection of cervical disease and should be used in conjunction with clinical information derived from other diagnostic and screening tests, physical examinations and full medical history in accordance with appropriate patient management procedures. NOTE: A negative result does not preclude the presence of HPV infection because results depend on adequate specimen collection, absence of inhibitors and sufficient DNA to be detected. As of: 08/24/22 12:58 [facility] 08-24-2022 Note Event Code Result HPV Interp See Interp HPVN HPV Interp Text: High Risk HPV Typing: NEGATIVE HPV types 16, 18, 31, 33, 35, 39, 45, 51, 52, 56, 58, 59, 66 and 68 DNA were undetectable or below the pre-set threshold. The bill High-Risk HPV DNA Test is not intended for use as a screening device for Pap normal women under age 30 and is not intended to substitute for regular Pap screening. The bill High-Risk HPV DNA Test is designed to augment existing methods for the detection of cervical disease and should be used in conjunction with clinical information derived from other diagnostic and screening tests, physical examinations and full medical history in accordance with appropriate patient management procedures. NOTE: A negative result does not preclude the presence of HPV infection because results depend on adequate specimen collection, absence of inhibitors and sufficient DNA to be detected. As of: 08/24/22 12:58 [facility] 08-24-2022 Note Event Code Result HPV Interp See Interp HPVN HPV Interp Text: High Risk HPV Typing: NEGATIVE HPV types 16, 18, 31, 33, 35, 39, 45, 51, 52, 56, 58, 59, 66 and 68 DNA were undetectable or below the pre-set threshold. The bill High-Risk HPV DNA Test is not intended for use as a screening device for Pap normal women under age 30 and is not intended to substitute for regular Pap screening. The bill High-Risk HPV DNA Test is designed to augment existing methods for the detection of cervical disease and should be used in conjunction with clinical information derived from other diagnostic and screening tests, physical examinations and full medical history in accordance with appropriate patient management procedures. NOTE: A negative result does not preclude the presence of HPV infection because results depend on adequate specimen collection, absence of inhibitors and sufficient DNA to be detected. As of: 08/24/22 12:58 [facility] 07-01-2022 [facility] Patient Education 07/01/2022 08:50:30 Preventing Vaginitis Preventing Vaginitis Use mild, unscented soap when you bathe or shower to avoid irritating your vagina. Vaginitis is irritation or infection of the vagina or vulva (the outside opening of the vagina). Vaginitis can be caused by bacteria, viruses, parasites, or yeast. Chemicals (such as in perfumes or soaps or in spermicides) can sometimes be a cause. Vaginitis can be caused by hormone changes in or with menopause. You can help prevent vaginitis. Follow the tips below. And see your healthcare provider if you have any symptoms. Hygiene Avoid chemicals. Do not use vaginal sprays. Do not use scented toilet paper or tampons that are scented. Sprays and scents have chemicals that can irritate your vagina. Do not douche unless you are told to by your healthcare provider. Douching is rarely needed. And it upsets the normal balance in the vagina. Wash yourself well. Wash the outer vaginal area (vulva) every day with mild, unscented soap. Keep it as dry as possible. Wipe correctly. Make sure to wipe from front to back after a bowel movement. This helps keep from spreading bacteria from your anus to your vagina. Change your tampon often. During your period, make sure to change your tampon as often as directed on the package. This allows the normal flow of vaginal discharge and blood. Lifestyle Limit your number of sexual partners. The more partners you have, the greater your risk of infection. Using condoms helps reduce your risk. Get enough sleep. Sleep helps keep your body s immune system healthy. This helps you fight infection. Lose weight, if needed. Excess weight can reduce air circulation around your vagina. This can increase your risk of infection. Exercise regularly. Regular activity helps keep your body healthy. Take antibiotics only as directed. Antibiotics can change the normal chemical balance in the vagina. Clothing Don t sit in wet clothes. Yeast thrives when it s warm and damp. Don t wear tight pants. And don t wear tights, leggings, or hose without a cotton crotch. These types of clothing trap warmth and moisture. Wear cotton underwear. Cotton lets air circulate around the vagina. Symptoms of vaginitis Irritation, swelling, or itching of the genital area Vaginal discharge Bad vaginal odor Pain or burning during urination [id number] [employer]. [address] [place] [address], [place] [address]. All rights reserved. This information is not intended as a substitute for professional medical care. Always follow your healthcare professional's instructions. 07/01/2022 08:50:14 Herpes Genitalis, Hsv: Type Ii Genital Herpes Genital herpes is a common sexually transmitted infection (STI). It is caused by the herpes simplex virus (HSV). One out of 5 teens and adults carry the herpes virus. During an outbreak, it causes small blisters that break open, leaving small, painful sores in the genital area. Eventually, scabs form and the sores heal. In women, these show up most often on the skin just outside the vaginal opening. They can occur on the buttocks, anus, or cervix. In men, the sores are usually on the tip, sides, or base of the penis. They also occur on the scrotum, buttocks, or thighs. The first outbreak begins within 2 to 3 weeks after exposure to an infected sexual partner. It may last 1 to 3 weeks. It may cause headache, muscle ache, and fevers. The first outbreak is usually the worst. Because the virus remains in the body even after the sores heal, most people will have more outbreaks. The frequency of outbreaks is different for each person. Some people will never have another outbreak. Others will have several episodes a year. Later outbreaks are usually shorter, milder, and less painful. For many, the number of outbreaks tends to decrease over time. Various factors may trigger an outbreak. These include: Emotional stress Menstruation Presence of another illness (cold, flu, or fever from any cause) Overexertion and fatigue Weak immune system Home care It is very important that you do not have sexual relations until all the herpes sores have healed completely. Wash the affected area gently with mild soap and water. Wash your hands after touching the affected area. You may use qmvg-afc-cxzsytn pain medicine unless another pain medicine was prescribed. If you have chronic liver or kidney disease or have ever had a stomach ulcer or gastrointestinal bleeding, talk with your healthcare provider before using these medicines. Also talk to your provider if you are taking medicine to prevent blood clots. Aspirin should never be given to anyone younger than 18 years of age who is ill with a viral infection or fever. It may cause severe liver or brain damage. Your healthcare provider may prescribe antiviral medicine during the first outbreak. This will help the sores heal faster. Antiviral medicine may also be prescribed so that you have it ready to take at the first sign of another outbreak. This will help the symptoms go away sooner. For people with frequent outbreaks, daily preventive therapy may be prescribed. This will help reduce the frequency of attacks. Daily preventive therapy may also reduce risk of spread of herpes to your sexual partner. Discuss the risks and benefits of daily therapy with your healthcare provider. If you are a woman who is now or may become in the future, let your healthcare provider know that you have had herpes. This may affect the way your baby is delivered. Preventing spread to others The virus is spread by sexual contact with someone who has the herpes virus. The risk of spread is highest when the sores are present. However, there is a chance of spreading the virus even when sores are not visible. Inform future sexual partners that you have herpes and that they may become infected. To reduce the risk of passing the virus to a partner who has never had herpes, avoid sexual relations at the first sign of an outbreak and until the sores are fully healed. Latex barriers, such as condoms, reduce the risk of spread between outbreaks if the infected site is covered, but they do not guarantee protection. Follow-up care Follow up with your healthcare provider, or as advised. People who have just learned that they have herpes may feel upset. Getting the facts about herpes can help you feel more in control. Follow up with your healthcare provider or the public health department for complete STI screening, including HIV testing. When to seek medical advice Call your healthcare provider right away if any of these occur: Inability to urinate due to pain Swelling or increasing redness in the genital area Discharge from the vagina or penis Increasing back or abdominal pain Rash or joint pain Call 911 Call 911 or get immediate medical care if any of these occur: Unusual drowsiness, weakness, or confusion Worsening headache or stiff neck [phone] [employer]. [address] [place] [address]. All rights reserved. This information is not intended as a substitute for professional medical care. Always follow your healthcare professional's instructions. Follow Up Care 07/01/2022 08:25:03 With:ARLET BOOTHE Address: [address] [facility] [place] [address]- [phone] Business (1) When:1-2 days Comments:Return to ED if symptoms worsen [facility] 07-01-2022 Note Discharge Instructions Thank you for allowing [facility] to assist you with your healthcare needs. The following is important discharge information regarding your hospital visit. Diagnosis from Today's Visit Vaginal discomfort Skin problem What to Do Next Instructions from Your Care Team No qualifying data available. Post Acute Orders No qualifying data available. You Need to Schedule the Following Appointments Follow Up with ARLET BOOTHE When Within 1-2 days Why: Return to ED if symptoms worsen Where: [address] [facility] [address] [facility] [place] [address] [phone] Business (1) Allergies flu vaccines meclizine Medications Please ask your primary doctor or pharmacist before taking any other medication not listed, including over the counter drugs, herbal medications, vitamins and or supplements as they may interact with your home medications. What How Much When Why Instructions Last Dose Unchanged albuterol (albuterol MDI (90 mcg/ inh) CFC free inhalation aerosol) Unchanged clotrimazole topical (clotrimazole 1% topical cream) 1 application Topical Two (2) times a day Vulvovaginitis due to yeast Unchanged fremanezumab (Ajovy Autoinjector 225 mg/ 1.5 mL subcutaneous solution) Unchanged hydrocortisone topical (hydrocortisone 2.5% topical cream) APPLY TO AFFECTED AREA TWICE A DAY NEEDED FOR RASH Unchanged hydrOXYzine (hydrOXYzine hydrochloride 25 mg oral tablet) Unchanged lidocaine topical (lidocaine 5% topical patch) Unchanged meloxicam (meloxicam 15 mg oral tablet) 1 tab(s) by mouth Once a day Unchanged naproxen (naproxen 500 mg oral tablet) Unchanged omeprazole (omeprazole 40 mg oral delayed release capsule) Unchanged ondansetron (ondansetron 4 mg oral tablet) 1 tab(s) by mouth Every 6 hours as needed for Nausea/Vomiting Unchanged rimegepant (Nurtec ODT 75 mg oral tablet, disintegrating) Unchanged valACYclovir (valACYclovir 500 mg oral tablet) 1 tab(s) by mouth Once a day History of herpes zoster Furuncle of groin Unchanged valACYclovir (valACYclovir 500 mg oral tablet) TAKE 1 CAPLET BY MOUTH ONCE DAILY Unchanged valACYclovir (Valtrex 500 mg oral tablet) 1 tab(s) by mouth Once a day drink plenty of fluids To begin taking in 5 days for suppressive therapy Please take this list to your next doctor s visit. Bring all medications you take, including over the counter medications, herbals and other supplements with you to your doctor s visit. Patients and families are reminded to discard old lists and to update any records with all medication providers or retail pharmacies. Education Materials Preventing Vaginitis Use mild, unscented soap when you bathe or shower to avoid irritating your vagina. Vaginitis is irritation or infection of the vagina or vulva (the outside opening of the vagina). Vaginitis can be caused by bacteria, viruses, parasites, or yeast. Chemicals (such as in perfumes or soaps or in spermicides) can sometimes be a cause. Vaginitis can be caused by hormone changes in or with menopause. You can help prevent vaginitis. Follow the tips below. And see your healthcare provider if you have any symptoms. Hygiene Avoid chemicals. Do not use vaginal sprays. Do not use scented toilet paper or tampons that are scented. Sprays and scents have chemicals that can irritate your vagina. Do not douche unless you are told to by your healthcare provider. Douching is rarely needed. And it upsets the normal balance in the vagina. Wash yourself well. Wash the outer vaginal area (vulva) every day with mild, unscented soap. Keep it as dry as possible. Wipe correctly. Make sure to wipe from front to back after a bowel movement. This helps keep from spreading bacteria from your anus to your vagina. Change your tampon often. During your period, make sure to change your tampon as often as directed on the package. This allows the normal flow of vaginal discharge and blood. Lifestyle Limit your number of sexual partners. The more partners you have, the greater your risk of infection. Using condoms helps reduce your risk. Get enough sleep. Sleep helps keep your body s immune system healthy. This helps you fight infection. Lose weight, if needed. Excess weight can reduce air circulation around your vagina. This can increase your risk of infection. Exercise regularly. Regular activity helps keep your body healthy. Take antibiotics only as directed. Antibiotics can change the normal chemical balance in the vagina. Clothing Don t sit in wet clothes. Yeast thrives when it s warm and damp. Don t wear tight pants. And don t wear tights, leggings, or hose without a cotton crotch. These types of clothing trap warmth and moisture. Wear cotton underwear. Cotton lets air circulate around the vagina. Symptoms of vaginitis Irritation, swelling, or itching of the genital area Vaginal discharge Bad vaginal odor Pain or burning during urination [phone] [employer]. [address] [place] [address], [place] [address]. All rights reserved. This information is not intended as a substitute for professional medical care. Always follow your healthcare professional's instructions. Genital Herpes Genital herpes is a common sexually transmitted infection (STI). It is caused by the herpes simplex virus (HSV). One out of 5 teens and adults carry the herpes virus. During an outbreak, it causes small blisters that break open, leaving small, painful sores in the genital area. Eventually, scabs form and the sores heal. In women, these show up most often on the skin just outside the vaginal opening. They can occur on the buttocks, anus, or cervix. In men, the sores are usually on the tip, sides, or base of the penis. They also occur on the scrotum, buttocks, or thighs. The first outbreak begins within 2 to 3 weeks after exposure to an infected sexual partner. It may last 1 to 3 weeks. It may cause headache, muscle ache, and fevers. The first outbreak is usually the worst. Because the virus remains in the body even after the sores heal, most people will have more outbreaks. The frequency of outbreaks is different for each person. Some people will never have another outbreak. Others will have several episodes a year. Later outbreaks are usually shorter, milder, and less painful. For many, the number of outbreaks tends to decrease over time. Various factors may trigger an outbreak. These include: Emotional stress Menstruation Presence of another illness (cold, flu, or fever from any cause) Overexertion and fatigue Weak immune system Home care It is very important that you do not have sexual relations until all the herpes sores have healed completely. Wash the affected area gently with mild soap and water. Wash your hands after touching the affected area. You may use zrky-kpm-albxfwq pain medicine unless another pain medicine was prescribed. If you have chronic liver or kidney disease or have ever had a stomach ulcer or gastrointestinal bleeding, talk with your healthcare provider before using these medicines. Also talk to your provider if you are taking medicine to prevent blood clots. Aspirin should never be given to anyone younger than 18 years of age who is ill with a viral infection or fever. It may cause severe liver or brain damage. Your healthcare provider may prescribe antiviral medicine during the first outbreak. This will help the sores heal faster. Antiviral medicine may also be prescribed so that you have it ready to take at the first sign of another outbreak. This will help the symptoms go away sooner. For people with frequent outbreaks, daily preventive therapy may be prescribed. This will help reduce the frequency of attacks. Daily preventive therapy may also reduce risk of spread of herpes to your sexual partner. Discuss the risks and benefits of daily therapy with your healthcare provider. If you are a woman who is now or may become in the future, let your healthcare provider know that you have had herpes. This may affect the way your baby is delivered. Preventing spread to others The virus is spread by sexual contact with someone who has the herpes virus. The risk of spread is highest when the sores are present. However, there is a chance of spreading the virus even when sores are not visible. Inform future sexual partners that you have herpes and that they may become infected. To reduce the risk of passing the virus to a partner who has never had herpes, avoid sexual relations at the first sign of an outbreak and until the sores are fully healed. Latex barriers, such as condoms, reduce the risk of spread between outbreaks if the infected site is covered, but they do not guarantee protection. Follow-up care Follow up with your healthcare provider, or as advised. People who have just learned that they have herpes may feel upset. Getting the facts about herpes can help you feel more in control. Follow up with your healthcare provider or the public health department for complete STI screening, including HIV testing. When to seek medical advice Call your healthcare provider right away if any of these occur: Inability to urinate due to pain Swelling or increasing redness in the genital area Discharge from the vagina or penis Increasing back or abdominal pain Rash or joint pain Call 911 Call 911 or get immediate medical care if any of these occur: Unusual drowsiness, weakness, or confusion Worsening headache or stiff neck [phone] [employer]. [address] [place] [address]. All rights reserved. This information is not intended as a substitute for professional medical care. Always follow your healthcare professional's instructions. Additional Information VACCINATE! IT SAVES LIVES! Members of the community who have not yet received the COVID-19 vaccine and would like to receive it can visit one of [facility] vaccine clinics. There are many vaccine clinic locations within the [facility]. For locations and available times, please visit [email or web address]. It is important to note that some COVID mobile vaccine clinics are held outdoors and may be canceled in rainy or stormy conditions. To learn more about pediatric vaccinations (ages 5-11), we invite you to visit the [facility] webpage. [email or web address] To learn more about the COVID-19 vaccine, we invite you to visit the [facility] website for a list of frequently asked questions. [email or web address] Patient Portal Access Instructions: Stay connected with your healthcare team and access your personal medical information anytime with the [facility] Patient Portal. If you would like a full copy of your medical records please contact the [facility] Medical Records Department Saturday through Saturday between 8a.m. and 4:30p.m. Please follow the directions below to access the portal: 1.Access the email account you provided upon registration to the hospital.2.Look for an invitation email from [facility].3.Open the email and access the invitation link: Accept Invitation to [facility]4.Fill in the required waters to create your account. Sign into [email or web address] with your username and password that you created in the above steps to stay up to date. You can then view a summary of results, a summary of your visits, and the ability to download your summaries to your computer or send the information securely to a physician. Remember that your healthcare information is confidential, so carefully consider who you will allow to register on the [facility] Patient Portal for access to your information. You can also access the [facility] Patient Portal on the [employer] elkin. Simply click on Health Records under Health Data and then click on the [facility] logo. HOW TO SAFELY DISPOSE OF PRESCRIPTION MEDICATIONS Please use one of the following methods to safely dispose of your unused medications. 1.Use a drug disposal kit: the drug disposal pouch allows you to safely discard your old and unused drugs. Ask your nurse to give you one when you are discharged.2.Visit a local take-back location: Many local pharmacies and police departments have programs that collect old and unwanted prescription drugs. Call your local pharmacy or go to http://Walkmore.[employer] Carlife Assist/6L2Ec3r to find one close to you.3.Make use of household items: Use cat litter or old coffee grounds to dispose medications if other options are not available. Mix your drugs with these household products, seal them in an airtight container and throw it into the garbage. Call [facility]: [phone] to be sure your drugs can be disposed of in this way. Some medicines may require a different approach.4.Never flush your medications down the toilet. IF YOU HAVE BEEN PRESCRIBED AN OPIOIDS FOR PAIN If you have been prescribed an opioid (such as hydrocodone, oxycodone or morphine), it is critical to understand the possible side effects and risks of opioid pain medications. Even when taken as directed, opioids can have several side effects including: Tolerance, meaning you might need to take more of a medication for the same pain relief. Nausea, vomiting and/or constipation. Sleepiness, dizziness, dry mouth, confusion, depression or itching. Physical dependence, meaning you have withdrawal symptoms when a medication is stopped ? this can develop within a few days. KNOW YOUR RESPONSIBILITIES It is important to know exactly how much and how often to take the opioid pain medications you are prescribed. Never take opioids in higher amounts or more often than prescribed. Do not combine opioids with alcohol or other drugs that cause drowsiness, such as benzodiazepines, also known as benzos, including diazepam and alprazolam, muscle relaxants or sleep aids. Never sell or share prescription opioids. This is illegal. Store opioids in a secure place and out of reach of others (including children, family, friends and visitors). The last page(s) of this document has been signed and retained as a CHART COPY Signatures Patient Education Materials Preventing Vaginitis Herpes Genitalis, Hsv: Type Ii Medication Leaflets My discharge plan and instructions have been reviewed and explained to me and I,GERTRUDE VIVAS understand my current condition and have read and understand these discharge instructions. I have received a written copy of the plan/instructions. If I have questions, I am aware that I should contact my doctor. 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 Mother said this started yesterday feeling very tired and coughing. differently symptoms than before. Was exposed to covid. HPI: Gertrude Vivas is a 31 year old female who presents to the office with complaint of cough, nonproductive, sinus symptoms and ear symptoms for the past day. Symptoms are staying the same. Associated symptoms includes cough fatigue. Denies body aches, fever, nausea, vomiting and diarrhea. Treatments tried include nothing so far. with no relief of symptoms. Sick contacts: unknown. History of asthma, frequent episodes of bronchitis, chronic bronchitis, bronchiectasis or COPD: No Smoker: No Seasonal/environmental allergies: No The ROS is otherwise negative. The patient's pmh, medications, allergies, and past visits are reviewed. PHYSICAL EXAM: BP 126/74 Pulse 87 Temp 36.5 C (97.7 F) Resp 20 Wt 90.5 kg (199 lb 9.6 oz) LMP 03/18/2022 SpO2 98% BMI 34.26 kg/m General appearance: alert, cooperative, pleasant, in no acute distress Head: Normocephalic Eyes: EOM's intact, conjunctiva pink and moist, no icterus, sclera white, non-injected Ears: Right ear: External ear/canal- Normal, TM - clear with good landmarks. Left ear: External ear/canal- Normal, TM - clear with good landmarks Oropharynx:moist without lesions, No erythema, exudates or tonsillar hypertrophy. Heart: Negative. RRR without obvious murmur, gallop, or rubs. No ectopy. Lungs: clear to auscultation, without rales or wheeze, good air exchange No past medical history on file. No past surgical history on file. ALLERGIES Influenza Virus Vaccines and Meclizine MEDICATIONS meloxicam (MOBIC) 15 mg tablet 15 mg. diazePAM (VALIUM) 5 mg tablet Take by mouth. valACYclovir (VALTREX) 500 mg tablet 500 mg. Mqajzvtakkkiqcc-Ldkbmeodq-AC (BROMFED DM) 2-30-10 mg/5 mL syrup Take 5-10 ml po q6h prn topiramate (TOPAMAX) 100 mg tablet Take 100 mg by mouth twice daily. Twice daily DULoxetine (CYMBALTA) 30 mg capsule Take by mouth. [employer]OVY AUTOIN[employer]OR 225 mg/1.5 mL auto-injector TAKE 1 PEN SUBCUTANEOUSLY EVERY 28 DAYS. rimegepant (NURTEC ODT) 75 mg disintegrating tablet Take 75 mg by mouth once daily as needed. hydrOXYzine HCl (ATARAX) 25 mg tablet Take by mouth. omeprazole (PRILOSEC) 40 mg capsule Take 40 mg by mouth daily before breakfast. ibuprofen (MOTRIN) 600 mg tablet Take 1 tablet by mouth every 6 hours as needed for pain. No family history on file. Social History Tobacco Use Smoking status: Current Some Day Smoker Smokeless tobacco: Never Used Substance Use Topics Alcohol use: Never Drug use: Never ASSESSMENT/PLAN: 1. Close exposure to COVID-19 virus - ICD9: V01.79, ICD10: Z20.822 - COVID WITH FLUA+B, ROUTINE Prescription instructions reviewed with patient as applicable. Potential red flag symptoms discussed with the patient. Reviewed appropriate action plan to take if red flag symptoms occur. Patient agreeable to treatment plan. Priit Rangel APRN.HOOKER INSPECTOR documented in this encounter [facility] 03-15-2022 Hospital Discharg e instructions Patient Education 03/15/2022 17:26:00 Near Syncope, Unknown Near-Fainting with Uncertain Cause Fainting (syncope) is a temporary loss of consciousness (passing out). This happens when blood flow to the brain is reduced. Near-fainting (near-syncope) is like fainting, but you do not fully pass out. Instead, you feel like you are going to pass out, but do not actually lose consciousness. Signs and symptoms The following are symptoms of near-fainting: Feeling lightheaded or like you are going to faint Weak pulse Nausea Sweating Blurred vision or feeling like your vision is fading Palpitations Chest pain Hard time breathing Feeling cool and clammy Causes This happens when your blood pressure suddenly drops, and not enough blood flows to your brain. Common minor causes include: Sudden emotional stress such as fear, pain, panic, or the sight of blood Straining or overexertion, such as straining while using the toilet, coughing, or sneezing Standing up too quickly, or standing up for too long a time More serious causes include: Very slow, fast, or irregular heart rate (arrhythmia) Dehydration Significant blood loss Medicines, or a recent change in medicines. Medicines that can cause fainting include blood pressure or heart medicines. Heart attack Heart valve problems Remember, even minor causes can become serious if you fall and injure yourself, or are driving. You may need more tests. It is very important that you follow up with your doctor as advised. Home care The following guidelines will help you care for yourself at home: Rest today. Resume your normal activities as soon as you are feeling back to normal. If you become lightheaded or dizzy, lie down right away or sit with your head between your knees. Drink plenty of fluids and don't skip meals. Because the exact cause of your near fainting spell is not known, another spell could occur without warning. To stay safe, do not drive a car or use dangerous equipment. Do not take a bath alone. Use a shower instead. Do not swim alone. You can resume these activities when your healthcare provider says that you are no longer in danger of having a near-fainting spell. Follow-up care Follow up with your healthcare provider, or as advised. Call 911 Call 911 if any of the following occur: Another near-fainting or full fainting spell occurs, and it is not explained by the common causes listed above Chest, arm, neck, jaw, back or abdominal pain Shortness of breath Weakness, tingling, or numbness in one side of the face, or in one arm or leg Slurred speech, confusion, trouble walking or seeing Seizure When to seek medical advice Call your healthcare provider right away if any of these occur: Changes in your medicines Occasional mild lightheadedness, especially when standing up too quickly or straining [id number] [employer]. [address] [place] [address]. All rights reserved. This information is not intended as a substitute for professional medical care. Always follow your healthcare professional's instructions. 03/15/2022 17:25:53 Heat Exhaustion Heat Exhaustion Heat exhaustion is a condition that develops during prolonged exposure to heat. It is more likely to occur during strenuous activity, such as exercise or manual labor. Symptoms include a fast heartbeat, excess sweating, extreme tiredness, muscle cramps, headache, and weakness. They may also include stomach cramps, nausea, and vomiting. The person may be lightheaded and dizzy, and may even faint. Treatment for heat exhaustion involves cooling the body down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 Reason Comments Establish Care Last summer in March went to ER . Right side of body was tingly and numb. Now gets in tingling and numbness in right arm off and on. Reason Comments Results Labs Reason Comments Change In Bowel Habits Occasionally vomi ts up blood. Blood in the stool twice a week. Specialty Diagnoses / Procedures Referred By Jeanine duarte Referred To Contact [facility] Diagnoses Gastroesophageal reflux disease, unspecified whether esophagitis present History of stomach ulcers Procedures CONSULT TO GASTROENTEROLOGY OFFICE/OUTPATIENT NEW HIGH MDM 60 MINUTES Nikolas Rose, ASSISTANT PROFESSOR OF BUSINESS.HOOKER INSPECTOR [address] [place] [address] [facility] GASTROENTEROLOGY [address] [place] [address] Referral ID Status Reason Start Date Expiration Date V isits Requested Visits Authorized [id number] Closed PCP Requested Referral 01/29/2024 01/28/2025 1 1 Reason Comments EMG Specialty Diagnoses / Procedures Referred By Jeanine duarte Referred To Contact [facility] Diagnoses Numbness and tingling in right hand Procedures EMG(NEURO/NI) NERVE CONDUCTION STUDIES 9-10 STUDIES Nikolas Rose, ASSISTANT PROFESSOR OF BUSINESS.HOOKER INSPECTOR [address] [place] [address] [facility] [place] [address] [place] [address] Referral ID Status Reason Start Date Expiration Date V isits Requested Visits Authorized [id number] Closed Auto-Generate d Referral 01/29/2024 01/28/2025 1 1 Reason Comments Results Reason Comments Lab Orders Reason Comments Flu Like Symptoms Nausea and vomiting, bodyaches, chills, PHELAN, cough, ST x1 day Reason Comments Refill Request Reason Comments Ankle Pain Left ankle pain sinc e August. Unknown cause. Thinks plantar fascitis. left elbow pain Slipped at ice yeste rday. Reason Comments New Specialty Diagnoses / Procedures Referred By Jeanine duarte Referred To Contact Podiatry / [facility] DEPART[facility] Diagnoses Plantar fasciitis, bilateral Foot pain, left Chronic pain of left ankle Procedures CONSULT TO PODIATRY OFFICE/OUTPATIENT NEW HIGH MDM 60 MINUTES Nikolas Rose, ASSISTANT PROFESSOR OF BUSINESS.HOOKER INSPECTOR [address] [place] [address] Phone: tel: fax: Sumeet [address] [place] [address] Phone: tel: fax: Referral ID Status Reason Start Date Expiration Date V isits Requested Visits Authorized [id number] Closed PCP Requested Referral 11/27/2024 11/27/2025 1 1 Reason Comments Established Patient Pain Ankle Pain Reason Onset Date Comments Results 03/14/2025 Reason Comments Back Pain Bent down and heard a crunch in back. Happed in week and half ago. Head Injury Hit head on screen o n work. Gave herself a mild concussion at work Weight Problem Requesting something to help loss weight Reason Comments Back Pain No better Care Teams (unrecognized sec tion and content) Human Resources Leader Relationship Specialty Start Date End Date Marva Roberts MD [address] [place] [address] PCP - General Internal Medicine 09/21/21 Human Resources Leader Relationship Specialty Start Date End Date Marva Roberts [address] [place] [address] PCP - General 04/24/21 Human Resources Leader Relationship Specialty Start Date End Date Marva Roberts [address] [place] [address] PCP - General 04/24/21 Human Resources Leader Relationship Specialty Start Date End Date Marva Roberts [address] [place] [address] PCP - General 04/24/21 Human Resources Leader Relationship Specialty Start Date End Date Marva Roberts MD [address] [place], [place] [phone] PCP - General Internal Medicine 09/21/21 Human Resources Leader Relationship Specialty Start Date End Date Marva Roberts PCP - General 04/24/21 Human Resources Leader Relationship Specialty Start Date End Date Marva Roberts MD [address] [place] [address] PCP - General Internal Medicine 09/21/21 Human Resources Leader Relationship Specialty Start Date End Date Marva Roberts PCP - General 04/24/21 Human Resources Leader Relationship Specialty Start Date End Date Marva Roberts MD [address] [place] [address] PCP - General Internal Medicine 09/21/21 Team Status: Active Member Role Status Dates Nikolas Rose UTILIZATION REVIEW COORDINATOR, UTILIZATION REVIEW COORDINATOR-C Primary Care Provider Active Team Status: Inactive Member Role Status Dates Nikolas Rose UTILIZATION REVIEW COORDINATOR, UTILIZATION REVIEW COORDINATOR-C Primary Care Provider Active Dr. Reese العلي MD Emergency Provider Active Human Resources Leader Relationship Specialty Start Date End Date Nikolas Rose APRN.HOOKER INSPECTOR [address] [place] [address] PCP - General Family Medicine 01/29/24 Human Resources Leader Relationship Specialty Start Date End Date Nikolas Rose APRN.HOOKER INSPECTOR [address] [place], [place] [id number] PCP - General Family Medicine 01/29/24 Human Resources Leader Relationship Specialty Start Date End Date Nikolas Rose APRN.HOOKER INSPECTOR [address] [place] [id number] PCP - General Family Medicine 01/29/24 Human Resources Leader Relationship Specialty Start Date End Date Marva Roberts PCP - General 04/24/21 Human Resources Leader Relationship Specialty Start Date End Date Nikolas Rose APRN.KRISTOPHER [address] [facility] [place] [address] PCP - General Family Medicine 01/29/24 Human Resources Leader Relationship Specialty Start Date End Date Nikolas Rose APRN.HOOKER INSPECTOR [address] [facility] [place] [address] PCP - General Family Medicine 01/29/24 Human Resources Leader Relationship Specialty Start Date End Date Marva Roberts [address] [place] [address] PCP - General 04/24/21 Human Resources Leader Relationship Specialty Start Date End Date Marva Roberts PCP - General 04/24/21 Human Resources Leader Relationship Specialty Start Date End Date Nikolas Rose APRN.KRISTOPHER [address] [facility] [place] [address] PCP - General Family Medicine 01/29/24 Human Resources Leader Relationship Specialty Start Date End Date Nikolas Rose APRN.HOOKER INSPECTOR [address] [facility] [place] [address] PCP - General Family Medicine 01/29/24 Human Resources Leader Relationship Specialty Start Date End Date Nikolas Rose APRN.KRISTOPHER [address] [facility] [place] [address] PCP - General Family Medicine 01/29/24 Human Resources Leader Relationship Specialty Start Date End Date Nikolas Rose APRN.KRISTOPHER [address] [place] [address] PCP - General Family Medicine 01/29/24 Human Resources Leader Relationship Specialty Start Date End Date Nikolas Rose ASSISTANT PROFESSOR OF BUSINESS.HOOKER INSPECTOR [address] [place] [address] PCP - General Family Medicine 01/29/24 Human Resources Leader Relationship Specialty Start Date End Date Nikolas Rose ASSISTANT PROFESSOR OF BUSINESS.HOOKER INSPECTOR [address] [place] [address] PCP - General Family Medicine 01/29/24 Human Resources Leader Relationship Specialty Start Date End Date Nikolas Rose, ASSISTANT PROFESSOR OF BUSINESS.HOOKER INSPECTOR [address] [place] [address] PCP - General Family Medicine 01/29/24 Human Resources Leader Relationship Specialty Start Date End Date Nikolas Rose ASSISTANT PROFESSOR OF BUSINESS.HOOKER INSPECTOR [address] [place] [address] PCP - General Family Medicine 01/29/24 Human Resources Leader Relationship Specialty Start Date End Date Nikolas Rose ASSISTANT PROFESSOR OF BUSINESS.HOOKER INSPECTOR [address] [place] [address] PCP - General Family Medicine 01/29/24 Human Resources Leader Relationship Specialty Start Date End Date Nikolas Rose ASSISTANT PROFESSOR OF BUSINESS.HOOKER INSPECTOR [address] [place] [address] PCP - General Family Medicine 01/29/24 Human Resources Leader Relationship Specialty Start Date End Date Nikolas Rose, ASSISTANT PROFESSOR OF BUSINESS.HOOKER INSPECTOR [address] [place] [address] PCP - General Family Medicine 01/29/24 Human Resources Leader Relationship Specialty Start Date End Date Nikolas Rose APRN.HOOKER INSPECTOR [address] [facility] [place] [id number] PCP - General Family Medicine 01/29/24 Human Resources Leader Relationship Specialty Start Date End Date Nikolas Rose APRN.HOOKER INSPECTOR [address] [place], [place] [id number] PCP - General Family Medicine 01/29/24 Human Resources Leader Relationship Specialty Start Date End Date Nikolas Rose APRN.HOOKER INSPECTOR [address] [place], [place] [phone] PCP - General Family Medicine 01/29/24 Care Team (unrecognized sect ion and content) Care Team Personnel Name: PHYSICIAN, NONE Position: Physician Member Role: Primary Care Physician Care Team Related Persons Name: ORTEGA MORRO L Address: [address] [address] Name: CRISTIN ORNELAS FOR RECORDS PERTAINING TO PATIENTS WHO ARE OR HAVE BEEN ENROLLED IN A CHEMICAL DEPENDENCY/SUBSTANCEABUSE PROGRAM, SOME INFORMATION MAY BE OMITTED. This clinical summary was aggregated from multiple sources. Caution should be exercised in using it in the provision of clinical care. This summary normalizes information from multiple sources, and as a consequence, information in this document may materially change the coding, format and clinical context of patient data. In addition, data may be omitted in some cases. CLINICAL DECISIONS SHOULD BE BASED ON THE PRIMARY CLINICAL RECORDS. [facility] provides no warranty or guarantee of the accuracy or completeness of information in this document.
[2025-08-23 20:17] VITALS: BP 110/70; PULSE 67; O2SAT 100
--- NOTE | 2025-08-23 20:18 | EX.ED.DYSGE1 ---
HPI History of Present Illness Chief Complaint: General Illness Narrative Narrative: Patient is a 35-year-old female presenting to the emergency department for multiple complaints including a headache, right ear pain, sore throat, myalgias, acid reflux substance abuse and has been clean for 5 years and shortness of breath. She states that she feels like she was drugged. Patient has a past medical history of chronic migraine, GERD, anxiety, depression. Patient lives at the long-term. She states that she went to nap this afternoon and when she woke up at [facility] she felt like this. She states that her right ear has been hurting for a few days and has had a sore throat. But all of her other symptoms started when she woke up from her nap. Patient states that she woke up with a headache. She states it feels like a headache of when you are sick. She states that it does not feel as bad as prior migraines. She denies any recent head trauma or falls. Denies any numbness or weakness in her extremities. Denies any fever, vision changes, slurred speech. Denies any neck pain. [facility] Medical History Left knee pain Chemical burn of right lower extremity except ankle and foot Dermatitis Stomach ulcer Chronic urinary tract infection Migraines GERD (gastroesophageal reflux disease) Tendonitis Heel spur Genital herpes Anxiety and depression History of drug abuse Back problem Arthritis Anemia Seasonal allergies Home Medications ?Medication ?Instructions ?Recorded ?Last Taken ?Type valacyclovir 500 mg tablet 500 mg PO DAILY 08/05/20 08/22/25 History (Valtrex) omeprazole 40 mg capsule,delayed 40 mg PO DAILY #90 caps 01/10/21 08/22/25 Rx release albuterol sulfate 90 mcg/actuation 1 - 2 puff inhalation Q4H PRN PRN 12/20/21 Unknown Rx aerosol inhaler Wheezing #8.5 grams baclofen 10 mg tablet 10 mg PO TID 08/23/25 08/22/25 History clindamycin phosphate 1 % topical 1 applic topical BID 08/23/25 Unknown History gel cyanocobalamin (vitamin B-12) 250 250 mcg PO DAILY 08/23/25 08/22/25 History mcg tablet (Vitamin B-12) diclofenac sodium 50 mg 50 mg PO TID PRN 08/23/25 08/22/25 History tablet,delayed release ergocalciferol (vitamin D2) 1,250 1,250 mcg PO QWEEK 08/23/25 Unknown History mcg (50,000 unit) capsule hydroxyzine pamoate 25 mg capsule 25 mg PO TID PRN anxiety 08/23/25 08/22/25 History (Vistaril) pyridoxine (vitamin B6) 100 mg 100 mg PO DAILY 08/23/25 Unknown History tablet Allergy/AdvReac Type Severity Reaction Status Date / Time meclizine Allergy Severe unknown Verified 08/23/25 18:21 Influenza Virus Vaccines AdvReac Intermediate SWOLLEN ARM Verified 08/23/25 18:21 Family History Other Anxiety and depression Breast cancer Heart disease Hyperlipemia Hypertension Myocardial infarction Osteoporosis Seizures Thyroid disorder Surgical History History of loop electrical excision procedure (LEEP) History of tubal ligation Social History Smoking Status: Current every day smoker tobacco type: cigarettes and e-cigarettes Electronic Cigarette Use: with nicotine alcohol intake: current alcohol intake frequency: holidays/special occasions only Alcohol type: beer substance use type: former substance user Date of last use: 10/29/2019, heroin and methamphetamine what type of physical activity do you participate in: walking ROS ROS ED ROS Narrative See HPI EXAM Physical Exam Narrative Exam Narrative: Vital signs: Reviewed General: Alert and oriented x 3. No acute distress. Well-appearing, nontoxic HEENT: Head is normocephalic and atraumatic, sinuses nontender, pupils equal round and reactive. Nares are patent. Oropharynx and throat exams normal. Moist mucous membranes. External ears are normal bilaterally. TMs are clear bilaterally. Neck: Supple without lymphadenopathy nontender. No nuchal rigidity. Normal active range of motion of neck. Cardiovascular: Regular rate and rhythm, no murmurs. No rubs or gallops. Normal S1 and S2 Respiratory: Clear to auscultation bilaterally. No wheezes, rales, rhonchi Abdominal: Soft and nontender. Normal bowel sounds. No guarding or rebound. Nonsurgical abdomen Extremities: No lower extremity edema. No tenderness. No bruising. Normal range of motion. Normal sensation. Skin: No rash or redness. Neurological: Cranial nerves II through XII are grossly intact. Normal strength and sensation. Normal cerebellar function The rest of the physical exam is unremarkable Const Vital Signs: 08/23/25 18:18 08/23/25 18:23 08/23/25 20:17 Temperature 98.1 F Temperature Source Oral Pulse Rate 76 67 Respiratory Rate 16 Respiratory Effort Normal Non-Labored Respiratory Pattern Normal Blood Pressure 116/67 110/70 Blood Pressure Mean 83 83 Pulse Ox 99 100 Oxygen Delivery Method Room Air Room Air 08/23/25 20:35 Temperature 98.1 F Temperature Source Pulse Rate 67 Respiratory Rate 16 Respiratory Effort Respiratory Pattern Blood Pressure 110/70 Blood Pressure Mean 83 Pulse Ox 100 Oxygen Delivery Method MDM MDM MDM Narrative Medical decision making narrative: Patient is a 35-year-old female presenting to the emergency department for feeling unwell. Patient was seen and examined. Vitals are stable. Patient resting in bed comfortably in no acute distress. Nontoxic-appearing. Differential includes but is not limited to: Electrolyte imbalance, anemia, alcohol intoxication, drug intoxication, pneumonia, URI, less likely ACS or PE Fluid bolus started. Patient was offered medications for her headache and myalgias but she declines. I offered her both Tylenol, Motrin and Toradol and she declines all of them stating that she feels like she is not in a state to say yes or no. EKG shows normal sinus rhythm at a rate of 63 with no ischemic changes. No dysrhythmia. CBC with no leukocytosis and a normal hemoglobin. BMP with no significant abnormalities. Troponin within normal limits. I do not think the patient's symptoms are consistent with ACS and with a negative EKG and 1 troponin I do not think it is necessary to obtain a second troponin. Urinalysis with no evidence of urinary tract infection. Urine negative. Urine drug screen negative. Alcohol level negative. PERC negative. Chest x-ray reviewed by myself, no opacities, pneumothorax, wide mediastinum. Radiology with no acute radiographic abnormalities. Patient was reevaluated and updated on the negative workup. She states she is feeling much better after fluids, states that all of her symptoms are resolved including her headache. She is still declining any Tylenol or Motrin. I educated her on supportive care at home. Explained that it is likely a virus that is causing her symptoms. Patient discharged from the Emergency Department. I do not feel that the patient's evaluation reveals any acute reason for admission at this time. I instructed them to either follow-up with their primary care physician or promptly return to the Emergency Department for reevaluation should symptoms worsen or new symptoms develop. I explained what symptoms would indicate the need to return to the emergency department. Shared decision making was used. The patient voiced understanding of the treatment plan and is agreeable with it. Clinical impression URI Dyspnea History & Record Review Discussion w/independent historian: Patient Lab Data Attestation: I reviewed the patient's lab results. Labs: Laboratory Results - last 24 hr 08/23/25 08/23/25 18:40 19:15 WBC 9.0 RBC 4.29 Hgb 12.9 Hct 38.2 MCV 89.0 MCH 30.1 MCHC 33.8 RDW Std Deviation 40.6 RDW Coeff of Rico 12.5 Plt Count 255 MPV 10.9 Immature Gran % (Auto) 0.300 Neut % (Auto) 54.0 Lymph % (Auto) 37.4 Shelby % (Auto) 6.4 Eos % (Auto) 1.2 Baso % (Auto) 0.7 Absolute Neuts (auto) 4.8 Absolute Lymphs (auto) 3.35 Nucleated RBC % 0 Sodium 137 Potassium 3.5 Chloride 104 Carbon Dioxide 21.2 Anion Gap 12 BUN 9 Creatinine 0.87 Estim Creat Clear Calc 100.92 Est GFR (MDRD) Non-Af 90 BUN/Creatinine Ratio 9.9 L Glucose 86 Calcium 8.6 Troponin T High Sens < 6 Serum , Qual NEGATIVE Urine Color Yellow Urine Clarity Clear Urine pH 6.0 Ur Specific [place] 1.010 Urine Protein Negative Urine Glucose (UA) Normal Urine Ketones Negative Urine Occult Blood Negative Urine Nitrite Negative Urine Bilirubin Negative Urine Urobilinogen Normal Ur Leukocyte Esterase Negative Urine RBC 0 SEEN Urine WBC 0 SEEN Ur Squamous Epith Cells 0-5 SEEN Urine Bacteria 1+ Urine Mucus 0 SEEN Urine Opiates Screen NEGATIVE U Buprenorphine Qual NEGATIVE Ur Oxycodone Screen NEGATIVE Urine Methadone Screen NEGATIVE Urine Fentanyl Screen NEGATIVE Ur Barbiturates Screen NEGATIVE Ur Phencyclidine Scrn NEGATIVE Ur Amphetamines Screen NEGATIVE U Benzodiazepines Scrn NEGATIVE Urine Cocaine Screen NEGATIVE U Cannabinoids Screen NEGATIVE Ethyl Alcohol < 10.1 Radiography Chest X-Ray - ED: 2 View, Read by ED Physician, Normal, No Acute Disease and No Infiltrates Diagnostic Testing: Clinical Impression(s) from Imaging Studies Chest X-Ray 08/23/25 19:26 IMPRESSION: No acute process in the chest Reading Location: [facility] Discharge Plan Triage Chief Complaint: General Illness ED Provider: Natalia Hood Dx/Rx/DC Orders Prescriptions: No Action valacyclovir [Valtrex] 500 mg tablet 500 mg PO DAILY omeprazole 40 mg capsule,delayed release(DR/EC) 40 mg PO DAILY Qty: 90 2RF Rx Instructions: Take 30 minutes before breakfast albuterol sulfate 90 mcg/actuation HFA aerosol inhaler 1 - 2 puff INHALATION Q4H PRN PRN (Reason: Wheezing) Qty: 8.5 3RF baclofen 10 mg tablet 10 mg PO TID diclofenac sodium 50 mg tablet,delayed release (DR/EC) 50 mg PO TID PRN pyridoxine (vitamin B6) 100 mg tablet 100 mg PO DAILY clindamycin phosphate 1 % gel 1 applic topical BID ergocalciferol (vitamin D2) 1,250 mcg (50,000 unit) capsule 1,250 mcg PO QWEEK hydroxyzine pamoate [Vistaril] 25 mg capsule 25 mg PO TID PRN (Reason: anxiety) cyanocobalamin (vitamin B-12) [Vitamin B-12] 250 mcg tablet 250 mcg PO DAILY Primary Care Provider: Kayla Arenas NP Referrals: Kayla Arenas NP, [facility] [Primary Care Provider, Medical] Print Language: Urdu
[2025-08-23 20:35] VITALS: BP 110/70; PULSE 67; RESP 16; TEMP 36.7; O2SAT 100
== END 2025-08-23 21:50 | disposition home or self-care (01) ==
PROVIDERS: Emergency Provider Student in an Organized Health Care Education/Training Program; PCP Nurse Practitioner Family; Visit Provider Student in an Organized Health Care Education/Training Program
DX: J06.9 Acute upper respiratory infection, unspecified (principal); F17.210 Nicotine dependence, cigarettes, uncomplicated; F41.9 Anxiety disorder, unspecified; K21.9 Gastro-esophageal reflux disease without esophagitis; Z79.899 Other long term (current) drug therapy; B00.9 Herpesviral infection, unspecified; Z98.51 Tubal ligation status; F17.290 Nicotine dependence, other tobacco product, uncomplicated; R06.00 Dyspnea, unspecified
CPT/HCPCS: 71046; 80048; 80307; 81001; 82077; 84484; 84703; 85025; 87631; 93005; 96360; 99285; A4216